=== PATIENT | male | born 1960 | race Hispanic/Latino ===

== ENCOUNTER 2018-05-10 06:26 | Day surgery (SDC) | payer OTHER ==
[2018-05-09 16:53] LABS: Absolute Monocytes 0.5 K/uL (0.1-1.3); Absolute Neutrophil 2.7 K/uL (1.8-8.0); Basophils % 0.6 % (0-1.3); Hematocrit 40.2 % (39.6-49.0); Lymphocytes % 23.3 % (15.3-44.8); MCH 31.3 pg (27.0-35.0); MCV 93.5 fL (80-100); MPV 8.3 fL (7.6-11.3); Monocytes % 10.3 % (3.3-12.3)
[2018-05-09 17:10] LABS: Potassium 4.3 mmol/L (3.5-5.1)
--- OUTSIDE RECORDS SUMMARY | 2018-05-10 06:30 | XMS REPORT ---
:1960 [facility] [address] [place] [address] [place] [address] Care Team Providers Name Role Phone CHRISTEN ALONZO Unavailable Unavailable Problems This patient has no known problems. Allergies, Adverse Reactions, Alerts This patient has no known allergies or adverse reactions. Medications This patient has no known medications. Results Test Description Test Time Test Comments Text Results Atomic Results Result Comments BLOOD CULTURE 2017-09-02 00:00:00 Test Item Value Reference Range Comments CULTURE (ProHatch) (test iesm=3758) No growth in 5 days CARDIOLIPIN ANTIBODIES, IGG AND [id number] 16:01:00 Test Item Value Reference Range Comments ANTICARDIOLIPIN IGG ANTIBODY (ProHatch) (test < GPL wbpp=990) ANTICARDIOLIPIN IGM ANTIBODY (ProHatch) (test 0.6 MPL zirc=840) Anticardiolipin IgG Result Interpretation:NEG: <20 GPL; U/mlPOS: >/=20 GPL; U/mlAnticardiolipin IgM Result Interpretation:NEG: <20 MPL; U/mlPOS: >/=20 MPL; U/mlPROTHROMBIN GENE [id number] 16:58:00 Test Item Value Reference Range Comments PROTHROMBIN/FACTOR II Negative for the [id number] (ProHatch) (test zrty=7776) (Prothrombin/Factor II) mutation. [id number](TOM Mortensen M.D. ([facility] ) (test vopp=5521) signature) This test is a genotyping assay which evaluates the DNA sequence at position 83875 of the prothrombin (Factor II) gene. A region of the prothrombin (Factor II) gene is amplified by polymerase chain reaction followed by fluorescent monitoring of a specific pair of hybridized probes. Since genetic variation and other factors can affect the accuracy of direct mutation testing, these results should be interpreted in light of clinical and familial data.This test was developed and its performance characteristics determined by the [facility] Pathology Department, Section of Molecular Pathology. It has not been cleared or approved by the U.S. Food and Drug Administration (FDA), since FDA approval is not required for clinical use of the test. Validation was done as required by the Clinical Laboratory Improvement Amendments of 1988.FACTOR 5 LEIDEN PCR (THROMBOTIC RISK)2017-08-31 16:54:00 Test Item Value Reference Range Comments FACTOR V LEIDEN (ProHatch) Negative for the R506Q (Factor (test lyrk=716) V Leiden) mutation [id number] ([facility]) Palmer Mortensen M.D. ([facility] (test dogf=6590) signature) This test is a genotyping assay which evaluates the DNA sequence corresponding to Codon 506 of the Factor V Gene. A region of the Factor V Gene is amplified by polymerase chain reaction followed by fluorescent monitoring of a specific pair of hybridized probes. Since genetic variation and other factors can affect the accuracy of direct mutation testing, these results should be interpreted in light ofclinical and familial data.This test was developed and its performance characteristics determined bythe [facility], Section of Molecular Pathology. It has not been cleared or approved by the U.S. Food and Drug Administration (FDA), since FDA approval is not required for clinical use of the test. Validation was done as required by the Clinical Laboratory Improvement Amendments of 1988.ANTITHROMBIN [id number] 11 :09:00 Test Item Value Reference Range Comments ANTITHROMBIN III ACTIVITY (ProHatch) (test lpjn=766) 76.0 % 80.0-120.0 PROTEIN C [id number] 11:09:00 Test Item Value Reference Range Comments PROTEIN C ACTIVITY (ProHatch) (test ojfe=890) 106.0 % 70.0-130.0 MR, MRA CHEST, [id number] 13:27:00FINAL REPORT MRA /MRV of the chest and great veins, 30 August 2017 INDICATION: This is a 57 years old male, with a diagnosis of left internal jugular DVT presents for assessment. This study is performed in attempt to avoid invasive procedure. TECHNIQUE: Due to patient's body habitus, three Maria Fernanda scanner has to be used. Richard INGENIA 3 Maria Fernanda MRI scanner. Gradient echo images were performed for planning purposes. A non-ECG gated, gadolinium enhanced 3-D MRA/MRV was performed in the coronal orientation. Multiplanar reformation was performed using an independent workstation interactively by the dictating physician. The aim of this study is for the assessment of the venous structures. The amount of contrast used and method of administration can be found in the scanned EPIC document. FINDINGS: This study is not optimised in the assessment of extravascular structures. In theright thyroid lobe, a small high signal intensity is identified, however, it is at most 1 cm in size, i.e. less than 1.5 cm, and therefore not clinically significant. The chest wall and mediastinum appears unremarkable. The central pulmonary artery is normal in caliber. Limited imaging of the lungs reveals no gross abnormality though MR is not optimised in the assessment of pulmonary parenchymal lungdisease. Note, small left pleural effusion is identified. The thoracic aorta is normal in course andcalibre. No ectasia or aneurysmal dilation or acute aortic pathology is identified. Arch vessel branching pattern is normal and the visualised arch vessels are widely patent proximally. The left commoncarotid artery arises from the innominate artery, a common variant. The proximal abdominal aorta is normal in course and calibre. At least single left and right renal arteries are seen that are widely patent. At least single left and right renal veins are seen draining normally into the IVC. The origin of the celiac axis and SMA are widely patent proximally. The visualized mesenteric veins also patent. Pulmonary vein morphology is normal with pairs of pulmonary veins identified. Regarding the great veins, the SVC is patent with no venous thrombosis identified. The right subclavian vein, the visualized distal right internal jugular vein, for length of 8 cm, is seen to be patent with no venous thrombosis identified. The right brachiocephalic vein is unremarkable and the right-sided SVC is also unremarkable. The IVC is identified with no interruption identified and no venous thrombus is seen. However, there is essentially near occlusive/occlusive thrombus identified in the visualized 8 cm of the distal left internal jugular vein. Similar finding is also identified in the left brachiocephalic vein, with near occlusive to occlusive thrombus present. Majority of the left subclavian vein is unremarkable though there could be small amount of thrombus seen at the juncture of the left subclavian vein/left brachiocephalic vein. CONCLUSIONS: 1. In this dedicated venous study , the distal 8 cm of the left internal jugular vein and the entire left brachiocephalic vein has near occlusive to occlusive thrombus identified. There is also likely small amount of non-occlusive thrombus identified in the verydistal left subclavian vein. Remainder of the left subclavian vein is widely patent with no venous thrombosis identified. The visualised right IJ, and the right subclavian vein, and the right brachiocephalic vein and the entire SVC is patent with no venous thrombosis identified. The visualised IVC is also unremarkable with no interruption identified. 2. Unremarkable thoracic aorta. No ectasia or aneurysmal dilation is seen. 3. Other findings as described above. This study is not optimised in the assessment of extravascular structures. 4. The preliminary findings were discussed with Dr. Ray, after this study has been completed. Signed: Babak Pedersen MDRort Verified Date/Time: 08/30/2017 13:27:08 Reading Location: [place] [id number] Cardiology MRI Electronically signed by: BABAK PEDERSEN M.D. on 2016 01:27 [id number] 07:31:00 Test Item Value Reference Range Comments PARTIAL THROMBOPLASTIN TIME (BEAKER) (test 60.9 seconds 22.5-36.0 oaxy=476) LIPID [id number] 07:17:00 Test Item Value Reference Range Comments TRIGLYCERIDES (BEAKER) (test mhqf=379) 124 mg/dL CHOLESTEROL (BEAKER) (test ovyp=233) 152 mg/dL HDL CHOLESTEROL (BEAKER) (test mjwx=423) 34 mg/dL LDL CHOLESTEROL CALCULATED (BEAKER) (test 93 mg/dL xjhe=049) Triglyceride Reference Range: Low Risk <150 Borderline 150- 199 High Risk 200-499 Very High Risk >=500Cholesterol Reference Range: Low Risk <200 Borderline 200-239 High Risk > 240HDL Cholesterol Reference Range: Low Risk >=60 High Risk <40LDL Cholesterol Reference Range: Optimal <100 Near Optimal 100-129 Borderline 130-159 High 160-189 Very High >=190BASIC METABOLIC [id number] 07:17:00 Test Item Value Reference Range Comments SODIUM (BEAKER) (test 138 meq/L 136-145 ynpp=455) POTASSIUM (BEAKER) (test 4.1 meq/L 3.5-5.1 ttrj=027) CHLORIDE (BEAKER) (test 104 meq/L 98-107 tbwh=248) CO2 (BEAKER) (test 24 meq/L 22-29 kqkk=206) BLOOD UREA NITROGEN 11 mg/dL 7-21 (BEAKER) (test cyzj=986) CREATININE (BEAKER) (test 0.85 mg/dL 0.57-1.25 oair=448) GLUCOSE RANDOM (BEAKER) 99 mg/dL 70-105 (test dkwo=558) CALCIUM (BEAKER) (test 9.7 mg/dL 8.4-10.2 hrki=007) EGFR (BEAKER) (test mL/min/1.73 sq m INSUFFICIENT CLINICAL DATA chok=6698) TO CALCULATE ESTIMATED GFR. PROTHROMBIN [id number] 06:53:00 Test Item Value Reference Range Comments PROTIME (BEAKER) (test fnlc=704) 15.5 seconds 11.7-14.7 INR (BEAKER) (test nirh=774) 1.2 <=5.9 RECOMMENDED COUMADIN/WARFARIN INR THERAPY RANGESSTANDARD DOSE: 2.0 - 3.0 Includes: PROPHYLAXIS forvenous thrombosis, systemic embolization; TREATMENT for venous thrombosis and/or pulmonary embolus.HIGH RISK: Target INR is 2.5-3.5 for patients with mechanical heart valves.INFLUENZA A H1N1 [id number] 21:35: 00 Test Item Value Reference Range Comments INFLUENZA A RNA (BEAKER) (test Not Detected Not Detected, Inconclusive ztbu=9563) NOVEL H1N1 RNA (BEAKER) (test Not Detected Not Detected, Inconclusive spyc=7573) These assays were performed by real-time RT-PCR (infertility nurse-PCR) utilizing fluorogenic hydrolysis probe technology for the detection of human Influenza A viruses and the differential detection of novel H1N1 Influenza virus in respiratory specimens. The test is composed of (1) an RNA extraction from patient specimen, and (2) infertility nurse-PCR amplification and detection with human Influenza A and novel F9B9-djvaeplx primers and probes. A well-conserved region of the Influenza A matrix gene is targeted in one set of reactions to identify both seasonal Influenza A and novel H1N1 Influenza virus in the specimen. In addition, a specific region of the hemagglutinin gene is targeted to differentiate the novel H1N1 virusfrom the seasonal human influenza. An internal control is used to confirm PCR amplification. Genetic variation and other factors can affect the accuracy of nucleic acid testing; therefore, the resultsshould be interpreted in light of clinical data. This test was developed and its performance characteristics determined by the [facility] Pathology Department, Section of Molecular Pathology. It has not been cleared or approved by the U.S. Food and Drug Administration (FDA). SinceFDA approval is not required for clinical use of the test, validation was done as required by The Clinical Laboratory Amendments of 1988.MR, MRA, BRAIN, [id number] 20: 40:00Please perform MRV of headFINAL REPORT CLINICAL HISTORY: Evaluate for thrombus in subclavian vein TECHNIQUE: 2-D and 3-D time- of-flight and postcontrast MR angiogram of the arch, great vessels, and neck was provided with maximal intensity projection 3-D reconstructions of the arterial vasculature. MR venogram imaging of the head and neck was also performed. COMPARISON: None FINDINGS: There is no evidence for a [place] proximal branch vessel occlusion. There is no evidence for aneurysm. There are bilateral posterior communicating arteries. There is no evidence for hemodynamically significant stenosis in the bilateral internal carotid arteries by NASCET criteria. There is antegrade flow in the vertebral arteries in the neck. The major intradural venous sinuses are patent. The bilateral internal jugular veins are not visualized on either side. There appear to be prominent venous collaterals along the posterior cervical regions. IMPRESSION: The major intradural venous sinuses are patent. However, the bilateral internal jugular veins appear occluded with venous collaterals. Clinical correlation is requested with conventional catheter angiographic confirmation if clinically warranted. Please see the separately reported chest examination for evaluation of the subclavian veins. MRA imaging is unremarkable. Signed: Kandice Daniels MDReport Verified Date/Time: 08/29/2017 20:40:50 Reading Location: [facility] Radiology Reading Room MR, MRA, NECK, [id number] 20:40:00Please perform MRV of neck and upper chest to include subclavian veinFINAL REPORT CLINICAL HISTORY: Evaluate for thrombus in subclavian vein TECHNIQUE: 2-D and 3-D lwgn-rl-hjwnnp and postcontrast MR angiogram of the arch, great vessels, and neck was provided with maximal intensity projection 3-D reconstructions of the arterial vasculature. MR venogram imaging of the head and neck was also performed. COMPARISON: None FINDINGS: There is no evidence for a [place] proximal branch vessel occlusion. There is no evidence for aneurysm. There are bilateral posterior communicating arteries. There is no evidence for hemodynamically significant stenosis in the bilateral internal carotid arteries by NASCET criteria. There is antegrade flow in the vertebral arteries in the neck. The major intradural venous sinuses are patent. The bilateral internal jugular veins are not visualized on either side. There appear to be prominent venous collaterals along the posterior cervical regions. IMPRESSION: The major intradural venous sinuses are patent. However, the bilateral internal jugular veins appear occluded with venous collaterals. Clinical correlation is requested with conventional catheter angiographic confirmation if clinically warranted. Please see the separately reported chest examination for evaluation of the subclavian veins. MRA imaging is unremarkable. Signed: Kandice Daniels MDReport Verified Date/Time: 08/29/2017 20: 40:50 Reading Location: [facility] Radiology Reading Room [facility] METABOLIC [id number] 04:27:00 Test Item Value Reference Range Comments SODIUM (BEAKER) (test 141 meq/L 136-145 pjqb=214) POTASSIUM (BEAKER) (test 4.0 meq/L 3.5-5.1 tmqm=337) CHLORIDE (BEAKER) (test 107 meq/L 98-107 fdlf=177) CO2 (BEAKER) (test 27 meq/L 22-29 oect=092) BLOOD UREA NITROGEN 11 mg/dL 7-21 (BEAKER) (test arhf=918) CREATININE (BEAKER) (test 0.79 mg/dL 0.57-1.25 nldw=842) GLUCOSE RANDOM (BEAKER) 129 mg/dL 70-105 (test arya=252) CALCIUM (BEAKER) (test 9.2 mg/dL 8.4-10.2 ibqa=203) EGFR (BEAKER) (test mL/min/1.73 sq m INSUFFICIENT CLINICAL DATA oepj=6780) TO CALCULATE ESTIMATED GFR. [id number] 04:21:00 Test Item Value Reference Range Comments PARTIAL THROMBOPLASTIN TIME (BEAKER) (test 78.0 seconds 22.5-36.0 lyrp=055) LIPID [id number] 04:19:00 Test Item Value Reference Range Comments TRIGLYCERIDES (BEAKER) (test vbkq=321) 125 mg/dL CHOLESTEROL (BEAKER) (test kyfe=999) 138 mg/dL HDL CHOLESTEROL (BEAKER) (test yqqm=540) 31 mg/dL LDL CHOLESTEROL CALCULATED (BEAKER) (test 82 mg/dL wbot=013) Triglyceride Reference Range: Low Risk <150 Borderline 150- 199 High Risk 200-499 Very High Risk >=500Cholesterol Reference Range: Low Risk <200 Borderline 200-239 High Risk > 240HDL Cholesterol Reference Range: Low Risk >=60 High Risk <40LDL Cholesterol Reference Range: Optimal <100 Near Optimal 100-129 Borderline 130-159 High 160-189 Very High >=190PROTHROMBIN [id number] 04:15:00 Test Item Value Reference Range Comments PROTIME (BEAKER) (test iqju=451) 15.0 seconds 11.7-14.7 INR (BEAKER) (test qlnm=984) 1.2 <=5.9 RECOMMENDED COUMADIN/WARFARIN INR THERAPY RANGESSTANDARD DOSE: 2.0 - 3.0 Includes: PROPHYLAXIS forvenous thrombosis, systemic embolization; TREATMENT for venous thrombosis and/or pulmonary embolus.HIGH RISK: Target INR is 2.5-3.5 for patients with mechanical heart valves.RAD, CHEST, 2 [id number] 00:54: 00Reason for exam:->fever, coughFINAL REPORT EXAMINATION: 2 VIEW CHEST INDICATION: FEVER, COUGH IMPRESSION: No comparison studies are available. There is subtle blunting of the costophrenic sulci suggesting small pleural effusions and/or pleural thickening. Thin curvilinear opacities are again noted in both lungs, most conspicuous at the lung bases. Morphology and distribution favor atelectasis. However, an underlying pneumonia cannot be excluded. The heart size is normal. Mediastinal contours are sharp. Patient is status post placement of a left subclavian Port-A-Cath with the tip projecting over the mediastinum near the midline at the level of the aortic arch. Chest CT could be performed for further characterization. Signed: Fabio Pendleton MDReport Verified Date/Time: 08/29/2017 00:54:23 Reading Location: [address] Reading Room [id number] 21:10:00 Test Item Value Reference Range Comments PARTIAL THROMBOPLASTIN TIME (BEAKER) (test 79.6 seconds 22.5-36.0 moek=813) RAPID INFLUENZA A&B [id number] 13:38:00 Test Item Value Reference Range Comments RAPID INFLUENZA A AG (BEAKER) (test Negative Negative, Inconclusive pmex=5785) RAPID INFLUENZA B AG (BEAKER) (test Negative Negative, Inconclusive type=4368) [id number] 13:14:00 Test Item Value Reference Range Comments PARTIAL THROMBOPLASTIN TIME (BEAKER) (test 47.5 seconds 22.5-36.0 ofet=162) MR, BRAIN, WITHOUT [id number] 08:06:00FINAL REPORT MRI brain Comparison: No priors Reason for exam: Dural venous sinus thrombosis suspected Discussion: Sagittal and coronal T1, axial FLAIR, T2, gradient echo T2 star, diffusion sequences and ADC map images of the brain are provided. There are no intracranial hematomas, mass effect, hydrocephalus, shift , or extra-axial collections. There are no areas of abnormaldiffusion restriction. Minimal white matter T2 and FLAIR hyperintensity likely reflects chronic microvascular ischemic change. Flow-voids are seen in the basilar and internal carotid arteries as well as in the large posterior dural sinuses. There is apparent loss of flow void in the partially imaged left IJ, in this patient with history of IJ thrombosis. The pineal, sella, and craniocervical junctionregions are within normal limits. The visualized orbital contents, skullbase and surrounding soft tissues are unremarkable. The visualized paranasal sinuses and mastoid air cells are unremarkable. Impressions:No acute intracranial process. Known left IJ thrombosis. If there is persistent clinical concern for venous thrombosis, consider further evaluation with MRV. Signed: Eduardo Rivera VerifiedDate/Time: 08/28/2017 08:06:08 Reading Location: [facility] C013V Neuro Reading Room Electronically signed by: EDUARDO RIVERA M.D. on 08:06 AMCALCIUM, [id number] 06:58:00 Test Item Value Reference Range Comments CALCIUM IONIZED (BEAKER) (test fupz=259) 1.16 mmol/L 1.12-1.27 PH, BLOOD (BEAKER) (test wjuo=7721) 7.35 [id number] 06:26:00 Test Item Value Reference Range Comments MAGNESIUM (BEAKER) (test pjuv=777) 2.2 mg/dL 1.6-2.6 LIPID [id number] 06:26:00 Test Item Value Reference Range Comments TRIGLYCERIDES (BEAKER) (test mkac=115) 128 mg/dL CHOLESTEROL (BEAKER) (test hddx=649) 141 mg/dL HDL CHOLESTEROL (BEAKER) (test kwsd=761) 32 mg/dL LDL CHOLESTEROL CALCULATED (BEAKER) (test 83 mg/dL vqvr=093) Triglyceride Reference Range: Low Risk <150 Borderline 150- 199 High Risk 200-499 Very High Risk >=500Cholesterol Reference Range: Low Risk <200 Borderline 200-239 High Risk > 240HDL Cholesterol Reference Range: Low Risk >=60 High Risk <40LDL Cholesterol Reference Range: Optimal <100 Near Optimal 100-129 Borderline 130-159 High 160-189 Very High >=190HEPATIC FUNCTION [id number] 06:26:00 Test Item Value Reference Range Comments TOTAL PROTEIN (BEAKER) (test ulvp=433) 7.1 gm/dL 6.0-8.3 ALBUMIN (BEAKER) (test etya=6370) 3.6 g/dL 3.5-5.0 BILIRUBIN TOTAL (BEAKER) (test vnar=863) 0.6 mg/dL 0.2-1.2 BILIRUBIN DIRECT (BEAKER) (test tmwh=522) 0.3 mg/dL 0.1-0.5 ALKALINE PHOSPHATASE (BEAKER) (test zoiw=156) 94 U/L 40-150 AST (SGOT) (BEAKER) (test bkgi=084) 21 U/L 5-34 ALT (SGPT) (BEAKER) (test dhho=820) 32 U/L 6-55 BASIC METABOLIC [id number] 06:26:00 Test Item Value Reference Range Comments SODIUM (BEAKER) (test 140 meq/L 136-145 lmox=090) POTASSIUM (BEAKER) (test 4.0 meq/L 3.5-5.1 gklm=459) CHLORIDE (BEAKER) (test 106 meq/L 98-107 zndk=753) CO2 (BEAKER) (test 24 meq/L 22-29 aubo=000) BLOOD UREA NITROGEN 14 mg/dL 7-21 (BEAKER) (test ovit=012) CREATININE (BEAKER) (test 0.84 mg/dL 0.57-1.25 uibw=872) GLUCOSE RANDOM (BEAKER) 112 mg/dL 70-105 (test mtxc=789) CALCIUM (BEAKER) (test 9.2 mg/dL 8.4-10.2 glbe=737) EGFR (BEAKER) (test mL/min/1.73 sq m INSUFFICIENT CLINICAL DATA ttwn=3625) TO CALCULATE ESTIMATED GFR. [id number] 06:11:00 Test Item Value Reference Range Comments PARTIAL THROMBOPLASTIN TIME (BEAKER) (test 45.8 seconds 22.5-36.0 ugxi=754) PROTHROMBIN [id number] 06:01:00 Test Item Value Reference Range Comments PROTIME (BEAKER) (test wwkm=458) 13.3 seconds 11.7-14.7 INR (BEAKER) (test wlas=463) 1.0 <=5.9 RECOMMENDED COUMADIN/WARFARIN INR THERAPY RANGESSTANDARD DOSE: 2.0 - 3.0 Includes: PROPHYLAXIS forvenous thrombosis, systemic embolization; TREATMENT for venous thrombosis and/or pulmonary embolus.HIGH RISK: Target INR is 2.5-3.5 for patients with mechanical heart valves.CBC W/PLT COUNT & AUTO [id number] 05:48:00 Test Item Value Reference Range Comments WHITE BLOOD CELL COUNT (BEAKER) (test orwc=195) 5.3 K/ L 3.5-10.5 RED BLOOD CELL COUNT (BEAKER) (test fwzv=589) 4.03 M/ L 4.63-6.08 HEMOGLOBIN (BEAKER) (test ledm=328) 12.5 GM/DL 13.7-17.5 HEMATOCRIT (BEAKER) (test hdle=387) 38.4 % 40.1-51.0 MEAN CORPUSCULAR VOLUME (BEAKER) (test qlxv=954) 95.3 fL 79.0-92.2 MEAN CORPUSCULAR HEMOGLOBIN (BEAKER) (test 31.0 pg 25.7-32.2 ruvu=556) MEAN CORPUSCULAR HEMOGLOBIN CONC (BEAKER) (test 32.6 GM/DL 32.3-36.5 jlqw=922) RED CELL DISTRIBUTION WIDTH (BEAKER) (test 15.5 % 11.6-14.4 bain=438) PLATELET COUNT (BEAKER) (test bzqn=681) 261 K/CU MM 150-450 MEAN PLATELET VOLUME (BEAKER) (test qunn=217) 9.5 fL 9.4-12.4 NUCLEATED RED BLOOD CELLS (BEAKER) (test 0 /100 WBC 0-0 wsat=676) NEUTROPHILS RELATIVE PERCENT (BEAKER) (test 74 % hslc=307) LYMPHOCYTES RELATIVE PERCENT (BEAKER) (test 10 % qufe=284) MONOCYTES RELATIVE PERCENT (BEAKER) (test 13 % tqbs=384) EOSINOPHILS RELATIVE PERCENT (BEAKER) (test 2 % fkkd=491) BASOPHILS RELATIVE PERCENT (BEAKER) (test 0 % eaqp=949) NEUTROPHILS ABSOLUTE COUNT (BEAKER) (test 3.93 K/ L 1.78-5.38 ugdd=666) LYMPHOCYTES ABSOLUTE COUNT (BEAKER) (test 0.52 K/ L 1.32-3.57 jiiq=634) MONOCYTES ABSOLUTE COUNT (BEAKER) (test 0.67 K/ L 0.30-0.82 erlj=694) EOSINOPHILS ABSOLUTE COUNT (BEAKER) (test 0.12 K/ L 0.04-0.54 kzgg=012) BASOPHILS ABSOLUTE COUNT (BEAKER) (test 0.02 K/ L 0.01-0.08 ysiv=837) IMMATURE GRANULOCYTES-RELATIVE PERCENT (BEAKER) 0 % 0-1 (test rqju=6210) [id number] 20:58:00 Test Item Value Reference Range Comments PARTIAL THROMBOPLASTIN TIME (BEAKER) (test 36.8 seconds 22.5-36.0 fxlk=807) Prior to initiating heparinCBC (HEMOGRAM ONLY)2017-08-27 20:37:00 Test Item Value Reference Range Comments WHITE BLOOD CELL COUNT (BEAKER) (test grzt=332) 6.0 K/ L 3.5-10.5 RED BLOOD CELL COUNT (BEAKER) (test gwig=407) 4.29 M/ L 4.63-6.08 HEMOGLOBIN (BEAKER) (test itgu=550) 13.4 GM/DL 13.7-17.5 HEMATOCRIT (BEAKER) (test vmid=630) 40.7 % 40.1-51.0 MEAN CORPUSCULAR VOLUME (BEAKER) (test clvu=723) 94.9 fL 79.0-92.2 MEAN CORPUSCULAR HEMOGLOBIN (BEAKER) (test 31.2 pg 25.7-32.2 izah=142) MEAN CORPUSCULAR HEMOGLOBIN CONC (BEAKER) (test 32.9 GM/DL 32.3-36.5 uzmv=220) RED CELL DISTRIBUTION WIDTH (BEAKER) (test 15.5 % 11.6-14.4 ewmm=341) PLATELET COUNT (BEAKER) (test adww=984) 255 K/CU MM 150-450 MEAN PLATELET VOLUME (BEAKER) (test zend=382) 9.6 fL 9.4-12.4 NUCLEATED RED BLOOD CELLS (BEAKER) (test 0 /100 WBC 0-0 jrph=922)
--- OUTSIDE RECORDS SUMMARY | 2018-05-10 06:30 | XMS REPORT | Clinical Summary ---
:1960 Author Organization [facility] Address [address] [place] [address] Phone Care Team Providers Name Role Phone Unavailable Primary Care Provider Unavailable Allergies No Known Allergies Current Medications Prescription Sig. Disp. Refills Start Date End Date Status enoxaparin Inject 0.8 mLs (120 60 Syringe 2 08/30/2017 Active (LOVENOX) 120 mg total) mg/0.8 mL Syrg subcutaneously every 12 (twelve) hours. lisinopril Take 1 tablet (20 mg 30 tablet 0 08/31/2017 08/31/2018 Active (PRINIVIL,ZESTRIL) total) by mouth 20 MG tablet daily. Active Problems Problem Noted Date Headache 08/28/2017 DVT (deep vein thrombosis) in ([facility]) 08/27/2017 DVT (deep venous thrombosis) ([facility]) 08/27/2017 Encounters Date Type Specialty Care Team Description 08/27/2017 - [facility], Acute deep vein 08/30/2017 Encounter MD Pao thrombosis (DVT) of Enoc Fraser non-extremity Stephanie Mercedes MD vein;Essential Jeanette Ray hypertension;Vincent Ngyuen MD 3 obesity with serious comorbidity and body mass index (BMI) of 45.0 to 49.9 in adult, unspecified obesity type (HCC);Malignant neoplasm of colon, unspecified part of colon (HCC) 08/27/2017 Telephone Critical Care Corey Xiong Mxyv-ry-Nwbi Call Medicine MD Isauro after 05/09/2017 Family History Medical History Relation Name Comments Alcohol abuse Father Diabetes Mother Relation Name Status Comments Father Mother Social History Tobacco Use Types Packs/Day Years Used Date Former Smoker Quit: 08/28/2007 Smokeless Tobacco: Never Used Tobacco Cessation: Counseling Given: Yes Alcohol Use Drinks/Week oz/Week Comments No Sex Assigned at Date Recorded Not on file Last Filed Vital Signs Vital Sign Reading Time Taken Blood Pressure 136/70 08/30/2017 3:55 PM CDT Pulse 68 08/30/2017 3:55 PM CDT Temperature 37.2 C (98.9 F) 08/30/2017 3:55 PM CDT Respiratory Rate 18 08/30/2017 3:55 PM CDT Oxygen Saturation 98% 08/30/2017 3:55 PM CDT Inhaled Oxygen Concentration - - Weight 113.1 kg (249 lb 6.4 oz) 08/30/2017 8:05 AM CDT Height - - Body Mass Index - - Plan of Treatment Not on file Results RHYTHM STRIP - SCAN (08/31/2017 11:50 AM)Prothrombin Gene Mutation (08/30/2017 3:34 PM) Component Value Ref Range Prothrombin/Factor II Negative for the [id number] (Prothrombin/Factor II) mutation. Pathologist: Palmer Mortensen M.D. (electonic signature) Specimen Performing Laboratory Blood [facility] [address] This test is a genotyping assay which evaluates the DNA sequence at position [address]0340 of the prothrombin (Factor II) gene. A region of the prothrombin (Factor II) gene is amplified by polymerase chain reaction followed by fluorescent monitoring of a specific pair of hybridized probes. Since genetic variation and other factors can affect the accuracy of direct mutation testing, these results should be interpreted in light of clinical and familial data. This test was developed and its performance characteristics determined by the [facility] Pathology Department, Section of Molecular Pathology. It has not been cleared or approved by the U.S. Food and Drug Administration (FDA), since FDA approval is not required for clinical use of the test. Validation was done as required by the Clinical Laboratory Improvement Amendments of 1988. Beta-2 glycoprotein antibodies (08/30/2017 3:34 PM) Component Value Ref Range B2 Glcoprotein Ab Profile Refer to individual B2-Glycoprotein IgG, IgM and IgA results. Specimen Performing Laboratory Blood [facility] [address] [address] Protein S activity (08/30/2017 3:34 PM) Component Value Ref Range Protein S Functional 105 70 - 150 % normal Comment: Decreased levels of Protein S activity may be found in patients with hereditary deficiency, warfarin therapy, vitamin k deficiency, liver disease , DIC, or recent thrombosis as well as after surgery. In addition, it may be physiologic in . An elevated Protein S activity is not clinically significant. Only deficiencies are associated with an increased thrombotic risk. Specimen Performing Laboratory Blood [facility] [address] [place] [address] Narrative Performing Lab [facility] [address] [place] [address] Mia Meza MD Protein C activity (08/30/2017 3:34 PM) Component Value Ref Range Protein C Activity 106.0 70.0 - 130.0 % Specimen [place] [address] Cardiolipin Antibodies, IgG and IgM (08/30/2017 3:34 PM) Component Value Ref Range Anticardiolipin IgG <1.6 GPL Anticardiolipin IgM 0.6 MPL Specimen Performing Laboratory Blood [address] [address] Narrative Anticardiolipin IgG Result Interpretation: NEG:<20 GPL;U/ml POS:>/=20 GPL;U/ml Anticardiolipin IgM Result Interpretation: NEG:<20 MPL;U/ml POS:>/=20 MPL;U/ml Factor 5 Leiden PCR (thrombotic risk) (08/30/2017 3:34 PM) Component Value Ref Range Factor V Leiden Negative for the R506Q (Factor V Leiden) mutation Pathologist: Palmer Mortensen M.D. (electonic signature) Specimen Performing Laboratory [address] [address] Narrative This test is a genotyping assay which [...] interpreted in light of clinical and familial data. This test was developed and its performance characteristics determined by the [facility] Pathology Department, Section of Molecular Pathology. It has not been cleared or approved by the U.S. Food and Drug Administration (FDA) , since FDA approval is not required for clinical use of the test. Validation was done as required by the Clinical Laboratory Improvement Amendments of 1988. Antithrombin III (08/30/2017 3:34 PM) Component Value Ref Range Antithrombin III 76.0 (L) 80.0 - 120.0 % Specimen Performing Laboratory Blood [facility] [address] [address] MRA chest without & with IV contrast (08/30/2017 9:11 AM) Specimen Performing Laboratory [facility] Narrative FINAL REPORT MRA/MRV of the chest and great veins, 30 [...] in the assessment of extravascular structures. In the right thyroid lobe, a small high signal intensity is identified, however, it is at most 1 cm in size, i.e. less than 1.5 cm, and therefore not clinically significant. The chest wall and mediastinum appears unremarkable. The central pulmonary artery is normal in caliber. Limited imaging of the lungs reveals no gross abnormality though MR is not optimised in the assessment of pulmonary parenchymal lung disease. Note, small left pleural effusion is identified. The thoracic aorta is normal in course and calibre. No ectasia or aneurysmal dilation or acute aortic pathology is identified. Arch vessel branching pattern is normal and the visualised arch vessels are widely patent proximally. The left common carotid artery arises from the innominate artery, a [...] the left subclavian vein/left brachiocephalic vein. CONCLUSIONS: 1.In this dedicated venous study, the distal 8 cm of the left internal jugular vein and the entire left brachiocephalic vein has near occlusive to occlusive thrombus identified. There is also likely small amount of non-occlusive thrombus identified in the very distal left subclavian vein. Remainder of the left subclavian vein is widely patent with no venous thrombosis identified. The visualised right IJ, and the right subclavian vein, and the right brachiocephalic vein and the entire SVC is patent with no venous thrombosis identified. The visualised IVC is also unremarkable with no interruption identified. 2.Unremarkable thoracic aorta. No ectasia or aneurysmal dilation is seen. 3.Other findings as described above. This study is not optimised in the assessment of extravascular structures. 4.The preliminary findings were discussed with Dr. Ray, after this study has been completed. Signed: Babak Crowell MD Report Verified Date/Time:08/30/2017 13:27:08 Reading Location: [place] [address] Cardiology MRI Procedure Note Interface, External Ris In - 08/30/2017 1:29 PM CDT FINAL REPORT MRA/MRV of the chest and great veins, 31st July 2017 INDICATION: This is a 57 years old male, with a diagnosis of left internal jugular DVT presents for assessment. This study is performed in attempt to avoid invasive procedure. TECHNIQUE: Due to patient's body habitus, three Maria Fernanda scanner has to be used. Richard TraffioIA 3 Maria Fernanda MRI scanner. Gradient echo [...] in the assessment of extravascular structures. In the right thyroid lobe, a small high signal intensity is identified, however, it is at most 1 cm in size, i.e. less than 1.5 cm, and therefore not clinically significant. The chest wall and mediastinum appears unremarkable. The central pulmonary artery is normal in caliber. Limited imaging of the lungs reveals no gross abnormality though MR is not optimised in the assessment of pulmonary parenchymal lung disease. Note, small left pleural effusion is identified. The thoracic aorta is normal in course and calibre. No ectasia or aneurysmal dilation or acute aortic pathology is identified. Arch vessel branching pattern is normal and the visualised arch vessels are widely patent proximally. The left common carotid artery arises from the innominate artery, a [...] vein. CONCLUSIONS: 1. In this dedicated venous study, the distal 8 cm of the left internal jugular vein and the entire left brachiocephalic vein has near occlusive to occlusive thrombus identified. There is also likely small amount of non-occlusive thrombus identified in the very distal left subclavian vein. Remainder of the left [...] this study has been completed. Signed: Babak Crowell MD Report Verified Date/Time: 08/30/2017 13:27:08 Reading Location: [place] [address] Cardiology MRI aPTT (08/30/2017 6:22 AM)Only the most recent of6 resultswithin the time period is included. Component Value Ref Range PTT 60.9 (H) 22.5 - 36.0 seconds Specimen Performing Laboratory Blood [address] [address] Prothrombin time/INR (08/30/2017 6:22 AM)Only the most recent of3 resultswithin the time period is included. Component Value Ref Range Protime 15.5 (H) 11.7 - 14.7 seconds INR 1.2 <=5.9 Specimen Performing Laboratory Blood [address] [address] Narrative RECOMMENDED COUMADIN/WARFARIN INR THERAPY RANGES STANDARD DOSE: 2.0 - 3.0 Includes: PROPHYLAXIS for venous thrombosis, systemic embolization; TREATMENT for venous thrombosis and/or pulmonary embolus. HIGH RISK: Target INR is 2.5-3.5 for patients with mechanical heart valves. Lipid panel (08/30/2017 6:22 AM)Only the most recent of3 resultswithin the time period is included. Component Value Ref Range Triglycerides 124 mg/dL Cholesterol 152 mg/dL HDL 34 mg/dL LDL Calculated 93 mg/dL Specimen Performing Laboratory Blood [address] [address] Narrative Triglyceride Reference Range: Low Risk <150 [id number] High Risk 200-499 Very High Risk>=500 Cholesterol Reference Range: Low Risk <200 [id number] High Risk>240 HDL Cholesterol Reference Range: Low Risk >=60 High Risk <40 LDL Cholesterol Reference Range: Optimal<100 Near Jlobqeh955-190 Hrqeoemvkj209-570 Wmqk294-576 Very High >=190 Basic metabolic panel (08/30/2017 6:22 AM)Only the most recent of3 resultswithin the time period is included. Component Value Ref Range Sodium 138 136 - 145 meq/L Potassium 4.1 3.5 - 5.1 meq/L Chloride 104 98 - 107 meq/L CO2 24 22 - 29 meq/L BUN 11 7 - 21 mg/dL Creatinine 0.85 0.57 - 1.25 mg/dL Glucose 99 70 - 105 mg/dL Calcium 9.7 8.4 - 10.2 mg/dL EGFR Comment: INSUFFICIENT CLINICAL DATA TO CALCULATE mL/min/1.73 sq m ESTIMATED GFR. Specimen Performing Laboratory Blood [address] [address] MRA neck without & with IV contrast (08/29/2017 7:03 PM) Specimen Performing Laboratory [facility] Narrative FINAL REPORT CLINICAL HISTORY: Evaluate for thrombus in subclavian vein TECHNIQUE:2-D and 3-D [id number] and postcontrast MR angiogram of the arch, great vessels, and neck was provided with maximal intensity projection 3-D reconstructions of the arterial vasculature. MR venogram imaging of the head and neck was also performed. COMPARISON: None FINDINGS: There is no evidence for a [place] proximal branch vessel occlusion. There [...] veins. MRA imaging is unremarkable. Signed: Kandice Jacobo MD Report Verified Date/Time:08/29/2017 20:40:50 Reading Location: [facility] Reading Room Procedure Note Interface, External Ris In - 08/29/2017 8:43 PM CDT FINAL REPORT CLINICAL HISTORY: Evaluate for thrombus in subclavian vein TECHNIQUE: 2-D and 3-D [id number] and postcontrast MR angiogram of the arch, great vessels, and neck was provided with maximal intensity projection 3-D reconstructions of the arterial vasculature. MR venogram imaging of the head and neck was also performed. COMPARISON: None FINDINGS: There is no evidence for a [place] proximal branch vessel occlusion. There [...] veins. MRA imaging is unremarkable. Signed: Kandice Jacobo MD Report Verified Date/Time: 08/29/2017 20:40:50 Reading Location: [facility] Radiology Reading Room head with and without contrast (08/29/2017 7:03 PM) Specimen Performing Laboratory [facility] Narrative FINAL REPORT CLINICAL HISTORY: Evaluate for thrombus in subclavian vein TECHNIQUE:2-D and 3-D [id number] and postcontrast MR angiogram of the arch, great vessels, and neck was provided with maximal intensity projection 3-D reconstructions of the arterial vasculature. MR venogram imaging of the head and neck was also performed. COMPARISON: None FINDINGS: There is no evidence for a [place] proximal branch vessel occlusion. There [...] veins. MRA imaging is unremarkable. Signed: Kandice Jacobo MD Report Verified Date/Time:08/29/2017 20:40:50 Reading Location: [facility] Radiology Reading Room Procedure Note Interface, External Ris In - 08/29/2017 8:43 PM CDT FINAL REPORT CLINICAL HISTORY: Evaluate for thrombus in subclavian vein TECHNIQUE: 2-D and 3-D [id number] and postcontrast MR angiogram of the arch, great vessels, and neck was provided with maximal intensity projection 3-D reconstructions of the arterial vasculature. MR venogram imaging of the head and neck was also performed. COMPARISON: None FINDINGS: There is no evidence for a [place] proximal branch vessel occlusion. There [...] veins. MRA imaging is unremarkable. Signed: Kandice Jacobo MD Report Verified Date/Time: 08/29/2017 20:40:50 Reading Location: [facility] Radiology Reading Room CARDIOGRAM REPORT - SCAN (08/29/2017 1:21 PM)2D Echo W/Doppler(CW/PW/Color ) (08/29/2017 10:08 AM) Component Value Ref Range Ejection Fraction Specimen Performing Laboratory [facility] ECHO HEARTLAB MKCKESSON CPACS Narrative Transthoracic Echocardiography Report (TTE) Demographics Patient NamePRIYANKA HENDERSON Date of Study08/29/2017 ANTONI Gender Male Visit [id number] Race Unknown Number [id number] Number Date of 1960 Referring Physician Age 57 year(s) SonographerBrian Macrina [facility] Spinal Surgeon Jazlyn ContrerasInterpreting Augie Perdomo, Physician Procedure Type of Study TTE procedure:2DECHO W/CONTRAST & DOPPLER (Routine) Indications:Evaluation of suspected pulmonary hypertension. Clinical History Cancer Hypertension HGB 12.5 HCT 38.4 % Contrast Medium: Definity. Amount - 2 ml Height: 68 inches Weight: 117.48 kg (259 lbs) BSA: 2.28 m^2 BMI: 39.38 kg/m^2 HR: 70 bpm BP: 150/81 mmHg Summary LV endocardium is well visualized with IV contrast. The left ventricle is chamber size (by vol index) is normal (male - LVED vol - 34-74ml/m2). Mild concentric LV hypertrophy. All of the LV segments are normal. Estimated LVEF by qualitative assessment is normal (55-60%) . Grade 1 diastolic dysfunction (impaired relaxation and low-normal LA pressure). The right ventricular chamber size and systolic function are within normal limits. Unable to estimate peak systolic PA pressure; inadequate TR velocity signal. No significant pericardial effusion is visualized. Previous Study No prior studies available for comparison. Signature Findings Rhythm/BPSinus tachycardia during the exam. Left Ventricle LV endocardium is well visualized with IV contrast. The left ventricle is chamber size (by vol index) is normal (male - LVED vol - 34-74ml/m2). Mild concentric LV hypertrophy. All of the LV segments are normal. Estimated LVEF by qualitative assessment is normal (55-60%) . Grade 1 diastolic dysfunction (impaired relaxation and low-normal LA pressure). Left AtriumLA size is normal (16-34 ml/m2) . Right VentricleThe right ventricular chamber size and systolic function are within normal limits. Right Atrium RA size is normal. Atrial SeptumThe interatrial septum is not well visualized. Aortic Valve Normal AoV structure and function. Mitral Valve Mild MV leaflet thickening. Tricuspid ValveTV structure is normal. A trace of tricuspid regurgitation. Unable to estimate peak systolic PA pressure; inadequate TR velocity signal. Pulmonic Valve Normal PV structure and function. AortaAortic root size (SInus of Valsalva diameter) is normal . PericardiumNo significant pericardial effusion is visualized. IVC/SVC/PA/PV/PleuralThe estimated RA pressure by IVC dynamics 5-10mmHg . Chambers/Structures Left Atrium LA Dimension: 3.97 cmLA Area: 26.18 cm^2 LA Volume: 71.9 ml LA Vol. Index: 32 ml/m^2 Left Ventricle LVIDd: 4.17 cm LV Septum Diastolic: 1.29 cm LV PW Diastolic: 1.28 cm LVEDV BP Hendrickson's:74.8 ml LVESV BP Hendrickson's:31.06 ml LVEF BP Hendrickson's: 58 % LVOT Diameter: 2.21 cm Right Atrium RA Vol. (Sngl Plane): 29.83 ml Aorta Ao Annulus: 2.2 cmAscending Aorta : 3 cm Ao Root S of Nori.: 3.3 cm Shunts QS:88.42 ml Doppler/Quantitative Measurements Mitral Valve MV Peak E-Wave: 0.74 m/sMV Peak A-Wave: 0.73 m/s E/ A Ratio: 1.02 Peak Gradient: 2.21 mmHg Deceleration Time: 243.8 msec Tissue Doppler E' Lateral Velocity: 0.09 m/s E/E': 8.2 LVOT Peak Velocity: 1.29 m/s Peak Gradient: 6.65 mmHg Mean Velocity: 0.79 m/s Mean Gradient: 3 mmHg LVOT Diameter: 2.21 cmLVOT VTI: 23.05 cm LVOT Area: 3.84 cm^2LVOT SV:88.37 ml LVOT CO: 6.19 l/min LVOT CI: 2.71 l/min/m^2 Procedure Note Interface, External Ris In - 08/29/2017 12:57 PM CDT Transthoracic Echocardiography Report (TTE) Demographics Patient Name PRIYANKA HENDERSON Date of Study 08/29/2017 ANTOIN Gender Male Visit Number [id number] Race Unknown Room Number [id number] Number Date of 1960 Referring Physician Age 57 year(s) Environmental Quality Analyst Akilah cShrader RDCS Spinal Surgeon Jazlyn Johnson Interpreting Augie Perdomo Physician Procedure Type of Study TTE procedure:2DECHO W/CONTRAST & DOPPLER (Routine) Indications:Evaluation of suspected pulmonary hypertension. Clinical History Cancer Hypertension HGB 12.5 HCT 38.4 % Contrast Medium: Definity. Amount - 2 ml Height: 68 inches Weight: 117.48 kg (259 lbs) BSA: 2.28 m^2 BMI: 39.38 kg/m^2 HR: 70 bpm BP: 150/81 mmHg Summary LV endocardium is well visualized with IV contrast. The left ventricle is chamber size (by vol index) is normal (male - LVED vol - 34-74ml/m2). Mild concentric LV hypertrophy. All of the LV segments are normal. Estimated LVEF by qualitative assessment is normal (55-60%) . Grade 1 diastolic dysfunction (impaired relaxation and low-normal LA pressure). The right ventricular chamber size and systolic function are within normal limits. Unable to estimate peak systolic PA pressure; inadequate TR velocity signal. No significant pericardial effusion is visualized. Previous Study No prior studies available for comparison. Signature Findings Rhythm/BP Sinus tachycardia during the exam. Left Ventricle LV endocardium is well visualized with IV contrast. The left ventricle is chamber size (by vol index) is normal (male - LVED vol - 34-74ml/m2). Mild concentric LV hypertrophy. All of the LV segments are normal. Estimated LVEF by qualitative assessment is normal (55-60%) . Grade 1 diastolic dysfunction (impaired relaxation and low-normal LA pressure). Left Atrium LA size is normal (16-34 ml/m2) . Right Ventricle The right ventricular chamber size and systolic function are within normal limits. Right Atrium RA size is normal. Atrial Septum The interatrial septum is not well visualized. Aortic Valve Normal AoV structure and function. Mitral Valve Mild MV leaflet thickening. Tricuspid Valve TV structure is normal. A trace of tricuspid regurgitation. Unable to estimate peak systolic PA pressure; inadequate TR velocity signal. Pulmonic Valve Normal PV structure and function. Aorta Aortic root size (SInus of Valsalva diameter) is normal . Pericardium No significant pericardial effusion is visualized. IVC/SVC/PA/PV/Pleural The estimated RA pressure by IVC dynamics 5-10mmHg . Chambers/Structures Left Atrium LA Dimension: 3.97 cm LA Area: 26.18 cm^2 LA Volume: 71.9 ml LA Vol. Index: 32 ml/m^2 Left Ventricle LVIDd: 4.17 cm LV Septum Diastolic: 1.29 cm LV PW Diastolic: 1.28 cm LVEDV BP Hendrickson's:74.8 ml LVESV BP Hendrickson's:31.06 ml LVEF BP Hendrickosn's: 58 % LVOT Diameter: 2.21 cm Right Atrium RA Vol. (Sngl Plane): 29.83 ml Aorta Ao Annulus: 2.2 cm Ascending Aorta: 3 cm Ao Root S of Nori.: 3.3 cm Shunts QS:88.42 ml Doppler/Quantitative Measurements Mitral Valve MV Peak E-Wave: 0.74 m/s MV Peak A-Wave: 0.73 m/s E/A Ratio: 1.02 Peak Gradient: 2.21 mmHg Deceleration Time: 243.8 msec Tissue Doppler E' Lateral Velocity: 0.09 m/s E/E': 8.2 LVOT Peak Velocity: 1.29 m/s Peak Gradient: 6.65 mmHg Mean Velocity: 0.79 m/s Mean Gradient: 3 mmHg LVOT Diameter: 2.21 cm LVOT VTI: 23.05 cm LVOT Area: 3.84 cm^2 LVOT SV:88.37 ml LVOT CO: 6.19 l/min LVOT CI: 2.71 l/min/m^2 XR chest 2 views (08/28/2017 8:57 PM) Specimen Performing Laboratory [facility] Narrative FINAL REPORT EXAMINATION: 2 VIEW CHEST INDICATION: FEVER, [...] could be performed for further characterization. Signed: Akilah Pendleton MD Report Verified Date/Time:08/29/2017 00:54:23 Reading Location: [address] Reading Room Procedure Note Interface, External Ris In - 08/29/2017 12:56 AM CDT FINAL REPORT EXAMINATION: 2 VIEW CHEST INDICATION: FEVER, [...] could be performed for further characterization. Signed: Akilah Pendleton MD Report Verified Date/Time: 08/29/2017 00:54:23 Reading Location: [address] Reading Room Influenza A H1N1 PCR (08/28/2017 12:05 PM) Component Value Ref Range Influenza A RNA Not Detected Not Detected, Inconclusive Novel H1N1 RNA Not Detected Not Detected, Inconclusive Specimen Performing Laboratory Nasal - Nasopharyngeal Swab [address] These assays were performed by real-time RT-PCR (orthopedic radiologic technologist-PCR) utilizing fluorogenic hydrolysis probe technology for the detection of human Influenza A viruses and the differential detection of novel H1N1 Influenza virus in respiratory specimens. The test is composed of (1) an RNA extraction from patient specimen, and (2) orthopedic radiologic technologist- PCR amplification and detection with human Influenza A and novel [id number] primers and probes. A well-conserved region of the Influenza A matrix gene is targeted in one set of reactions to identify both seasonal Influenza A and novel H1N1 Influenza virus in the specimen.In addition, a specific region of the hemagglutinin gene is targeted to differentiate the novel H1N1 virus from the seasonal human influenza. An internal control is used to confirm PCR amplification.Genetic variation and other factors can affect the accuracy of nucleic acid testing; therefore, the results should be interpreted in light of clinical data. This test was developed and its performance characteristics determined by the [facility] Pathology Department, Section of Molecular Pathology.It has not been cleared or approved by the U.S. Food and Drug Administration (FDA).Since FDA approval is not required for clinical use of the test, validation was done as required by The Clinical Laboratory Amendments of 1988. Rapid Influenza A&B Screen (08/28/2017 12:05 PM) Component Value Ref Range Rapid Influenza A Antigen Negative Negative, Inconclusive Rapid influenza B Antigen Negative Negative, Inconclusive Specimen Performing Laboratory Nasal - Nasopharyngeal Swab [address] [address] Calcium, Ionized (08/28/2017 5:20 AM) Component Value Ref Range Calcium, Ion 1.16 1.12 - 1.27 mmol/L pH, Blood 7.35 Specimen Performing Laboratory Blood - Arm, [address] [address] CBC with platelet count + automated diff (08/28/2017 5:20 AM) Component Value Ref Range WBC 5.3 3.5 - 10.5 K/L RBC 4.03 (L) 4.63 - 6.08 M/L Hemoglobin 12.5 (L) 13.7 - 17.5 GM/DL Hematocrit 38.4 (L) 40.1 - 51.0 % MCV 95.3 (H) 79.0 - 92.2 fL MCH 31.0 25.7 - 32.2 pg MCHC 32.6 32.3 - 36.5 GM/DL RDW 15.5 (H) 11.6 - 14.4 % Platelets 261 150 - 450 K/CU MM MPV 9.5 9.4 - 12.4 fL nRBC 0 0 - 0 /100 WBC % Neutros 74 % % Lymphs 10 % % Monos 13 % % Eos 2 % % Baso 0 % # Neutros 3.93 1.78 - 5.38 K/L # Lymphs 0.52 (L) 1.32 - 3.57 K/L # Monos 0.67 0.30 - 0.82 K/L # Eos 0.12 0.04 - 0.54 K/L # Baso 0.02 0.01 - 0.08 K/L Immature Granulocytes-Relative 0 0 - 1 % Specimen Performing Laboratory Blood - Arm, [address] [address] CBC with platelet count + automated diff (08/28/2017 5:20 AM) Specimen Performing Laboratory Blood Narrative The following orders were created for panel order CBC with platelet count + automated diff. Procedure Abnormality Status --------- ------ CBC with platelet count ...[[id number]]AbnormalFinal result Please view results for these tests on the individual orders. Magnesium (08/28/2017 5:20 AM) Component Value Ref Range Magnesium 2.2 1.6 - 2.6 mg/dL Specimen Performing Laboratory Blood - Arm, [address] [address] Hepatic function panel (08/28/2017 5:20 AM) Component Value Ref Range Protein, Total 7.1 6.0 - 8.3 gm/dL Albumin 3.6 3.5 - 5.0 g/dL Total Bilirubin 0.6 0.2 - 1.2 mg/dL Bilirubin, Direct 0.3 0.1 - 0.5 mg/dL Alkaline Phosphatase 94 40 - 150 U/L AST 21 5 - 34 U/L ALT 32 6 - 55 U/L Specimen Performing Laboratory Blood - Arm, [address] [address] MR brain without IV contrast (08/27/2017 10:37 PM) Specimen Performing Laboratory GE RIS Narrative FINAL REPORT MRI brain Comparison:No priors Reason for exam: Dural venous sinus thrombosis suspected Discussion: Sagittal and coronal T1, axial FLAIR, T2, gradient echo T2 star, diffusion sequences and ADC map images of the brain are provided. There are no intracranial hematomas, mass effect, hydrocephalus, shift, or extra-axial collections. There are no areas of abnormal diffusion restriction. Minimal white matter T2 and FLAIR hyperintensity likely reflects chronic microvascular ischemic change. Flow-voids are seen in the basilar and internal carotid arteries as well as in the large posterior dural sinuses. There is apparent loss of flow void in the partially imaged left IJ, in this patient with history of IJ thrombosis. The pineal, sella, and craniocervical junction regions are within normal limits. The visualized orbital contents,skullbase and surrounding soft tissues are unremarkable. The visualized paranasal sinuses and mastoid air cells are unremarkable. Impressions: No acute intracranial process. Known left IJ thrombosis. If there is persistent clinical concern for venous thrombosis, consider further evaluation with MRV. Signed: Eduardo Rivera MD Report Verified Date/Time:08/28/2017 08:06:08 Reading Location: [address] Neuro Reading Room Procedure Note Interface, External Ris In - 08/28/2017 8:08 AM CDT FINAL REPORT MRI brain Comparison: No priors Reason for exam: Dural venous sinus thrombosis suspected Discussion: Sagittal and coronal T1, axial FLAIR, T2, gradient echo T2 star, diffusion sequences and ADC map images of the brain are provided. There are no intracranial hematomas, mass effect, hydrocephalus, shift, or extra-axial collections. There are no areas of abnormal diffusion restriction. Minimal white matter T2 and FLAIR hyperintensity likely reflects chronic microvascular ischemic change. Flow-voids are seen in the basilar and internal carotid arteries as well as in the large posterior dural sinuses. There is apparent loss of flow void in the partially imaged left IJ, in this patient with history of IJ thrombosis. The pineal, sella, and craniocervical junction regions are within normal limits. The visualized orbital contents, skullbase and surrounding soft tissues are unremarkable. The visualized paranasal sinuses and mastoid air cells are unremarkable. Impressions: No acute intracranial process. Known left IJ thrombosis. If there is persistent clinical concern for venous thrombosis, consider further evaluation with MRV. Signed: Eduardo Rivera MD Report Verified Date/Time: 08/28/2017 08:06:08 Reading Location: [address] Neuro Reading Room Blood culture (08/27/2017 8:17 PM) Component Value Ref Range Result No growth in 5 days Specimen Performing Laboratory Blood - Arm, [address] [address] CBC (Hemogram only) (08/27/2017 8:17 PM) Component Value Ref Range WBC 6.0 3.5 - 10.5 K/L RBC 4.29 (L) 4.63 - 6.08 M/L Hemoglobin 13.4 (L) 13.7 - 17.5 GM/DL Hematocrit 40.7 40.1 - 51.0 % MCV 94.9 (H) 79.0 - 92.2 fL MCH 31.2 25.7 - 32.2 pg MCHC 32.9 32.3 - 36.5 GM/DL RDW 15.5 (H) 11.6 - 14.4 % Platelets 255 150 - 450 K/CU MM MPV 9.6 9.4 - 12.4 fL nRBC 0 0 - 0 /100 WBC Specimen Performing Laboratory Blood [facility] [address] [address] after 05/09/2017
[2018-05-10] MEDS ORDERED: Ringers Lactate 1,000 ML IV ONE (06:36)
[2018-05-10] MEDS ORDERED: CEFAZOLIN/SWI 1gm 1 GM/10 ML SYR ONE (06:37)
[2018-05-10] MEDS ORDERED: BUPIVACAINE 0.5% PF 10 ML VIAL ONE (07:21)
[2018-05-10] MEDS ORDERED: LIDOCAINE 1% MPF 5 ML VIAL ONE ×2 (07:30→07:43)
[2018-05-10] MEDS ORDERED: PROPOFOL 200 MG/20 ML VIAL IV ONE (07:30)
[2018-05-10] MEDS ORDERED: FENTANYL CITR 100 MCG/2 ML ONE (07:30)
[2018-05-10] MEDS ORDERED: MIDAZOLAM HCL 2 MG/2 ML INJ ONE (07:30)
--- NOTE | 2018-05-10 08:17 | P.BOP ---
Preoperative diagnosis: colon cancer Postoperative diagnosis: same Primary procedure: Removal of portacath Estimated blood loss: <5cc Specimen: intact portacath Findings: as above Anesthesia: General Complications: None Transferred to: Recovery Room Condition: Good
[2018-05-10] MEDS ORDERED: MORPHINE 4 MG/ML SYR ONE (08:40)
--- NOTE | 2018-05-10 19:45 | OP ---
Date of Procedure: 05/10/2018 Surgeon: Presley Baeza MD Preoperative Diagnosis: Colon cancer. Postoperative Diagnosis: Colon cancer. Procedure: Removal of Port-A-Cath. Specimen: Intact Port-A-Cath. Anesthesia: General plus local. Indications: This is a case of a 57-year-old patient with history of colon cancer, status post chemo therapy for removal of Port-A-Cath. Benefits, alternatives, and risks fully explained, which include , but are not limited to infection, bleeding, damage to adjacent structures, anesthesia complication, pulmonary emboli, ID, or even . He also understands this may not relieve his symptoms. He ruben ht need more than one surgical intervention. He understood. Signed a consent. Description Of Procedure: The patient was brought to the operating room, placed in supine position. Anesthesia was done without complication. A time-out was called. Right chest was prepped and drape d in sterile fashion. An incision was made on the right upper chest after injecting with local anest hetic. Incision was carried down to Port-A-Cath area. Capsule was opened. Port-A-Cath was removed. Pressure was applied at the insertion site for 15 minutes. The area was irrigated and then closed with 3-0 chromic in a subcuticular fashion with Steri-Strips on top. Sponge count and instrument cou nts were correct. The patient tolerated the procedure well. The patient was sent to recovery in sta ble condition. Diagnosis: Colon cancer. Procedure: Removal of Port-A-Cath. Disposition: Home. Activity: As tolerated. No heavy lifting. Follow Up: In my office in 1 week. Call for appointment [phone]. Keep area dry for 48 hours, then may shower. Keep Steri-Strips intact. Medications: See orders. HM/MODL Voice ID: [id number] Report ID: [id number]
== END 2018-05-10 09:30 | disposition home or self-care (01) ==
LOC: OR 06:26
PROVIDERS: ATTEND Surgery
PROC: 02PYX3Z Removal of Infusion Device from Great Vessel, External Approach (ICD-10-PCS; 2018-05-10)
PROC: 0JPT0XZ Removal of Tunneled Vascular Access Device from Trunk Subcutaneous Tissue and Fascia, Open Approach (ICD-10-PCS; principal; 2018-05-10 08:15)
DX: Z45.2 Encounter for adjustment and management of vascular access device (principal); C18.9 Malignant neoplasm of colon, unspecified
CPT/HCPCS: 36415; 80048; 85025; 88300; J0690; J2250; J3010

== ENCOUNTER 2022-07-07 07:49 | Day surgery (SDC) | payer OTHER ==
[2022-07-07 08:31] LABS: Protime INR 1.11
[2022-07-07 08:33] VITALS: TEMP 97.6; BMI 44.3
[2022-07-07] MEDS ORDERED: NA CHLORIDE 0.9% 500 ML ONE (09:14)
[2022-07-07] MEDS ORDERED: MIDAZOLAM HCL 2 MG/2 ML INJ ONE (09:37)
[2022-07-07] MEDS ORDERED: FENTANYL CITR 100 MCG/2 ML ONE (09:37)
[2022-07-07] MEDS ORDERED: NALOXONE 0.4 MG/ML VIAL ONE (09:38)
[2022-07-07] MEDS ORDERED: FLUMAZENIL 0.1 MG/ML (5 mL VIAL) IV ONE (09:38)
[2022-07-07 12:19] VITALS: BP 121/61; O2SAT 98
--- NOTE | 2022-07-08 08:47 | RAD REPORT ---
EXAM DESCRIPTION: CT - Muscle/Soft Bx - 07/07/2022 10:24 am CLINICAL HISTORY: pelvic mass biopsy COMPARISON: No comparisons FINDINGS: Preoperative diagnosis: Perirectal mass Post operative diagnosis: Same Conscious Sedation: 2 mg Versed, 50 mcg Fentanyl. Patient was continuously monitored by nursing staff. Contrast used: NONE Estimated blood loss: less than 5 mL Specimens: 6 x 18 gauge 2 cm cores specimens Postprocedure imaging demonstrated no complications. Samples were given to pathology for analysis. Th e patient tolerated the procedure without immediate complication and transferred to the recovery room in stable condition. All CT scans are performed using dose optimization technique as appropriate and may include automated exposure control or mA/KV adjustment according to patient size. IMPRESSION: Technically successful CT-guided biopsy of a perirectal (deep pelvis) mass. Conscious se dation was utilized.
== END 2022-07-07 11:30 | disposition home or self-care (01) ==
LOC: DS 07:49
PROVIDERS: ATTEND Internal Medicine Hematology & Oncology
PROC: 0JBC0ZX Excision of Pelvic Region Subcutaneous Tissue and Fascia, Open Approach, Diagnostic (ICD-10-PCS; principal; 2022-07-07)
DX: C79.89 Secondary malignant neoplasm of other specified sites (principal); C20 Malignant neoplasm of rectum; I10 Essential (primary) hypertension
CPT/HCPCS: 36415; 85049; 85610; 88305; 85730; 27041; 20206; J2250; J3010; J7040; J2310

== ENCOUNTER 2022-07-26 18:45 | Emergency (ER) | payer OTHER ==
--- OUTSIDE RECORDS SUMMARY | 2022-07-26 19:28 | XMS REPORT | Continuity of Care Document ---
:1960 Author Organization [facility] t Address [address] [place] [address] Care Team Providers Name Role Phone Sharpless Primary Care Physician Dhiraj GALLEGOS, Thomas Guevara Attending Clinician Nabeel Gonsalez DO Attending Clinician Winter Quezada Attending Clinician Reji GALLEGOS, Henrik Conroy Attending Clinician Clari VERDUZCO, Altagracia Golden Attending Clinician + [phone] Cristina GALLEGOS, Joseph Giraldo Attending Clinician Chu GALLEGOS, Nisha Reddy Attending Clinician SHAUN MOREIRA Attending Clinician Unavailable Js GALLEGOS, Eliceo Severino Attending Clinician [phone] Alfie Fernandez NP, Eduarda Beckham Attending Clinician MD HENRIK MENDOZA Attending Clinician Unavailable Audie Damian MD Attending Clinician [phone] Ayan Reynaga WAX CUTTER, Maritza Attending Clinician Henrik Mendoza Attending Clinician Unavailable UNKNOWN Attending Clinician Unavailable ROXI TRAN Attending Clinician Unavailable CHRISTEN ALONZO Attending Clinician Unavailable THOMAS BUENO Admitting Clinician Unavailable MD GIN MERCHANT Admitting Clinician Unavailable HENRIK MENDOZA Admitting Clinician Unavailable MD HENRIK MENDOZA Admitting Clinician Unavailable CHRISTEN ALONZO Admitting Clinician Unavailable Payers Payer Name Policy Type Policy Number Effective Date Expiration Date S ource Problems Condition Condition Condition Status Onset Resolution Last Treating Co mments Source Name Details Category Date Date Treatment Clinician Date Rectal Rectal Disease Active 2017-10 [facility]osp[facility] 00 l Malignant Malignant Disease Active 2017-10 [facility] neoplasm neoplasm 1 st of rectum of rectum 00:00: Hosp khang 00 l Headache Headache Disease [facility] DVT (deep DVT (deep Disease Active 2016-[address] [facility] thrombosis thrombosis 00:00: Me dical ) in ) in 00 Center DVT (deep DVT (deep Disease Active 2016-[address] venous venous [facility] thrombosis thrombosis 00:[facility]: Me dical ) ) 00 Center Allergies, Adverse Reactions, Alerts Allergy Allergy Status Severity Reaction(s) Onset Inactive Treating Comm ents Source Name Type Date Date Clinician No Known DA Active U 2020-0 [facility] [place] [facility] 00[facility] 00 are [facility] No Known DA Active U 2020-0 [facility] Allergie 5[facility] [place] [facility] 00:[facility]: Health 00 are [facility] Family History Family Member Diagnosis Comments Start Date Stop Date Source Natural mother Diabetes [facility] Natural mother Diabetes [facility] Natural mother Hypertension [facility] Natural mother Stroke [facility] father [facility] Social History Social Habit Start Date Stop Date Quantity Comments Source History SDOH [facility] Alcohol Frequency Hospita l History SDOK [facility] Alcohol Std Drinks Hospit al History SDOK [facility] Alcohol Binge Hospital Alcohol intake 2022-05-10 2022-05-10 Ex-drinker [facility] 00:00:00 00:00:00 (finding) Hospital Cigarettes smoked 2022-05-04 2022-05-[address] current (pack per 00:00:00 00:00:00 Hospita l day) - Reported Cigarette 2022-05-04 2022-05-04 [facility] pack-years 00:00:00 00:00:00 Hospital Tobacco Comment 2018-10-18 2018-10-18 social / 1 [facility] 00:00:00 00:00:00 pack/week Hospital Alcohol Comment 2018-10-04 2018-10-04 quit in [address] 00:00:00 00:00:00 Hospital Tobacco use and 2017-08-28 2017-08-[address] [facility] [address] [facility] kes exposure 00:00:00 00:[facility]:00 [facility] Center History of tobacco 2008-10-31 Current smoker Me thodist use 00:00:00 Hospital Sex Assigned At [birth year] [facility] 00:00:00 00:00:00 Hospital Smoking Status Start Date Stop Date Source Ex-smoker 2022-05-04 00:00:00 2022-05-04 00:00:00 [facility] Medications Ordered Filled Start Stop Current Ordering Indication Dosage Frequency Signature Comments Components Source Medication Medication Date Date Medication? Clinician (SIG) Name Name losartan Yes 100mg QD Take 100 Meth liliana (COZAAR) 7-[address] 100 MG 14:56: mouth Hospita tablet 13 every l morning. acetaminoph Yes 500mg Q6H Take 500 M ethodi en 7-[address] (TYLENOL) 14:56: mouth Hospita 500 MG 13 every 6 l tablet (six) hours as needed for mild pain. ciprofloxac No 500mg Q.5D Take 1 Me thodi in (CIPRO) 05-[address] 500 MG 00:00: 04:59 (500 mg Hospita tablet 00 :00 total) by l mouth 2 (two) times a day for 5 days. ferrous 2021- No Take by Method i sulfate 05-04-[address] (IRON ORAL) 08:47: 00:00 Hospi ta 58 :00 l traMADoL 2021-2021- [place] [id number] 50mg Q6H Take 50 mg M ethodi (ULTRAM) 50 05-04 07-[address] mg tablet 08:47: 00:00 every 6 Hosp khang 51 :00 (six) l hours as needed for moderate pain .acute pain. cefdinir 2021- No 300mg Q.5D Take 1 Metho di (OMNICEF) 2 02-[address] 300 MG 00:00: 05:59 (300 mg Hospita capsule 00 :00 total) by l mouth 2 (two) times a day for 7 days. losartan Yes 100mg QD Take 100 Meth liliana (COZAAR) 3-[address] 100 MG 18:31: mouth Hospita tablet 46 every l morning. ferrous Yes Take by Methodi sulfate 3-[address] (IRON ORAL) 18:31: Hospit a 46 l traMADoL Yes [id number] 50mg Q6H Take 50 mg Me thodi (ULTRAM) 50 3-[address] mg tablet 18:31: every 6 Hospi ta 46 (six) l hours as needed for moderate pain .acute pain. acetaminoph Yes 500mg Q6H Take 500 M ethodi en 3-[address] (TYLENOL) 18:31: mouth Hospita 500 MG 46 every 6 l tablet (six) hours as needed for mild pain. traMADoL 2020- No [id number] 50mg Q6H Take 1 Metho di (ULTRAM) 50 3-05 03-13 tablet (50 s t mg tablet 00:00: 05:59 mg total) Ho spita 00 :00 by mouth l every 6 (six) hours as needed for severe pain for up to 7 days .acute pain. cholecalcif 2020- No QD Take by Me thodi mona, 12-22- mouth st vitamin D3, 10:23: 00:00 daily. Hos thomas (VITAMIN D3 01 :00 l ORAL) enoxaparin 2016-10 Yes 120mg Inject 0.[address] (LOVENOX) 0-31 mLs (120 [facility] 120 mg/0.8 00:00: mg total) Me dical mL Syrg 00 subcutaneo Center usly every 12 (twelve) hours. enoxaparin 2016-10 Yes 120mg Inject 0.[address] (LOVENOX) 0-31 mLs (120 [facility] 120 mg/0.8 00:00: mg total) Me dical mL Syrg 00 subcutaneo Center usly every 12 (twelve) hours. Immunizations Ordered Immunization Filled Immunization Date Status Commen ts Source Name Name LOVE COVID-19 2021-02-06 Completed Method[facility] t AD26 VACCINATION 00:00:00 Hospital FLUCELVAX QUAD PF 2018-10-[address] 00:00:00 [facility] FLUCELVAX QUAD PF 2018-10-[address] 00:00:00 Hospital Vital Signs Vital Name Observation Time Observation Value Comments Source Systolic blood 2022-05-06 19:00:00 139 mm[Hg] [facility] pressure Diastolic blood 2022-05-06 19:00:00 85 mm[Hg] [facility] pressure Respiratory rate 2022-05-06 19:00:00 18 /min [facility] Oxygen saturation in 2022-05-06 19:00:00 98 /min [facility] Arterial blood by Pulse oximetry Heart rate 2022-05-06 18:45:00 63 /min [facility] Body temperature 2022-05-06 18:45:00 36.78 Evangelina [facility] Body height 2022-05-06 14:21:00 175.3 cm [facility] Body weight 2022-05-06 14:21:00 135.762 kg [facility] BMI 2022-05-06 14:21:00 44.20 kg/m2 [facility] Systolic blood 2021-01-15 22:22:00 144 mm[Hg] [facility] Hospital pressure Diastolic blood 2021-01-15 22:22:00 70 mm[Hg] [facility] pressure Heart rate 2021-01-15 22:22:00 70 /min [facility] Body temperature 2021-01-15 22:22:00 36.17 Evangelina [facility] Respiratory rate 2021-01-15 22:22:00 18 /min [facility] Oxygen saturation in 2021-01-15 22:22:00 99 /min [facility] Arterial blood by Pulse oximetry Body height 2021-01-15 16:06:26 175.3 cm [facility] Body weight 2021-01-15 16:06:26 122.471 kg [facility] BMI 2021-01-15 16:06:26 39.87 kg/m2 [facility] Procedures Procedure Date / Time Performing Clinician Source Performed SURGICAL PATHOLOGY 2022-05-06 19:47:00 [facility] REQUEST UT AN ELECTIVE 2022-05-06 17:10:00 Winter Quezada spital ENDOTRACHEAL AIRWAY Claudia CYSTOSCOPY, WITH TURBT 2022-05-06 17:04:00 [facility] URINE CULTURE 2022-05-04 15:17:00 [facility] URINALYSIS SCREEN AND 2022-05-04 14:24:00 [facility] MICROSCOPY, WITH REFLEX TO CULTURE PROTHROMBIN TIME WITH INR 2022-05-04 14:18:00 [facility] HEPATIC FUNCTION PANEL 2022-05-04 14:18:00 [facility] FREE PSA 2022-05-04 14:18:00 [facility] HEMOGLOBIN A1C 2022-05-04 14:18:00 [facility] Bernabe ESTIMATED GFR 2022-05-04 14:18:00 [facility] BASIC METABOLIC PANEL 2022-05-04 14:18:00 [facility] CBC HEMOGRAM 2022-05-04 14:18:00 [facility] HIV 1/2 ANTIGEN/ANTIBODY, 2022-05-04 14:18:00 [facility] FOURTH GENERATION, WITH REFLEXES PARTIAL THROMBOPLASTIN 2022-05-04 14:18:00 Dhiraj [facility] TIME (PTT) COVID-19 QUALITATIVE 2022-05-04 14:12:00 Dhiraj [facility] RT-PCR ECG PRE/POST OP 2022-05-04 14:01:22 Dhiraj [facility] MRI PELVIS W WO CONTRAST 2022-04-06 00:38:00 [facility] ABDOMEN W WO CONTRAST 2022-04-06 00:10:[address] [facility] [address] ABD/PELVIC EXTERNAL 2022-02-23 13:42:00 Joseph Evans [facility] STUDY Enzo CT CHEST WO CONTRAST 2021-12-02 02:22:26 Tu, [facility] ABDOMEN WO CONTRAST PELVIS WO CONTRAST URINE CULTURE 2021-12-02 01:57:00 Tu, [facility] URINALYSIS SCREEN AND 2021-12-02 01:32:00 Tu, [facility] MICROSCOPY, WITH REFLEX TO CULTURE HC COMPLETE BLD COUNT 2021-12-02 00:45:00 Tu, [facility] W/AUTO DIFF COMPREHENSIVE METABOLIC 2021-12-02 00:45:00 Tu, [facility] PANEL LIPASE LEVEL 2021-12-02 00:45:00 Tu, [facility] LACTIC ACID LEVEL, SEPSIS 2021-12-02 00:45:00 Tu, [facility] - NOW AND REPEAT 2X EVERY 3 HOURS ESTIMATED GFR 2021-12-02 00:45:00 Tu, [facility] PHOSPHORUS LEVEL 2021-12-02 00:45:00 Tu, [facility] MAGNESIUM LEVEL 2021-12-02 00:45:00 Tu, [facility] B NATRIURETIC PEPTIDE 2021-12-02 00:45:00 Tu, [facility] PROTHROMBIN TIME WITH INR 2021-12-02 00:45:00 Tu, [facility] PARTIAL THROMBOPLASTIN 2021-12-02 00:45:00 Tu, [facility] TIME (PTT) ECG 12-LEAD 2021-12-02 00:44:24 Tu, [facility] ECG ED PRELIMINARY 2021-12-02 00:41:04 Tu, [facility] INTERPRETATION ANESTHESIA INTUBATION 2021-01-15 20:12:00 Lukasz Sal [facility] EXCISION, TUMOR, RECTUM, 2021-01-15 20:01:00 [facility] COVID-19 QUALITATIVE 2021-01-13 21:56:00 [facility] RT-PCR BASIC METABOLIC PANEL 2021-01-13 21:56:00 [facility] Bhavani HC COMPLETE BLD COUNT 2021-01-13 21:56:00 [facility] W/AUTO DIFF Bhavani ESTIMATED GFR 2021-01-13 21:56:00 [facility] ospital Bhavani POC GLUCOSE 2021-01-01 22:19:[facility] 2021-01-01 18:07:[facility] 2021-01-01 14:10:00 [facility] COMPLETE BLD COUNT 2021-01-01 10:25:00 [facility] W[facility]AUTO DIFF POC GLUCOSE 2021-01-01 10:22:00 [facility]SE 2021-01-01 05:57:00 [facility]SE 2021-01-01 01:47:00 [facility]SE 2020-12-31 23:17:00 [facility] COMPLETE BLD COUNT 2020-12-31 20:30:00 Edbrian [facility] W/AUTO DIFF BASIC METABOLIC PANEL 2020-12-31 20:30:00 [facility] MAGNESIUM LEVEL 2020-12-31 20:30:00 Ascencion Ritchie spital PHOSPHORUS LEVEL 2020-12-31 20:30:00 Ascencion Ritchie ospital ESTIMATED GFR 2020-12-31 20:30:00 Ascencion Ritchie spital POC GLUCOSE 2020-12-31 18:08:00 Mendoza, [facility] XR ABDOMEN 1 VW PORTABLE 2020-12-31 16:55:30 [facility] 2020-12-31 13:46:00 Mendoza, [facility] POC GLUCOSE 2020-12-31 10:46:00 Mendoza, [facility] POC GLUCOSE 2020-12-31 05:29:00 Mendoza, [facility] POC GLUCOSE 2020-12-31 01:29:00 Mendoza, [facility] POC GLUCOSE 2020-12-30 22:09:00 Mendoza, [facility] POC GLUCOSE 2020-12-30 18:43:00 Mendoza, [facility] POC GLUCOSE 2020-12-30 14:07:00 Mendoza, [facility] POC GLUCOSE 2020-12-30 10:49:00 Mendoza, [facility] POC GLUCOSE 2020-12-30 04:53:00 Mendoza, [facility] XR ABDOMEN 1 VW PORTABLE 2020-12-30 04:20:00 Mendoza, [facility] POC GLUCOSE 2020-12-29 22:43:00 Mendoza, [facility] POC GLUCOSE 2020-12-29 17:39:00 Mendoza, [facility] POC GLUCOSE 2020-12-29 13:57:00 Mendoza, [facility] BASIC METABOLIC PANEL 2020-12-29 10:00:00 Mp Goyal [facility] Jetsen Casimiro ESTIMATED GFR 2020-12-29 10:00:00 Jasvir Santos ospital Jetsen Casimiro HC COMPLETE BLD COUNT 2020-12-29 09:20:00 [facility] Jetsen Casimiro POC GLUCOSE 2020-12-29 03:04:00 Henrik Mendoza [facility] POC GLUCOSE 2020-12-28 21:45:00 [facility] 2020-12-28 [facility]:07[facility] 2020-12-28 13:59:[facility] COMPLETE BLD COUNT 2020-12-28 10:00:00 [facility] Jetsen Casimiro BASIC METABOLIC PANEL 2020-12-28 10:00:00 [facility] Jetsen Casim[facility] ESTIMATED GFR 2020-12-28 10:00:00 Jasvir Santos ospital Jetsen Casimiro POC GLUCOSE 2020-12-28 02:47:00 Reji [facility] POC GLUCOSE 2020-12-27 22:04:00 Reji [facility] POC GLUCOSE 2020-12-27 18:04:00 Reji [facility] POC GLUCOSE 2020-12-27 13:51:00 Mendoza, [facility] HC COMPLETE BLD COUNT 2020-12-27 10:30:00 Mp Goyal [facility] W/AUTO DIFF Jetsen Casimiro BASIC METABOLIC PANEL 2020-12-27 10:30:00 Mp Goyal [facility] Jetsen Casimiro MAGNESIUM LEVEL 2020-12-27 10:30:00 [facility] Jetsen Casimiro PHOSPHORUS LEVEL 2020-12-27 10:30:00 Mp Goyal [facility] Jetsen Casimiro ESTIMATED GFR 2020-12-27 10:30:00 [facility] Jetsen Casimiro POC GLUCOSE 2020-12-27 01:58:00 [facility] CON[facility] TO OSTOMY CARE 2020-12-26 19:46:09 Mp Goyal [facility] NURSE Jetsen Casimiro ANAEROBIC CULTURE 2020-12-26 16:06:00 Henrik Mendoza [facility] AEROBIC CULTURE 2020-12-26 16:06:00 Reji [facility] GRAM STAIN 2020-12-26 16:06:00 Henrik Mendoza [facility] AFB STAIN 2020-12-26 16:06:00 MendozaHenrik sánchez [facility] SURGICAL PATHOLOGY 2020-12-26 16:04:00 Henrik Mendoza [facility] REQUEST AFB CULTURE 2020-12-26 15:06:00 Hernik Mendoza [facility] UT AN ELECTIVE 2020-12-26 14:38:46 Rosa M Strauss Ho spital ENDOTRACHEAL AIRWAY Rico ARTERIAL LINE 2020-12-26 14:16:28 Cresencio Washington [facility] RESECTION, COLON, 2020-12-26 13:28:00 MendozaHenrik sánchez [facility] LAPAROSCOPIC, ROBOT-ASSISTED CONSULT TO OSTOMY CARE 2020-12-26 12:29:48 [facility]ma Kirkpatrick HC COMPLETE BLD COUNT 2020-12-26 12:10:00 Maritza Lopez [facility] W/AUTO DIFF ECG PRE/POST OP 2020-12-22 16:59:12 Maritza Lopez [facility] COVID-19 QUALITATIVE 2020-12-22 16:49:00 Henrik Mendoza [facility] RT-PCR HC COMPLETE BLD COUNT 2020-12-22 16:41:00 Henrik Mendoza [facility] W/AUTO DIFF COMPREHENSIVE METABOLIC 2020-12-22 16:41:00 Henrik Mendoza [facility] PANEL PARTIAL THROMBOPLASTIN 2020-12-22 16:41:00 Henrik Mendoza [facility] TIME (PTT) PROTHROMBIN TIME WITH INR 2020-12-22 16:41:00 [facility] AND SCREEN 2020-12-22 16:41:00 Maritza Lopez [facility] HEMOGLOBIN A1C 2020-12-22 16:41:00 Maritza Lopez [facility] ESTIMATED GFR 2020-12-22 16:41:00 Henrik Mendoza [facility] [id number] 2020-03-19 00:00:00 HAAER [facility] [id number] 2020-03-18 00:00:00 HAAER [facility] Plan of Care Planned Activity Planned Date Details Comments Source Future Scheduled 2022-07-16 HEPATITIS B VACCINES Met [facility] Test 09:38:05 (1 of 3 - 3-dose series) [code = HEPATITIS B VACCINES (1 of 3 - 3-dose series)] Future Scheduled 2022-07-16 Hepatitis C screening [facility] Test 09:38:05 (procedure) [code = 772741154] Future Scheduled 2022-07-16 COLONOSCOPY SCREENING [facility] Test 09:38:05 [code = COLONOSCOPY SCREENING] Future Scheduled 2022-07-16 SHINGLES VACCINES ([address] [facility] Test 09:38:05 of 2) [code = SHINGLES VACCINES (1 of 2)] Future Scheduled 2022-07-16 COVID-19 VACCINE (2 - Me [facility] Test 09:38:05 Booster for Love series) [code = COVID-19 VACCINE (2 - Booster for Olve series)] Future Scheduled 2022-07-16 INFLUENZA VACCINE [facility] Test 09:38:05 [code = INFLUENZA VACCINE] Future Scheduled 2021-12-01 COVID-19 VACCINE (1) Met [facility] Test 17:13:27 [code = COVID-19 VACCINE (1)] Future Scheduled 2021-12-01 Hepatitis C screening [facility] Test 17:13:27 (procedure) [code = 642780567] Future Scheduled 2021-12-01 COLONOSCOPY SCREENING [facility] Test 17:13:27 [code = COLONOSCOPY SCREENING] Future Scheduled 2021-12-01 SHINGLES VACCINES [facility] Test 17:13:27 (#1) [code = SHINGLES VACCINES (#1)] Future Scheduled 2021-12-01 INFLUENZA VACCINE [facility] Test 17:13:27 [code = INFLUENZA VACCINE] Encounters Start End Encounter Admission Attending Care Care Encounter Source Date/Time Date/Time Type Type Clinicians Facility Department ID 2022-05-04 2022-05-09 Pre-Admiss Thomas Bueno 1.2.840.1 [id number] Methodi 08:30:00 00:05:48 ion Paola 55484.1.1 861 s t Testing 3.430.2.7 Hospit a .3.497788 l .8 2022-05-06 2022-05-06 Hospital Thomas Bueno 1.2.840.1 [id number] Methodi 09:09:00 14:56:00 Encounter Paola 29764.1.[address] 3.430.2.7 Hospit a .3.082482 l .8 2022-05-06 2022-05-06 Surgery Thomas Bueno 1.2.840.1 [id number] Methodi 12:00:00 13:15:00 BrittnyAbida 49615.1.1 763 s t 3.430.2.7 Hospit a .3.503883 l .8 2022-05-06 2022-05-06 Anesthesia Nabeel Gonsalez 1.2.840.1 [id number] Methodi 12:04:00 12:44:00 Event Winter Quezada 07713.1.[address] 3.430.2.7 Hospit a .3.676111 l .8 2022-05-06 2022-05-06 Outpatient THOMAS BUENO [facility] [id number] [place] 00:00:00 00:00:[address] 2022-05-04 2022-05-04 Outpatient THOMAS BUENO [facility] [id number] [place] 00:00:00 00:00:[address] 2022-05-04 2022-05-04 Travel 1.2.840.1 1.2.347.518 [id number] Methodi 00:00:00 00:00:[address] 3.430.2.7 0.2.7.3.698 akhil .3.418821 084.8 l .8 2022-04-16 2022-04-16 Lab Henrik Mendoza 1.2.840.1 [id number] Methodi 06:15:00 06:20:[address] 3.430.2.7 Hospit a .3.110952 l .8 2022-04-162022-04-16 Outpatient MENDOZAHENRIK SÁNCHEZ [facility] [id number] [place] 00:00:00 00:00:[address] 2022-04-05 2022-04-05 [facility] DhirajThomas 1.2.840.1 [id number] Methodi 17:35:02 23:59:00 Encounter Brittny-Delacruz 40799.1.[address] 3.430.2.7 Hospit a .3.944402 l .8 2022-04-05 2022-04-05 [facility] DhirajThomas 1.2.840.1 [id number] Methodi 17:32:39 17:34:00 Encounter Brittny-Delacruz 31110.1.[address] 3.430.2.7 Hospit a .3.191870 l .8 2022-04-05 2022-04-05 Outpatient THOMAS BUENO [facility] [id number] [place] 00:00:00 00:00:[address] 2022-04-05 2022-04-05 Outpatient THOMAS BUENO [facility] [id number] [place] 00:00:00 00:00:[address] 2022-04-05 2022-04-05 Travel 1.2.840.1 1.2.555.037 [id number] Methodi 00:00:00 00:00:[address] 3.430.2.7 0.2.7.3.698 [facility] .3.434691 084.8 l .8 2022-03-30 2022-03-30 Orders Alagugurusa 1.2.840.1 [id number] Methodi 00:00:00 00:00:00 Only my, 03517.1.[address] Altagracia 3.430.2.7 Hospi Golden .3.063188 l .8 2022-03-26 2022-03-26 [facility] Thomas Bueno 1.2.840.1 [id number] Methodi 00:00:00 00:00:00 Orders Brittny-Delacruz 00744.1.1 481 s t 3.430.2.7 Hospit a .3.221755 l .8 2022-02-26 2022-02-26 [facility] Evans, 1.2.840.1 [id number] Methodi 11:08:47 23:59:00 Encounter Joseph 18338.1.[address] [place] 3.430.2.7 Hospit a .3.557315 l .8 2022-02-26 2022-02-26 Outpatient [facility] [id number] [place] 00:00:00 00:00:00 JOSEPH [address] 2021-12-01 2021-12-01 [facility] 1.2.840.1 [id number] Methodi 18:19:00 22:32:[address] 3.430.2.7 Hospit a .3.086326 l .8 2021-12-01 2021-12-01 [id number] [place] 00:00:00 00:00:[address] 2021-12-01 2021-12-01 Travel 1.2.840.1 1.2.740.673 [id number] Methodi 00:00:00 00:00:[address] 3.430.2.7 0.2.7.3.698 spita .3.077794 084.8 l .8 2021-04-09 2021-04-09 Outpatient MADELINE MOREIRA MED 750 0 MADELINE 07:41:00 23:59:00 [facility] 2021-01-15 2021-01-15 [facility] Henrik Mendoza 1.2.840.1 [id number] Methodi 09:58:00 18:31:00 Encounter Rafiq 51827.1.1 122 s t 3.430.2.7 Hospit a .3.907842 l .8 2021-01-15 2021-01-15 Anesthesia other, Eliceo Severino 1.2.8 40.1 [id number] Methodi 15:01:00 16:03:00 Event Eduarda Hess 84987.1.[address] 3.430.2.7 Hospit a .3.164345 l .8 2021-01-15 2021-01-15 Surgery Henrik Mendoza 1.2.840.1 [id number] Methodi 12:00:00 13:40:[address] 3.430.2.7 Hospit a .3.852797 l .8 2021-01-13 2021-01-13 Pre-Admiss Henrik Mendoza 1.2.840.1 [id number] Methodi 16:38:17 17:38:17 ion Rafiq 67254.1.[address] Testing 3.430.2.7 Hospit a .3.307813 l .8 2021-01-13 2021-01-13 Travel 1.2.840.1 1.2.808.402 [id number] Methodi 00:00:00 00:00:[address] 3.430.2.7 0.2.7.3.698 Ho spita .3.271075 084.8 l .8 2021-01-07 2021-01-07 [facility] 1.2.840.1 [id number] Methodi 00:00:00 00:00:00 ion rikki 26197.1.[address] Altagracia 3.430.2.7 Hospi Golden .3.139284 l .8 2020-12-26 2021-01-02 [facility] Henrik Mendoza 1.2.840.1 [id number] Methodi 05:12:00 15:20:00 Encounter Rafiq 57909.1.1 273 s t 3.430.2.7 Hospit a .3.870498 l .8 2020-12-26 2020-12-26 Anesthesia Audie Damian 1.2.840 .1 [id number] Methodi 07:29:00 13:59:00 Event Maritza Lopez [address]2665.1.[address] 3.430.2.7 Hospit a .3.566550 l .8 2020-12-26 2020-12-26 Surgery Henrik Mendoza 1.2.840.1 [id number] [id number] Methodi 07:30:00 12:40:[address] 3.430.2.7 Hospit a .3.977971 l .8 2020-12-25 2020-12-25 Travel 1.2.840.1 1.2.243.274 [id number] Methodi 00:00:00 00:00:[address] 3.430.2.7 0.2.7.3.698 Ho spita .3.537676 084.8 l .8 2020-12-22 2020-12-22 Pre-Admiss Henrik Mendoza 1.2.840.1 [id number] Methodi 07:56:19 08:56:19 ion Rafiq [address]72.1.[address] Testing 3.430.2.7 Hospit a .3.558166 l .8 2020-12-22 2020-12-22 Travel 1.2.840.1 1.2.370.123 [id number] Methodi 00:00:00 00:00:[address] 3.430.2.7 0.2.7.3.698 Ho spita .3.722837 084.8 l .8 2020-12-08 2020-12-08 Travel 1.2.840.1 1.2.620.816 [id number] Methodi 00:00:00 00:00:[address] 3.430.2.7 0.2.7.3.698 Ho spita .3.620164 084.8 l .8 2020-08-25 2020-08-25 Outpatient HENRIK MENDOZA [facility] [id number] [place] 00:00:00 00:00:[address] 2020-03-18 2020-03-25 Inpatient Mendoza, Henrik [facility] DAYS [id number] [facility] 13:15:00 23:34:17 37 [facility] 2020-03-18 2020-03-18 Outpatient Mendoza, Henrik [facility]AN[facility] REF [id number] [facility] 19:10:00 19:10:00 66 [facility] 2020-03-14 2020-03-14 Outpatient UNKNOWN [facility] OUTD [id number] [facility] 13:56:00 13:56:00 01 Psychiatric 2020-02-01 2020-02-01 Outpatient CHELSEA, [facility] [id number] [place] 00:00:00 00:00:00 ROXI Caryl Method i st Results Test Description Test Time Test Comments Results Result Comments Source Surgical pathology request 2022-05-07 21:59:48 Test Item Value Reference Range Interpretation Comme nts Case number (test code = [id number]) [id number] Surgical pathology report (test code = See link below for PDF Lab R eport 9099) Result status (test code = 3970374) This is Final Report for [id number] 3179-2 [facility] [id number] 18:57:00 Test Item Value Reference Range Interpretation Comments Urine culture Mixed pricila Specimen isolate (test <=10-3 col/cc InformationSp ecimen code = 55736-8) Source: Urin [facility]Spec[facility] [id number] 16:34:09 Test Item Value Reference Range Interpretation Comments Ventricular rate (test code = 253) Atrial rate (test code = 255) UT interval (test code = 266) QRSD interval (test code = 260) QT interval (test code = 264) QTC interval (test code = 265) P axis 1 (test code = 267) QRS axis 1 (test code = 268) T wave axis (test code = 270) EKG impression (test Normal sinus code = 273) rhythm-Normal ECG-In automated comparison with ECG of 01-DEC-2021 18:44,-No significant change was found- [facility] SdfopbjlPYJC-JnP-8 (COVID-19) RNA [Presence] in Respiratory specimen by ADAL with probe [id number] 12:52:09 Test Item Value Reference Range Interpretation Comments SARS-CoV-2 (COVID-19) RNA Not detected [Presence] in Respiratory specimen by ADAL with probe detection (test code = 25884-2) Whether patient is employed in a Unknown healthcare setting (test code = 22899-6) Whether the patient has symptoms Unknown related to condition of interest (test code = 04459-6) Whether the patient was Unknown hospitalized for condition of interest (test code = 99356-8) Whether the patient was admitted Unknown to intensive care unit (ICU) for condition of interest (test code = 88378-4) Whether patient resides in a Unknown congregate care setting (test code = 63333-9) status (test code = Unknown 81422-0) Date and time of symptom onset Unknown (test code = 08134-1) ECG 12 [id number] 03:34:45 Test Item Value Reference Range Interpretation Comments Ventricular rate (test code = 253) Atrial rate (test code = 255) UT interval (test code = 266) QRSD interval (test code = 260) QT interval (test code = 264) QTC interval (test code = 265) P axis 1 (test code = 267) QRS axis 1 (test code = 268) T wave axis (test code = 270) EKG impression (test Normal sinus code = 273) rhythm-Normal ECG-In automated comparison with ECG of 22-DEC-2020 10:59,-No significant change was found- [facility] [id number] 17:13:13 Test Item Value Reference Range Interpretation Comments AFB culture No growth Specimen isolate (test after 6 weeks [facility] ecimen code = 543-9) of Source: Absces sSpecimen incubation. Site: Abdomen: pelvic abscess Jasvir RiveraARS-CoV-2 (COVID-19) RNA [Presence] in Respiratory specimen by ADAL with probe [id number] 22:33:30 Test Item Value Reference Range Interpretation Comments SARS-CoV-2 (COVID-19) RNA Not detected Not-Detected [Presence] in Respiratory specimen by ADAL with probe detection (test code = 60279-1) Surgical pathology [id number] 22:44:57 Test Item Value Reference Range Interpretation Comments Case number (test code = [id number]) Surgical pathology See link below for report (test code = PDF Lab Report 225) Result status (test code This is Final Report = [id number]) for [id number] [facility] [id number] 12:59:53 Test Item Value Reference Range Interpretation Comments Anaerobic No anaerobic Specimen culture isolate organisms InformationS pecimen (test code = isolated. Source: Abscess Specimen 552) Site: Abdomen: pelvic abscess [facility] [id number] 20:19:40 Test Item Value Reference Range Interpretation Comments AFB stain No acid fast Specimen (test code = bacilli (AFB) InformationSpe [facility]76-7) seen. Source: Abscess Specimen Site: Abdomen: pelvic abscess [facility] [id number] 20:19:40 Test Item Value Reference Range Interpretation Comments Aerobic culture No growth Specimen isolate (test after 2 days. InformationSp ecimen code = 498) Source: Abscess Specimen Site: Abdomen: pelvic abscess [facility] [id number] 20:19:40Gram stain isolateOccasional WBC'sNo organisms seen Comment: Specimen InformationSpecimen Source: Abs cessSpecimen Site: Abdomen: pelvic abscess [facility] Pre[facility]Post [id number] 13:30:38 Test Item Value Reference Range Interpretation Comments Ventricular rate (test code = 253) Atrial rate (test code = 255) UT interval (test code = 266) QRSD interval (test code = 260) QT interval (test code = 264) QTC interval (test code = 265) P axis 1 (test code = 267) QRS axis 1 (test code = 268) T wave axis (test code = 270) EKG impression (test Normal sinus code = 273) rhythm-Normal ECG-In automated comparison with ECG of 01-FEB-2020 09:53,-No significant change was found- [facility]-CoV-2 (COVID-19) RNA [Presence] in Respiratory specimen by ADAL with probe [id number] 15:56:28 Test Item Value Reference Range Interpretation Comments SARS-CoV-2 (COVID-19) RNA Not detected Not-Detected [Presence] in Respiratory specimen by ADAL with probe detection (test code = 29394-2) SARS-CoV-2 (COVID-19) RNA [Presence] in Respiratory specimen by ADAL with probe [id number] 20:11:47 Test Item Value Reference Range Interpretation Comments SARS-CoV-2 (COVID-19) RNA [Presence] Detected Not-Detected in Respiratory specimen by ADAL with probe detection (test code = 33828-7) CBC W/AUTO [id number] 09:43:00 Test Item Value Reference Range Interpretation Comments WHITE BLOOD CELL (test code = 6.2 x10 3/uL 4.8-10.8 N WBC) RED BLOOD CELL (test code = 3.43 x10 6/uL 4.70-6.10 L RBC) HEMOGLOBIN (test code = HGB) 10.2 g/dL 14.5-20 L HEMATOCRIT (test code = HCT) 31.8 % 42.0-52.0 L MEAN CELL VOLUME (test code = 92.7 fL 80.0-94.0 N MCV) MEAN CELL HGB (test code = MCH) 29.7 pg 27-31 N MEAN CELL HGB CONCENTRATION 32.1 G/DL 33-36.5 L (test code = MCHC) RED CELL DISTRIBUTION WIDTH 14.6 % 12.9-16.9 N (test code = RDW) PLATELET COUNT (test code = 217 150-440 N PLT) MEAN PLATELET VOLUME (test code 9.5 fL 8.9-12.4 N = MPV) NEUTROPHIL % (test code = NT%) 74.8 % 42.2-75.2 N LYMPHOCYTE % (test code = LY%) 11.1 % 20.5-51.1 L MONOCYTE % (test code = MO%) 7.9 % 1.7-9.3 N EOSINOPHIL % (test code = EO%) 5.3 % 0.0-7.0 N BASOPHIL % (test code = BA%) 0.3 % 0-2.5 N NEUTROPHIL # (test code = NT#) 4.66 x10 3/uL 1.80-7.70 N LYMPHOCYTE # (test code = LY#) 0.69 x10 3/uL 1.00-4.80 L MONOCYTE # (test code = MO#) 0.49 x10 3/uL 0.00-0.80 N EOSINOPHIL # (test code = EO#) 0.33 x10 3/uL 0.00-0.45 N BASOPHIL # (test code = BA#) 0.02 x10 3/uL 0.0-0.20 N BASIC METABOLIC [id number] 06:34:00 Test Item Value Reference Range Interpretation Comments SODIUM (test code 139 MMOL/L 136-143 N = NA) POTASSIUM (test 4.1 MMOL/L 3.5-5.1 N code = K) CHLORIDE (test 103 MMOL/L 98-107 N code = CL) CARBON DIOXIDE 24 mmol/L 24-31 N (test code = CO2) GLUCOSE (test code 98 mg/dL 70-104 N = GLU) BLOOD UREA 9.4 MG/DL 7.0-21.0 N NITROGEN (test code = BUN) GLOMERULAR >=60 max >60 The estimated FILTRATION RATE estimate glomerular (test code = GFR) filtration rate is computed usingpatient ra ce, age (>18), sex, and serum creatinin e. If anyof the neede d data elements a re missing the Laboratory zulma ot compute an estimation of t he glomerular filtration rate . CREATININE (test 0.6 mg/dL 0.8-1.5 L code = CREAT) CALCIUM (test code 7.7 mg/dL 8.8-10.2 L = CA) [id number] 06:34:00 Test Item Value Reference Range Interpretation Comments MAGNESIUM (test code = MAG) 2.1 mg/dL 1.4-2.6 N CBC W/AUTO [id number] 06:21:00 Test Item Value Reference Range Interpretation Comments WHITE BLOOD CELL (test code = 5.4 x10 3/uL 4.8-10.8 N WBC) RED BLOOD CELL (test code = 2.97 x10 6/uL 4.70-6.10 L RBC) HEMOGLOBIN (test code = HGB) 9.1 g/dL 14.5-20 L HEMATOCRIT (test code = HCT) 28.0 % 42.0-52.0 L MEAN CELL VOLUME (test code = 94.3 fL 80.0-94.0 H MCV) MEAN CELL HGB (test code = MCH) 30.6 pg 27-31 N MEAN CELL HGB CONCENTRATION 32.5 G/DL 33-36.5 L (test code = MCHC) RED CELL DISTRIBUTION WIDTH 14.6 % 12.9-16.9 N (test code = RDW) PLATELET COUNT (test code = 203 150-440 N PLT) MEAN PLATELET VOLUME (test code 9.8 fL 8.9-12.4 N = MPV) NEUTROPHIL % (test code = NT%) 72.6 % 42.2-75.2 N LYMPHOCYTE % (test code = LY%) 13.2 % 20.5-51.1 L MONOCYTE % (test code = MO%) 10.1 % 1.7-9.3 H EOSINOPHIL % (test code = EO%) 3.3 % 0.0-7.0 N BASOPHIL % (test code = BA%) 0.2 % 0-2.5 N NEUTROPHIL # (test code = NT#) 3.95 x10 3/uL 1.80-7.70 N LYMPHOCYTE # (test code = LY#) 0.72 x10 3/uL 1.00-4.80 L MONOCYTE # (test code = MO#) 0.55 x10 3/uL 0.00-0.80 N EOSINOPHIL # (test code = EO#) 0.18 x10 3/uL 0.00-0.45 N BASOPHIL # (test code = BA#) 0.01 x10 3/uL 0.0-0.20 N B-TYPE NATRIURETIC [id number] 12:23:00 Test Item Value Reference Range Interpretation Comments B-TYPE NATRIURETIC PEPTIDE (test 504 PG/ML 0-100 H code = BNP) - XR CHEST 1 [id number] 07:34:00Patient Name: PRIYANKA HENDERSON Unit No: [id number] EXAMS: CPT CODE: [id number] XR CHEST 1 [id number] CLINICAL HISTORY: chf. LOCATION: A1 FINDINGS: Comparison is made with a previous study dated March 20, 2020. A portable AP view of the chest is dated 03/22/2020 at 0406 hours. There is stable mild cardiomegaly. Right central line has been removed. There is central vascular congestion and diffuse interstitial prominence with stable mild atelectasis/infiltrate at the right lower lung. Mild subsegmental atelectasis at the left lower lung is improved. No pleural effusions. No acute skeletal or soft tissue abnormalities. IMPRESSION: 1. Status post right central line removal. 2. Improved subsegmentalatelectasis at the left lower lung. Stable central vascular congestion, diffuse interstitial prominence, and mild atelectasis/infiltrate at the right lower lung. at 0734 Reported and signed by: AMBROCIO RODAS M.D. CC: Henrik Mendoza MD;Mack Inman MD Technologist: Latia Hager Time: DAP (Gy m2): Air Kerma (mGy): TrscrDt/Tm: 03/22/2020 (0734) by:[email or web address] Printed Date/Time: 03/22/2020 (0737) Name[facility] Phys: Mack Arriaga [address] : 1960 Age:59 Sex: [place] [address] [id number] Loc: P.[id number] 1 Exam Date: 03/22/2020 Status: ADM INPH: FAX: PAGE 1 Signed Report COMPREHENSIVE METABOLIC [id number] 06:56:00 Test Item Value Reference Range Interpretation Comments SODIUM (test code = 137 MMOL/L 136-143 N NA) POTASSIUM (test 3.8 MMOL/L 3.5-5.1 N code = K) CHLORIDE (test code 104 MMOL/L 98-107 N = CL) CARBON DIOXIDE 24 mmol/L 24-31 N (test code = CO2) GLUCOSE (test code 93 mg/dL 70-104 N = GLU) BLOOD UREA NITROGEN 10.2 MG/DL 7.0-21.0 N (test code = BUN) GLOMERULAR >=60 max >60 The estimated FILTRATION RATE estimate glomerular (test code = GFR) filtration rate is computed usingpatient ra ce, age (>18), sex, and serum creatinin e. If anyof the ne eded data elements a re missing the Laboratory zulma ot compute an estimation of t he glomerular filtration rate . CREATININE (test 0.6 mg/dL 0.8-1.5 L code = CREAT) TOTAL PROTEIN (test 5.9 g/dL 6.3-8.3 L code = PROT) ALBUMIN (test code 3.2 G/DL 3.5-5.0 L = ALB) CALCIUM (test code 8.4 mg/dL 8.8-10.2 L = CA) BILIRUBIN TOTAL 1.1 mg/dL 0.2-1.0 H (test code = BILT) SGOT/AST (test code 20 IU/L 10-34 N = AST) SGPT/ALT (test code 17 U/L 10-44 N = ALT) ALKALINE 76 U/L 45-120 N PHOSPHATASE (test code = ALKP) [id number] 06:56:00 Test Item Value Reference Range Interpretation Comments MAGNESIUM (test code = MAG) 2.1 mg/dL 1.4-2.6 N CBC W/AUTO [id number] 06:44:00 Test Item Value Reference Range Interpretation Comments WHITE BLOOD CELL (test code = 6.0 x10 3/uL 4.8-10.8 N WBC) RED BLOOD CELL (test code = 2.76 x10 6/uL 4.70-6.10 L RBC) HEMOGLOBIN (test code = HGB) 8.4 g/dL 14.5-20 L HEMATOCRIT (test code = HCT) 26.0 % 42.0-52.0 L MEAN CELL VOLUME (test code = 94.2 fL 80.0-94.0 H MCV) MEAN CELL HGB (test code = MCH) 30.4 pg 27-31 N MEAN CELL HGB CONCENTRATION 32.3 G/DL 33-36.5 L (test code = MCHC) RED CELL DISTRIBUTION WIDTH 14.6 % 12.9-16.9 N (test code = RDW) PLATELET COUNT (test code = 167 150-440 N PLT) MEAN PLATELET VOLUME (test code 10.3 fL 8.9-12.4 N = MPV) NEUTROPHIL % (test code = NT%) 75.4 % 42.2-75.2 H LYMPHOCYTE % (test code = LY%) 14.2 % 20.5-51.1 L MONOCYTE % (test code = MO%) 7.7 % 1.7-9.3 N EOSINOPHIL % (test code = EO%) 2.2 % 0.0-7.0 N BASOPHIL % (test code = BA%) 0.2 % 0-2.5 N NEUTROPHIL # (test code = NT#) 4.51 x10 3/uL 1.80-7.70 N LYMPHOCYTE # (test code = LY#) 0.85 x10 3/uL 1.00-4.80 L MONOCYTE # (test code = MO#) 0.46 x10 3/uL 0.00-0.80 N EOSINOPHIL # (test code = EO#) 0.13 x10 3/uL 0.00-0.45 N BASOPHIL # (test code = BA#) 0.01 x10 3/uL 0.0-0.20 N [id number] 17:46:00 Test Item Value Reference Range Interpretation Comments POTASSIUM (test code = K) 3.9 MMOL/L 3.5-5.1 N [id number] 17:46:00 Test Item Value Reference Range Interpretation Comments MAGNESIUM (test code = MAG) 2.0 mg/dL 1.4-2.6 N [id number] 17:19:00 Test Item Value Reference Range Interpretation Comments HEMOGLOBIN (test code = HGB) 8.2 g/dL 14.5-20 L [id number] 14:05:00 Test Item Value Reference Range Interpretation Comments HEMOGLOBIN (test code = HGB) 8.2 g/dL 14.5-20 L [id number] 10:56:00 Test Item Value Reference Range Interpretation Comments GLUBED (test code = GLUBED) 100 MG/DL 70-105 N SURGICAL [id number] 09:58:00 RUN DATE: 03/21/20 [facility] - LAB PAGE 1 RUN TIME: 958 Specimen Inquiry RUN USER: INTERFACE ------ ------PATIENT: PRIYANKA HENDERSON [facility] [id number] AGE/SX: 59/M ROOM: [facility] RE03/18/20REG DR: Henrik Mendoza MD : 59 BED: 1 DIS: STATUS: ADM IN TLOC: SPEC #: [id number] RECD:03/19/205 STATUS: MAIRA VARNER #: [id number] NADIR: 03/18/[address] [facility] [address]: Henrik Mendoza MD ENTERED: 03/19/20-1015 SP TYPE: SURG OTHR DR: ORDERED: PATHGM3, PATH SPEC, H E STAIN HISTOLOGY: TISSUE ID BLK PCSCAS LEV / PROCEDURE DISPOSITION ____ ___ ___ ___ ___ ILEOSTOMY A 3 1 TISSUES: A. ILEOSTOMY - Ileostomy CLINICAL HISTORY Rectal Cancer, Parastomal Hernia COMMENT Sections of the specimen demonstrate a small segment of small intestine. In one area thereis an opening with associated mucosal ulceration, granulation tissue, acute and chronic inflammationand reactive changes. The findings are those of an ileostomy site. Also within the specimen container is a separate piece of benign skin. Clinical correlation is recommended. FINAL DIAGNOSIS A-ILEOSTOMY, EXCISION: - Ileostomy. GROSS DESCRIPTION A-ILEOSTOMY: A small segment of intestine which measures 4 x 1.5 x 1.5 cm. There is attached adipose tissue. Near the midportion there is a transmural defect with a granular/friable surface which measures 1.5 x 1 cm. Grossly, this appears to represent a stomasite. The intestinal mucosa is otherwise unremarkable. Also received in the specimen container are separate pieces of partially disrupted intestinal tissue (5 x 2 x 1 cm and 1.5 x 0.5 x 0.5 cm) and a separate piece of skin (1.7 x 1.5 x 1 cm). Genetics Physician sections are submitted as described below inthe section code. SECTION CODE: A1: Presumed stoma site A2-A3: Additional fundraising sale representative sections /th CONTINUED ON NEXT PAGE RUN DATE: 03/21/20 [facility] - LAB PAGE 2 RUN TIME: 958 Specimen Inquiry RUN USER: INTERFACE SPEC #: [id number] PATIENT: PRIYANKA HENDERSON #[id number] (Continued)--- --------- MICROSCOPIC DESCRIPTION Microscopic performed. Signed SIGNATURE ON FILE KhadraMargret MD 03/21/20 0958 END OF REPORT BASIC METABOLIC [id number] 07:03:00 Test Item Value Reference Range Interpretation Comments SODIUM (test code 139 MMOL/L 136-143 N = NA) POTASSIUM (test 3.8 MMOL/L 3.5-5.1 N code = K) CHLORIDE (test 108 MMOL/L 98-107 H code = CL) CARBON DIOXIDE 24 mmol/L 24-31 N (test code = CO2) GLUCOSE (test code 108 mg/dL 70-104 H = GLU) BLOOD UREA 9.2 MG/DL 7.0-21.0 N NITROGEN (test code = BUN) GLOMERULAR >=60 max >60 The estimated FILTRATION RATE estimate glomerular (test code = GFR) filtration rate is computed usingpatient ra ce, age (>18), sex, and serum creatinin e. If anyof the neede d data elements a re missing the Laboratory zulma ot compute an estimation of t he glomerular filtration rate . CREATININE (test 0.8 mg/dL 0.8-1.5 N code = CREAT) CALCIUM (test code 8.0 mg/dL 8.8-10.2 L = CA) [id number] 07:03:00 Test Item Value Reference Range Interpretation Comments MAGNESIUM (test code = MAG) 1.8 mg/dL 1.4-2.6 N CBC W/AUTO [id number] 06:37:00 Test Item Value Reference Range Interpretation Comments WHITE BLOOD CELL (test code = 6.6 x10 3/uL 4.8-10.8 N WBC) RED BLOOD CELL (test code = 2.62 x10 6/uL 4.70-6.10 L RBC) HEMOGLOBIN (test code = HGB) 8.0 g/dL 14.5-20 L HEMATOCRIT (test code = HCT) 24.7 % 42.0-52.0 L MEAN CELL VOLUME (test code = 94.3 fL 80.0-94.0 H MCV) MEAN CELL HGB (test code = MCH) 30.5 pg 27-31 N MEAN CELL HGB CONCENTRATION 32.4 G/DL 33-36.5 L (test code = MCHC) RED CELL DISTRIBUTION WIDTH 15.0 % 12.9-16.9 N (test code = RDW) PLATELET COUNT (test code = 140 150-440 L PLT) MEAN PLATELET VOLUME (test code 10.2 fL 8.9-12.4 N = MPV) NEUTROPHIL % (test code = NT%) 75.8 % 42.2-75.2 H LYMPHOCYTE % (test code = LY%) 13.0 % 20.5-51.1 L MONOCYTE % (test code = MO%) 9.9 % 1.7-9.3 H EOSINOPHIL % (test code = EO%) 0.8 % 0.0-7.0 N BASOPHIL % (test code = BA%) 0.2 % 0-2.5 N NEUTROPHIL # (test code = NT#) 4.98 x10 3/uL 1.80-7.70 N LYMPHOCYTE # (test code = LY#) 0.85 x10 3/uL 1.00-4.80 L MONOCYTE # (test code = MO#) 0.65 x10 3/uL 0.00-0.80 N EOSINOPHIL # (test code = EO#) 0.05 x10 3/uL 0.00-0.45 N BASOPHIL # (test code = BA#) 0.01 x10 3/uL 0.0-0.20 N [id number] 02:00:00 Test Item Value Reference Range Interpretation Comments HEMOGLOBIN (test code = HGB) 7.9 g/dL 14.5-20 L LACTIC [id number] 18:53:00 Test Item Value Reference Range Interpretation Comments LACTIC ACID (test code = LACT) 10.2 mg/dL 4.5-18.0 N BASIC METABOLIC [id number] 18:53:00 Test Item Value Reference Range Interpretation Comments SODIUM (test code 137 MMOL/L 136-143 N = NA) POTASSIUM (test 3.8 MMOL/L 3.5-5.1 N code = K) CHLORIDE (test 107 MMOL/L 98-107 N code = CL) CARBON DIOXIDE 22 mmol/L 24-31 L (test code = CO2) GLUCOSE (test code 124 mg/dL 70-104 H = GLU) BLOOD UREA 11.9 MG/DL 7.0-21.0 N NITROGEN (test code = BUN) GLOMERULAR >=60 max >60 The estimated FILTRATION RATE estimate glomerular (test code = GFR) filtration rate is computed usingpatient ra ce, age (>18), sex, and serum creatinin e. If anyof the neede d data elements a re missing the Laboratory zulma ot compute an estimation of t he glomerular filtration rate . CREATININE (test 0.9 mg/dL 0.8-1.5 N code = CREAT) CALCIUM (test code 7.1 mg/dL 8.8-10.2 L = CA) HGB [id number] 18:28:00 Test Item Value Reference Range Interpretation Comments HEMOGLOBIN (test code = HGB) 8.1 g/dL 14.5-20 L HEMATOCRIT (test code = HCT) 25.1 % 42.0-52.0 L [id number] 13:30:00 Test Item Value Reference Range Interpretation Comments HEMOGLOBIN (test code = HGB) 8.4 g/dL 14.5-20 L BASIC METABOLIC [id number] 06:40:00 Test Item Value Reference Range Interpretation Comments SODIUM (test code = 138 MMOL/L 136-143 N NA) POTASSIUM (test code 4.2 MMOL/L 3.5-5.1 N = K) CHLORIDE (test code = 107 MMOL/L 98-107 N CL) CARBON DIOXIDE (test 21 mmol/L 24-31 L code = CO2) GLUCOSE (test code = 125 mg/dL 70-104 H GLU) BLOOD UREA NITROGEN 21.7 MG/DL 7.0-21.0 H (test code = BUN) GLOMERULAR FILTRATION 51 >60 L The es timated RATE (test code = glomerular filtration GFR) rate is compute d usingpatient ra ce, age (>18), sex, and serum creatinine. If anyof the needed data elements are mi ssing the Laboratory cannot compute an david mation of the glomerul ar filtration rate . CREATININE (test code 1.5 mg/dL 0.8-1.5 N = CREAT) CALCIUM (test code = 7.1 mg/dL 8.8-10.2 L CA) [id number] 06:40:00 Test Item Value Reference Range Interpretation Comments MAGNESIUM (test code = MAG) 1.6 mg/dL 1.4-2.6 N LACTIC [id number] 06:40:00 Test Item Value Reference Range Interpretation Comments LACTIC ACID (test code = LACT) 12.1 mg/dL 4.5-18.0 N CBC W/AUTO [id number] 06:32:00 Test Item Value Reference Range Interpretation Comments WHITE BLOOD CELL (test code = 9.8 x10 3/uL 4.8-10.8 N WBC) RED BLOOD CELL (test code = 2.96 x10 6/uL 4.70-6.10 L RBC) HEMOGLOBIN (test code = HGB) 9.0 g/dL 14.5-20 L HEMATOCRIT (test code = HCT) 27.7 % 42.0-52.0 L MEAN CELL VOLUME (test code = 93.6 fL 80.0-94.0 N MCV) MEAN CELL HGB (test code = MCH) 30.4 pg 27-31 N MEAN CELL HGB CONCENTRATION 32.5 G/DL 33-36.5 L (test code = MCHC) RED CELL DISTRIBUTION WIDTH 14.9 % 12.9-16.9 N (test code = RDW) PLATELET COUNT (test code = 145 150-440 L PLT) MEAN PLATELET VOLUME (test code 9.8 fL 8.9-12.4 N = MPV) NEUTROPHIL % (test code = NT%) 83.7 % 42.2-75.2 H LYMPHOCYTE % (test code = LY%) 8.0 % 20.5-51.1 L MONOCYTE % (test code = MO%) 7.8 % 1.7-9.3 N EOSINOPHIL % (test code = EO%) 0.0 % 0.0-7.0 N BASOPHIL % (test code = BA%) 0.1 % 0-2.5 N NEUTROPHIL # (test code = NT#) 8.17 x10 3/uL 1.80-7.70 H LYMPHOCYTE # (test code = LY#) 0.78 x10 3/uL 1.00-4.80 L MONOCYTE # (test code = MO#) 0.76 x10 3/uL 0.00-0.80 N EOSINOPHIL # (test code = EO#) 0.00 x10 3/uL 0.00-0.45 N BASOPHIL # (test code = BA#) 0.01 x10 3/uL 0.0-0.20 N COMPREHENSIVE METABOLIC [id number] 01:24:00 Test Item Value Reference Range Interpretation Comments SODIUM (test code = 138 MMOL/L 136-143 N NA) POTASSIUM (test code 4.3 MMOL/L 3.5-5.1 N = K) CHLORIDE (test code = 108 MMOL/L 98-107 H CL) CARBON DIOXIDE (test 17 mmol/L 24-31 L code = CO2) GLUCOSE (test code = 132 mg/dL 70-104 H GLU) BLOOD UREA NITROGEN 22.0 MG/DL 7.0-21.0 H (test code = BUN) GLOMERULAR FILTRATION 41 >60 L The es timated RATE (test code = glomerular filtration GFR) rate is compute d usingpatient ra ce, age (>18), sex, and serum creatinine. If anyof the needed data elements are mi ssing the Laboratory cannot compute an david mation of the glomerul ar filtration rate . CREATININE (test code 1.8 mg/dL 0.8-1.5 H = CREAT) TOTAL PROTEIN (test 4.8 g/dL 6.3-8.3 L code = PROT) ALBUMIN (test code = 2.7 G/DL 3.5-5.0 L ALB) CALCIUM (test code = 6.3 mg/dL 8.8-10.2 L CA) BILIRUBIN TOTAL (test 1.2 mg/dL 0.2-1.0 H code = BILT) SGOT/AST (test code = 17 IU/L 10-34 N AST) SGPT/ALT (test code = 19 U/L 10-44 N ALT) ALKALINE PHOSPHATASE 40 U/L 45-120 L (test code = ALKP) LACTIC [id number] 01:13:00 Test Item Value Reference Range Interpretation Comments LACTIC ACID (test 30.6 mg/dL 4.5-18.0 HH Critical V alue reported code = LACT) toFirst Name:MIKI HAYES Last Name:SHAMAR RESULTS READ BACK AND VERIFIEDby PLAURA MORALES, on 03/20/20, @ 011 3. PROTHROMBIN [id number] 01:11:00 Test Item Value Reference Range Interpretation Comments PROTHROMBIN TIME 13.0 SECONDS 10.3-12.9 H PATIENT (test code = PTP) INTERNATIONAL 1.15 INR UNIT 0.9-1.11 H The INR is us eful only NORMAL RATIO (test for monit oring code = INR) anticoagulant therapy.It may be unreliable in t he initial phase o f antigoagulation and in unstable patien ts. Indication for Anticoagulation Recommended INR 1. Prevention of v enous thomboembolism 2.0-3.0in high- risk patients; treat ment of venousthrombosi s and pulmonary embol ism aftera course o f heparin; preven tion of systemicembolis m in a variety of cond itions, including atria l fibrillation an d prothetic tissu e heart valves, 2. Pros thetic mechanical hear t valves; 2.5-3.5recurren t systemic emboli sm. THROMBOPLASTIN TIME [id number] 01:11:00 Test Item Value Reference Range Interpretation Comments THROMBOPLASTIN TIME 21.1 SECONDS 26.0-35.9 L INTERPRE TATIVE PARTIAL (test code = DATA: erapeutic PTT) range: Unfractionated heparin:47 - 71 seconds Argatroban:1.5 to 3 times the basel ine PTT [id number] 01:11:00 Test Item Value Reference Range Interpretation Comments FIBRINOGEN (test code = FIB) 298 mg/dL 200-400 N [id number] 01:11:00 Test Item Value Reference Range Interpretation Comments D-DIMER (test 2251 ng/mL 0-500 HH Critical Value reported code = DDIMER) toFirst Name: PREM Last Name:SHAMAR RESULTS READ BACK AND ISAIAHI Corin PLYNNE, on 0 03/20/20, @ 0111.THE DDIMER METHOD IS USED IN THE EXC LUSION OF DEEP VEINTHROMBOSIS AND/OR PULMONARY EMBOL ISM AND THE CLINICAL CUT-OF F VALUE FOR EXCLUSION (500 NG/ML FEU) OF THESE CONDITION SIS VALIDATED BY THE MANUFACT URER OF THE METHOD. A NEGAT LOCO DDIMER RESULT WHEN COM BINED WITH A CLINICALASSESSM ENT OF LOW PRETEST PROBABI LITY HAS BEEN SHOWN TO HAVEA HIGH NEGATIVE PREDICTIVE VALU E OF DVT OR PE. D-DIMER ANA UES >500 ng/mL ARE NOT DIAGNOS TIC FOR DVT,PEOR DIC WI THOUT OTHER CONFIRMATORY TE STS AND APPROPRIATECLIN ICAL EVALUATIONS. CBC W/AUTO [id number] 01:00:00 Test Item Value Reference Range Interpretation Comments WHITE BLOOD CELL (test code = 9.1 x10 3/uL 4.8-10.8 N WBC) RED BLOOD CELL (test code = 2.65 x10 6/uL 4.70-6.10 L RBC) HEMOGLOBIN (test code = HGB) 8.3 g/dL 14.5-20 L HEMATOCRIT (test code = HCT) 25.4 % 42.0-52.0 L MEAN CELL VOLUME (test code = 95.8 fL 80.0-94.0 H MCV) MEAN CELL HGB (test code = MCH) 31.3 pg 27-31 H MEAN CELL HGB CONCENTRATION 32.7 G/DL 33-36.5 L (test code = MCHC) RED CELL DISTRIBUTION WIDTH 14.2 % 12.9-16.9 N (test code = RDW) PLATELET COUNT (test code = 143 150-440 L PLT) MEAN PLATELET VOLUME (test code 10.1 fL 8.9-12.4 N = MPV) NEUTROPHIL % (test code = NT%) 84.8 % 42.2-75.2 H LYMPHOCYTE % (test code = LY%) 8.0 % 20.5-51.1 L MONOCYTE % (test code = MO%) 7.0 % 1.7-9.3 N EOSINOPHIL % (test code = EO%) 0.0 % 0.0-7.0 N BASOPHIL % (test code = BA%) 0.0 % 0-2.5 N NEUTROPHIL # (test code = NT#) 7.69 x10 3/uL 1.80-7.70 N LYMPHOCYTE # (test code = LY#) 0.73 x10 3/uL 1.00-4.80 L MONOCYTE # (test code = MO#) 0.64 x10 3/uL 0.00-0.80 N EOSINOPHIL # (test code = EO#) 0.00 x10 3/uL 0.00-0.45 N BASOPHIL # (test code = BA#) 0.00 x10 3/uL 0.0-0.20 N - XR CHEST 1 [id number] 00:24:00Patient Name: PRIYANKA HENDERSON Unit No: [id number] EXAMS: CPT CODE: [id number] XR CHEST 1 V [id number] EXAMINATION: - XR CHEST 1 V LOCATION: H61 INDICATION/CLINICAL HISTORY: s/p exp lap COMPARISON: C hest x-ray 03/19/2020 TECHNIQUE: Frontal view of the chest. FINDINGS: Lines/device:Interval placementof right IJ central venous catheter with tip located at the cavoatrial junction. Cardiomediastinal silhouette: Normal. Pulmonary vasculature: Not congested. Lungs/pleura: Low lung volumes. Perihilar and left basilar streaky opacities are most likely atelectasis. No consolidation. No appreciable pneumothorax or pleural effusion. Upper abdomen: No subdiaphragmatic free air. Regional osseous structures: Intact. IMPRESSION: 1. Well-positioned right IJ central venous catheter. 2. Low lung volume with pe rihilar and left basilar atelectasis. at 0024 Reported and signed by: Ruiz Pinto M.D. CC: Henrik Mendoza MD; Alley Person NP Technologist: Ileana Hager Time: DAP (Gy m2): Air Kerma (mGy): Trscr Dt/Tm: 03/20/2020 (0024) by:[email or web address] Date/Time: 03/20/2020 (0027) Name: [facility] Phys: Alley Huynh NP [address] : 1960 Age: 59 Sex: [place] [address] Loc: P.0206 1 Exam Date: 03/19/2020 Status: ADM IN PH: FAX: PAGE 1 Signed ReportHGB [id number] 18:48:00 Test Item Value Reference Range Interpretation Comments HEMOGLOBIN (test code = HGB) 8.3 g/dL 14.5-20 L HEMATOCRIT (test code = HCT) 26.2 % 42.0-52.0 L LACTIC [id number] 17:54:00 Test Item Value Reference Range Interpretation Comments LACTIC ACID (test 42.2 mg/dL 4.5-18.0 HH Critical V alue reported code = LACT) toFirst Name:DI AASHISH Last Name:BANDAR BANGURA READ BACK AND VERIFIEDby PLAURA TapiaRS, on 03/19/20, @ 175 2. [id number] 16:26:00 Test Item Value Reference Range Interpretation Comments TROPONIN-I (test < 0.30 ng/mL 0.00-0.30 N INTERPRETAT LOCO code = TROPI) DATA:Negative or inconclusive re uslts do not exclude myocardialinfar ction. Serial tests at appropriate int ervals may benecessary. LACTIC [id number] 16:04:00 Test Item Value Reference Range Interpretation Comments LACTIC ACID (test 35.9 mg/dL 4.5-18.0 HH Critical V alue reported code = LACT) toFirst Name: L ast Name:DR LOVE RESULTS READ BACK AND V ERIFIEDby PRABIARS, on , @ 1604. - XR CHEST 1 [id number] 14:51:00Patient Name: PRIYANKA HENDERSON Unit No: [id number] EXAMS: CPT CODE: [id number] XR CHEST 1 V [id number] CLINICAL HISTORY: Shock. LOCATION: A1 FINDINGS: No comparison studies. A portable AP view of the chest is dated 03/19/2020 at 1411 hours. Evaluation is limited by patient rotation to the right. There appears to be mild cardiomegaly. There is mild atelectasis/infiltrate at the left lower lung. No pleural effusions. There are mild degenerative changes at the acromioclavicular joints. IMPRESSION: 1. There is mild atelectasis/infiltrate at the left lower lung. 2. There is mild cardiomegaly. at 1451 Reported and signed by: AMBROCIO RODAS M.D. CC: Ezio Aragon MD; Henrik Mendoza MD Technologist: Henrique Hager Time: DAP (Gy m2): Air Kerma (mGy): Trscr Dt/Tm: 03/19/2020 (1451) by:[email or web address] Printed Date/Time: 03/19/2020 (0035) [facility] - Ezio Aragon MD [address] DOB: 1960 Age: 59 Sex: M [place] [address] Loc: P.0206 1 Exam Date: 03/19/2020 Status: ADM IN PH: FAX: PAGE 1 Signed Report- XR ABDOMEN [id number] 14:49:00 Patient Name: PRIYANKA HENDERSON Unit No: [id number] EXAMS: CPT CODE: [id number] XR ABDOMEN 1V 69231 Exam:Abdomen KUB radiograph one view Location: W1 Clinical Indication:67-year-old with shock Comparison:None Findings:AP views of the abdomen and pelvis were obtained. There is mild gaseous distention of both small and large bowel. There is stool within the ascending colon. No obvious free air.No acute osseous abnormality. Impression: Nonobstructed bowel gas pattern. at 1449 Reported and signed by: William Eli MD CC: Ezio Aragon MD; Henrik Mendoza MD Technologist: Henrique Hager Time: DAP (Gy m2): Air Kerma (mGy): Trscr Dt /Tm: 03/19/2020 (1449) by:[email or web address] Printed Date/Time: 03/19/2020 (4695) Name: [facility] Phys: ROEL. - Ezio Aragon MD [address] DOB: 1960 Age: 59 Sex: M [place] [address] Loc: P.0206 1 Exam Date: 03/19/2020 Status: ADM IN PH: FAX: PAGE 1 Signed ReportBASIC METABOLIC [id number] 14:25:00 Test Item Value Reference Range Interpretation Comments SODIUM (test code 139 MMOL/L 136-143 N = NA) POTASSIUM (test 3.7 MMOL/L 3.5-5.1 N code = K) CHLORIDE (test 100 MMOL/L 98-107 N code = CL) CARBON DIOXIDE 29 mmol/L 24-31 N (test code = CO2) GLUCOSE (test code 106 mg/dL 70-104 H = GLU) BLOOD UREA 9.2 MG/DL 7.0-21.0 N NITROGEN (test code = BUN) GLOMERULAR >=60 max >60 The estimated FILTRATION RATE estimate glomerular (test code = GFR) filtration rate is computed usingpatient ra ce, age (>18), sex, and serum creatinin e. If anyof the neede d data elements a re missing the Laboratory zulma ot compute an estimation of t he glomerular filtration rate . CREATININE (test 0.8 mg/dL 0.8-1.5 N code = CREAT) CALCIUM (test code 9.6 mg/dL 8.8-10.2 N = CA) [id number] 14:25:00 Test Item Value Reference Range Interpretation Comments PHOSPHOROUS (test code = PHOS) 3.2 mg/dL 2.7-4.5 N [id number] 14:25:00 Test Item Value Reference Range Interpretation Comments MAGNESIUM (test code = MAG) 1.8 mg/dL 1.4-2.6 N LACTIC [id number] 12:59:00 Test Item Value Reference Range Interpretation Comments LACTIC ACID (test 34.6 mg/dL 4.5-18.0 HH Critical V alue reported code = LACT) toFirst Name:JOSE A ROBERSON Last Name:ALONDRA CHRISTOMony READ BACK AND VERIFIEDby STACEY RAYA, on 03/19/20, @ 125 9. PROTHROMBIN [id number] 12:13:00 Test Item Value Reference Range Interpretation Comments PROTHROMBIN TIME 13.2 SECONDS 10.3-12.9 H PATIENT (test code = PTP) INTERNATIONAL 1.16 INR UNIT 0.9-1.11 H The INR is us eful only NORMAL RATIO (test for monit oring code = INR) anticoagulant therapy.It may be unreliable in t he initial phase o f antigoagulation and in unstable patien ts. Indication for Anticoagulation Recommended INR 1. Prevention of v enous thomboembolism 2.0-3.0in high- risk patients; treat ment of venousthrombosi s and pulmonary embol ism aftera course o f heparin; preven tion of systemicembolis m in a variety of cond itions, including atria l fibrillation an d prothetic tissu e heart valves, 2. Pros thetic mechanical hear t valves; 2.5-3.5recurren t systemic emboli sm. THROMBOPLASTIN TIME [id number] 12:13:00 Test Item Value Reference Range Interpretation Comments THROMBOPLASTIN TIME 27.7 SECONDS 26.0-35.9 N INTERPRE TATIVE PARTIAL (test code = DATA: erapeutic PTT) range: Unfractionated heparin:47 - 71 seconds Argatroban:1.5 to 3 times the basel ine PTT CBC W/AUTO [id number] 12:06:00 Test Item Value Reference Range Interpretation Comments WHITE BLOOD CELL (test code = 14.1 x10 3/uL 4.8-10.8 H WBC) RED BLOOD CELL (test code = 3.66 x10 6/uL 4.70-6.10 L RBC) HEMOGLOBIN (test code = HGB) 11.2 g/dL 14.5-20 L HEMATOCRIT (test code = HCT) 35.6 % 42.0-52.0 L MEAN CELL VOLUME (test code = 97.3 fL 80.0-94.0 H MCV) MEAN CELL HGB (test code = 30.6 pg 27-31 N MCH) MEAN CELL HGB CONCENTRATION 31.5 G/DL 33-36.5 L (test code = MCHC) RED CELL DISTRIBUTION WIDTH 13.9 % 12.9-16.9 N (test code = RDW) PLATELET COUNT (test code = 353 150-440 N PLT) MEAN PLATELET VOLUME (test 10.0 fL 8.9-12.4 N code = MPV) NEUTROPHIL % (test code = NT%) 85.3 % 42.2-75.2 H LYMPHOCYTE % (test code = LY%) 7.4 % 20.5-51.1 L MONOCYTE % (test code = MO%) 6.8 % 1.7-9.3 N EOSINOPHIL % (test code = EO%) 0.0 % 0.0-7.0 N BASOPHIL % (test code = BA%) 0.1 % 0-2.5 N NEUTROPHIL # (test code = NT#) 12.04 x10 3/uL 1.80-7.70 H LYMPHOCYTE # (test code = LY#) 1.04 x10 3/uL 1.00-4.80 N MONOCYTE # (test code = MO#) 0.96 x10 3/uL 0.00-0.80 H EOSINOPHIL # (test code = EO#) 0.00 x10 3/uL 0.00-0.45 N BASOPHIL # (test code = BA#) 0.01 x10 3/uL 0.0-0.20 N ARTERIAL BLOOD [id number] 11:43:00 Test Item Value Reference Range Interpretation Comments ARTERIAL BLOOD GAS PH (test 7.34 7.35-7.45 L code = PHA) ARTERIAL BLOOD GAS PCO2 (test 35.0 mmHg 35.0-45.0 N code = PCO2A) ARTERIAL BLOOD GAS PO2 (test 151.0 mmHg 80.0-95.0 H code = PO2A) BICARBONATE TOTAL HCO3 (test 19.1 mmol/L 22.0-24.0 L code = HCO3) BASE EXCESS (test code = DEEJAY) -5.8 mmol/L (+/-)2.0 L ABG O2 SATURATION (test code = 97.3 % 95.0-100.0 N SATA) ABG TYPE (test code = TYPEA) O2 ADJ ARTERIAL FIO2 (test code = 40 % FIO2A) ABG L/M (test code = L/M) 5 L/MIN ABG DELIVERY (test code = PARAG) NASAL CANNULA ABG VENT MODE (test code = NC MODEA) ABG PATIENT RESP RATE (test 16 /MIN 12-20 N code = RRPATA) ABG SITE (test code = SITEA) RBA ALLENS TEST (test code = N/A ALLENS) TOTAL HGB (test code = THB) 11.8 g/dL 13.0-17.0 L METHEMOGLOBIN (test code = <0.8 % 0-1.5 N METHGB) BASIC METABOLIC [id number] 07:02:00 Test Item Value Reference Range Interpretation Comments SODIUM (test code 141 MMOL/L 136-143 N = NA) POTASSIUM (test 4.5 MMOL/L 3.5-5.1 N code = K) CHLORIDE (test 104 MMOL/L 98-107 N code = CL) CARBON DIOXIDE 25 mmol/L 24-31 N (test code = CO2) GLUCOSE (test code 143 mg/dL 70-104 H = GLU) BLOOD UREA 14.4 MG/DL 7.0-21.0 N NITROGEN (test code = BUN) GLOMERULAR >=60 max >60 The estimated FILTRATION RATE estimate glomerular (test code = GFR) filtration rate is computed usingpatient ra ce, age (>18), sex, and serum creatinin e. If anyof the neede d data elements a re missing the Laboratory zulma ot compute an estimation of t he glomerular filtration rate . CREATININE (test 1.0 mg/dL 0.8-1.5 N code = CREAT) CALCIUM (test code 8.9 mg/dL 8.8-10.2 N = CA) [id number] 07:02:00 Test Item Value Reference Range Interpretation Comments MAGNESIUM (test code = MAG) 2.1 mg/dL 1.4-2.6 N CBC W/AUTO [id number] 06:45:00 Test Item Value Reference Range Interpretation Comments WHITE BLOOD CELL (test code = 9.6 x10 3/uL 4.8-10.8 N WBC) RED BLOOD CELL (test code = 4.30 x10 6/uL 4.70-6.10 L RBC) HEMOGLOBIN (test code = HGB) 13.1 g/dL 14.5-20 L HEMATOCRIT (test code = HCT) 40.4 % 42.0-52.0 L MEAN CELL VOLUME (test code = 94.0 fL 80.0-94.0 N MCV) MEAN CELL HGB (test code = MCH) 30.5 pg 27-31 N MEAN CELL HGB CONCENTRATION 32.4 G/DL 33-36.5 L (test code = MCHC) RED CELL DISTRIBUTION WIDTH 13.6 % 12.9-16.9 N (test code = RDW) PLATELET COUNT (test code = 250 150-440 N PLT) MEAN PLATELET VOLUME (test code 9.8 fL 8.9-12.4 N = MPV) NEUTROPHIL % (test code = NT%) 80.3 % 42.2-75.2 H LYMPHOCYTE % (test code = LY%) 11.2 % 20.5-51.1 L MONOCYTE % (test code = MO%) 8.3 % 1.7-9.3 N EOSINOPHIL % (test code = EO%) 0.0 % 0.0-7.0 N BASOPHIL % (test code = BA%) 0.1 % 0-2.5 N NEUTROPHIL # (test code = NT#) 7.73 x10 3/uL 1.80-7.70 H LYMPHOCYTE # (test code = LY#) 1.08 x10 3/uL 1.00-4.80 N MONOCYTE # (test code = MO#) 0.80 x10 3/uL 0.00-0.80 N EOSINOPHIL # (test code = EO#) 0.00 x10 3/uL 0.00-0.45 N BASOPHIL # (test code = BA#) 0.01 x10 3/uL 0.0-0.20 N Novel Coronavirus 2019 [id number] 07:29:00 Test Item Value Reference Range Interpretation Comments Novel Coronavirus 2019 Inhouse (test Negative Negative code = COVNONPUI) Testing Criteria: Preprocedure ScreeningNovel Coronavirus 2019 [facility] 2020-03-17 07:29:00 Test Item Value Reference Range Interpretation Comments Novel Coronavirus 2019 Inhouse (test Negative Negative code = COVNONPUI) Testing Criteria: Preprocedure ScreeningBASIC METABOLIC [id number] 14:31:00 Test Item Value Reference Range Interpretation Comments SODIUM (test code 142 MMOL/L 136-143 N = NA) POTASSIUM (test 4.5 MMOL/L 3.5-5.1 N code = K) CHLORIDE (test 105 MMOL/L 98-107 N code = CL) CARBON DIOXIDE 24 mmol/L 24-31 N (test code = CO2) GLUCOSE (test code 93 mg/dL 70-104 N = GLU) BLOOD UREA 19.0 MG/DL 7.0-21.0 N NITROGEN (test code = BUN) GLOMERULAR >=60 max >60 The estimated FILTRATION RATE estimate glomerular (test code = GFR) filtration rate is computed usingpatient ra ce, age (>18), sex, and serum creatinin e. If anyof the neede d data elements a re missing the Laboratory zulma ot compute an estimation of t he glomerular filtration rate . CREATININE (test 0.8 mg/dL 0.8-1.5 N code = CREAT) CALCIUM (test code 9.4 mg/dL 8.8-10.2 N = CA) CBC W/AUTO [id number] 14:05:00 Test Item Value Reference Range Interpretation Comments WHITE BLOOD CELL (test code = 7.0 x10 3/uL 4.8-10.8 N WBC) RED BLOOD CELL (test code = 4.85 x10 6/uL 4.70-6.10 N RBC) HEMOGLOBIN (test code = HGB) 14.8 g/dL 14.5-20 N HEMATOCRIT (test code = HCT) 45.5 % 42.0-52.0 N MEAN CELL VOLUME (test code = 93.8 fL 80.0-94.0 N MCV) MEAN CELL HGB (test code = MCH) 30.5 pg 27-31 N MEAN CELL HGB CONCENTRATION 32.5 G/DL 33-36.5 L (test code = MCHC) RED CELL DISTRIBUTION WIDTH 13.5 % 12.9-16.9 N (test code = RDW) PLATELET COUNT (test code = 260 150-440 N PLT) MEAN PLATELET VOLUME (test code 9.9 fL 8.9-12.4 N = MPV) NEUTROPHIL % (test code = NT%) 66.6 % 42.2-75.2 N LYMPHOCYTE % (test code = LY%) 22.0 % 20.5-51.1 N MONOCYTE % (test code = MO%) 9.4 % 1.7-9.3 H EOSINOPHIL % (test code = EO%) 1.3 % 0.0-7.0 N BASOPHIL % (test code = BA%) 0.4 % 0-2.5 N NEUTROPHIL # (test code = NT#) 4.67 x10 3/uL 1.80-7.70 N LYMPHOCYTE # (test code = LY#) 1.54 x10 3/uL 1.00-4.80 N MONOCYTE # (test code = MO#) 0.66 x10 3/uL 0.00-0.80 N EOSINOPHIL # (test code = EO#) 0.09 x10 3/uL 0.00-0.45 N BASOPHIL # (test code = BA#) 0.03 x10 3/uL 0.0-0.20 N BLOOD [id number] 00:00:00 Test Item Value Reference Range Interpretation Comments CULTURE (depict) (test No growth in 5 days code = 1095) CARDIOLIPIN ANTIBODIES, IGG AND [id number] 16:01:00 Test Item Value Reference Range Interpretation Comments ANTICARDIOLIPIN IGG ANTIBODY (EntrustetAKER) < GPL (test code = 712) ANTICARDIOLIPIN IGM ANTIBODY (EntrustetAKER) 0.6 MPL (test code = 713) Anticardiolipin IgG Result Interpretation:NEG: <20 GPL; U/mlPOS: >/=20 GPL; U/mlAnticardiolipin IgM Result Interpretation:NEG: <20 MPL; U/mlPOS: >/=20 MPL; U/mlPROTHROMBIN GENE [id number] 16:58:00 Test Item Value Reference Range Interpretation Comments PROTHROMBIN/FACTOR II Negative for the L44194W (EntrustetAKER) (test code = (Prothrombin/Factor II) 2163) mutation. [id number] Palmer Mortensen M.D. (depict) (test code = (electonic signature) 2603) This test is a genotyping assay which evaluates the DNA sequence at position 10915 of the prothrombin (Factor II) gene. A [...] its performance characteristics determined by the [facility] Pathology Department, Section of Molecular Pathology. It has not been cleared or approved by the U.S. Food and Drug Administration (FDA), since FDA approval is not required for clinical use of the test. Validation was done as required by the Clinical Laboratory Improvement Amendments of 1988.FACTOR 5 LEIDEN PCR (THROMBOTIC RISK)2017-08-31 16:54:00 Test Item Value Reference Range Interpretation Comments FACTOR V LEIDEN Negative for the R506Q (depict) (test code = (Factor V Leiden) 718) mutation [id number] Palmer Mortensen M.D. (TOM) (test code = (electonic signature) 9253) This test is a genotyping assay which [...] was developed and [facility]. It has not been cleared or approved by the U.S. Food and Drug Administration (FDA), since FDA approval is not requ ired for clinical use of the test. Validation was done as required by the Clinical Laboratory Improvement Amendments of 1988.ANTITHROMBIN [id number] 11:09:00 Test Item Value Reference Range Interpretation Comments ANTITHROMBIN III ACTIVITY (TOM) 76.0 % 80.0-120.0 L (test code = 711) PROTEIN C [id number] 11:09:00 Test Item Value Reference Range Interpretation Comments PROTEIN C ACTIVITY (TOM) (test 106.0 % 70.0-130.0 code = 582) MR, MRA CHEST, [id number] 13:27:00FINAL REPORT MRA/MRV of the chest and great veins, 30 August 2017 INDICATION: This is a 57 years old male, with a diagnosis of left internal jugular DVT presents for assessment.This study is performed in attempt to avoid [...] administration can be found in the scanned [facility] docu ment. FINDINGS: This study is not optimised in [...] thrombosis identified. The right subclavian vein, the visualizeddistal right internal jugular vein, for length of 8 cm, is seen to be patent with no venous thrombosis identified. The right brachiocephalic vein is unremarkable and the right-sided SVC is also unremark able. The IVC is identified with no interruption identified and no venous thrombus is seen. However,there is essentially near occlusive/occlusive thrombus identified in [...] study has been completed. Signed: Babak Crowell MDReport Verified Date/Time: 08/30/2017 13:27:08Reading Location: [place] [address] Cardiology MRI Electronically signed by: BABAK CROWELL M.D. on 01:27 [id number] 07:31:00 Test Item Value Reference Range Interpretation Comments PARTIAL THROMBOPLASTIN TIME 60.9 seconds 22.5-36.0 H (BEAKER) (test code = 760) LIPID [id number] 07:17:00 Test Item Value Reference Range Interpretation Comments TRIGLYCERIDES (BEAKER) (test code = 124 mg/dL 540) CHOLESTEROL (BEAKER) (test code = 152 mg/dL 631) HDL CHOLESTEROL (BEAKER) (test code 34 mg/dL = 976) LDL CHOLESTEROL CALCULATED (BEAKER) 93 mg/dL (test code = 633) Triglyceride Reference Range: Low Risk <150 Borderline 150-199 High Risk 200- 499 Very High Risk >=500Cholesterol Reference Range: Low Risk <200 Borderline 200-239 High Risk >240HDL Cholesterol Reference Range: Low Risk >=60 High Risk <40LDL Cholesterol Reference Range: Optimal <100 Near Optimal 100-129 Borderline 130-159 High 160-189 Very High >=190BASIC METABOLIC [id number] 07:17:00 Test Item Value Reference Range Interpretation Comments SODIUM (BEAKER) 138 meq/L 136-145 (test code = 381) POTASSIUM (BEAKER) 4.1 meq/L 3.5-5.1 (test code = 379) CHLORIDE (BEAKER) 104 meq/L 98-107 (test code = 382) CO2 (BEAKER) (test 24 meq/L 22-29 code = 355) BLOOD UREA NITROGEN 11 mg/dL 7-21 (BEAKER) (test code = 354) CREATININE (BEAKER) 0.85 mg/dL 0.57-1.25 (test code = 358) GLUCOSE RANDOM 99 mg/dL 70-105 (BEAKER) (test code = 652) CALCIUM (BEAKER) 9.7 mg/dL 8.4-10.2 (test code = 697) EGFR (BEAKER) (test mL/min/1.73 INSUFFIC IENT CLINICAL code = 1092) sq m DATA TO CALCULA TE ESTIMATED GFR. PROTHROMBIN [id number] 06:53:00 Test Item Value Reference Range Interpretation Comments PROTIME (BEAKER) (test code = 15.5 seconds 11.7-14.7 H 759) INR (BEAKER) (test code = 370) 1.2 <=5.9 RECOMMENDED COUMADIN/WARFARIN INR THERAPY RANGESSTANDARD DOSE: 2.0 - 3.0 Includes: PROPHYLAXIS for venous thrombosis, systemic embolization; TREATMENT for venous thrombosis and/or pulmonary embolus.HIGH RISK: Target INR is 2.5-3.5 for patients with mechanical heart valves.INFLUENZA A H1N1 [id number] 21:35:00 Test Item Value Reference Range Interpretation Comments INFLUENZA A RNA Not Detected Not Detected, (BEAKER) (test code = Inconclusive 1545) NOVEL H1N1 RNA (BEAKER) Not Detected Not Detected, (test code = 1546) Inconclusive These assays were performed by real-time RT-PCR (mine wirer-PCR) utilizing fluorogenic hydrolysis probe technology for the detection of human Influenza A viruses and the differential detection of novel H1N1 Influenza virus in respiratory specimens. The test is composed of (1) an RNA extraction from patient specimen, and (2) mine wirer-PCR amplification and detection with human Influenza A and novel R6I1-aoprnlna primers and probes. A well-conserved region of [...] and its performance characteristics determined by the [facility] Pathology Department, Section of Molecular Pathology. It has not been cleared or approved by the U.[place]. Food and Drug Administration (FDA). Since FDAapproval is not required for clinical use of the test, validation was done as required by The Clinical Laboratory Amendments of 1988.MR, MRA, BRAIN, [id number] 20:40:00 Please perform MRV of headFINAL REPORT CLINICAL HISTORY: Evaluate for thrombus in subclavian vein TECHNIQUE: 2-D and 3-D ashc-ad-swkety and postcontrast MR angiogram of the arch, great vessels, and neck wasprovided with maximal intensity projection 3-D reconstructions of the arterial vasculature. MR venogram imaging of the head and neck was also performed. COMPARISON: None FINDINGS: There is no evidence for a [place] proximal branch vessel occlusion. There is no evidence for aneurysm. There arebilateral posterior communicating arteries. There is no evidence for hemodynamically significant stenosis in the bilateral internal carotid arteries by NASCET criteria. There is antegrade flow in the vertebral arteries in the neck. The major intradural venous sinuses are patent. The bilateral internaljugular veins are not visualized on either side. There appear to be prominent venous collaterals along the posterior cervical regions. IMPRESSION: The major intradural venous sinuses are patent. However, the bilateral internal jugular veins appear occluded with venous collaterals. Clinical correlationis requested with conventional catheter angiographic confirmation if clinically warranted. Please see the separately reported chest examination for evaluation of the subclavian veins. MRA imaging is unremarkable. Signed: Kandice Daniels MDReport Verified Date/Time: 08/29/2017 20:40:50 Reading Location: [facility] Radiology Reading Room MR, MRA, NECK, [id number] 20:40:00Please perform MRV of neck and upper chest to include subclavian veinFINAL REPORT CLINICAL HISTORY: Evaluate for thrombus in subclavian vein TECHNIQUE: 2-D and 3-D [id number] and postcontrast MR angiogram of the arch, great vessels, and neck wasprovided with maximal intensity projection 3-D reconstructions of the arterial vasculature. MR venogram imaging of the head and neck was also performed. COMPARISON: None FINDINGS: There is no evidence for a [place] proximal branch vessel occlusion. There is no evidence for aneurysm. There arebilateral posterior communicating arteries. There is no evidence [...] veins appear occluded with venous collaterals. Clinical correlationis requested with conventional catheter angiographic confirmation if clinically warranted. Please see the separately reported chest examination for evaluation of the subclavian veins. MRA imaging is unremarkable. Signed: Kandice Daniels MDReport Verified Date/Time: 08/29/2017 20:40:50 Reading Location: [facility] Radiology Reading Room BASIC METABOLIC [id number] 04:27:00 Test Item Value Reference Range Interpretation Comments SODIUM (BEAKER) 141 meq/L 136-145 (test code = 381) POTASSIUM (BEAKER) 4.0 meq/L 3.5-5.1 (test code = 379) CHLORIDE (BEAKER) 107 meq/L 98-107 (test code = 382) CO2 (BEAKER) (test 27 meq/L 22-29 code = 355) BLOOD UREA NITROGEN 11 mg/dL 7-21 (BEAKER) (test code = 354) CREATININE (BEAKER) 0.79 mg/dL 0.57-1.25 (test code = 358) GLUCOSE RANDOM 129 mg/dL 70-105 H (BEAKER) (test code = 652) CALCIUM (BEAKER) 9.2 mg/dL 8.4-10.2 (test code = 697) EGFR (BEAKER) (test mL/min/1.73 INSUFFIC IENT CLINICAL code = 1092) sq m DATA TO CALCULA TE ESTIMATED GFR. [id number] 04:21:00 Test Item Value Reference Range Interpretation Comments PARTIAL THROMBOPLASTIN TIME 78.0 seconds 22.5-36.0 H (BEAKER) (test code = 760) LIPID [id number] 04:19:00 Test Item Value Reference Range Interpretation Comments TRIGLYCERIDES (BEAKER) (test code = 125 mg/dL 540) CHOLESTEROL (BEAKER) (test code = 138 mg/dL 631) HDL CHOLESTEROL (BEAKER) (test code 31 mg/dL = 976) LDL CHOLESTEROL CALCULATED (BEAKER) 82 mg/dL (test code = 633) Triglyceride Reference Range: Low Risk <150 Borderline 150-199 High Risk 200- 499 Very High Risk >=500Cholesterol Reference Range: Low Risk <200 Borderline 200-239 High Risk >240HDL Cholesterol Reference Range: Low Risk >=60 High Risk <40LDL Cholesterol Reference Range: Optimal <100 Near Optimal 100-129 Borderline 130-159 High 160-189 Very High >=190PROTHROMBIN [id number] 04:15:00 Test Item Value Reference Range Interpretation Comments PROTIME (BEAKER) (test code = 15.0 seconds 11.7-14.7 H 759) INR (BEAKER) (test code = 370) 1.2 <=5.9 RECOMMENDED COUMADIN/WARFARIN INR THERAPY RANGESSTANDARD DOSE: 2.0 - 3.0 Includes: PROPHYLAXIS for venous thrombosis, systemic embolization; TREATMENT for venous thrombosis and/or pulmonary embolus.HIGH RISK: Target INR is 2.5-3.5 for patients with mechanical heart valves.RAD, CHEST, 2 [id number] 00:54:00 Reason for exam:->fever, coughFINAL REPORT EXAMINATION: 2 VIEW [...] be performed for further characterization. Signed: Fabio Aceport Verified Date/Time: 08/29/2017 00:54:23 Reading Location: [address] Reading Room [id number] 21:10:00 Test Item Value Reference Range Interpretation Comments PARTIAL THROMBOPLASTIN TIME 79.6 seconds 22.5-36.0 H (BEAKER) (test code = 760) RAPID INFLUENZA A&B [id number] 13:38:00 Test Item Value Reference Range Interpretation Comments RAPID INFLUENZA A AG (BEAKER) Negative Negative, Inconclusive (test code = 1622) RAPID INFLUENZA B AG (BEAKER) Negative Negative, Inconclusive (test code = 1623) [id number] 13:14:00 Test Item Value Reference Range Interpretation Comments PARTIAL THROMBOPLASTIN TIME 47.5 seconds 22.5-36.0 H (BEAKER) (test code = 760) MR, BRAIN, WITHOUT [id number] 08:06:00FINAL REPORT MRI brain Comparison: No priors Reason for exam: Dural venous sinus thrombosis suspected Discussion: Sagittal and coronal T1, axial FLAIR, T2, gradient echo T2 star, diffusion sequences and ADC map images of the brain are provided. There are no intracranial hematomas,mass effect, hydrocephalus, shift, or extra-axial collections. There are no areas of abnormal diffusion restriction. Minimal white matter T2 and FLAIR hyperintensity likely reflects chronic microvascular ischemic change. Flow-voids are seen in the basilar and internal carotid arteries as well as in the large posterior dural sinuses. There is apparent loss of flow void in the partially imaged left IJ,in this patient with history of IJ thrombosis. The pineal, sella, and craniocervical junction regions are within normal limits. The visualized orbital contents, skullbase and surrounding soft tissues are unremarkable. The visualized paranasal sinuses and mastoid air cells are unremarkable. Impressions:No acute intracranial process. Known left IJ thrombosis. If there is persistent clinical concern forvenous thrombosis, consider further evaluation with MRV. Signed: Eduardo West MDReport Verified Date/Time: 08/28/2017 08:06:08 Reading Location: [facility] B1 C013V Neuro Reading Room CALCIUM, [id number] 06:58:00 Test Item Value Reference Range Interpretation Comments CALCIUM IONIZED (BEAKER) (test 1.16 mmol/L 1.12-1.27 code = 698) PH, BLOOD (BEAKER) (test code = 7.35 1810) [id number] 06:26:00 Test Item Value Reference Range Interpretation Comments MAGNESIUM (BEAKER) (test code = 2.2 mg/dL 1.6-2.6 627) LIPID [id number] 06:26:00 Test Item Value Reference Range Interpretation Comments TRIGLYCERIDES (BEAKER) (test code = 128 mg/dL 540) CHOLESTEROL (BEAKER) (test code = 141 mg/dL 631) HDL CHOLESTEROL (BEAKER) (test code 32 mg/dL = 976) LDL CHOLESTEROL CALCULATED (BEAKER) 83 mg/dL (test code = 633) Triglyceride Reference Range: Low Risk <150 Borderline 150-199 High Risk 200- 499 Very High Risk >=500Cholesterol Reference Range: Low Risk <200 Borderline 200-239 High Risk >240HDL Cholesterol Reference Range: Low Risk >=60 High Risk <40LDL Cholesterol Reference Range: Optimal <100 Near Optimal 100-129 Borderline 130-159 High 160-189 Very High >=190HEPATIC FUNCTION [id number] 06:26:00 Test Item Value Reference Range Interpretation Comments TOTAL PROTEIN (BEAKER) (test code = 7.1 gm/dL 6.0-8.3 770) ALBUMIN (BEAKER) (test code = 1145) 3.6 g/dL 3.5-5.0 BILIRUBIN TOTAL (BEAKER) (test code 0.6 mg/dL 0.2-1.2 = 377) BILIRUBIN DIRECT (BEAKER) (test 0.3 mg/dL 0.1-0.5 code = 706) ALKALINE PHOSPHATASE (BEAKER) (test 94 U/L 40-150 code = 346) AST (SGOT) (BEAKER) (test code = 21 U/L 5-34 353) ALT (SGPT) (BEAKER) (test code = 32 U/L 6-55 347) BASIC METABOLIC [id number] 06:26:00 Test Item Value Reference Range Interpretation Comments SODIUM (BEAKER) 140 meq/L 136-145 (test code = 381) POTASSIUM (BEAKER) 4.0 meq/L 3.5-5.1 (test code = 379) CHLORIDE (BEAKER) 106 meq/L 98-107 (test code = 382) CO2 (BEAKER) (test 24 meq/L 22-29 code = 355) BLOOD UREA NITROGEN 14 mg/dL 7-21 (BEAKER) (test code = 354) CREATININE (BEAKER) 0.84 mg/dL 0.57-1.25 (test code = 358) GLUCOSE RANDOM 112 mg/dL 70-105 H (BEAKER) (test code = 652) CALCIUM (BEAKER) 9.2 mg/dL 8.4-10.2 (test code = 697) EGFR (BEAKER) (test mL/min/1.73 INSUFFIC IENT CLINICAL code = 1092) sq m DATA TO CALCULA TE ESTIMATED GFR. [id number] 06:11:00 Test Item Value Reference Range Interpretation Comments PARTIAL THROMBOPLASTIN TIME 45.8 seconds 22.5-36.0 H (BEAKER) (test code = 760) PROTHROMBIN [id number] 06:01:00 Test Item Value Reference Range Interpretation Comments PROTIME (BEAKER) (test code = 13.3 seconds 11.7-14.7 759) INR (BEAKER) (test code = 370) 1.0 <=5.9 RECOMMENDED COUMADIN/WARFARIN INR THERAPY RANGESSTANDARD DOSE: 2.0 - 3.0 Includes: PROPHYLAXIS for venous thrombosis, systemic embolization; TREATMENT for venous thrombosis and/or pulmonary embolus.HIGH RISK: Target INR is 2.5-3.5 for patients with mechanical heart valves.CBC W/PLT COUNT & AUTO [id number] 05:48:00 Test Item Value Reference Range Interpretation Comments WHITE BLOOD CELL COUNT (BEAKER) 5.3 K/ L 3.5-10.5 (test code = 775) RED BLOOD CELL COUNT (BEAKER) 4.03 M/ L 4.63-6.08 L (test code = 761) HEMOGLOBIN (BEAKER) (test code = 12.5 GM/DL 13.7-17.5 L 410) HEMATOCRIT (BEAKER) (test code = 38.4 % 40.1-51.0 L 411) MEAN CORPUSCULAR VOLUME (BEAKER) 95.3 fL 79.0-92.2 H (test code = 753) MEAN CORPUSCULAR HEMOGLOBIN 31.0 pg 25.7-32.2 (BEAKER) (test code = 751) MEAN CORPUSCULAR HEMOGLOBIN CONC 32.6 GM/DL 32.3-36.5 (BEAKER) (test code = 752) RED CELL DISTRIBUTION WIDTH 15.5 % 11.6-14.4 H (BEAKER) (test code = 412) PLATELET COUNT (BEAKER) (test 261 K/CU MM 150-450 code = 756) MEAN PLATELET VOLUME (BEAKER) 9.5 fL 9.4-12.4 (test code = 754) NUCLEATED RED BLOOD CELLS 0 /100 WBC 0-0 (BEAKER) (test code = 413) NEUTROPHILS RELATIVE PERCENT 74 % (BEAKER) (test code = 429) LYMPHOCYTES RELATIVE PERCENT 10 % (BEAKER) (test code = 430) MONOCYTES RELATIVE PERCENT 13 % (BEAKER) (test code = 431) EOSINOPHILS RELATIVE PERCENT 2 % (BEAKER) (test code = 432) BASOPHILS RELATIVE PERCENT 0 % (BEAKER) (test code = 437) NEUTROPHILS ABSOLUTE COUNT 3.93 K/ L 1.78-5.38 (BEAKER) (test code = 670) LYMPHOCYTES ABSOLUTE COUNT 0.52 K/ L 1.32-3.57 L (BEAKER) (test code = 414) MONOCYTES ABSOLUTE COUNT (BEAKER) 0.67 K/ L 0.30-0.82 (test code = 415) EOSINOPHILS ABSOLUTE COUNT 0.12 K/ L 0.04-0.54 (BEAKER) (test code = 416) BASOPHILS ABSOLUTE COUNT (BEAKER) 0.02 K/ L 0.01-0.08 (test code = 417) IMMATURE GRANULOCYTES-RELATIVE 0 % 0-1 PERCENT (BEAKER) (test code = 2801) [id number] 20:58:00 Test Item Value Reference Range Interpretation Comments PARTIAL THROMBOPLASTIN TIME 36.8 seconds 22.5-36.0 H (BEAKER) (test code = 760) Prior to initiating heparinCBC (HEMOGRAM ONLY)2017-08-27 20:37:00 Test Item Value Reference Range Interpretation Comments WHITE BLOOD CELL COUNT (BEAKER) 6.0 K/ L 3.5-10.5 (test code = 775) RED BLOOD CELL COUNT (BEAKER) 4.29 M/ L 4.63-6.08 L (test code = 761) HEMOGLOBIN (BEAKER) (test code = 13.4 GM/DL 13.7-17.5 L 410) HEMATOCRIT (BEAKER) (test code = 40.7 % 40.1-51.0 411) MEAN CORPUSCULAR VOLUME (BEAKER) 94.9 fL 79.0-92.2 H (test code = 753) MEAN CORPUSCULAR HEMOGLOBIN 31.2 pg 25.7-32.2 (BEAKER) (test code = 751) MEAN CORPUSCULAR HEMOGLOBIN CONC 32.9 GM/DL 32.3-36.5 (BEAKER) (test code = 752) RED CELL DISTRIBUTION WIDTH 15.5 % 11.6-14.4 H (BEAKER) (test code = 412) PLATELET COUNT (BEAKER) (test 255 K/CU MM 150-450 code = 756) MEAN PLATELET VOLUME (BEAKER) 9.6 fL 9.4-12.4 (test code = 754) NUCLEATED RED BLOOD CELLS 0 /100 WBC 0-0 (BEAKER) (test code = 413)
[2022-07-26 20:32] LABS: Absolute Lymphocytes (CBC) 1.2 K/uL (0.7-4.9); Hematocrit 36.4 % (39.6-49.0); Lymphocytes % 10.3 % (15.3-44.8); MCV 87.7 fL (80-100); MPV 6.9 fL (7.6-11.3); RBC Red Blood Cell Count 4.15 M/uL (4.33-5.43)
[2022-07-26 21:03] LABS: Albumin 2.7 g/dL (3.4-5.0); Bilirubin Total 0.6 mg/dL (0.2-1.0); Potassium 4.2 mmol/L (3.5-5.1); Protein, Total 8.2 g/dL (6.4-8.2)
[2022-07-26 21:32] LABS: Urine Blood Trace-intact (Negative); Urine Glucose Negative (Negative); Urine Protein 1+ (Negative); Urine Specific Gravity 1.025 (1.005-1.030); Urine pH 5.5 (5.0-7.0)
[2022-07-26] MEDS ORDERED: NA CHLORIDE 0.9% 1,000 ML ONE (21:36)
[2022-07-26] MEDS ORDERED: MORPHINE 4 MG/ML SYR ONE (21:36)
[2022-07-26] MEDS ORDERED: ONDANSETRON 4 MG/2 ML VIAL ONE (21:36)
[2022-07-26 21:52] LABS: Urine Mucus Slight /HPF (None Seen); Urine RBC <5 /HPF (None Seen)
--- NOTE | 2022-07-26 22:06 | RAD REPORT ---
EXAM DESCRIPTION: CT - Abdomen Pelvis W Contrast - 07/26/2022 9:30 pm CLINICAL HISTORY: worsening rectal pain, hx of rectal cancer COMPARISON: CT abdomen and pelvis 02/23/2022 TECHNIQUE: Biphasic, helical CT imaging of the abdomen and pelvis was performed following 100 ml non -ionic IV contrast. No oral contrast administered. All CT scans are performed using dose optimization technique as appropriate and may include automated exposure control or mA/KV adjustment according to patient size. FINDINGS: No suspicious findings in the lung bases. The liver, spleen, and pancreas show no suspicious findings. Gallbladder and biliary tree are also wi thout suspicious finding. Symmetric renal function is seen with no hydronephrosis or suspicious renal mass. No pyelonephritis o r acute parenchymal process. Urinary bladder is tightly contracted. Wall thickness is present but the bladder cannot be accurately assessed in the contracted state. No bladder calculi. No adrenal abnorm alities. No stomach or small bowel abnormality. No appendicitis. A left mid abdomen large hernia is present wi th a 4 centimeter neck. Diameter is 10 cm. This contains loops of small bowel. This is similar to com parison. No congested or edematous fat. Patient has left mid abdomen colostomy contains a very large peristomal hernia 16 cm in diameter. Neck of the hernia is 7 cm. No congestion or edema of the multip le herniated small bowel loops. The colon colostomy segment shows no acute findings. No free air or pneumatosis. No bulky lymphadenopathy. The soft tissues anterior to the coccyx and lower sacral segments the complex mixed solid and cystic remnant rectal mass has enlarged since January. This now measures 7 x 6 cm compared to 5 x 4 cm. This a buts the posterior margin of the collapsed urinary bladder. A 4 centimeter low-density collection is present along the posterior left margin of the prostate gland. This extends into the perianal tissues where there is an additional 7 x 5 centimeter cystic complex. There is stranding along the margins. This has an appearance typical for perianal/perirectal abscess. Prostate origin infectious mass is a possibility of the prostate may be secondarily involved. No suspicious bony findings. IMPRESSION: A 4 centimeter low-density or fluid collection is present between the rectal/presacral k nown malignant mass and the prostate gland. This continues posteriorly and inferiorly to the perirect al/perianal soft tissues. Appearance is typical for abscess. The rectal/ presacral mass detailed on the January examination has enlarged. The mass is 7 x 6 cm on e current examination compared to 5 by 4 cm previously. Additional findings detailed in the body of the report are stable from January.
[2022-07-27] MEDS ORDERED: CLINDAMYCIN 600MG/D5W 600 MG/50 ML BAG IV ONE (00:54)
--- NOTE | 2022-07-27 01:08 | ER ---
Nurse's Notes [facility] Name: Patrice Baeza Age: 62 yrs Sex: Male : 1960 Arrival Date: 07/26/2022 Time: 18:48 Bed 13 Private MD: Diagnosis: Perirectal abscess;Rectal mass Presentation: 07/26 19:32 Chief complaint: Patient states: Rectal pain due to cancer. Pt in severe rectal pain - ld1 notified Dr. Gonzalez. Dr. Gonzalez stated that his tumor is growing and creating pressure which is causing the pain. Coronavirus screen: At this time, the client does not indicate any symptoms associated with coronavirus-19. Ebola Screen: No symptoms or risks identified at this time. Initial Sepsis Screen: Does the patient meet any 2 criteria? No. Patient's initial sepsis screen is negative. Does the patient have a suspected source of infection? No. Patient's initial sepsis screen is negative. Risk Assessment: Do you want to hurt yourself or someone else? Patient reports no desire to harm self or others. Onset of symptoms was July 26, 2022. 19:32 Method Of Arrival: Ambulatory ld1 19:32 Acuity: MERY 3 ld1 Triage Assessment: 19:32 General: Appears in no apparent distress. uncomfortable, Behavior is calm, cooperative, ld1 appropriate for age. Pain: Complains of pain in gluteal cleft Pain does not radiate. Pain currently is 6 out of 10 on a pain scale. at worst was 9 out of 10 on a pain scale. Quality of pain is described as throbbing, Pain began suddenly. EENT: No signs and/or symptoms were reported regarding the EENT system. Neuro: Level of Consciousness is awake, alert, obeys commands, Oriented to person, place, time, situation. Cardiovascular: Capillary refill < 3 seconds Patient's skin is warm and dry. Respiratory: Airway is patent Respiratory effort is even, unlabored. GI: Abdomen is round non-distended, Colostomy site is clean and dry. Ostomy appliance is intact. : No signs and/or symptoms were reported regarding the genitourinary system. Derm: No signs and/or symptoms reported regarding the dermatologic system. Musculoskeletal: No signs and/or symptoms reported regarding the musculoskeletal system. Historical: - Allergies: 19:32 NKA; ld1 - Home Meds: 19:32 diclofenac sodium 25 mg oral TbEC 1 tab 3 times per day [Active]; ld1 - PMHx: 19:32 colorectal cancer; ld1 - PSHx: 19:32 4 rectal surgeries; Colostomy; ld1 - Immunization history:: Adult Immunizations up to date, Client reports receiving the 2nd dose of the Covid vaccine. - Social history:: Smoking status: Patient denies any tobacco usage or history of. Patient/guardian denies using alcohol. Screenin:28 Abuse screen: Denies threats or abuse. Nutritional screening: No deficits noted. vc1 Tuberculosis screening: No symptoms or risk factors identified. Fall Risk None identified. Assessment: 20:00 Reassessment: See triage assessment. vc1 21:00 Reassessment: No changes from previously documented assessment. Patient and/or family vc1 updated on plan of care and expected duration. Pain level reassessed. Patient is alert, oriented x 3, equal unlabored respirations, skin warm/dry/pink. 22:00 Reassessment: No changes from previously documented assessment. Patient and/or family vc1 updated on plan of care and expected duration. Pain level reassessed. Patient is alert, oriented x 3, equal unlabored respirations, skin warm/dry/pink. 23:00 Reassessment: No changes from previously documented assessment. Patient and/or family vc1 updated on plan of care and expected duration. Pain level reassessed. Patient is alert, oriented x 3, equal unlabored respirations, skin warm/dry/pink. 07/27 00:00 Reassessment: Patient and/or family updated on plan of care and expected duration. Pain vc1 level reassessed. Patient is alert, oriented x 3, equal unlabored respirations, skin warm/dry/pink. 01:00 Reassessment: No changes from previously documented assessment. Patient and/or family vc1 updated on plan of care and expected duration. Pain level reassessed. Patient is alert, oriented x 3, equal unlabored respirations, skin warm/dry/pink. 02:00 Reassessment: Patient and/or family updated on plan of care and expected duration. Pain vc1 level reassessed. Patient is alert, oriented x 3, equal unlabored respirations, skin warm/dry/pink. Pt ambulated to the bathroom. 03:00 Reassessment: No changes from previously documented assessment. Patient and/or family vc1 updated on plan of care and expected duration. Pain level reassessed. Patient is alert, oriented x 3, equal unlabored respirations, skin warm/dry/pink. 04:00 Reassessment: No changes from previously documented assessment. Patient and/or family vc1 updated on plan of care and expected duration. Pain level reassessed. Pt ambulated to the bathroom. 05:00 Reassessment: Patient and/or family updated on plan of care and expected duration. Pain vc1 level reassessed. Pt sleeping. 06:00 Reassessment: Patient and/or family updated on plan of care and expected duration. Pain vc1 level reassessed. Pt ambulated to bathroom. Vital Signs: 07/26 19:32 BP 142 / 70; Pulse 85; Resp 18; Temp 97.9(TE); Pulse Ox 98% on R/A; Weight 140.61 kg; ld1 Height 5 ft. 9 in. (175.26 cm); Pain 6/10; 22:00 BP 132 / 57; Pulse 71; Resp 18; Pulse Ox 98% ; vc1 23:46 BP 134 / 71; Pulse 76; Resp 17; Pulse Ox 97% on R/A; vc1 07/27 00:06 BP 128 / 60; Pulse 72; Resp 17; Pulse Ox 98% ; vc1 01:16 BP 122 / 58; Pulse 78; Resp 17; Pulse Ox 98% on R/A; vc1 02:00 BP 131 / 60; Pulse 81; Resp 16; Pulse Ox 98% on R/A; vc1 03:00 BP 123 / 63; Pulse 82; Pulse Ox 95% on R/A; vc1 04:00 BP 121 / 55; Pulse 80; Resp 18; Pulse Ox 96% on R/A; vc1 05:00 BP 127 / 58; Pulse 76; Pulse Ox 97% on R/A; vc1 06:29 BP 129 / 63; Pulse 78; Resp 17; Pulse Ox 98% on R/A; vc1 07/26 19:32 Body Mass Index 45.78 (140.61 kg, 175.26 cm) ld1 ED Course: 07/26 18:48 Patient arrived in ED. rg4 19:32 Arm band placed on right wrist. ld1 19:34 Carmen Whitley MD is Attending Physician. sd2 19:34 Triage completed. ld1 20:22 Inserted saline lock: 22 gauge in right forearm, using aseptic technique. Blood ds4 collected. 21:32 CT Abd/Pelvis - IV Contrast Only In Process Unspecified. 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 vc1 23:26 Chelsea Willis, RN is Primary Nurse. vc1 23:28 Patient has correct armband on for positive identification. Call light in reach. Side vc1 rails up X2. Client placed on continuous cardiac and pulse oximetry monitoring. NIBP monitoring applied. 07/27 00:12 Initiated transfer to [facility] per Pt request, spoke with Malaika. 01:06 Pt accepted for transfer by Dr. Corey Coe per Malaika Saab. wm 06:28 Patient transferred, IV remains in place. vc1 Administered Medications: 07/26 21:46 Drug: NS 0.9% 1000 ml Route: IV; Rate: 1 bolus; Site: right antecubital; vc1 22:46 Follow up: IV Status: Completed infusion; IV Intake: 1000ml vc1 21:48 Drug: morphine 4 mg Route: IVP; Infused Over: 4 mins; Site: right antecubital; vc1 23:48 Follow up: Response: No adverse reaction; Marked relief of symptoms vc1 21:48 Drug: Zofran (Ondansetron) 4 mg Route: IVP; Site: right antecubital; vc1 23:48 Follow up: Response: No adverse reaction; Marked relief of symptoms vc1 07/27 01:00 Drug: Clindamycin 600 mg Route: IVPB; Infused Over: 30 mins; Site: right antecubital; vc1 01:30 Follow up: IV Status: Completed infusion; IV Intake: 50ml vc1 Medication: 07/26 23:29 VIS not applicable for this client. vc1 Intake: 22:46 IV: 1000ml; Total: 1000ml. vc1 07/27 01:30 IV: 50ml; Total: 1050ml. vc1 Outcome: 01:07 ER care complete, transfer ordered by . sd2 06:28 Condition: good vc1 06:28 Instructed on the need for transfer. 06:56 Transferred by ground [facility] to [facility], Transfer form completed. X-rays vc1 sent w/ patient. 06:59 Patient left the ED. vc1 Signatures: Dispatcher [employer] EDMS Constantino Sullivan ds4 Yael Reynaga4 Winter Weaver RN RN ld1 Babita Hamlin Vanessa, RN RN vc1 Carmen Whitley MD MD sd2
--- NOTE | 2022-07-27 01:08 | EDPHYS ---
Physician Documentation [facility] Name: Patrice Baeza Age: 62 yrs Sex: Male : 1960 Arrival Date: 07/26/2022 Time: 18:48 Bed 13 Private MD: ED Physician Carmen Whitley HPI: 07/26 20:05 This 62 yrs old Male presents to ER via Ambulatory with complaints of Rectal sd2 Pain. 20:05 62-year-old male with a history of colorectal cancer and bladder cancer presents with sd2 chief complaint of rectal pain. He reports he has had progressively worsening rectal pain and pressure for the past 2 weeks. He is scheduled to start chemotherapy this upcoming Tuesday. He has been on Tylenol 3 and tramadol without significant relief via his oncologist, Dr. Gonzalez. They state his last scan was performed in April with a PET scan. He denies any fevers, nausea or vomiting. He does endorse tenesmus and states he feels like he needs to have a bowel movement but has a colostomy in place. The colostomy has had good output without any issues. He has not had any significant abdominal pain.. Historical: - Allergies: 19:32 NKA; ld1 - Home Meds: 19:32 diclofenac sodium 25 mg oral TbEC 1 tab 3 times per day [Active]; ld1 - PMHx: 19:32 colorectal cancer; ld1 - PSHx: 19:32 4 rectal surgeries; Colostomy; ld1 - Immunization history:: Adult Immunizations up to date, Client reports receiving the 2nd dose of the Covid vaccine. - Social history:: Smoking status: Patient denies any tobacco usage or history of. Patient/guardian denies using alcohol. ROS: 20:05 Constitutional: Negative for fever, chills, and weight loss, Eyes: Negative for injury, sd2 pain, redness, and discharge, ENT: Negative for injury, pain, and discharge, Cardiovascular: Negative for chest pain, palpitations, and edema, Respiratory: Negative for shortness of breath, cough, wheezing. Abdomen/GI: Negative for abdominal pain, nausea, vomiting, diarrhea. Positive for rectal pain : Negative for dysuria, frequency or hematuria. MS/Extremity: Negative for injury and deformity, Skin: Negative for injury, rash, and discoloration, Neuro: Negative for headache, numbness and tingling. Exam: 20:05 Constitutional: This is a well developed, well nourished patient who is awake, alert, sd2 and in no acute distress. Head/Face: Normocephalic, atraumatic. Eyes: EOMI, normal conjunctiva bilaterally Chest/axilla: Normal chest wall appearance and motion. Nontender with no deformity. Cardiovascular: Regular rate and rhythm with a normal S1 and S2. No gallops, murmurs, or rubs. 2+ distal pulses. Respiratory: Lungs have equal breath sounds bilaterally, clear to auscultation and percussion. No rales, rhonchi or wheezes noted. No increased work of breathing, no retractions or nasal flaring. Abdomen/GI: Soft, non-tender, with normal bowel sounds. No guarding or rebound. No evidence of tenderness throughout. Colostomy in place. Skin: Warm, dry with normal turgor. Normal color with no rashes, no lesions, and no evidence of cellulitis. MS/ Extremity: Pulses equal, no cyanosis. Neurovascular intact. Full, normal range of motion. Ambulatory without difficulty. Psych: Awake, alert, with orientation to person, place and time. Behavior, mood, and affect are within normal limits. 23:03 Abdomen/GI: Rectal exam performed with RN house servant at bedside: no visible abscess, sd2 erythema, induration or fluctuance. Rectal area has sealed shut. There is a small abraded area that patient's at bedside showed to me and states she has been treating with a steroid cream from [facility].. Vital Signs: 19:32 BP 142 / 70; Pulse 85; Resp 18; Temp 97.9(TE); Pulse Ox 98% on R/A; Weight 140.61 kg; ld1 Height 5 ft. 9 in. (175.26 cm); Pain 6/10; 22:00 BP 132 / 57; Pulse 71; Resp 18; Pulse Ox 98% ; vc1 23:46 BP 134 / 71; Pulse 76; Resp 17; Pulse Ox 97% on R/A; vc1 07/27 00:06 BP 128 / 60; Pulse 72; Resp 17; Pulse Ox 98% ; vc1 01:16 BP 122 / 58; Pulse 78; Resp 17; Pulse Ox 98% on R/A; vc1 02:00 BP 131 / 60; Pulse 81; Resp 16; Pulse Ox 98% on R/A; vc1 03:00 BP 123 / 63; Pulse 82; Pulse Ox 95% on R/A; vc1 04:00 BP 121 / 55; Pulse 80; Resp 18; Pulse Ox 96% on R/A; vc1 05:00 BP 127 / 58; Pulse 76; Pulse Ox 97% on R/A; vc1 06:29 BP 129 / 63; Pulse 78; Resp 17; Pulse Ox 98% on R/A; vc1 07/26 19:32 Body Mass Index 45.78 (140.61 kg, 175.26 cm) ld1 MDM: 07/26 19:56 Patient medically screened. sd2 20:05 Differential diagnosis: hemorrhoids, fissure, abscess, pilonidal cyst, condyloma, mass sd2 among others. Data reviewed: vital signs, nurses notes. 23:04 Data reviewed: lab test result(s), radiologic studies. Counseling: I had a detailed sd2 discussion with the patient and/or guardian regarding: the historical points, exam findings, and any diagnostic results supporting the discharge/admit diagnosis, lab results, radiology results, the need to transfer to another facility, [facility] does not immediately have the required specialist, patient's colorectal surgeon, Dr. Mendoza, is at [facility] in the [facility]. 07/27 00:58 ED course: Discussed case with Dr. Mendoza at [facility] who accepts the patient as a sd2 consult. Pending callback from the hospitalist. . 01:05 ED course: Discussed case with Dr. Oakes, hospitalist, at [facility] who accepts the sd2 patient for transfer at this time. Pt is currently stable for transfer. Pending bed placement. . 07/26 19:56 Order name: CBC with Diff; Complete Time: 21:11 sd2 07/26 19:56 Order name: CMP; Complete Time: 21:11 sd2 07/26 19:56 Order name: Urine Microscopic Only; Complete Time: 22:08 sd2 07/26 21:32 Order name: Urine Dipstick-Ancillary; Complete Time: 21:50 EDMA 07/26 21:59 Order name: Urine Culture EDMA 07/27 00:10 Order name: SARS-COV-2 Antigen Rapid 07/26 19:56 Order name: Urine Dipstick-Ancillary (obtain specimen); Complete Time: 21:48 2 07/26 19:56 Order name: CT Abd/Pelvis - IV Contrast Only; Complete Time: 22:08 2 07/27 00:32 Order name: SARS RAPID vc1 07/27 00:54 Order name: SARS-COV-2 Antigen Rapid EDMS Administered Medications: 07/26 21:46 Drug: NS 0.9% 1000 ml Route: IV; Rate: 1 bolus; Site: right antecubital; vc1 22:46 Follow up: IV Status: Completed infusion; IV Intake: 1000ml vc1 21:48 Drug: morphine 4 mg Route: IVP; Infused Over: 4 mins; Site: right antecubital; vc1 23:48 Follow up: Response: No adverse reaction; Marked relief of symptoms vc1 21:48 Drug: Zofran (Ondansetron) 4 mg Route: IVP; Site: right antecubital; vc1 23:48 Follow up: Response: No adverse reaction; Marked relief of symptoms 1 07/27 01:00 Drug: Clindamycin 600 mg Route: IVPB; Infused Over: 30 mins; Site: right antecubital; vc1 01:30 Follow up: IV Status: Completed infusion; IV Intake: 50ml vc1 Disposition Summary: 07/27/22 01:07 Transfer Ordered Transfer Location: [facility] sd2 Reason: Higher level of care sd2 Condition: Stable sd2 Problem: new sd2 Symptoms: are unchanged sd2 Accepting Physician: Dr. Oakes(07/27/22 06:59) vc1 Diagnosis - Perirectal abscess sd2 - Rectal mass sd2 Forms: - Medication Reconciliation Form sd2 - SBAR form sd2 Signatures: Dispatcher [employer] EDMS Winter Weaver RN RN ld1 Chelsea Willis RN RN vc1 Carmen Whitley MD MD sd2 Corrections: (The following items were deleted from the chart) 06:59 01:07 Dr. Oakes sd2 vc1
[2022-07-27 01:56] LABS: SARS-CoV-2 Antigen Rapid Res Negative (Negative)
== END 2022-07-27 06:59 | disposition short-term general hospital (02) ==
LOC: ER 18:45
DX: K61.1 Rectal abscess (principal); C18.8 Malignant neoplasm of overlapping sites of colon; Z20.822 Contact with and (suspected) exposure to COVID-19
CPT/HCPCS: 87088; 85025; 87086; 36415 ×2; 80053; 74177; 87811; Q9967; J7030; J2405; 81003; 81015

== ENCOUNTER 2023-05-09 18:10 | Inpatient (IN) | payer OTHER ==
--- OUTSIDE RECORDS SUMMARY | 2023-05-09 18:16 | XMS REPORT | Continuity of Care Document ---
:1960 Author Organization [facility] t Address [address] [facility] [address] [place] [address] Care Team Providers Name Role Phone Sharpless Primary Care Physician Dhiraj GALLEGOS, Thomas Guevara Attending Clinician TAIM TALLEY Attending Clinician Unavailable Chelsea GALLEGOS, Khurram Ghosh Attending Clinician [phone] Tc GALLEGOS, Ezequiel Duenas Attending Clinician Julia Alba MD Attending Clinician Matt Keating MD Attending Clinician Julio C GALLEGOS, Jody Attending Clinician Ruth Murillo DO Attending Clinician Carolin GALLEGOS, Corey Walton Attending Clinician [phone] Lilliana Kimball MD Attending Clinician Nabeel Gonsalez DO Attending Clinician Winter Quezada Attending Clinician Henrik Mendoza MD Attending Clinician Clari CENTER DIRECTOR LEAD TEACHER-C, Altagracia Golden Attending Clinician [phone] Cristina GALLEGOS, Valentin Giraldo Attending Clinician Nisha Sage MD Attending Clinician SHAUN MOREIRA Attending Clinician Unavailable Js GALLEGOS, Eliceo Severino Attending Clinician [phone] Alfie Fernandez NP, Eduarda Beckham Attending Clinician MD HENRIK MENDOZA Attending Clinician Unavailable Audie Damian MD Attending Clinician [phone] Ayan Reynaga CENTER DIRECTOR LEAD TEACHER, Maritza Attending Clinician Henrik Mendoza Attending Clinician Unavailable UNKNOWN Attending Clinician Unavailable CHRISTEN ALONZO Attending Clinician Unavailable MATT KEATING Admitting Clinician Unavailable RUTH MURILLO Admitting Clinician Unavailable LILLIANA KIMBALL Admitting Clinician Unavailable THOMAS HEARN Admitting Clinician Unavailable MD GIN MERCHANT Admitting Clinician Unavailable HENRIK MENDOZA Admitting Clinician Unavailable MD HENRIK MENDOZA Admitting Clinician Unavailable CHRISTEN ALONZO Admitting Clinician Unavailable Payers Payer Name Policy Type Policy Number Effective Date Expiration Date S ource Problems Condition Condition Condition Status Onset Resolution Last Treating Co mments Source Name Details Category Date Date Treatment Clinician Date Personal Personal Disease Active Metho di history of history of 6-08 st urinary urinary 00:00: Hospita (tract) (tract) 00 l infection infection 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 5-11 st of lateral of lateral 00:00: Ho spita wall of wall of 00 l urinary urinary bladder bladder Urinary Urinary Disease Active [facility] tract tract 5 infection infection 00:00: Hosp khang without without 00 l hematuria hematuria Oth Oth Disease Active [facility] bacterial bacterial 03-10 st agents as agents as 00:00: Hosp khang the cause the cause 00 l of of diseases diseases classd classd elswhr elswhr 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 03-10 prostate prostate 00:00: Hospit a with lower with lower 00 l urinary urinary tract tract symptoms symptoms (LUTS) (LUTS) Enteritis Enteritis Disease Active Met [facility] 4- st 00:00: Hospita 00 l Acute Acute Disease Active [facility] cystitis cystitis 02-23 st without without 00:00: Hospita hematuria hematuria 00 l Hematuria Hematuria Disease Active 2021-10 [facility] 2-24 st 00:00: Hospita 00 l Rectal Rectal Disease Active [facility] abscess abscess 07-27 st 00:00: Hospita 00 l Rectal Rectal Disease Active 2017-10 [facility] cancer cancer 2-19 st 00:00: Hospita 00 l Malignant Malignant Disease Active 2017-10 [facility] neoplasm neoplasm 1-02 st of rectum of rectum 00:00: Hosp khang 00 l Headache Headache Disease [facility] DVT (deep DVT (deep Disease Recurre 2016-[address] [facility]ce [facility] thrombosis thrombosis 00:00: Me dical ) in ) in 00 Center DVT (deep DVT (deep Disease Recurre 2016-[address] venous venous nce 0[facility] thrombosis thrombosis 00:[facility]: Me dical ) ) 00 Center Allergies, Adverse Reactions, Alerts Allergy Allergy Status Severity Reaction(s) Onset Inactive Treating Comm ents Source Name Type Date Date Clinician No Known DA Active [facility] 5[facility]15 [place] [facility] 00:[facility]: [facility] 00 are [facility] No Known DA Active U [facility] Allergie [address] [place] [facility] 00:00: [facility] 00 are [facility] Family History Family Member Diagnosis Comments Start Date Stop Date Source Natural father Alcohol abuse [facility] Natural mother Diabetes [facility] Natural mother [facility] Hy[facility] Natural mother Stroke [facility] Social History Social Habit Start Date Stop Date Quantity Comments Source Gender identity [facility] Sexual orientation [facility] History SDOH [facility] Alcohol Frequency Hospita l History SDOH [facility] Alcohol Std Drinks Hospit al History SDOH [facility] Alcohol Binge Hospital History of Social 2023-04-07 2023-04-[address] function 00:00:00 00:00:00 Hospital Cigarettes smoked 2023-03-30 2023-03-[address] current (pack per 00:00:00 00:00:00 Hospita l day) - Reported Cigarette 2023-03-30 2023-03-30 [facility] pack-years 00:00:00 00:00:00 Hospital Tobacco use and 2023-03-30 2023-03-30 Smokeless [facility] exposure 00:00:00 00:00:00 tobacco non-user Hospital Tobacco Comment 2023-03-30 2023-03-30 social / 1 [facility] 00:00:00 00:00:00 pack/week Hospital Alcohol Comment 2018-10-04 2018-10-04 quit in [address] 00:00:00 00:00:00 Hospital Alcohol intake 2017-08-28 2017-08-[address] [facility] 00:[facility]:00 00:00:00 non-drinker of Medical Ce nter alcohol (finding) History of tobacco 2008-10-31 Current smoker Me thodist use 00:00:00 Hospital Sex Ass[birth year] At [birth year] LISY Walsh kes 00:00:00 00:00:00 [facility] Center Smoking Status Start Date Stop Date Source Ex-smoker 2023-03-30 00:00:00 2023-03-30 00:00:00 Method t [facility] Medications Ordered Filled Start Stop Current Ordering Indication Dosage Frequency Signature Comments Components Source Medication Medication Date Date Medication? Clinician (SIG) Name Name ciprofloxac 2022- No [id number] 500mg QD Take 1 Methodi in (Cipro) 04-[address] 500 MG 00:00: 04:59 (500 mg Hospita tablet 00 :00 total) by l mouth daily for 6 days. traMADoL [place] [id number] 50mg Q6H Take 1 Method i (ULTRAM) 50 5-31 tablet (50 st mg tablet 10:31: mg total) Hos thomas 24 by mouth l every 6 (six) hours as needed for moderate pain .acute pain. losartan Yes 50mg QD Take 1 Methodi (COZAAR) 50 5-31 tablet (50 st MG tablet 10:31: mg total) Hos thomas 24 by mouth l daily. levoFLOXaci 2022- No [id number] 500mg QD Take 1 Methodi n 5-11 05-[address] (Levaquin) 00:00: 04:59 (500 mg Hos thomas 500 MG 00 :00 total) by l tablet mouth daily for 6 days. losartan 2022- No 25mg QD Take 1 Method i (COZAAR) 25 02-24-27 tablet (25 s t MG tablet 09:06: 00:00 mg total) Ho spita 06 :00 by mouth l daily. cefpodoxime 2021-10 No 200mg Q.5D Take 1 Me thodi (VANTIN) 12-27-[address] 200 MG 00:00: 05:59 (200 mg Hospita tablet 00 :00 total) by l mouth 2 (two) times a day for 7 days. acetaminoph 2021-10 No 500mg Q6H Take 500 Methodi en 2-24 12-[address] (TYLENOL) 15:32: 00:00 mouth Hospit a 500 MG 06 :00 every 6 l tablet (six) hours as needed for mild pain. losartan 2021- No 100mg QD Take 100 Met hodi (COZAAR) 07-30 09-[address] 100 MG 19:08: 00:00 mouth Hospita tablet 45 :00 every l morning. cefdinir 2021- No 300mg Q.5D Take 1 Metho di (OMNICEF) 07-30- capsule st 300 MG 00:00: 04:59 (300 mg Hospita capsule 00 :00 total) by l mouth 2 (two) times a day for 10 days. metroNIDAZO 2021- No 500mg Q.[id number] Take 1 Methodi LE (FlagyL) 07-30 10- [id number] tablet st 500 MG 00:00: 04:59 3D (500 mg Hospita tablet 00 :00 total) by l mouth 3 (three) times a day for 10 days. losartan Yes 100mg QD Take 100 Meth liliana (COZAAR) 7-[address] 100 MG 14:56: mouth Hospita tablet 13 every l morning. acetaminoph Yes 500mg Q6H Take 500 M ethodi en 7-[address] (TYLENOL) 14:56: mouth Hospita 500 MG 13 every 6 l tablet (six) hours as needed for mild pain. ciprofloxac 2021- No 500mg Q.5D Take 1 Me thodi in (CIPRO) 05-[address] 500 MG 00:00: 04:59 (500 mg Hospita tablet 00 :00 total) by l mouth 2 (two) times a day for 5 days. ciprofloxac 2021- No 500mg Q.5D Take 1 Me thodi in (CIPRO) 05-[address] 500 MG 00:00: 04:59 (500 mg Hospita tablet 00 :00 total) by l mouth 2 (two) times a day for 5 days. ferrous 2021- No Take by Method i sulfate 05-[address] (IRON ORAL) 08:47: 00:00 Hospi ta 58 :00 l traMADoL 2021- [place] [id number] 50mg Q6H Take 50 mg M ethodi (ULTRAM) 50 05-[address] mg tablet 08:47: 00:00 [...] 18:31: Hospit a 46 l traMAD[place] [id number] 50mg Q6H Take 50 mg Me thodi [...] needed for mild pain. traMADoL 2020- No [id number] 50mg Q6H Take 1 Metho di (ULTRAM) 50 3-05 03-13 tablet (50 s t mg tablet 00:00: 05:59 mg total) Ho spita 00 :00 by mouth l every 6 (six) hours as needed for severe pain for up to 7 days .acute pain. cholecalcif 2020- QD Take by [facility], 12-[address] vitamin D3, 10:23: 00:00 daily. [...] Date Status Commen ts Source Name Name TaplisterID-19 2021-02-06 Completed [facility] AD[facility] Completed [facility] t AD26 VACCINATION 00:00:00 Hospital FLUCELVAX QUAD PF 2018-10-[address] 00:00:00 Hospital FLUCELVAX QUAD PF 2018-10-[address] 00:00:00 Hospital FLUCELVAX QUAD PF 2018-10-[address] 00:00:00 Hospital Vital Signs Vital Name Observation Time Observation Value Comments Source Systolic blood 2023-04-07 13:11:00 148 mm[Hg] [facility] pressure Diastolic blood 2023-04-07 13:11:00 86 mm[Hg[facility] pressure Heart rate 2023-04-07 13:11:00 76 /min [facility] Body height 2023-04-07 13:11:00 175.3 cm [facility] Body weight 2023-04-07 13:11:00 127.007 kg [facility] BMI 2023-04-07 13:11:00 41.35 kg/m2 [facility] Body temperature 2023-02-26 13:15:49 36.44 [facility] Oxygen saturation in 2023-02-26 13:15:49 98 /min [facility] Arterial blood by Pulse oximetry Respiratory rate 2023-02-26 09:36:52 18 /[facility] Systolic blood 2022-05-06 19:00:00 139 mm[Hg] Method is Hospital pressure Diastolic blood 2022-05-06 19:00:00 85 mm[Hg] [facility] Hospital pressure Respiratory rate 2022-05-06 19:00:00 18 /min [facility] Oxygen saturation in 2022-05-06 19:00:00 98 /min [facility] Arterial blood by Pulse oximetry Heart rate 2022-05-06 18:45:00 63 /min [facility] Body temperature 2022-05-06 18:45:00 36.78 [facility] Body height 2022-05-06 14:21:00 175.3 cm [facility] Body weight 2022-05-06 14:21:00 135.762 kg [facility] BMI 2022-05-06 14:21:00 44.20 kg/m2 [facility] Systolic blood 2021-01-15 22:22:00 144 mm[Hg] Method [facility] Hospital pressure Diastolic blood 2021-01-15 22:22:00 70 mm[Hg] [facility] pressure Heart rate 2021-01-15 22:22:00 70 /min [facility] Body temperature 2021-01-15 22:22:00 36.17 [facility] Respiratory rate 2021-01-15 22:22:00 18 /min [facility] Oxygen saturation in 2021-01-15 22:22:00 99 /min [facility] Arterial blood by Pulse oximetry Body height 2021-01-15 16:06:26 175.3 cm [facility] Body weight 2021-01-15 16:06:26 122.471 kg [facility] BMI 2021-01-15 16:06:26 39.87 kg/m2 [facility] Procedures Procedure Date / Time Performing Clinician Source Performed CYSTOSCOPY 2023-04-07 14:39:58 [facility] US PELVIC NON OB LIMITED 2023-04-07 13:39:59 [facility] POC SPECIFIC GRAVITY, 2023-04-07 13:11:49 [facility] URINE, QUALITATIVE, DIPSTICK PET CT WHOLE BODY 2023-03-25 13:07:00 Khurram Elliott [facility] EXTERNAL STUDY Augie URINE CULTURE 2023-03-11 01:46:00 [facility] URINALYSIS SCREEN AND 2023-03-11 00:57:00 [facility] MICROSCOPY, WITH REFLEX TO CULTURE US RETROPERITONEAL 2023-03-10 20:02:38 [facility] POC SPECIFIC GRAVITY, 2023-03-10 19:18:14 [facility] URINE, QUALITATIVE, DIPSTICK CBC HEMOGRAM 2023-02-26 10:38:00 Jody Bunch spital COMPREHENSIVE METABOLIC 2023-02-26 10:38:00 Jody [facility] PANEL ESTIMATED GFR 2023-02-26 10:38:[address] ABDOMEN PELVIS W 2023-02-25 20:53:01 Estakhri, Pejmon [facility] CONTRAST Srinivasan LACTIC ACID LEVEL 2023-02-25 10:56:00 Julio C [facility] C-REACTIVE PROTEIN 2023-02-25 10:56:00 [facility] SED[facility]ENT[facility] R[facility] 2023-02-25 10:56:00 [facility] PROCALCITONIN 2023-02-25 10:56:00 Julio C [facility] spital CBC HEMOGRAM 2023-02-25 10:56:00 [facility]OLIC 2023-02-25 10:56[facility] PANEL ESTIMATED GFR 2023-02-25 10:56:00 Julio C [facility] spital US GALLBLADDER 2023-02-24 14:24:37 Julio C [facility] ENTERIC VIRAL PANEL 2023-02-24 09:34:[address] [facility] L[facility] LEV[facility], SEPSIS 2023-02-24 09:27:00 [facility] - NOW AND REPEAT 2X EVERY Imarendene [address] ABDOMEN PELVIS W 2023-02-24 02:21:39 [facility] CONTRAST LACTIC ACID LEVEL, SEPSIS 2023-02-24 01:37:00 [facility] - NOW AND REPEAT 2X EVERY Imarendenewe 3 HOURS PROTHROMBIN TIME WITH INR 2023-02-24 01:37:00 [facility] PARTIAL THROMBOPLASTIN 2023-02-24 01:37:00 [facility] TIME (PTT) MAGNESIUM LEVEL 2023-02-24 01:37:00 [facility] PHOSPHORUS LEVEL 2023-02-24 01:37:00 [facility] URINE CULTURE 2023-02-24 01:26:00 RehreZac newh Artur [facility] URINALYSIS SCREEN AND 2023-02-24 01:05:00 Rehrer, [facility] MICROSCOPY, WITH REFLEX TO CULTURE CBC WITH PLATELET AND 2023-02-23 23:05:00 Rehrer, [facility] DIFFERENTIAL COMPREHENSIVE METABOLIC 2023-02-23 23:05:00 Rehrer, [facility] PANEL LIPASE LEVEL 2023-02-23 23:05:00 Rehrer, [facility] LACTIC ACID LEVEL, SEPSIS 2023-02-23 23:05:00 Breezy Miller [facility] - NOW AND REPEAT 2X EVERY Imarendenewe 3 HOURS ESTIMATED GFR 2023-02-23 23:05:00 Rehrer, [facility] POC GLUCOSE 2022-10-26 18:13:00 Ruth Murillo spital POC GLUCOSE 2022-10-26 13:57:00 Ruth Murillo spital PHOSPHORUS LEVEL 2022-10-26 11:29:00 Maxine Feldman ospital MAGNESIUM LEVEL 2022-10-26 11:29:00 Francia [facility] Iris Hearn spital CBC WITH PLATELET AND 2022-10-26 11:29:00 Francia, [facility] DIFFERENTIAL BASIC METABOLIC PANEL 2022-10-26 11:29:00 Francia [facility] LACTIC ACID LEVEL 2022-10-26 11:29:00 Francia, [facility] ESTIMATED GFR 2022-10-26 11:29:00 Ruth Murillo spital MANUAL DIFFERENTIAL 2022-10-26 11:29:00 Ruth Murillo [facility] PROCALCITONIN 2022-10-26 11:29:00 Ruth Murillo spital VANCOMYCIN LEVEL, TROUGH 2022-10-26 04:02:00 Servando Wick [facility] POC GLUCOSE 2022-10-26 03:26:00 Ruth Murillo spital POC GLUCOSE 2022-10-25 23:06:00 Ruth Murillo spital POC GLUCOSE 2022-10-25 18:09:00 Ruth Murillo spital POC GLUCOSE 2022-10-25 16:40:00 Ruth Murillo Ho spital PHOSPHORUS LEVEL 2022-10-25 10:28:00 Maxine Feldman H ospital MAGNESIUM LEVEL 2022-10-25 10:28:00 Maxine Feldman Ho spital CBC WITH PLATELET AND 2022-10-25 10:28:00 [facility] DIFFERENTIAL BASIC METABOLIC PANEL 2022-10-25 10:28:00 Francia [facility] LACTIC ACID LEVEL 2022-10-25 10:28:00 [facility] HEMOGLOBIN A1C 2022-10-25 10:28:00 Maxine Feldman spital PROCALCITONIN 2022-10-25 10:28:00 [facility] ESTIMATED GFR 2022-10-25 10:28:00 Ruth Murillo Ho spital POC GLUCOSE 2022-10-25 02:56:00 Ruth Murillo Ho spital POC GLUCOSE 2022-10-24 23:47:[address] CHEST WO CONTRAST 2022-10-24 23:34:20 [facility] VANCOMYCIN LEVEL, RANDOM 2022-10-24 18:08:00 Kimmy Matias [facility] POC GLUCOSE 2022-10-24 17:52:00 Ruth Murillo spital MRI PELVIS W WO CONTRAST 2022-10-24 17:23:00 [facility] POC GLUCOSE 2022-10-24 14:26:00 Ruth Murillo spital AFB CULTURE 2022-10-24 11:53:00 Kimmy Matias spital AFB STAIN 2022-10-24 11:53:00 Ruth Murillo spital PHOSPHORUS LEVEL 2022-10-24 11:51:00 Maxine Feldman H ospital MAGNESIUM LEVEL 2022-10-24 11:51:00 [facility] CBC WITH PLATELET AND 2022-10-24 11:51:00 Francia [facility] DIFFERENTIAL BASIC METABOLIC PANEL 2022-10-24 11:51:00 Francia [facility] LACTIC ACID LEVEL 2022-10-24 11:51:00 Francia, [facility] ESTIMATED GFR 2022-10-24 11:51:00 Ruth Murillo spital MANUAL DIFFERENTIAL 2022-10-24 11:51:00 [facility] 2022-10-24 05:21:00 [facility] 2022-10-24 03:42:00 [facility] CBC WITH PLATELET AND 2022-10-24 03:35:00 Florencio [facility] DIFFERENTIAL PROTHROMBIN TIME WITH INR 2022-10-24 03:35:00 [facility] PARTIAL THROMBOPLASTIN 2022-10-24 03:35:00 [facility]orencio [facility] TIME (PTT) FIBRINOGEN 2022-10-24 03:35:00 Florencio [facility] spital D-DIMER 2022-10-24 03:35:00 Florencio [facility] spital PROCALCITONIN 2022-10-24 03:35:00 [facility] 2022-10-24 03:35:00 Florencio [facility] POC GLUCOSE 2022-10-24 03:03:00 [facility] URINALYSIS SCREEN AND 2022-10-24 01:38:00 Francia, [facility] MICROSCOPY, WITH REFLEX TO CULTURE XR CHEST 1 VW PORTABLE 2022-10-24 01:37:11 [facility] CONSULT TO OSTOMY CARE 2022-10-24 01:07:38 [facility] NURSE BLOOD CULTURE, AEROBIC & 2022-10-24 00:32:00 Francia [facility] ANAEROBIC CBC WITH PLATELET AND 2022-10-24 00:32:00 Francia [facility] DIFFERENTIAL COMPREHENSIVE METABOLIC 2022-10-24 00:32:00 Francia [facility] PANEL MAGNESIUM LEVEL 2022-10-24 00:32:00 Francia [facility] Ho spital PHOSPHORUS LEVEL 2022-10-24 00:32:00 Francia [facility] ospital CREATINE KINASE, TOTAL 2022-10-24 00:32:00 Francia [facility] LACTIC ACID LEVEL 2022-10-24 00:32:00 [facility] ESTIMATED GFR 2022-10-24 00:32:[address] [facility] spital CT ABD/PELVIC EXTERNAL 2022-10-23 17:42:32 Lidia [facility] STUDY CBC WITH PLATELET AND 2022-07-30 09:24:00 Rik [facility] DIFFERENTIAL MAGNESIUM LEVEL 2022-07-30 09:24:00 Rik [facility] spital PHOSPHORUS LEVEL 2022-07-30 09:24:00 Rik [facility] ospital PROTHROMBIN TIME WITH INR 2022-07-30 09:24:00 Deborah Jolly [facility] PARTIAL THROMBOPLASTIN 2022-07-30 09:24:00 Rik [facility] TIME (PTT) COMPREHENSIVE METABOLIC 2022-07-30 09:24:00 Rik [facility] PANEL ESTIMATED GFR 2022-07-30 09:24:00 Lilliana Kimball spiarthur US NEEDLE ASPIRATION 2022-07-29 15:15:43 Deborah Jolly [facility] AEROBIC CULTURE 2022-07-29 15:00:00 [facility] ANAEROBIC CULTURE 2022-07-29 15:00[facility]00 [facility] 2022-07-29 15:00:00 [facility] GRAM STAIN 2022-07-29 15:00:00 [facility] ZZCOVID-19 ANTI-SPIKE IGG 2022-07-29 09:48:00 Thomas Rubi [facility] ANTIBODY TITER CBC WITH PLATELET AND 2022-07-29 09:48:00 Rik [facility] DIFFERENTIAL MAGNESIUM LEVEL 2022-07-29 09:48:00 Rik [facility] spital PHOSPHORUS LEVEL 2022-07-29 09:48:00 Rik [facility] ospital PARTIAL THROMBOPLASTIN 2022-07-29 09:48:00 Rik [facility] TIME (PTT) COMPREHENSIVE METABOLIC 2022-07-29 09:48:00 Rik [facility] PANEL ZZCOVID-19 SEROLOGY 2022-07-29 09:48:00 Thomas Rubi [facility] PATIENT SURVEILLANCE ESTIMATED GFR 2022-07-29 09:48:00 [facility] WITH [facility]ATELET AND 2022-07-28 10:26:00 Rik [facility] DIFFERENTIAL MAGNESIUM LEVEL 2022-07-28 10:26:00 [facility] 2022-07-28 10:26:00 Rik [facility] ospital PROTHROMBIN TIME WITH INR 2022-07-28 10:26:00 Rik [facility] PARTIAL THROMBOPLASTIN 2022-07-28 10:26:00 Rik [facility] TIME (PTT) COMPREHENSIVE METABOLIC 2022-07-28 10:26:00 Rik [facility] PANEL ESTIMATED GFR 2022-07-28 10:26:00 [facility] 12-LEAD 2022-07-27 16:08:21 [facility] 2022-07-27 15:39:00 [facility]AL[facility]ATIVE 2022-07-27 15:29:00 Rik [facility] RT-PCR METHICILLIN-RESISTANT 2022-07-27 15:26:00 Rik [facility] STAPHYLOCOCCUS AUREUS (MRSA), ADAL BLOOD CULTURE, AEROBIC & 2022-07-27 15:08:00 Rik [facility] ANAEROBIC CBC WITH PLATELET AND 2022-07-27 15:07:00 Rik [facility] DIFFERENTIAL PROTHROMBIN TIME WITH INR 2022-07-27 15:07:00 Rik [facility] PARTIAL THROMBOPLASTIN 2022-07-27 15:07[facility] COMPREHENSIVE METABOLIC 2022-07-27 15:07:00 [facility] LACTIC ACID LEVEL 2022-07-27 15:07:00 [facility] PROCALCITONIN 2022-07-27 15:07:00 Rik [facility] spital ESTIMATED GFR 2022-07-27 15:07:00 Rehana [facility] spital C-REACTIVE PROTEIN 2022-07-27 15:07:00 [facility] PANEL 2022-07-27 15:07:[address] [facility] MAGNESIUM LEVEL 2022-07-27 15:07:00 Rehana [facility] spital PHOSPHORUS LEVEL 2022-07-27 15:07:00 Rehana [facility] ospital URIC ACID LEVEL 2022-07-27 15:07:00 Rehana [facility] spital URINALYSIS SCREEN AND 2022-07-27 15:01:00 [facility], WITH REFLEX TO CULTURE CT ABD/PELVIC EXTERNAL 2022-07-27 02:35:00 Corey Coe [facility] STUDY Anton SURGICAL PATHOLOGY 2022-05-06 19:47:00 Dhiraj [facility] REQUEST MN AN ELECTIVE 2022-05-06 17:10:00 Winter Quezada [facility] spital ENDOTRACHEAL AIRWAY Claudia CYSTOSCOPY, WITH TURBT 2022-05-06 17:04:00 [facility] URINE CULTURE 2022-05-04 15:17:00 [facility] URINALYSIS SCREEN AND 2022-05-04 14:24:00 [facility] MICROSCOPY, WITH REFLEX TO CULTURE BASIC METABOLIC PANEL 2022-05-04 14:18:00 [facility] CBC HEMOGRAM 2022-05-04 14:18:00 [facility] HIV 1/2 ANTIGEN/ANTIBODY, 2022-05-04 14:18:00 [facility] FOURTH GENERATION, WITH REFLEXES PARTIAL THROMBOPLASTIN 2022-05-04 14:18:00 Ho, [facility] TIME (PTT) PROTHROMBIN TIME WITH INR 2022-05-04 14:18:00 Ho, [facility] HEPATIC FUNCTION PANEL 2022-05-04 14:18:00 Ho, [facility] FREE PSA 2022-05-04 14:18:00 Ho, [facility] HEMOGLOBIN A1C 2022-05-04 14:18:00 Gin Merchant Bernabe [facility] ESTIMATED GFR 2022-05-04 14:18:00 Ho, [facility] COVID-19 QUALITATIVE 2022-05-04 14:12:00 , [facility] RT-PCR ECG PRE/POST OP 2022-05-04 14:01:22 Dhiraj, [facility] MRI PELVIS W WO CONTRAST 2022-04-06 00:38:00 Ho, [facility] MRI ABDOMEN W WO CONTRAST 2022-04-06 00:10:00 , [facility] CT ABD/PELVIC EXTERNAL 2022-02-23 13:42:00 Valentin Evans [facility] STUDY CT CHEST WO CONTRAST 2021-12-02 02:22:26 Tu, [facility] ABDOMEN WO CONTRAST PELVIS WO CONTRAST URINE CULTURE 2021-12-02 01:57:00 Tu, [facility] URINALYSIS SCREEN AND 2021-12-02 01:32:00 Tu, [facility] MICROSCOPY, WITH REFLEX TO CULTURE HC COMPLETE BLD COUNT 2021-12-02 00:45:00 Tu, [facility] W/AUTO DIFF COMPREHENSIVE METABOLIC 2021-12-02 00:45:00 Tu, [facility] PANEL LIPASE LEVEL 2021-12-02 00:45:00 Tu, [facility] LACTIC ACID LEVEL, SEPSIS 2021-12-02 00:45:00 Tu, [facility] - NOW AND REPEAT 2X EVERY 3 HOURS ESTIMATED GFR 2021-12-02 00:45:00 Tu, [facility] PHOSPHORUS LEVEL 2021-12-02 00:45:00 Tu, [facility] MAGNESIUM LEVEL 2021-12-02 00:45:00 Tu, [facility] B NATRIURETIC PEPTIDE 2021-12-02 00:45:00 Tu, [facility] PROTHROMBIN TIME WITH INR 2021-12-02 00:45:00 Tu, [facility] PARTIAL THROMBOPLASTIN 2021-12-02 00:45:00 Tu, [facility] TIME (PTT) ECG 12-LEAD 2021-12-02 00:44:24 Tu, [facility] ECG ED PRELIMINARY 2021-12-02 00:41:04 Tu, [facility] INTERPRETATION ANESTHESIA INTUBATION 2021-01-15 20:12:00 Lukasz Sal [facility] EXCISION, TUMOR, RECTUM, 2021-01-15 20:01:00 [facility] TRANSANAL APPROACH COVID-19 QUALITATIVE 2021-01-13 21:56:00 [facility] RT-PCR BASIC METABOLIC PANEL 2021-01-13 21:56:00 [facility] HC COMPLETE BLD COUNT 2021-01-13 21:56:00 [facility] W/AUTO DIFF ESTIMATED GFR 2021-01-13 21:56:00 [facility] POC GLUCOSE 2021-01-01 22:19:00 MendozaHenrik [facility] POC GLUCOSE 2021-01-01 18:07:00 [facility] POC GLUCOSE 2021-01-01 14:10:00 [facility] HC COMPLETE BLD COUNT 2021-01-01 10:25:00 Ascencion Ritchie [facility] W/AUTO DIFF POC GLUCOSE 2021-01-01 10:22:00 MendozaHenrik [facility] POC GLUCOSE 2021-01-01 05:57:00 MendozaHenrik [facility] POC GLUCOSE 2021-01-01 01:47:00 MendozaHenrik [facility] POC GLUCOSE 2020-12-31 23:17:00 Mendoza [facility] HC COMPLETE BLD COUNT 2020-12-31 20:30:00 Edgcomb, [facility] W/AUTO DIFF BASIC METABOLIC PANEL 2020-12-31 20:30:00 Edgcomb, [facility] MAGNESIUM LEVEL 2020-12-31 20:30:00 Edgcomb, [facility] spital PHOSPHORUS LEVEL 2020-12-31 20:30:00 Edgcomb, Melvin Islam H ospital ESTIMATED GFR 2020-12-31 20:30:00 Edgcomb, [facility] spital POC GLUCOSE 2020-12-31 18:08:00 Mendoza, Henrik [facility] XR ABDOMEN 1 VW PORTABLE 2020-12-31 16:55:30 Edgcomb, [facility] POC GLUCOSE 2020-12-31 13:46:00 Mendoza Henrik Conroy [facility] POC GLUCOSE 2020-12-31 10:46:00 Mendoza, [facility] POC GLUCOSE 2020-12-31 05:29:00 Mendoza, [facility] POC GLUCOSE 2020-12-31 01:29:00 Mendoza Henrik Rafiq [facility] POC GLUCOSE 2020-12-30 22:09:00 Mendoza, [facility] POC GLUCOSE 2020-12-30 18:43:00 Mendoza, [facility] POC GLUCOSE 2020-12-30 14:07:00 Mendoza, Henrik Rafiq [facility] POC GLUCOSE 2020-12-30 10:49:00 Mendoza, [facility] POC GLUCOSE 2020-12-30 04:53:00 Mendoza, [facility] XR ABDOMEN 1 VW PORTABLE 2020-12-30 04:20:00 Mendoza Henrik Rafiq [facility] POC GLUCOSE 2020-12-29 22:43:00 MendozaHenrik encarnacion [facility] POC GLUCOSE 2020-12-29 17:39:00 MendozaHenrik encarnacion [facility] POC GLUCOSE 2020-12-29 13:57:00 MendozaHenrik encarnacion [facility] BASIC METABOLIC PANEL 2020-12-29 10:00:00 [facility] Jetsen Casimiro ESTIMATED GFR 2020-12-29 10:00:00 Iris [facility] Jetsen Casimiro HC COMPLETE BLD COUNT 2020-12-29 09:20:00 Mp Goyal [facility] W/AUTO DIFF Jetsen Casimiro POC GLUCOSE 2020-12-29 03:04:00 Pankaj Mendozaic Rafiq [facility] POC GLUCOSE 2020-12-28 21:45:00 Reji [facility] POC GLUCOSE 2020-12-28 18:07:00 Mendoza, [facility] POC GLUCOSE 2020-12-28 13:59:00 Henrik Mendoza [facility] HC COMPLETE BLD COUNT 2020-12-28 10:00:00 Mp Goyal [facility] W/AUTO DIFF Jetsen Casimiro BASIC METABOLIC PANEL 2020-12-28 10:00:00 [facility] Jetsen Casimiro ESTIMATED GFR 2020-12-28 10:00:00 Iris Santos ospital Jetsen Casimiro POC GLUCOSE 2020-12-28 02:47:00 MendozaHenrik encarnacion [facility] POC GLUCOSE 2020-12-27 22:04:00 [facility] 2020-12-27 18:04:00 Mendoza, [facility] POC GLUCOSE 2020-12-27 13:51:00 Mendoza, [facility] HC COMPLETE BLD COUNT 2020-12-27 10:30:00 Mp Goyal [facility] W/AUTO DIFF Jetsen Casimiro BASIC METABOLIC PANEL 2020-12-27 10:30:00 [facility] Jetsen Casimiro MAGNESIUM LEVEL 2020-12-27 10:30:00 I[facility] Jetsen Casimiro PHOSPHORUS LEVEL 2020-12-27 10:30:00 [facility] ESTIMATED GFR 2020-12-27 10:30:00 [facility] Jetsen Casimiro POC GLUCOSE 2020-12-27 01:58:00 [facility] CARE 2020-12-26 19:46:09 [facility] Xandersen Casimiro ANAEROBIC CULTURE 2020-12-26 16:06:00 [facility] AEROBIC CULTURE 2020-12-26 16:06:00 [facility] GRAM STAIN 2020-12-26 16:06:00 [facility] AFB STAIN 2020-12-26 16:06:00 [facility] SURGICAL PATHOLOGY 2020-12-26 16:04:00 Reji [facility] REQUEST AFB CULTURE 2020-12-26 15:06:00 [facility] MN AN ELECTIVE 2020-12-26 14:38:46 Rosa M Strauss [facility] ENDOTRACHEAL AIRWAY ARTERIAL LINE 2020-12-26 14:16:28 Cresencio Washington [facility] RESECTION, COLON, 2020-12-26 13:28:00 [facility] LAPAROSCOPIC, ROBOT-ASSISTED CONSULT TO OSTOMY CARE 2020-12-26 12:29:48 [facility] Jetsen Casimiro HC COMPLETE BLD COUNT 2020-12-26 12:10:00 Maritza Lopez [facility] W/AUTO DIFF ECG PRE/POST OP 2020-12-22 16:59:12 Maritza Lopez [facility] COVID-19 QUALITATIVE 2020-12-22 16:49:00 Henrik Mendoza [facility] RT-PCR HC COMPLETE BLD COUNT 2020-12-22 16:41:00 Henrik Mendoza [facility] W/AUTO DIFF COMPREHENSIVE METABOLIC 2020-12-22 16:41:00 Reji [facility] PANEL PARTIAL THROMBOPLASTIN 2020-12-22 16:41:00 Henrik Mendoza [facility] TIME (PTT) PROTHROMBIN TIME WITH INR 2020-12-22 16:41:00 Henrik Mendoza [facility] TYPE AND SCREEN 2020-12-22 16:41:[facility] 2020-12-22 16:41:00 [facility] EST[facility]FR 2020-12-22 16:41:00 Henrik Mendoza [facility] [id number] 2020-03-19 00:00:00 [facility] [id number] 2020-03-18 00:00:00 HAAER [facility] Plan of Care Planned Activity Planned Date Details Comments Source Future Scheduled 2023-05-02 Hepatitis C screening [facility] Test 07:55:25 (procedure) [code = 985808301] Future Scheduled 2023-05-02 SHINGLES VACCINES (1 [facility] Test 07:55:25 of 2) [code = SHINGLES VACCINES (1 of 2)] Future Scheduled 2023-05-02 COVID-19 VACCINE (2 - Me [facility] Test 07:55:25 Booster for Ale series) [code = COVID-19 VACCINE (2 - Booster for Ale series)] Future Scheduled 2023-05-02 INFLUENZA VACCINE Method [facility] Test 07:55:25 [code = INFLUENZA VACCINE] Future Scheduled 2022-07-16 HEPATITIS B VACCINES [facility] Test 09:38:05 (1 of 3 - 3-dose series) [code = HEPATITIS B VACCINES (1 of 3 - 3-dose series)] Future Scheduled 2022-07-16 Hepatitis C screening [facility] Test 09:38:05 (procedure) [code = 801241954] Future Scheduled 2022-07-16 COLONOSCOPY SCREENING [facility] Test 09:38:05 [code = COLONOSCOPY SCREENING] Future Scheduled 2022-07-16 SHINGLES VACCINES (1 [facility] Test 09:38:05 of 2) [code = SHINGLES VACCINES (1 of 2)] Future Scheduled 2022-07-16 COVID-19 VACCINE (2 - Me [facility] Test 09:38:05 Booster for Ale series) [code = COVID-19 VACCINE (2 - Booster for Ale series)] Future Scheduled 2022-07-16 INFLUENZA VACCINE Method [facility] Test 09:38:05 [code = INFLUENZA VACCINE] Future Scheduled 2021-12-01 COVID-19 VACCINE (1) Met [facility] Test 17:13:27 [code = COVID-19 VACCINE (1)] Future Scheduled 2021-12-01 Hepatitis C screening [facility] Test 17:13:27 (procedure) [code = 119019052] Future Scheduled 2021-12-01 COLONOSCOPY SCREENING [facility] Test 17:13:27 [code = COLONOSCOPY SCREENING] Future Scheduled 2021-12-01 SHINGLES VACCINES Method [facility] Test 17:13:27 (#1) [code = SHINGLES VACCINES (#1)] Future Scheduled 2021-12-01 INFLUENZA VACCINE Method [facility] Test 17:13:27 [code = INFLUENZA VACCINE] Encounters Start End Encounter Admission Attending Care Care Encounter Source Date/Time Date/Time Type Type Clinicians Facility Department ID 2023-04-07 2023-04-07 Procedure Thomas Hearn 1.2.840.1 [id number] Methodi 08:30:00 09:14:19 visit Paola 85027.1.1 046 samy morton 3.430.2.7 Hospit a .3.195719 l .8 2023-04-07 2023-04-07 Outpatient THOMAS HEARN [facility] [id number] [place] 00:00:00 00:00:[address] 2023-03-30 2023-03-30 Outpatient TAMI TALLEY [facility] [id number] [place] 00:00:00 00:00:[address] 2023-03-25 2023-03-25 [facility] [place] 1.2.840.1 [id number] Methodi 15:34:01 23:59:00 Encounter Khurram Hsieh 53897.1.[address] Ghosh 3.430.2.7 Hospit a .3.467674 l .8 2023-03-25 2023-03-25 Outpatient CHELSEA [facility] [id number] 722 [place] 00:00:00 00:00:[address] Caz[address] [facility] 2023-03-17 2023-03-17 Travel 1.2.840.1 1.2.815.430 4421 [id number] Methodi 00:00:00 00:00:[address] 3.430.2.7 0.2.7.3.698 Ho spita .3.963721 084.8 l .8 2023-03-10 2023-03-10 Lab Dhiraj Thomas 1.2.840.1 [id number] [id number] Methodi 18:45:00 18:50:00 BrittnyAbida 52052.1.1 135 s t 3.430.2.7 Hospit a .3.878025 l .8 2023-03-10 2023-03-10 Procedure Dhiraj Thomas 1.2.840.1 [id number] Methodi 14:15:00 15:24:37 visit BrittnyAbida 11996.1.1 633 s t 3.430.2.7 Hospit a .3.583009 l .8 2023-03-10 2023-03-10 Outpatient THOMAS HEARN [facility] [id number] [place] 00:00:00 00:00:00 633 Method i 2023-03-10 2023-03-10 Outpatient THOMAS HEARN [facility] [id number] [place] 00:00:00 00:00:[address] 2023-03-10 2023-03-10 Travel 1.2.840.1 1.2.741.639 6823 [id number] Methodi 00:00:00 00:00:[address] 3.430.2.7 0.2.7.3.698 Ho spita .3.276521 084.8 l .8 2023-02-23 2023-02-26 Emergency Ezequiel Montez 1.2.840.1 1 [id number] Methodi 17:59:00 13:46:00 Julia Alba 69065.1.[address] Rishabh, Matt 3.430.2.7 Hospita Saghir, Jody .3.496869 l .8 2023-02-23 2023-02-26 Outpatient JULIO C, [facility] [id number] 291 [place] 00:00:00 00:00:[address] JODY [address] 2023-02-23 2023-02-23 Travel 1.2.840.1 1.2.619.477 6899 [id number] Methodi 00:00:00 00:00:[address] 3.430.2.7 0.2.7.3.698 Ho spita .3.243529 084.8 l .8 2022-10-23 2022-10-26 [facility], 1.2.840.1 [id number] [id number] Methodi 15:24:00 15:24:00 Encounter Ruth 85289.1.[address] 3.430.2.7 Hospit a .3.655715 l .8 2022-10-26 2022-10-26 Travel 1.2.840.1 1.2.857.697 6306 [id number] Methodi 00:00:00 00:00:[address] 3.430.2.7 0.2.7.3.698 Ho spita .3.541985 084.8 l .8 2022-10-23 2022-10-26 Inpatient [facility] [id number] 00 [place] 00:00:00 00:00:00 RUTH [address] 2022-10-24 2022-10-24 [facility], 1.2.840.1 [id number] Methodi 00:00:00 00:00:00 Only Ruth 08114.1.[address] 3.430.2.7 Hospit a .3.751522 l .8 2022-10-23 2022-10-23 [facility], 1.2.840.1 [id number] [id number] Methodi 21:46:41 23:59:00 Encounter Ruth 75111.1.[address] 3.430.2.7 Hospit a .3.935312 l .8 2022-10-23 2022-10-23 Inpatient LIDIA [facility] [id number] [place] 00:00:00 00:00:00 RUTH [address] 2022-07-27 2022-07-30 [facility] Carolin Corey Anton 1.2.840.1 [id number] Methodi 08:34:00 19:08:00 Encounter Lilliana Kimball 98657.1.[address] 3.430.2.7 Hospit a .3.729427 l .8 2022-07-27 2022-07-30 Inpatient REHANA [facility] [id number] 41 [place] 00:00:00 00:00:00 LILL[address]NA [address] 2022-05-04 2022-05-09 Pre-Admiss [facility] 1.2.840.1 [id number] 2 [id number] Methodi 08:30:00 00:05:48 ion Paola 09593.1.1 861 s t Testing 3.430.2.7 Hospit a .3.587435 l .8 2022-05-06 2022-05-06 Hospital [facility] 1.2.840.1 [id number] [id number] Methodi 09:09:00 14:56:00 Encounter Paola 63471.1.[address] 3.430.2.7 Hospit a .3.416490 l .8 2022-05-06 2022-05-06 Surgery [facility] 1.2.840.1 [id number] 2100 [id number] Methodi 12:00:00 13:15:00 Brittny-Delacruz 19022.1.1 763 s t 3.430.2.7 Hospit a .3.345678 l .8 2022-05-06 2022-05-06 Anesthesia Nabeel Gonsalez 1.2.840.1 [id number] Methodi 12:04:00 12:44:00 Event Winter Quezada 32001.1.[address] 3.430.2.7 Hospit a .3.588634 l .8 2022-05-04 2022-05-04 Travel 1.2.840.1 1.2.897.770 9279 [id number] Methodi 00:00:00 00:00:[address] 3.430.2.7 0.2.7.3.698 Ho spita .3.021439 084.8 l .8 2022-04-16 2022-04-16 Lab Henrik Mendoza 1.2.840.1 [id number] 102 [id number] Methodi 06:15:00 06:20:[address] 3.430.2.7 Hospit a .3.102680 l .8 2022-04-05 2022-04-05 [facility] THOMAS HEARN 1.2.840.1 [id number] [place] 00:00:00 00:00:00 Encounter 23828.1.1 [address] .3.660000 .8 2022-04-05 2022-04-05 [facility] THOMAS HEARN 1.2.840.1 [id number] [place] 00:00:00 00:00:00 Encounter 26839.1.[address] .3.996826 .8 2022-04-05 2022-04-05 Travel 1.2.840.1 1.2.493.134 1632 [id number] Methodi 00:00:00 00:00:[address] 3.430.2.7 0.2.7.3.698 spita .3.921858 084.8 l .8 2022-03-30 2022-03-30 Orders Alagugurusa 1.2.840.1 [id number] Methodi 00:00:00 00:00:00 Only my, 04305.1.[address] Altagracia 3.430.2.7 Hospi ta Golden .3.204614 l .8 2022-03-26 2022-03-26 [facility]n 1.2.840.1 [id number] 21 [id number] Methodi 00:00:00 00:00:00 Orders Paola 02401.1.1 481 s t 3.430.2.7 Hospit a .3.539953 l .8 2022-02-26 2022-02-26 [facility] Evans, 1.2.840.1 [id number] Methodi 11:08:47 23:59:00 Encounter Valentin 86810.1.[address] Enzo 3.430.2.7 Hospit a .3.626628 l .8 2021-12-01 2021-12-01 Emergency , Deedee-Jaspreet 1.2.840.1 [id number] 2 [id number] Methodi 18:19:00 22:32:[address] 3.430.2.7 Hospit a .3.979834 l .8 2021-12-01 2021-12-01 [facility] 1.2.840.1 1.2.481.835 3610 [id number] Methodi 00:00:00 00:00:[address] 3.430.2.7 0.2.7.3.698 Ho spita .3.016449 084.8 l .8 2021-04-09 2021-04-09 Outpatient MADELINE MOREIRA MED 750 0 MHMIKI 07:41:00 23:59:00 [facility] 2021-01-15 2021-01-15 [facility] 1.2.840.1 [id number] Methodi 09:58:00 18:31:00 Encounter Rafiq 83970.1.1 122 s t 3.430.2.7 Hospit a .3.699801 l .8 2021-01-15 2021-01-15 Anesthesia [facility] Severino 1.2.8 40.1 [id number] Methodi 15:01:00 16:03:00 Event Eduarda Hess 76553.1.[address] 3.430.2.7 Hospit a .3.660223 l .8 2021-01-15 2021-01-15 Surgery MendozaHenrik 1.2.840.1 [id number] 789 [id number] Methodi 12:00:00 13:40:[address] 3.430.2.7 Hospit a .3.566184 l .8 2021-01-13 2021-01-13 Pre-Admiss MendozaPankaj encarnacionic 1.2.840.1 [id number] Methodi 16:38:17 17:38:17 ion Rafiq 21413.1.[address] Testing 3.430.2.7 Hospit a .3.733119 l .8 2021-01-13 2021-01-13 Travel 1.2.840.1 1.2.355.062 6311 [id number] Methodi 00:00:00 00:00:[address] 3.430.2.7 0.2.7.3.698 Ho spita .3.088093 084.8 l .8 2021-01-07 2021-01-07 Documentat [facility] 1.2.840.1 [id number] Methodi 00:00:00 00:00:00 ion rikki 51002.1.[address] Altagracia 3.430.2.7 Hospi ta Golden .3.923727 l .8 2020-12-26 2021-01-02 [facility] 1.2.840.1 [id number] 21 [id number] Methodi 05:12:00 15:20:00 Encounter Rafiq 98454.1.1 273 s t 3.430.2.7 Hospit a .3.551098 l .8 2020-12-26 2020-12-26 Anesthesia Audie Damian 1.2.840 .1 [id number] Methodi 07:29:00 13:59:00 Event Maritza Lopez 83723.1.[address] 3.430.2.7 Hospit a .3.702822 l .8 2020-12-26 2020-12-26 Surgery Pankaj Mendozaic 1.2.840.1 [id number] 802 [id number] Methodi 07:30:00 12:40:[address] 3.430.2.7 Hospit a .3.108247 l .8 2020-12-25 2020-12-25 Travel 1.2.840.1 1.2.023.191 5813 [id number] Methodi 00:00:00 00:00:[address] 3.430.2.7 0.2.7.3.698 Ho spita .3.029895 084.8 l .8 2020-12-22 2020-12-22 Pre-Admiss Henrik Mendoza 1.2.840.1 [id number] Methodi 07:56:19 08:56:19 ion Rafiq 74081.1.[address] Testing 3.430.2.7 Hospit a .3.993363 l .8 2020-12-22 2020-12-22 Travel 1.2.840.1 1.2.804.144 2746 [id number] Methodi 00:00:00 00:00:[address] 3.430.2.7 0.2.7.3.698 Ho spita .3.704437 084.8 l .8 2020-12-08 2020-12-08 Travel 1.2.840.1 1.2.866.243 0625 078116 Methodi 00:00:00 00:00:[address] 3.430.2.7 0.2.7.3.698 Ho spita .3.957244 084.8 l .8 2020-08-25 2020-08-25 Outpatient HENRIK MENDOZA [facility] [id number] [place] 00:00:00 00:00:[address] 2020-03-18 2020-03-25 Inpatient Henrik Mendoza [facility] DAYS [id number] [facility] 13:15:00 23:34:17 37 [facility] 2020-03-18 2020-03-18 Outpatient Henrik Mendoza HCANW REF [id number] [facility] 19:10:00 19:10:00 66 [facility] 2020-03-14 2020-03-14 Outpatient UNKNOWN HCACL OUTD [id number] [facility] 13:56:00 13:56:00 01 [facility] 2020-02-01 2020-02-01 Outpatient CHELSEA, [facility] [id number] 342 [place] 00:00:00 00:00:00 KHURRAM Caryl [facility] i [facility] Results Test Description Test Time Test Comments Results Result Comments Source POC specific gravity, urine, qualitative, dipstick 8 13:11:49 Test Item Value Reference Range Interpretation Comme nts Specific gravity urine, POC (test 1.020 1.005-1.030 code = 0469087) Glucose urine, POC (test code = Trace Negative A 5931524) Bilirubin urine, POC (test code = Negative Negative 4698807) Ketones urine, POC (test code = Negative Negative 0967479) Blood urine, POC (test code = Negative Negative 3096562) pH urine, POC (test code = 6.0 See_Comment [Automated message] The 7413357) system which ge nerated this result transmit boo reference range: 5.0, 5.5 , 6.0, 6.5, 7.0, 7.5, 8.0, 8.5. The reference range was not used to interpret th is result as normal/abnormal . Protein urine, POC (test code = Trace Negative A 9890106) Urobilinogen urine, POC (test <2.0 <=2.0 code = 9734938) Nitrite urine, POC (test code = Negative Negative 1158310) Leukocyte esterase urine, POC Negative Negative (test code = 8997973) Lab Interpretation (test code = Abnormal 53036-0) [id number] 10:42:00 Test Item Value Reference Range Interpretation Comments Urine culture Mixed pricila Specimen isolate (test <=10-3 col/cc InformationSp ecimen code = 64968-9) Source: Urin eSpecimen [facility], with reflex to culture 2023-03-11 03:02:00 Test Item Value Reference Range Interpretation Comments Specimen site (test Clean catch code = 8467274) Color, UA (test code = Ava 5778-6) Appearance, UA (test Clear code = 5767-9) Specific gravity, UA 1.025 1.001-1.035 (test code = 5811-5) pH, UA (test code = 5.0 5.0-8.5 5803-2) Protein, UA (test code 2+ Negative A = 62669-9) Glucose, UA (test code 1+ Negative A = 87221-6) Ketones, UA (test code Negative Negative = 2514-8) Bilirubin, UA (test Negative Negative code = 5770-3) Blood, UA (test code = Negative Negative 5794-3) Nitrite, UA (test code Negative Negative = 5802-4) Urobilinogen, UA (test 4.0 <=2.0 A code = 26263-2) Leukocyte esterase, UA Negative Negative (test code = 5799-2) Epithelial cells, UA <1 See_Comment [Autom ated (test code = 5787-7) message ] The system which generated this result transmitted reference range : /HPF. The refer ence range was not u sed to interpret th is result as normal/abnormal . WBC, UA (test code = 10 See_Comment H [Autom ated 5821-4) message] The sy stem which generated this result transmitted reference range : 0 - 1 /HPF. The reference range was not used to interpret this result as normal/abnormal . RBC, UA (test code = 1 See_Comment [Autom ated 42148-0) message] The sy stem which generated this result transmitted reference range : 0 - 5 /HPF. The reference range was not used to interpret this result as normal/abnormal . Bacteria, UA (test code Few None seen = 49706-6) Yeast, UA (test code = None seen 98920-8) Yeast with None seen pseudohyphae, UA (test code = 88201-9) Hyaline casts, UA (test 17 See_Comment [Au tomated code = 5796-8) message] The system which generated this result transmitted reference range : /LPF. The refer ence range was not u sed to interpret th is result as normal/abnormal . Lab Interpretation Abnormal (test code = 82825-9) [facility] [id number] 18:14:00 Test Item Value Reference Range Interpretation Comments POC glucose (test code = 157 mg/dL 65-99 H Ope rator Name: 24046-4) Chidi Vidal vice ID: [id number] able: [facility] Notified header dock Interpretation (test Abnormal code = 24553-4) [facility] [id number] 00:15:00 Test Item Value Reference Range Interpretation Comments Fungus culture No growth Specimen isolate (test after 4 weeks InformationSp ecimen code = 580-1) of Source: Absces sSpecimen incubation. Site: MIKE-RECT AL [facility] [id number] 11:44:00 Test Item Value Reference Range Interpretation Comments Anaerobic No anaerobic Specimen culture isolate organisms InformationS pecimen (test code = isolated. Source: Abscess Specimen 21484-6) Site: MIKE-RECT AL [facility] [id number] 18:03:00 Test Item Value Reference Range Interpretation Comments Fungus smear No fungi Specimen (test code = observed. InformationSpec imen Source: 1443) AbscessSpecimen Site[facility]KE[facility]AL [facility] [id number] 20:15:00 Test Item Value Reference Range Interpretation Comments Gram stain Few Gram Specimen isolate (test positive cocci InformationS pecimen code = 1469) in pairs Source: Abscess Specimen [facility]: [facility]RECT [facility] [id number] 21:03:34 Test Item Value Reference Range Interpretation Comments Ventricular rate 69 (test code = 253) Atrial rate (test 69 code = 255) MN interval (test 194 code = 266) QRSD interval (test 74 code = 260) QT interval (test 358 code = 264) QTC interval (test 383 code = 265) P axis 1 (test code = 48 267) QRS axis 1 (test code 51 = 268) T wave axis (test 38 code = 270) EKG impression (test ^^^ Poor data quality, code = 273) interpretation may be adversely affected-Normal sinus rhythm-Normal ECG-In automated comparison with ECG of 04-MAY-2022 09:01,-No significant change was found- [facility] RNA [Presence] in Respiratory specimen by ADAL with probe [id number] 15:32:14 Test Item Value Reference Range Interpretation Comments SARS-CoV-2 (COVID-19) RNA Not detected [Presence] in Respiratory specimen by ADAL with probe detection (test code = 48203-0) Whether patient is employed in a Unknown healthcare setting (test code = 51901-6) Whether the patient has symptoms Unknown related to condition of interest (test code = 31288-3) Whether the patient was Unknown hospitalized for condition of interest (test code = 96627-3) Whether the patient was admitted Unknown to intensive care unit (ICU) for condition of interest (test code = 39227-2) Whether patient resides in a Unknown congregate care setting (test code = 78016-6) status (test code = Unknown 26139-6) Date and time of symptom onset Unknown (test code = 64353-2) [facility] [id number] 21:59:48 Test Item Value Reference Range Interpretation Comments Case number (test code = [id number]) Surgical pathology See link below for report (test code = PDF Lab Report 2255) Result status (test code This is Final Report = [id number]) for [id number] [facility] Hospital[facility] [id number] 18:57:00 Test Item Value Reference Range Interpretation Comments Urine culture Mixed pricila Specimen isolate (test <=10-3 col/cc InformationSp ecimen code = 59774-2) Source: Urin eSpecimen Site[facility] [id number] 16:34:09 Test Item Value Reference Range Interpretation Comments Ventricular rate (test code = 253) Atrial rate (test code = 255) MN interval (test code = 266) QRSD interval [...] of 01-DEC-2021 18:44,-No significant change was found- Iris Abdullahi-CoV-2 (COVID-19) RNA [Presence] in Respiratory specimen by ADAL with probe [id number] 12:52:09 Test Item Value Reference Range Interpretation Comments SARS-CoV-2 (COVID-19) RNA Not detected [Presence] in Respiratory specimen by ADAL with probe detection (test code = 47275-4) Whether patient is employed in a Unknown healthcare setting (test code = 22234-8) Whether the patient has symptoms Unknown related to condition of interest (test code = 50120-2) Whether the patient was Unknown hospitalized for condition of interest (test code = 97818-6) Whether the patient was admitted Unknown to intensive care unit (ICU) for condition of interest (test code = 51326-3) Whether patient resides in a Unknown congregate care setting (test code = 65042-4) status (test code = Unknown 05114-6) Date and time of symptom onset Unknown (test code = 65877-6) [facility] 12 [id number] 03:34:45 Test Item Value Reference Range Interpretation Comments Ventricular rate (test code = 253) Atrial rate (test code = 255) MN interval (test code = 266) QRSD interval [...] of 22-DEC-2020 10:59,-No significant change was found- [facility] [id number] 17:13:13 Test Item Value Reference Range Interpretation Comments AFB culture No growth Specimen isolate (test after 6 weeks InformationSp ecimen code = 543-9) of Source: Absces sSpecimen incubation. Site: Abdomen: pelvic abscess Iris Abdullahi-CoV-2 (COVID-19) RNA [Presence] in Respiratory specimen by ADAL with probe [id number] 22:33:30 Test Item Value Reference Range Interpretation Comments SARS-CoV-2 (COVID-19) RNA Not detected Not-Detected [Presence] in Respiratory specimen by ADAL with probe detection (test code = 82374-0) [facility] [id number] 22:44:57 Test Item Value Reference Range Interpretation Comments Case number (test code = [id number]) Surgical pathology See link below for report (test code = PDF Lab Report 2259) Result status (test code This is Final Report = [id number]) for [id number] [facility] HospitalAna[facility] [id number] 12:59:53 Test Item Value Reference Range Interpretation Comments Anaerobic No anaerobic Specimen culture isolate organisms InformationS pecimen (test code = isolated. Source: Abscess Specimen 552) Site: Abdomen: pelvic abscess [facility] [id number] 20:19:40 Test Item Value Reference Range Interpretation Comments AFB stain No acid fast Specimen (test code = bacilli (AFB) InformationSpe [facility] 676-7) seen. Source: Abscess Specimen Site: Abdomen: pelvic abscess [facility] [id number] 20:19:40 Test Item Value Reference Range Interpretation Comments Aerobic culture No growth Specimen isolate (test after 2 days. InformationSp ecimen code = 498) Source: Abscess Specimen Site: Abdomen: pelvic abscess [facility] [id number] 20:19:40Gram stain isolateOccasional WBC'sNo organisms seen Comment: Specimen InformationSpecimen Source: Abs cessSpecimen Site: Abdomen: [facility] Pre/Post [id number] 13:30:38 Test Item Value Reference Range Interpretation Comments Ventricular rate (test code = 253) Atrial rate (test code = 255) MN interval (test code = 266) QRSD interval [...] of 01-FEB-2020 09:53,-No significant change was found- Iris Abdullahi-CoV-2 (COVID-19) RNA [Presence] in Respiratory specimen by ADAL with probe [id number] 15:56:28 Test Item Value Reference Range Interpretation Comments SARS-CoV-2 (COVID-19) RNA Not detected Not-Detected [Presence] in Respiratory specimen by ADAL with probe detection (test code = 78322-6) LEEANNE TANNER-CoV-2 (COVID-19) RNA [Presence] in Respiratory specimen by ADAL with probe [id number] 20:11:47 Test Item Value Reference Range Interpretation Comments SARS-CoV-2 (COVID-19) RNA [Presence] Detected Not-Detected in Respiratory specimen by ADAL with probe detection (test code = 13910-5) [facility] W/AUTO [id number] 09:43:00 Test Item Value Reference Range Interpretation [...] 0.02 x10 3/uL 0.0-0.20 N BASIC METABOLIC [id number] 06:34:00 Test Item Value Reference Range Interpretation [...] code 7.7 mg/dL 8.8-10.2 L = CA) [id number] 06:34:00 Test Item Value Reference Range Interpretation Comments MAGNESIUM (test code = MAG) 2.1 mg/dL 1.4-2.6 N CBC W/AUTO [id number] 06:21:00 Test Item Value Reference Range Interpretation [...] 0.01 x10 3/uL 0.0-0.20 N B-TYPE NATRIURETIC [id number] 12:23:00 Test Item Value Reference Range Interpretation Comments B-TYPE NATRIURETIC PEPTIDE (test 504 PG/ML 0-100 H code = BNP) - XR CHEST 1 [id number] 07:34:00Patient Name: PRIYANKA HENDERSON Unit No: [id number] EXAMS: CPT CODE: [id number] XR CHEST 1 V 21390 CLINICAL HISTORY: chf. LOCATION: A1 FINDINGS: Comparison [...] (Gy m2): Air Kerma (mGy): Trscr Dt/Tm: 03/22/2020 (0734) by:[email or web address] Printed Date/Time: 03/22/2020 (0737) Name: PRIYANKA HENDERSON ANTONI [facility] Phys: Mack Arriaga [address] : 1960 Age:59 Sex: [place] [address] Loc: P.[phone] 1 Exam Date: 03/22/2020 Status: ADM INPH: FAX: PAGE 1 Signed Report COMPREHENSIVE METABOLIC [id number] 06:56:00 Test Item Value Reference Range Interpretation [...] 45-120 N PHOSPHATASE (test code = ALKP) [id number] 06:56:00 Test Item Value Reference Range Interpretation Comments MAGNESIUM (test code = MAG) 2.1 mg/dL 1.4-2.6 N CBC W/AUTO [id number] 06:44:00 Test Item Value Reference Range Interpretation [...] = BA#) 0.01 x10 3/uL 0.0-0.20 N [id number] 17:46:00 Test Item Value Reference Range Interpretation Comments POTASSIUM (test code = K) 3.9 MMOL/L 3.5-5.1 N [id number] 17:46:00 Test Item Value Reference Range Interpretation Comments MAGNESIUM (test code = MAG) 2.0 mg/dL 1.4-2.6 N [id number] 17:19:00 Test Item Value Reference Range Interpretation Comments HEMOGLOBIN (test code = HGB) 8.2 g/dL 14.5-20 L [id number] 14:05:00 Test Item Value Reference Range Interpretation Comments HEMOGLOBIN (test code = HGB) 8.2 g/dL 14.5-20 L [id number] 10:56:00 Test Item Value Reference Range Interpretation Comments GLUBED (test code = GLUBED) 100 MG/DL 70-105 N SURGICAL [id number] 09:58:00 RUN DATE: 03/21/20 [facility] - LAB PAGE 1 RUN TIME: 958 Specimen Inquiry RUN USER: INTERFACE ------- -----PATIENT: PRIYANKA HENDERSON LOC: Dorys TABARES U #: [id number] AGE/SX: 59/M ROOM: [facility] RE03/18/20[facility] DR: Henrik Mendoza MD : 58 BED: 1 DIS: STATUS: ADM IN TLOC: SPEC #: [id number] RECD: 03/19/205 STATUS: MAIRA REQ #: [id number] NADIR: 03/18/20 [address] [facility] [address]: Henrik Mendoza MD ENTERED: 03/19/20-1015 SP TYPE: SURG OTHR DR: ORDERED: PATHGM3, PATH SPEC, H E STAIN HISTOLOGY: TISSUE ID BLK PCS DORETHA LEV / PROCEDURE DISPOSITION ____ ___ ___ ___ ___ ILEOSTOMY A 3 1 TISSUES: A. ILEOSTOMY - Ileostomy CLINICAL HISTORY Rectal Cancer, Parastomal HerniaCOMMENT Sections of the specimen demonstrate a small segment of small intestine. In one area there is an opening with associated mucosal ulceration, granulation tissue, acute and chronic inflammation and reactive changes. The findings are those of an ileostomy site. Also within the specimen container is a separate piece of benign skin. Clinical correlation is recommended. FINAL DIAGNOSIS A-ILEOSTOMY, EXCISION: - Ileostomy. GROSS DESCRIPTION A-ILEOSTOMY: A small segment of intestine which measures 4x 1.5 x 1.5 cm. There is attached adipose tissue. Near the midportion there is a transmural defect with a granular/friable surface which measures 1.5 x 1 cm. Grossly, this appears to represent a stoma site. The intestinal mucosa is otherwise unremarkable. Also received in the specimen container are separate pieces of partially disrupted intestinal tissue (5 x 2 x 1 cm and 1.5 x 0.5 x 0.5 cm) and a separate piece of skin (1.7 x 1.5 x 1 cm). Manager Work sections are submitted as described below in the section code. SECTION CODE: A1: Presumed stoma site A2-A3: Additional community relations representative sections RAB/th CONTINUED ON NEXT PAGE RUN DATE: 03/21/20 [facility] - LAB PAGE 2 RUN TIME: 958 Specimen Inquiry RUN USER: INTERFACE SPEC #: [id number] PATIENT: PRIYANKA HENDERSON #[id number] (Continued)--- --------- MICROSCOPIC DESCRIPTION Microscopic performed. Signed SIGNATURE ON FILE Margret Gaviria MD 03/21/20 0958 END OF REPORT BASIC METABOLIC [id number] 07:03:00 Test Item Value Reference Range Interpretation [...] code 8.0 mg/dL 8.8-10.2 L = CA) [id number] 07:03:00 Test Item Value Reference Range Interpretation Comments MAGNESIUM (test code = MAG) 1.8 mg/dL 1.4-2.6 N CBC W/AUTO [id number] 06:37:00 Test Item Value Reference Range Interpretation [...] = BA#) 0.01 x10 3/uL 0.0-0.20 N [id number] 02:00:00 Test Item Value Reference Range Interpretation Comments HEMOGLOBIN (test code = HGB) 7.9 g/dL 14.5-20 L LACTIC [id number] 18:53:00 Test Item Value Reference Range Interpretation Comments LACTIC ACID (test code = LACT) 10.2 mg/dL 4.5-18.0 N BASIC METABOLIC [id number] 18:53:00 Test Item Value Reference Range Interpretation [...] 7.1 mg/dL 8.8-10.2 L = CA) HGB [id number] 18:28:00 Test Item Value Reference Range Interpretation Comments HEMOGLOBIN (test code = HGB) 8.1 g/dL 14.5-20 L HEMATOCRIT (test code = HCT) 25.1 % 42.0-52.0 L [id number] 13:30:00 Test Item Value Reference Range Interpretation Comments HEMOGLOBIN (test code = HGB) 8.4 g/dL 14.5-20 L BASIC METABOLIC [id number] 06:40:00 Test Item Value Reference Range Interpretation [...] code = 7.1 mg/dL 8.8-10.2 L CA) [id number] 06:40:00 Test Item Value Reference Range Interpretation Comments MAGNESIUM (test code = MAG) 1.6 mg/dL 1.4-2.6 N LACTIC [id number] 06:40:00 Test Item Value Reference Range Interpretation Comments LACTIC ACID (test code = LACT) 12.1 mg/dL 4.5-18.0 N CBC W/AUTO [id number] 06:32:00 Test Item Value Reference Range Interpretation [...] 0.01 x10 3/uL 0.0-0.20 N COMPREHENSIVE METABOLIC [id number] 01:24:00 Test Item Value Reference Range Interpretation [...] 45-120 L (test code = ALKP) LACTIC [id number] 01:13:00 Test Item Value Reference Range Interpretation Comments LACTIC ACID (test 30.6 mg/dL 4.5-18.0 HH Critical V alue reported code = LACT) toFirst Name:MIKI HAYES Last Name:SHAMAR RESULTS READ BACK AND VERIFIEDby STACEY MORALES, on 03/20/20, @ 011 3. PROTHROMBIN [id number] 01:11:00 Test Item Value Reference Range Interpretation [...] 2.5-3.5recurren t systemic emboli sm. THROMBOPLASTIN TIME [id number] 01:11:00 Test Item Value Reference Range Interpretation Comments THROMBOPLASTIN TIME 21.1 SECONDS 26.0-35.9 L INTERPRE TATIVE PARTIAL (test code = DATA: erapeutic PTT) range: Unfractionated heparin:47 - 71 seconds Argatroban:1.5 to 3 times the basel ine PTT [id number] 01:11:00 Test Item Value Reference Range Interpretation Comments FIBRINOGEN (test code = FIB) 298 mg/dL 200-400 N [id number] 01:11:00 Test Item Value Reference Range Interpretation Comments D-DIMER (test 2251 ng/mL 0-500 HH Critical Value reported code = DDIMER) toFirst Name: PREM Last Name:SHAMAR RESULTS READ BACK AND CB ENGL[place], on 0 03/20/20, @ 0111.THE DDIMER METHOD [...] STS AND APPROPRIATECLIN ICAL EVALUATIONS. CBC W/AUTO [id number] 01:00:00 Test Item Value Reference Range Interpretation [...] 3/uL 0.0-0.20 N - XR CHEST 1 [id number] 00:24:00Patient Name: PRIYANKA HENDERSON Unit No: [id number] EXAMS: CPT CODE: [id number] XR CHEST 1 V 17107 EXAMINATION: - XR CHEST 1 V LOCATION: [...] abdomen: No subdiaphragmatic free air. Regional osseous structures:Intact. IMPRESSION: 1. Well-positioned right IJ central venous catheter. 2. Low lung volume with per ihilar and left basilar atelectasis. at 0024 Reported and signed by: Ruiz Pinto M.D. CC: Henrik Mendoza MD; Alley Person NP Technologist: Ileana Hager Time: DAP (Gy m2): Air Kerma (mGy): Trscr Dt/Tm: 03/20/2020 (0024) by:[email or web address] Printed Date/Time: 03/20/2020 (0027) Name: PRIYANKA HENDERSON [facility] Phys: Alley Mackenzie CENTER DIRECTOR LEAD TEACHER [address] : 1960 Age: 59 Sex: [place] [address] Loc: P.0206 1 Exam Date: 03/19/2020 Status: ADM IN PH: FAX: PAGE 1 Signed ReportHGB [id number] 18:48:00 Test Item Value Reference Range Interpretation Comments HEMOGLOBIN (test code = HGB) 8.3 g/dL 14.5-20 L HEMATOCRIT (test code = HCT) 26.2 % 42.0-52.0 L LACTIC [id number] 17:54:00 Test Item Value Reference Range Interpretation Comments LACTIC ACID (test 42.2 mg/dL 4.5-18.0 HH Critical V alue reported code = LACT) toFirst Name:JACOB Richter Name:BANDAR BANGURA READ BACK AND VERIFIEDby P.LA B.RS, on 03/19/20, @ 175 2. [id number] 16:26:00 Test Item Value Reference Range Interpretation Comments TROPONIN-I (test < 0.30 ng/mL 0.00-0.30 N INTERPRETAT LOCO code = TROPI) DATA:Negative or inconclusive re uslts do not exclude myocardialinfar ction. Serial tests at appropriate int ervals may benecessary. LACTIC [id number] 16:04:00 Test Item Value Reference Range Interpretation Comments LACTIC ACID (test 35.9 mg/dL 4.5-18.0 HH Critical V alue reported code = LACT) toFirst Name: Dg ast Name:DR LOVE RESULTS READ BACK AND V ERIFIEDby P.LAB.RS, on , @ 1604. - XR CHEST 1 [id number] 14:51:00Patient Name: PRIYANKA HENDERSON Unit No: [id number] EXAMS: CPT CODE: [id number] XR CHEST 1 V 15709 CLINICAL HISTORY: Shock. LOCATION: A1 FINDINGS: No comparison studies. A portable AP view of the chest is dated 03/19/2020 at 1411 hours. Evaluation is limited by patient rotation to the right. There appears to be mild cardiomegaly. There is mild atelectasis/infiltrate at the left lower lung. No pleural effusions. There are mild degenerative changes at the acromioclavicular joints. IMPRESSION: 1.There is mild atelectasis/infiltrate at the left lower lung. 2. There is mild cardiomegaly. at 1451 Reported and signed by: ESTELA Mendiola CC: Ezio Aragon MD; Henrik Mendoza MD Technologist: Henrique Hager Time: DAP (Gy m2):Air Kerma (mGy): Trscr Dt/Tm: 03/19/2020 (7292) by:[email or web address] Printed Date/Time: 03/19/2020 (9310) Name: PRIYANKA HENDERSON [facility] Phys: ROEL. Ezio Aragon MD [address] : 1960 Age: 59 Sex: [place] [address] Loc: P.0206 1 Exam Date: 03/19/2020 Status: ADM IN PH: FAX: PAGE 1 Signed Report- XR ABDOMEN [id number] 14:49:00 Patient Name: PRIYANKA HENDERSON Unit No: [id number] EXAMS: CPT CODE: [id number] XR ABDOMEN [id number] Exam:Abdomen KUB radiograph one view Location: W1 [...] Aragon MD; Henrik Mendoza MD Technologist: Henrique Montanez Fluoro Time: DAP (Gy m2): Air Kerma (mGy): Trscr Dt/ Tm: 03/19/2020 (0038) by:[email or web address] Printed Date/Time: 03/19/2020 (1200) Name: PRIYANKA HENDERSON [facility] Phys: ROEL.Cherelle Ezio Aragon MD [address] : 1960 Age: 59 Sex:[place] [address] Loc: P.0206 1 Exam Date: 03/19/2020 Status: ADM IN PH: FAX: PAGE 1 Signed ReportBASIC METABOLIC [id number] 14:25:00 Test Item Value Reference Range Interpretation [...] code 9.6 mg/dL 8.8-10.2 N = CA) [id number] 14:25:00 Test Item Value Reference Range Interpretation Comments PHOSPHOROUS (test code = PHOS) 3.2 mg/dL 2.7-4.5 N [id number] 14:25:00 Test Item Value Reference Range Interpretation Comments MAGNESIUM (test code = MAG) 1.8 mg/dL 1.4-2.6 N LACTIC [id number] 12:59:00 Test Item Value Reference Range Interpretation Comments LACTIC ACID (test 34.6 mg/dL 4.5-18.0 HH Critical V alue reported code = LACT) toFirst Name:JOSE A ROBERSON Last Name:ALONDRA REYES READ BACK AND VERIFIEDby STACEY RAYA, on 03/19/20, @ 125 9. PROTHROMBIN [id number] 12:13:00 Test Item Value Reference Range Interpretation [...] 2.5-3.5recurren t systemic emboli sm. THROMBOPLASTIN TIME [id number] 12:13:00 Test Item Value Reference Range Interpretation Comments THROMBOPLASTIN TIME 27.7 SECONDS 26.0-35.9 N INTERPRE TATIVE PARTIAL (test code = DATA: erapeutic PTT) range: Unfractionated heparin:47 - 71 seconds Argatroban:1.5 to 3 times the basel ine PTT CBC W/AUTO [id number] 12:06:00 Test Item Value Reference Range Interpretation [...] 0.01 x10 3/uL 0.0-0.20 N ARTERIAL BLOOD [id number] 11:43:00 Test Item Value Reference Range Interpretation [...] <0.8 % 0-1.5 N METHGB) BASIC METABOLIC [id number] 07:02:00 Test Item Value Reference Range Interpretation [...] code 8.9 mg/dL 8.8-10.2 N = CA) [id number] 07:02:00 Test Item Value Reference Range Interpretation Comments MAGNESIUM (test code = MAG) 2.1 mg/dL 1.4-2.6 N CBC W/AUTO [id number] 06:45:00 Test Item Value Reference Range Interpretation [...] x10 3/uL 0.0-0.20 N Novel Coronavirus 2019 [id number] 07:29:00 Test Item Value Reference Range Interpretation Comments Novel Coronavirus 2019 Inhouse (test Negative Negative code = COVNONPUI) Testing Criteria: Preprocedure ScreeningNovel Coronavirus 2019 [id number] 07:29:00 Test Item Value Reference Range Interpretation Comments Novel Coronavirus 2019 Inhouse (test Negative Negative code = COVNONPUI) Testing Criteria: Preprocedure ScreeningBASIC METABOLIC [id number] 14:31:00 Test Item Value Reference Range Interpretation [...] mg/dL 8.8-10.2 N = CA) CBC W/AUTO [id number] 14:05:00 Test Item Value Reference Range Interpretation [...] BA#) 0.03 x10 3/uL 0.0-0.20 N BLOOD [id number] 00:00:00 Test Item Value Reference Range Interpretation Comments CULTURE (Balanced) (test No growth in 5 days code = 1095) CARDIOLIPIN ANTIBODIES, IGG AND [id number] 16:01:00 Test Item Value Reference Range Interpretation Comments ANTICARDIOLIPIN IGG ANTIBODY (CloudcamAKER) < GPL (test code = 712) ANTICARDIOLIPIN IGM ANTIBODY (CloudcamAKER) 0.6 MPL (test code = 713) Anticardiolipin IgG Result Interpretation:NEG: <20 GPL; U/mlPOS: >/=20 GPL; U/mlAnticardiolipin IgM Result Interpretation:NEG: <20 MPL; U/mlPOS: >/=20 MPL; U/mlPROTHROMBIN GENE [id number] 16:58:00 Test Item Value Reference Range Interpretation Comments PROTHROMBIN/FACTOR II Negative for the K69629L (CloudcamAKER) (test code = (Prothrombin/Factor II) 2163) mutation. [id number] Palmer Mortensen M.D. (Balanced) (test code = (electonic signature) 2608) This test is a genotyping assay which evaluates the DNA sequence at position 00565 of the prothrombin (Factor II) gene. A [...] and its performance characteristics determined by the [facility] Pathology Department, Section of Molecular Pathology. It [...] FACTOR V LEIDEN Negative for the R506Q (TOM) (test code = (Factor V Leiden) 718) mutation [id number] Palmer Mortensen M.D. (BEAKER) (test code = (electonic signature) 3140) This test is a genotyping assay which [...] was developed and its performance characteristics [facility], Section of Molecular Pathology. It has not been cleared or approved by the U.S. Food and Drug Administration (FDA), since FDA approval is not requ ired for clinical use of the test. Validation was done as required by the Clinical Laboratory Improvement Amendments of 1988.ANTITHROMBIN [id number] 11:09:00 Test Item Value Reference Range Interpretation Comments ANTITHROMBIN III ACTIVITY (TOM) 76.0 % 80.0-120.0 L (test code = 711) PROTEIN C [id number] 11:09:00 Test Item Value Reference Range Interpretation Comments PROTEIN C ACTIVITY (TOM) (test 106.0 % 70.0-130.0 code = 582) MR, MRA CHEST, [id number] 13:27:00FINAL REPORT MRA/MRV of the chest and great veins, 30 August 2017 INDICATION: This is a 57 years old male, with a diagnosis of left internal jugular DVT presents for assessment.This study is performed in attempt to avoid invasive procedure. TECHNIQUE: Due to patient's body habitus, three Maria Fernanda scanner has to be used. Richard [employer] 3 Maria Fernanda MRI scanner. Gradient echo [...] can be found in the scanned EPIC docu ment. FINDINGS: This study is not [...] Crowell MDReport Verified Date/Time: 08/30/2017 13:27:08Reading Location: [place] [address] Cardiology MRI Electronically signed by: BABAK CROWELL M.D. on 01:27 [id number] 07:31:00 Test Item Value Reference Range Interpretation Comments PARTIAL THROMBOPLASTIN TIME 60.9 seconds 22.5-36.0 H (BEAKER) (test code = 760) LIPID [id number] 07:17:00 Test Item Value Reference Range Interpretation [...] 130-159 High 160-189 Very High >=190BASIC METABOLIC [id number] 07:17:00 Test Item Value Reference Range Interpretation [...] DATA TO CALCULA TE ESTIMATED GFR. PROTHROMBIN [id number] 06:53:00 Test Item Value Reference Range Interpretation Comments PROTIME (BEAKER) (test code = 15.5 seconds 11.7-14.7 H 759) INR (BEAKER) (test code = 370) 1.2 <=5.9 RECOMMENDED COUMADIN/WARFARIN INR THERAPY RANGESSTANDARD DOSE: 2.0 - 3.0 Includes: PROPHYLAXIS for venous thrombosis, systemic embolization; TREATMENT for venous thrombosis and/or pulmonary embolus.HIGH RISK: Target INR is 2.5-3.5 for patients with mechanical heart valves.INFLUENZA A H1N1 [id number] 21:35:00 Test Item Value Reference Range Interpretation Comments INFLUENZA A RNA Not Detected Not Detected, (BEAKER) (test code = Inconclusive 1545) NOVEL H1N1 RNA (BEAKER) Not Detected Not Detected, (test code = 1546) Inconclusive These assays were performed by real-time RT-PCR (c d stripper-PCR) utilizing fluorogenic hydrolysis probe technology for the detection of human Influenza A viruses and the differential detection of novel H1N1 Influenza virus in respiratory specimens. The test is composed of (1) an RNA extraction from patient specimen, and (2) c d stripper-PCR amplification and detection with human Influenza A and novel C4R0-unneeejy primers and probes. A well-conserved region of [...] and its performance characteristics determined by the [facility] Pathology Department, Section of Molecular Pathology. It has not been cleared or approved by the U.S. Food and Drug Administration (FDA). Since FDAapproval is not required for clinical use of the test, validation was done as required by The Clinical Laboratory Amendments of 1988.MR, MRA, BRAIN, [id number] 20:40:00 Please perform MRV of headFINAL REPORT CLINICAL HISTORY: Evaluate for thrombus in subclavian vein TECHNIQUE: 2-D and 3-D [id number] and postcontrast MR angiogram of the arch, great vessels, and neck wasprovided with maximal intensity projection 3-D reconstructions of the arterial vasculature. MR venogram imaging of the head and neck was also performed. COMPARISON: None FINDINGS: There is no evidence for a habematolel of [place] proximal branch vessel occlusion. There [...] MDReport Verified Date/Time: 08/29/2017 20:40:50 Reading Location: [facility] Radiology Reading Room MR, MRA, NECK, [id number] 20:40:00Please perform MRV of neck and upper chest to include subclavian veinFINAL REPORT CLINICAL HISTORY: Evaluate for thrombus in subclavian vein TECHNIQUE: 2-D and 3-D [id number] and postcontrast MR angiogram of the arch, great vessels, and neck wasprovided with maximal intensity projection 3-D reconstructions of the arterial vasculature. MR venogram imaging of the head and neck was also performed. COMPARISON: None FINDINGS: There is no evidence for a habematolel of [place] proximal branch vessel occlusion. There [...] MDReport Verified Date/Time: 08/29/2017 20:40:50 Reading Location: [facility] Radiology Reading Room [facility] METABOLIC [id number] 04:27:00 Test Item Value Reference Range Interpretation [...] m DATA TO CALCULA TE ESTIMATED GFR. [id number] 04:21:00 Test Item Value Reference Range Interpretation Comments PARTIAL THROMBOPLASTIN TIME 78.0 seconds 22.5-36.0 H (BEAKER) (test code = 760) LIPID [id number] 04:19:00 Test Item Value Reference Range Interpretation [...] Borderline 130-159 High 160-189 Very High >=190PROTHROMBIN TIME/[id number] 04:15:00 Test Item Value Reference Range Interpretation Comments PROTIME (BEAKER) (test code = 15.0 seconds 11.7-14.7 H 759) INR (BEAKER) (test code = 370) 1.2 <=5.9 RECOMMENDED COUMADIN/WARFARIN INR THERAPY RANGESSTANDARD DOSE: 2.0 - 3.0 Includes: PROPHYLAXIS for venous thrombosis, systemic embolization; TREATMENT for venous thrombosis and/or pulmonary embolus.HIGH RISK: Target INR is 2.5-3.5 for patients with mechanical heart valves.RAD, CHEST, 2 [id number] 00:54:00 Reason for exam:->fever, coughFINAL REPORT EXAMINATION: [...] be performed for further characterization. Signed: Fabio Ac Verified Date/Time: 08/29/2017 00:54:23 Reading Location: [address] Reading Room [id number] 21:10:00 Test Item Value Reference Range Interpretation Comments PARTIAL THROMBOPLASTIN TIME 79.6 seconds 22.5-36.0 H (BEAKER) (test code = 760) RAPID INFLUENZA A&B [id number] 13:38:00 Test Item Value Reference Range Interpretation Comments RAPID INFLUENZA A AG (BEAKER) Negative Negative, Inconclusive (test code = 1622) RAPID INFLUENZA B AG (BEAKER) Negative Negative, Inconclusive (test code = 1623) [id number] 13:14:00 Test Item Value Reference Range Interpretation Comments PARTIAL THROMBOPLASTIN TIME 47.5 seconds 22.5-36.0 H (BEAKER) (test code = 760) MR, BRAIN, WITHOUT [id number] 08:06:00FINAL REPORT MRI brain Comparison: No priors [...] consider further evaluation with MRV. Signed: Eduardo Riveraeport Verified Date/Time: 08/28/2017 08:06:08 Reading Location: [facility] C013V Neuro Reading Room CALCIUM, [id number] 06:58:00 Test Item Value Reference Range Interpretation Comments CALCIUM IONIZED (BEAKER) (test 1.16 mmol/L 1.12-1.27 code = 698) PH, BLOOD (BEAKER) (test code = 7.35 1810) [id number] 06:26:00 Test Item Value Reference Range Interpretation Comments MAGNESIUM (BEAKER) (test code = 2.2 mg/dL 1.6-2.6 627) LIPID [id number] 06:26:00 Test Item Value Reference Range Interpretation [...] 130-159 High 160-189 Very High >=190HEPATIC FUNCTION [id number] 06:26:00 Test Item Value Reference Range Interpretation [...] = 32 U/L 6-55 347) BASIC METABOLIC [id number] 06:26:00 Test Item Value Reference Range Interpretation [...] m DATA TO CALCULA TE ESTIMATED GFR. [id number] 06:11:00 Test Item Value Reference Range Interpretation Comments PARTIAL THROMBOPLASTIN TIME 45.8 seconds 22.5-36.0 H (BEAKER) (test code = 760) PROTHROMBIN TIME/[id number] 06:01:00 Test Item Value Reference Range Interpretation Comments PROTIME (BEAKER) (test code = 13.3 seconds 11.7-14.7 759) INR (BEAKER) (test code = 370) 1.0 <=5.9 RECOMMENDED COUMADIN/WARFARIN INR THERAPY RANGESSTANDARD DOSE: 2.0 - 3.0 Includes: PROPHYLAXIS for venous thrombosis, systemic embolization; TREATMENT for venous thrombosis and/or pulmonary embolus.HIGH RISK: Target INR is 2.5-3.5 for patients with mechanical heart valves.CBC W/PLT COUNT & AUTO [id number] 05:48:00 Test Item Value Reference Range Interpretation [...] 0-1 PERCENT (BEAKER) (test code = 2801) [id number] 20:58:00 Test Item Value Reference Range Interpretation [...] WBC 0-0 (BEAKER) (test code = 413) Notes Date/Time Note Provider Source 2020-03-22 10:39:00-00:00 [facility] ([facility]) Critical Care Progress Note REPORT#:[id number] REPORT STATUS: Signed DATE:03/22/20 TIME: 1039 PATIENT: PRIYANKA HENDERSON UNIT #: [id number] ROOM: [facility] BED: 1 : 59 AGE: 59 SEX: M ATTEND: Henrik Mendoza MD ADM AUTHOR: Mack Inman MD * ALL edits or amendments must be made on the el [employer]/computer document * Subjective Chief complaint: COUGH HAS RESOLVED doing better on nebs Review of Systems Constitutional: Reports: fatigue. Skin: Denies: abrasion, bruising, contusion, diaphores is, ecchymosis, itching, laceration, rash, swelling, other. Allergy/Immun: Denies: allergic reaction, anaphylaxis, hives, i tching, rhinorrhea, sneezing, other. Eyes: Denies: redness, discharge, visual loss/blurred, itching, diplopia, eye pain, photophobia, swelling, other. ENT: Denies: ear drainage, ear ringing, earache, hear ing loss, mouth pain, nasal congestion, nose bleeding, sinus problem, sore t hroat, throat pain, throat swelling, tongue pain, tongue swelling, toothach e, voice change, other. Respiratory: Denies: CH (dyspnea on exertion), hemoptysis, n on productive cough, parox nocturnal dyspnea, pleurisy, pleuritic pain, pneumonia, productive cough (sputum ), SOB, wheezing, other. Cardiovascular: Denies: chest pain, CH (dyspnea on exer tion), edema, orthopnea, palpitations, parox nocturnal dyspnea, other. Objective General VS/I O Last Documented: Result Date Time Pulse Ox 96 03/22 930 B/P 132/60 03/22 930 B/P Mean 86 03/22 09 Pulse 79 03/22 0930 Resp 16 03/22 09 Temp 36.9 03/22 0838 FiO2 21 03/21 1723 O2 Delivery Room air 03/21 1723 O2 Flow Rate 2.756809 03/21 1322 24 hour I O ending at 0700: 03/21 1900 03/22 0700 Intake Total 2640.00 1175.00 Output Total 985 490 Balance 1655.00 685.00 Intake, IV 1500.00 875.00 Intake, Oral 1140 300 Output, 10 Drainage Output, Urine 985 480 Patient 133.356 kg Weight Weight Bed scale Measurement Method Patient Weight Weight (lb): 294 Weight (oz): 8.6 Weight (kg): 133.356 Medications: Active Meds + DC'd Last 24 Hrs Famotidine 20 MG Q12HR PO Cefepime HCl 1 GM Q8H IV (CKD) Sodium Chloride 50 ML Magnesium Sulfate 50 ML ONCE ONE IV (DC) Potassium Chloride 100 ML ONCE ONE IV (DC) Metronidazole/Sodium Chloride 100 ML Q8HR IV Albuterol Sulfate 2.5 MG RTQID NEB Budesonide 0.5 MG RTBID NEB Acetaminophen 1,000 MG Q6H PO (CKD) Cefepime HCl 1 GM Q6HR IV (DC) Sodium Chloride 50 ML Celecoxib 200 MG Q12HR PO (DA) Acetaminophen 650 MG Q6H PRN PRN PO Famotidine 20 MG Q12HR IV (DC) Sodium Chloride 10 ML Norepinephrine Bitartrate 250 ML ASDIR IV Piperacillin Sod/Tazobactam Sod 3.375 GM Q8H IV (DC) Sodium Chloride 100 ML Diphenhydramine HCl 12.5 MG PACU ONCE PRN PRN IV Sodium Chloride 1,000 ML .[id number] IV Losartan Potassium 50 MG DAILY PO Hydromorphone HCl 0.25 MG Q3H PRN PRN IV Enoxaparin Sodium 40 MG DAILY SUBQ (DA) Gabapentin 300 MG TID PO (CKD) Ondansetron Base 4 MG Q6H PRN PO Tramadol HCl 50 MG Q4H PRN PRN PO Physical Exam General appearance: alert, awake Head/eyes: atraumatic, clear cornea ENT: moist mucosal membranes, normal dentition Neck: full range of motion, non-tender Cardiovascular: normal capillary refill, normal heart sounds Respiratory: aerating well, clear to auscultatio n Abdomen: soft, non-tender Extremities: moves all Musculoskeletal normal inspection, painless rang e of motion Skin: dry, intact Lymphatics: axilla normal, inguinal normal Results Findings/data: Laboratory Tests 03/21 03/21 03/22 1054 1651 0458 Chemistry Sodium (136 - 143 MMOL/L) 137 Potassium (3.5 - 5.1 MMOL/L) 3.9 3.8 Chloride (98 - 107 MMOL/L) 104 Carbon Dioxide (24 - 31 mmol/L) 24 BUN (7.0 - 21.0 MG/DL) 10.2 Creatinine (0.8 - 1.5 mg/dL) 0.6 L Glomerular Filtr Rate (>60) >=60 max estimate Glucose (70 - 104 mg/dL) 93 POC Glucose (70 - 105 MG/DL) 100 Calcium (8.8 - 10.2 mg/dL) 8.4 L Magnesium (1.4 - 2.6 mg/dL) 2.0 2.1 Total Bilirubin (0.2 - 1.0 mg/dL) 1.1 H AST (10 - 34 IU/L) 20 ALT (10 - 44 U/L) 17 Total Alk Phosphatase (45 - 120 U/L) 76 Total Protein (6.3 - 8.3 g/dL) 5.9 L Albumin (3.5 - 5.0 G/DL) 3.2 L Laboratory Tests 03/21 03/21 03/22 1344 1650 0458 Hematology WBC (4.8 - 10.8 x10 3/uL) 6.0 RBC (4.70 - 6.10 x10 6/uL) 2.76 L Hgb (14.5 - 20 g/dL) 8.2 L 8.2 L 8.4 L Hct (42.0 - 52.0 %) 26.0 L MCV (80.0 - 94.0 fL) 94.2 H MCH (27 - 31 pg) 30.4 MCHC (33 - 36.5 G/DL) 32.3 L RDW (12.9 - 16.9 %) 14.6 Plt Count (150 - 440) 167 MPV (8.9 - 12.4 fL) 10.3 Neut % (Auto) (42.2 - 75.2 %) 75.4 H Lymph % (Auto) (20.5 - 51.1 %) 14.2 L [place] % (Auto) (1.7 - 9.3 %) 7.7 Eos % (Auto) (0.0 - 7.0 %) 2.2 Baso % (Auto) (0 - 2.5 %) 0.2 Neut # (Auto) (1.80 - 7.70 x10 3/uL) 4.51 Lymph # (Auto) (1.00 - 4.80 x10 3/uL) 0.85 L [place] # (Auto) (0.00 - 0.80 x10 3/uL) 0.46 Eos # (Auto) (0.00 - 0.45 x10 3/uL) 0.13 Baso # (Auto) (0.0 - 0.20 x10 3/uL) 0.01 Laboratory Tests 03/21/20 1344: [Embedded Image Not Available] 03/21/20 1650: [Embedded Image Not Available] 03/21/20 1651: [Embedded Image Not Available] 03/22/20 0458: [Embedded Image Not Available] Microbiology: 03/21 1538 SPUTUM: Sputum Culture - RES 03/21 1538 SPUTUM: Gram Stain - RES 03/19 1525 BLOOD: Blood Culture - RES 03/19 1505 BLOOD: Blood Culture - RES 03/19 1259 NASAL: MRSA Surveillance Culture - CO MP Radiology data Recent Impressions: RADIOLOGY - XR CHEST 1 V 03/22 0345 Report Impression - Status: SIGNED Entered: 03/22/2020 0737 IMPRESSION: 1. Status post right central line removal. 2. Improved subsegmental atelectasis at the left lower lung. Stable central vascular congestion, diffuse interstitia l prominence, and mild atelectasis/infiltrate at the right lower lung. Impression By: Fito RODAS M.D. Diagnosis, Assessment Plan Free text A P: 1. POD#2 s/p RAL ileostomy closure, end colostom y stable functioning colostomy 2. POD #1 Exploratory laparotomy with evacuation of hemoperitoneum tolerating clear liquid monitor hb continue abx 3. Productive cough ?pneumonia improved likley underlying copd related reactive airway nebs to continue 4. Morbid Obesity 5. Acute Kidney Injury improved monitor 7. Anemia from acute blood loss stable will moniotor 8. Thrombocytopenia improving 9. Hypocalcemia better dvt prophylaxis downgrade to surg/tele PLAN: monitor hb get mid line d/c central line at 1042 RPT #:[id number] END OF REPORT 2020-03-21 15:40:00-00:00 [id number] [place] [address] PATIENT NAME: PRIYANKA HENDERSON ADMIT DA TE: 03/18/20 ACCOUNT NO: [id number] ROOM NO: [id number] AGE: 59 REPORT TYPE: eELECTROCARDIOGRAM SEX: M ADMITTING PHYSICIAN: Henrik Mendoza MD ATTENDING PHYSICIAN: Henrik Mendoza MD Order: [id number] Test Reason : POSSIBLE NEW AFIB RHYTHM Test Date/Time Stamp: TueMar 21 2020 15:40:22 Blood Pressure : / mmHG Vent. Rate : 082 BPM Atrial Rate : 312 BPM P-R Int : 000 ms QRS Dur : 074 ms QT Int : 344 ms P-R-T Axes : -79 045 012 degree s QTc Int : 401 ms Atrial flutter with variable AV block Nonspecific T wave abnormality Abnormal ECG When compared with ECG of 14-MAR-2020 13:23, Atrial flutter has replaced Sinus rhythm Nonspecific T wave abnormality now evident in [place] t[place] leads Confirmed by JANE WAGONER MD ([id number]) on 03/25 3:15:43 PM Referred By: Henrik Mendoza Confirmed by:JANE ZIEGLER MD at 1515 PATIENT NAME: PRIYANKA HENDERSON 2020-03-21 12:51:00-00:00 [facility] ([facility]) Critical Care Progress Note REPORT#:[id number] REPORT STATUS: Signed DATE:03/21/20 TIME: 1251 PATIENT: PRIYANKA HENDERSON UNIT #: [id number] ROOM: [facility] BED: 1 : 59 AGE: 59 SEX: M ATTEND: Henrik Mendoza MD ADM AUTHOR: Mack Inman MD * ALL edits or amendments must be made on the [employer]/computer document * Subjective Chief complaint: having a productive cough doing well otherwise Review of Systems Constitutional: Reports: fatigue. Skin: Denies: abrasion, bruising, contusion, diaphores is, ecchymosis, itching, laceration, rash, swelling, other. Allergy/Immun: Denies: allergic reaction, anaphylaxis, hives, i tching, rhinorrhea, sneezing, other. Eyes: Denies: redness, discharge, visual loss/blurred, itching, diplopia, eye pain, photophobia, swelling, other. ENT: Denies: ear drainage, ear ringing, earache, hear ing loss, mouth pain, nasal congestion, nose bleeding, sinus problem, sore t hroat, throat pain, throat swelling, tongue pain, tongue swelling, toothach e, voice change, other. Respiratory: Reports: productive cough (sputum). Cardiovascular: Denies: chest pain, CH (dyspnea on exer tion), edema, orthopnea, palpitations, parox nocturnal dyspnea, other. GI: Denies: abdominal pain, anorexia, constipation, diarrhea, dysphagia, GERD, hematemesis, hematochezia, h iatal hernia, melena, nausea, rectal pain, vomiting, other. Objective General VS/I O Last Documented: Result Date Time Pulse Ox 100 03/21 1100 B/P 131/61 03/21 1100 B/P Mean 88 03/21 1100 Pulse 79 03/21 1100 Resp 16 03/21 1100 O2 Delivery Nasal cannula 03/21 0747 O2 Flow Rate 2.807254 03/21 0747 Temp 36.3 03/21 0741 FiO2 28 03/19 1758 24 hour I O ending at 0700: 03/20 1900 03/21 0700 Intake Total 2022.60 1825.00 Output Total 1875 1475 Balance 147.60 350.00 Intake, IV 2022.60 1750.00 Intake, Oral 75 Output, Urine 1875 1475 Patient 134.9 kg Weight Weight Bed scale Measurement Method Patient Weight Weight (lb): 294 Weight (oz): 8.6 Weight (kg): 133.600 Medications: Active Meds + DC'd Last 24 Hrs Famotidine 20 MG Q12HR PO Acetaminophen 1,000 MG Q6H PO (CKD) Cefepime HCl 1 GM Q6HR IV (CKD) Sodium Chloride 50 ML Celecoxib 200 MG Q12HR PO (DA) Acetaminophen 650 MG Q6H PRN PRN PO Famotidine 20 MG Q12HR IV (DC) Sodium Chloride 10 ML Norepinephrine Bitartrate 250 ML ASDIR IV Piperacillin Sod/Tazobactam Sod 3.375 GM Q8H IV (DC) Sodium Chloride 100 ML Diphenhydramine HCl 12.5 MG PACU ONCE PRN PRN I V Promethazine HCl 6.25 MG PACU ASDIR PRN PRN IV ( DC) Sodium Chloride 50 ML Sodium Chloride 1,000 ML .[id number] IV Losartan Potassium 50 MG DAILY PO Hydromorphone HCl 0.25 MG Q3H PRN PRN IV Enoxaparin Sodium 40 MG DAILY SUBQ (DA) Gabapentin 300 MG TID PO (CKD) Ondansetron Base 4 MG Q6H PRN PO Tramadol HCl 50 MG Q4H PRN PRN PO Nutrition assessment: The data set between the solid lines has been im ported from the dietitian's assessment. Any exceptions have been noted under Provider comments. BMI Calculated: 43.5 Nutrition related diagnosis: Nutrition diagnosis details: Nutrition problem: Nutrition etiology: Nutrition signs and symptoms: Nutrition prescription: Dietitian name: Assessment completed: Provider comments on imported dietitian assessme nt: Physical Exam General appearance: alert, awake Head/eyes: atraumatic, clear cornea ENT: moist mucosal membranes, normal dentition Neck: full range of motion, non-tender Cardiovascular: normal capillary refill, normal heart sounds Respiratory: aerating well, clear to auscultatio n Abdomen: soft, non-tender Extremities: moves all Musculoskeletal normal inspection, painless rang e of motion Skin: dry, intact Lymphatics: axilla normal, inguinal normal Results Findings/data: Laboratory Tests 03/20 03/20 03/21 1824 1824 0535 Chemistry Sodium (136 - 143 MMOL/L) 137 139 Potassium (3.5 - 5.1 MMOL/L) 3.8 3.8 Chloride (98 - 107 MMOL/L) 107 108 H Carbon Dioxide (24 - 31 mmol/L) 22 L 24 BUN (7.0 - 21.0 MG/DL) 11.9 9.2 Creatinine (0.8 - 1.5 mg/dL) 0.9 0.8 Glomerular Filtr Rate (>60) >=60 max estimate > =60 max estimate Glucose (70 - 104 mg/dL) 124 H 108 H Lactic Acid (4.5 - 18.0 mg/dL) 10.2 Calcium (8.8 - 10.2 mg/dL) 7.1 L 8.0 L Magnesium (1.4 - 2.6 mg/dL) 1.8 03/21 1054 Chemistry POC Glucose (70 - 105 MG/DL) 100 Laboratory Tests 03/20 03/20 03/21 03/21 1302 1824 0140 0535 Hematology WBC (4.8 - 10.8 x10 3/uL) 6.6 RBC (4.70 - 6.10 x10 6/uL) 2.62 L Hgb (14.5 - 20 g/dL) 8.4 L 8.1 L 7.9 L 8.0 L Hct (42.0 - 52.0 %) 25.1 L 24.7 L MCV (80.0 - 94.0 fL) 94.3 H MCH (27 - 31 pg) 30.5 MCHC (33 - 36.5 G/DL) 32.4 L RDW (12.9 - 16.9 %) 15.0 Plt Count (150 - 440) 140 L MPV (8.9 - 12.4 fL) 10.2 Neut % (Auto) (42.2 - 75.2 %) 75.8 H Lymph % (Auto) (20.5 - 51.1 %) 13.0 L [place] % (Auto) (1.7 - 9.3 %) 9.9 H Eos % (Auto) (0.0 - 7.0 %) 0.8 Baso % (Auto) (0 - 2.5 %) 0.2 Neut # (Auto) (1.80 - 7.70 x10 3/uL) 4.98 Lymph # (Auto) (1.00 - 4.80 x10 3/uL) 0.85 L [place] # (Auto) (0.00 - 0.80 x10 3/uL) 0.65 Eos # (Auto) (0.00 - 0.45 x10 3/uL) 0.05 Baso # (Auto) (0.0 - 0.20 x10 3/uL) 0.01 Laboratory Tests 03/20/20 1302: [Embedded Image Not Available] 03/20/20 1824: [Embedded Image Not Available] 03/21/20 0140: [Embedded Image Not Available] 03/21/20 0535: [Embedded Image Not Available] Microbiology: 03/19 1525 BLOOD: Blood Culture - RES 03/19 1505 BLOOD: Blood Culture - RES 03/19 1259 NASAL: MRSA Surveillance Culture - CO MP 03/18 1450 URINE: Urine Culture - COMP ESCHERICHIA COLI Diagnosis, Assessment Plan Free text A P: 1. POD#2 s/p RAL ileostomy closure, end colostom y stable functioning colostomy 2. POD #1 Exploratory laparotomy with evacuation of hemoperitoneum tolerating clear liquid monitor hb continue abx 3. Productive cough ?pneumonia sputum cultures is q 2 start nebs cxr 4. Morbid Obesity 5. Acute Kidney Injury improved monitor 7. Anemia from acute blood loss stable will moniotor 8. Thrombocytopenia improving 9. Hypocalcemia better dvt prophylaxis PLAN: monitor hb get mid line d/c central line Code status: full code Plan discussed with: patient Additional comments: excludes all procedure time Critical care time: Minutes: 50 at 1256 RPT #:[id number] END OF REPORT 2020-03-21 12:51:00-00:00 [facility] ([facility]) Critical Care Progress Note REPORT#:[id number] REPORT STATUS: Signed DATE:03/21/20 TIME: 1251 PATIENT: PRIYANKA HENDERSON UNIT #: [id number] ROOM: [facility] BED: 1 : 59 AGE: 59 SEX: M ATTEND: Henrik Mendoza MD ADM AUTHOR: Mack Inman MD * ALL edits or amendments must be made on the el [employer]/computer document * See Addendum Subjective Chief complaint: having a productive cough doing well otherwise Review of Systems Constitutional: Reports: fatigue. Skin: Denies: abrasion, bruising, contusion, diaphores is, ecchymosis, itching, laceration, rash, swelling, other. Allergy/Immun: Denies: allergic reaction, anaphylaxis, hives, i tching, rhinorrhea, sneezing, other. Eyes: Denies: redness, discharge, visual loss/blurred, itching, diplopia, eye pain, photophobia, swelling, other. ENT: Denies: ear drainage, ear ringing, earache, hear ing loss, mouth pain, nasal congestion, nose bleeding, sinus problem, sore t hroat, throat pain, throat swelling, tongue pain, tongue swelling, toothach e, voice change, other. Respiratory: Reports: productive cough (sputum). Cardiovascular: Denies: chest pain, CH (dyspnea on exer tion), edema, orthopnea, palpitations, parox nocturnal dyspnea, other. GI: Denies: abdominal pain, anorexia, constipation, diarrhea, dysphagia, GERD, hematemesis, hematochezia, h iatal hernia, melena, nausea, rectal pain, vomiting, other. Objective General VS/I O Last Documented: Result Date Time Pulse Ox 100 03/21 1100 B/P 131/61 03/21 1100 B/P Mean 88 03/21 1100 Pulse 79 03/21 1100 Resp 16 03/21 1100 O2 Delivery Nasal cannula 03/21 0747 O2 Flow Rate 2.764611 03/21 0747 Temp 36.3 03/21 0741 FiO2 28 03/19 1758 24 hour I O ending at 0700: 03/20 1900 03/21 0700 Intake Total 2022.60 1825.00 Output Total 1875 1475 Balance 147.60 350.00 Intake, IV 2022.60 1750.00 Intake, Oral 75 Output, Urine 1875 1475 Patient 134.9 kg Weight Weight Bed scale Measurement Method Patient Weight Weight (lb): 294 Weight (oz): 8.6 Weight (kg): 133.600 Medications: Active Meds + DC'd Last 24 Hrs Famotidine 20 MG Q12HR PO Acetaminophen 1,000 MG Q6H PO (CKD) Cefepime HCl 1 GM Q6HR IV (CKD) Sodium Chloride 50 ML Celecoxib 200 MG Q12HR PO (DA) Acetaminophen 650 MG Q6H PRN PRN PO Famotidine 20 MG Q12HR IV (DC) Sodium Chloride 10 ML Norepinephrine Bitartrate 250 ML ASDIR IV Piperacillin Sod/Tazobactam Sod 3.375 GM Q8H IV (DC) Sodium Chloride 100 ML Diphenhydramine HCl 12.5 MG PACU ONCE PRN PRN IV Promethazine HCl 6.25 MG PACU ASDIR PRN PRN IV ( DC) Sodium Chloride 50 ML Sodium Chloride 1,000 ML .[id number] IV Losartan Potassium 50 MG DAILY PO Hydromorphone HCl 0.25 MG Q3H PRN PRN IV Enoxaparin Sodium 40 MG DAILY SUBQ (DA) Gabapentin 300 MG TID PO (CKD) Ondansetron Base 4 MG Q6H PRN PO Tramadol HCl 50 MG Q4H PRN PRN PO Nutrition assessment: The data set between the solid lines has been im ported from the dietitian's assessment. Any exceptions have been noted under Provider comments. BMI Calculated: 43.5 Nutrition related diagnosis: Nutrition diagnosis details: Nutrition problem: Nutrition etiology: Nutrition signs and symptoms: Nutrition prescription: Dietitian name: Assessment completed: Provider comments on imported dietitian assessme nt: Physical Exam General appearance: alert, awake Head/eyes: atraumatic, clear cornea ENT: moist mucosal membranes, normal dentition Neck: full range of motion, non-tender Cardiovascular: normal capillary refill, normal heart sounds Respiratory: aerating well, clear to auscultatio n Abdomen: soft, non-tender Extremities: moves all Musculoskeletal normal inspection, painless rang e of motion Skin: dry, intact Lymphatics: axilla normal, inguinal normal Results Findings/data: Laboratory Tests 03/20 03/20 03/21 1824 1824 0535 Chemistry Sodium (136 - 143 MMOL/L) 137 139 Potassium (3.5 - 5.1 MMOL/L) 3.8 3.8 Chloride (98 - 107 MMOL/L) 107 108 H Carbon Dioxide (24 - 31 mmol/L) 22 L 24 BUN (7.0 - 21.0 MG/DL) 11.9 9.2 Creatinine (0.8 - 1.5 mg/dL) 0.9 0.8 Glomerular Filtr Rate (>60) >=60 max estimate > =60 max estimate Glucose (70 - 104 mg/dL) 124 H 108 H Lactic Acid (4.5 - 18.0 mg/dL) 10.2 Calcium (8.8 - 10.2 mg/dL) 7.1 L 8.0 L Magnesium (1.4 - 2.6 mg/dL) 1.8 03/21 1054 Chemistry POC Glucose (70 - 105 MG/DL) 100 Laboratory Tests 03/20 03/20 03/21 03/21 1302 1824 0140 0535 Hematology WBC (4.8 - 10.8 x10 3/uL) 6.6 RBC (4.70 - 6.10 x10 6/uL) 2.62 L Hgb (14.5 - 20 g/dL) 8.4 L 8.1 L 7.9 L 8.0 L Hct (42.0 - 52.0 %) 25.1 L 24.7 L MCV (80.0 - 94.0 fL) 94.3 H MCH (27 - 31 pg) 30.5 MCHC (33 - 36.5 G/DL) 32.4 L RDW (12.9 - 16.9 %) 15.0 Plt Count (150 - 440) 140 L MPV (8.9 - 12.4 fL) 10.2 Neut % (Auto) (42.2 - 75.2 %) 75.8 H Lymph % (Auto) (20.5 - 51.1 %) 13.0 L [place] % (Auto) (1.7 - 9.3 %) 9.9 H Eos % (Auto) (0.0 - 7.0 %) 0.8 Baso % (Auto) (0 - 2.5 %) 0.2 Neut # (Auto) (1.80 - 7.70 x10 3/uL) 4.98 Lymph # (Auto) (1.00 - 4.80 x10 3/uL) 0.85 L [place] # (Auto) (0.00 - 0.80 x10 3/uL) 0.65 Eos # (Auto) (0.00 - 0.45 x10 3/uL) 0.05 Baso # (Auto) (0.0 - 0.20 x10 3/uL) 0.01 Laboratory Tests 03/20/20 1302: [Embedded Image Not Available] 03/20/20 1824: [Embedded Image Not Available] 03/21/20 0140: [Embedded Image Not Available] 03/21/20 0535: [Embedded Image Not Available] Microbiology: 03/19 1525 BLOOD: Blood Culture - RES 03/19 1505 BLOOD: Blood Culture - RES 03/19 1259 NASAL: MRSA Surveillance Culture - CO MP 03/18 1450 URINE: Urine Culture - COMP ESCHERICHIA COLI Diagnosis, Assessment Plan Free text A P: 1. POD#2 s/p RAL ileostomy closure, end colostom y stable functioning colostomy 2. POD #1 Exploratory laparotomy with evacuation of hemoperitoneum tolerating clear liquid monitor hb continue abx 3. Productive cough ?pneumonia sputum cultures is q 2 start nebs cxr 4. Morbid Obesity 5. Acute Kidney Injury improved monitor 7. Anemia from acute blood loss stable will moniotor 8. Thrombocytopenia improving 9. Hypocalcemia better dvt prophylaxis PLAN: monitor hb get mid line d/c central line Code status: full code Plan discussed with: patient Additional comments: excludes all procedure time Critical care time: Minutes: 50 at 1256 Addendum 1: 03/21/20 1716 by Mack Inman MD Went into A.flutter reate controlled coorect electrolytes consult cardiology at 1717 RPT #:[id number] END OF REPORT 2020-03-20 14:39:00-00:00 [id number] [place] [address] PATIENT NAME: PRIYANKA HENDERSON ADMIT DA TE: 03/18/20 ACCOUNT NO: [id number] ROOM NO: .020 AGE: 59 REPORT TYPE: eECHOCARDIOGRAM REPORT SEX: M ADMITTING PHYSICIAN: Henrik Mendoza MD ATTENDING PHYSICIAN: Henrik Mendoza MD *[facility]* [address] [place] [address] Transthoracic Echocardiogram Patient: Priyanka Henderson Study Date: 03/20/2020 BP: 108 / 53 [facility] URN: [id number] : 1960 Age: 59 Height: 69 in / 175.3 cm Gender: M Weight: 27 0.4 lb / 122.9 kg BMI/BSA: 40 kg/m 2 / 2.35 m 2 *Ordering Physician: * Ezio Aragon *Interpreting Physician: * Jane Wagoner M.D. *Corporate Traffic Manager: * Chey Downing Indications: Congestive Heart Failure. Study data: Transthoracic echocardiogram. Proced ure: Transthoracic echocardiography was performed. Im ages were obtained using a [employer] Vivid E90 cardiac ultrasound machine. Image quality was poor. The study was technically limited due to b val habitus. Complete 2D, complete spectral Doppler, and colo r Doppler. Location: [facility] Patient room number: 206. Rhythm: Normal sinus rhythm. Findings Left ventricle: The cavity size is normal. Systo lic function is probably normal by visual assessment. Regional w all motion abnormalities cannot be excluded. The study is n ot technically PATIENT NAME: PRIYANKA HENDERSON sufficient to allow evaluation of LV diastolic f unction. Right ventricle: Not well visualized. Left atrium: The atrium is normal in size. Right atrium: Not well visualized. Aorta: The aorta is poorly visualized. Aortic valve: Not well visualized. There is no e vidence of stenosis. There is no significant regurgitation. Mitral valve: Not well visualized. There is no s ignificant regurgitation. Tricuspid valve: Not well visualized. Pulmonic valve: Not well visualized. Pericardium: A prominent pericardial fat pad is present. Measurements Left ventricle Value Ref Aortic valve Value Ref CHRISSY, LAX 4.7 cm 4.2 - 5.8 Peak v, S 1.44 m/sec ----- ESD, LAX 3.4 cm 2.5 - 4.0 Mean v, S 1 m/sec ----- ESD/bsa, LAX 1.5 cm/m 2 1.3 - 2.1 VTI, S 22.2 cm ----- FS, LAX 28 % 25 - 43 LVOT/AV, VTI ratio 0.97 ----- LVOT/AV, Vpeak ratio 0.84 ----- LVOT Value Ref Diam, S 2.31 cm --------- Mitral valve Value Ref Area 4.2 cm 2 --------- Peak E 0.13 m/sec ----- Peak jerri, S 1.22 m/sec --------- Peak A 1.17 m/sec ----- Mean jerri, S 0.88 m/sec --------- Mean v, D 0.73 m/sec ----- VTI, S 21.5 cm --------- Peak E/A ratio 0.93 ----- SV 90 ml --------- SV/bsa 38 ml/m 2 --------- Tricuspid valve Value Ref TR peak v 1.68 m/sec <=2.8 Ventricular septum Value Ref Peak RV-RA grad, S 11 mm Hg ----- IVS, ED 1.4 cm 0.6 - 1.0 Max TR jerri 1.68 m/sec ----- Right ventricle Value Ref Aortic root Value Ref CHRISSY, LAX 3.3 cm --------- Root diam 3.8 cm <4.4 PATIENT NAME: PRIYANKA HENDERSON RVOT Value Ref Ascending aorta Value Ref Peak v, S 1.24 m/sec --------- AAo AP diam, S 3.3 cm ----- AAo AP diam/bsa, S 1.4 cm/m 2 ----- Left atrium Value Ref AP dim ES, LAX 5.0 cm 3.0 - 4.0 LA/Ao root ratio 1.3 --------- Conclusions Summary: Left ventricle: The cavity size is norm al. Systolic function is probably normal by visual assessment . Regional wall motion abnormalities cannot be excluded. The rosemary dy is not technically sufficient to allow evaluation of LV diastolic function. Impressions: 1. Study severely limited by acoustic windows. O nly reasonably reliable values are shown. 2. Left ventricle size appears globally normal w ith normal, perhaps hyperdynamic function and at least normal strok e volume. 3. Diastolic evaluation is virtually impossible. However, mitral E variation exceeds 25% without evidence of peric ardial disease suggesting low or low-relative left sided filli ng pressures. 4. There is no overt-severe valvulopathy or mike cardial tamponade. Prepared and electronically signed by Jane Wagoner M.D. 03/20/2020 14:38 at 1439 PATIENT NAME: PRIYANKA HENDERSON 2020-03-20 08:28:00-00:00 [facility] ([facility]) Critical Care Progress Note REPORT#:[id number] REPORT STATUS: Signed DATE:03/20/20 TIME: 827 PATIENT: PRIYANKA HENDERSON UNIT #: [id number] ROOM: [facility] BED: 1 : 59 AGE: 59 SEX: M ATTEND: Henrik Mendoza MD ADM AUTHOR: Ezio Aragon MD * ALL edits or amendments must be made on the [employer]/computer document * Subjective Chief complaint: Septic Shock Comments: Awake and Alert Undeewent exploration yesterday and removed 2.5 litres blood Now doing better Objective General VS/I O Last Documented: Result Date Time Pulse Ox 99 03/20 0700 B/P 115/56 03/20 0700 B/P Mean 81 03/20 0700 Pulse 118 03/20 0700 Resp 21 03/20 0700 Temp 36.6 03/20 0400 O2 Delivery Room air 03/20 0020 O2 Flow Rate [id number] 03/19 2301 FiO2 28 03/19 1758 24 hour I O ending at 0700: 03/19 1900 03/20 0700 Intake Total 5750.00 2872.60 Output Total 630 520 Balance 5120.00 2352.60 Intake, IV 4850.00 2522.60 Intake, Oral 900 Intake, 350 Packed Cells Output, 10 5 Drainage Output, Other 30 Output, Urine 590 515 Patient 132.7 kg Weight Weight Bed scale Measurement Method Patient Weight Weight (lb): 292 Weight (oz): 8.85 Weight (kg): 132.700 Medications: Active Meds + DC'd Last 24 Hrs Celecoxib 200 MG Q12HR PO (WDA) Norepinephrine Bitartrate 250 ML ASDIR IV Albumin Human 250 ML Q1H IV (DC) Albumin Human 100 ML .STK-MED ONE IV (DC) Piperacillin Sod/Tazobactam Sod 3.375 GM Q8H IV (CKD) Sodium Chloride 100 ML Sugammadex Sodium 0 .STK-MED ONE .ROUTE (DC) Sodium Chloride 250 ML .STK-MED ONE IV (DC) Sodium Chloride 0 .STK-MED ONE IV (DC) Albumin Human 0 .STK-MED ONE IV (DC) Ertapenem 1 GM ONCE ONE IV (DC) Sodium Chloride 50 ML Ketamine HCl 0 .STK-MED ONE .ROUTE (DC) Vasopressin 0 .STK-MED ONE .ROUTE (DC) Atropine Sulfate 0.5 MG PACU Q5MIN PRN PRN IV (D C) Diphenhydramine HCl 12.5 MG PACU ONCE PRN PRN IV Epinephrine 0.5 ML PACU ASDIR PRN PRN NEB (DC) Fentanyl Citrate 25 MCG PACU Q5MIN PRN PRN IV (D C) Flumazenil 0.2 MG PACU ASDIR PRN PRN IV (DC) Hydralazine HCl 10 MG PACU Q10MIN PRN PRN IV (DC ) Labetalol HCl 10 MG PACU Q5MIN PRN PRN IV (DC) Lactated Ringer's 1,000 ML PACU IV FLUID IV (DC) Morphine Sulfate 4 MG PACU Q5MIN PRN PRN IV (DC) Naloxone HCl 0.04 MG PACU Q2MIN PRN PRN IV (DC) Oxycodone HCl 5 MG PACU Q4H PRN PRN PO (DC) Promethazine HCl 6.25 MG PACU ASDIR PRN PRN IV Sodium Chloride 50 ML Fentanyl Citrate 0 .STK-MED ONE .ROUTE (DC) Acetaminophen 100 ML .STK-MED ONE IV (DC) Glycopyrrolate 0 .STK-MED ONE .ROUTE (DC) Lidocaine HCl 0 .STK-MED ONE .ROUTE (DC) Ondansetron HCl 0 .STK-MED ONE .ROUTE (DC) Rocuronium [place] 0 .STK-MED ONE .ROUTE (DC) Sevoflurane 0 .STK-MED ONE .ROUTE (DC) Midazolam HCl 0 .STK-MED ONE .ROUTE (DC) Propofol 0 .STK-MED ONE .ROUTE (DC) Sodium Chloride 1,000 ML BOLUS ONCE ONE IV (DC) Sodium Chloride 1,000 ML .Q6H40M IV Piperacillin Sod/Tazobactam Sod 3.375 GM Q6HR IV (DC) Sodium Chloride 100 ML Acetaminophen 650 MG Q6H PO (CKD) Sodium Chloride 1,000 ML BOLUS ONCE ONE IV (DC) Lactated Ringer's 1,000 ML BOLUS ONCE ONE IV (DC ) Losartan Potassium 50 MG DAILY PO Hydromorphone HCl 0.25 MG Q3H PRN PRN IV Enoxaparin Sodium 40 MG DAILY SUBQ (DA) Gabapentin 300 MG TID PO (CKD) Potassium Chloride/Dextrose/Sod Cl 1,000 ML .Q10 H IV (DC) Acetaminophen 100 ML Q6H IV (DC) Ondansetron Base 4 MG Q6H PRN PO Tramadol HCl 50 MG Q4H PRN PRN PO Ketorolac Tromethamine 30 MG Q6H IV (CKDr) Diphenhydramine HCl 12.5 MG PACU ONCE PRN PRN IV (DC) Physical Exam General appearance: alert, awake Head/eyes: atraumatic, clear cornea ENT: moist mucosal membranes, normal dentition Neck: full range of motion, non-tender Cardiovascular: normal capillary refill, normal heart sounds Respiratory: aerating well, clear to auscultatio n Abdomen: soft, non-tender Extremities: moves all Musculoskeletal normal inspection, painless rang e of motion Skin: dry, intact Lymphatics: axilla normal, inguinal normal Results Findings/data: Laboratory Tests 03/19 1141 Blood Gas Puncture Site RBA ABG pH (7.35 - 7.45) 7.34 L ABG pCO2 (35.0 - 45.0 mmHg) 35.0 ABG pO2 (80.0 - 95.0 mmHg) 151.0 H ABG HCO3 (22.0 - 24.0 mmol/L) 19.1 L ABG O2 Saturation (95.0 - 100.0 %) 97.3 ABG Base Excess ((+/ - )2.0 mmol/L) -5.8 L Gene Test N/A Methemoglobin (0 - 1.5 %) <0.8 Total Hemoglobin (13.0 - 17.0 g/dL) 11.8 L Respiration Rate (12 - 20 /MIN) 16 Patient On Oxygen O2 ADJ O2 Delivery Device NASAL CANNULA Liter Flow (L/MIN) 5 Vent Mode NC FiO2 (%) 40 Laboratory Tests 03/19 03/19 03/19 03/19 1140 1314 1525 1525 Chemistry Sodium (136 - 143 MMOL/L) 139 Potassium (3.5 - 5.1 MMOL/L) 3.7 Chloride (98 - 107 MMOL/L) 100 Carbon Dioxide (24 - 31 mmol/L) 29 BUN (7.0 - 21.0 MG/DL) 9.2 Creatinine (0.8 - 1.5 mg/dL) 0.8 Glomerular Filtr Rate (>60) >=60 max estimate Glucose (70 - 104 mg/dL) 106 H Lactic Acid (4.5 - 18.0 mg/dL) 34.6 *H 35.9 *H Calcium (8.8 - 10.2 mg/dL) 9.6 Phosphorus (2.7 - 4.5 mg/dL) 3.2 Magnesium (1.4 - 2.6 mg/dL) 1.8 Troponin I (0.00 - 0.30 ng/mL) < 0.30 03/19 03/20 03/20 03/20 03/20 1725 0045 0045 0550 0550 Chemistry Sodium (136 - 143 MMOL/L) 138 138 Potassium (3.5 - 5.1 MMOL/L) 4.3 4.2 Chloride (98 - 107 MMOL/L) 108 H 107 Carbon Dioxide (24 - 31 mmol/L) 17 L 21 L BUN (7.0 - 21.0 MG/DL) 22.0 H 21.7 H Creatinine (0.8 - 1.5 mg/dL) 1.8 H 1.5 Glomerular Filtr Rate (>60) 41 L 51 L Glucose (70 - 104 mg/dL) 132 H 125 H Lactic Acid (4.5 - 18.0 mg/dL) 42.2 *H 30.6 *H 12.1 Calcium (8.8 - 10.2 mg/dL) 6.3 L 7.1 L Magnesium (1.4 - 2.6 mg/dL) 1.6 Total Bilirubin (0.2 - 1.0 mg/dL) 1.2 H AST (10 - 34 IU/L) 17 ALT (10 - 44 U/L) 19 Total Alk Phosphatase (45 - 120 40 L U/L) Total Protein (6.3 - 8.3 g/dL) 4.8 L Albumin (3.5 - 5.0 G/DL) 2.7 L Laboratory Tests 03/19 03/20 1140 0045 Coagulation INR (0.9 - 1.11 INR UNIT) 1.16 H 1.15 H PTT ([place]) (26.0 - 35.9 SECONDS) 27.7 21.1 L PT Patient/Control Mix (10.3 - 12.9 SECONDS) 13 .2 H 13.0 H Fibrinogen (200 - 400 mg/dL) 298 D-Dimer (0 - 500 ng/mL) 2251 *H Laboratory Tests 03/19 03/19 03/20 03/20 1140 1830 0045 0550 Hematology WBC (4.8 - 10.8 x10 3/uL) 14.1 H 9.1 9.8 RBC (4.70 - 6.10 x10 6/uL) 3.66 L 2.65 L 2.96 L Hgb (14.5 - 20 g/dL) 11.2 L 8.3 L 8.3 L 9.0 L Hct (42.0 - 52.0 %) 35.6 L 26.2 L 25.4 L 27.7 L MCV (80.0 - 94.0 fL) 97.3 H 95.8 H 93.6 MCH (27 - 31 pg) 30.6 31.3 H 30.4 MCHC (33 - 36.5 G/DL) 31.5 L 32.7 L 32.5 L RDW (12.9 - 16.9 %) 13.9 14.2 14.9 Plt Count (150 - 440) 353 143 L 145 L MPV (8.9 - 12.4 fL) 10.0 10.1 9.8 Neut % (Auto) (42.2 - 75.2 %) 85.3 H 84.8 H 83. 7 H Lymph % (Auto) (20.5 - 51.1 %) 7.4 L 8.0 L 8.0 L [place] % (Auto) (1.7 - 9.3 %) 6.8 7.0 7.8 Eos % (Auto) (0.0 - 7.0 %) 0.0 0.0 0.0 Baso % (Auto) (0 - 2.5 %) 0.1 0.0 0.1 Neut # (Auto) (1.80 - 7.70 x10 3/uL) 12.04 H 7. 69 8.17 H Lymph # (Auto) (1.00 - 4.80 x10 3/uL) 1.04 0.7 3 L 0.78 L [place] # (Auto) (0.00 - 0.80 x10 3/uL) 0.96 H 0.6 4 0.76 Eos # (Auto) (0.00 - 0.45 x10 3/uL) 0.00 0.00 0 .00 Baso # (Auto) (0.0 - 0.20 x10 3/uL) 0.01 0.00 0 .01 Laboratory Tests 03/19/20 1140: [Embedded Image Not Available] 03/19/20 1314: [Embedded Image Not Available] 03/19/20 1830: [Embedded Image Not Available] 03/20/20 0045: [Embedded Image Not Available] 03/20/20 0550: [Embedded Image Not Available] Microbiology: 03/19 1525 BLOOD: Blood Culture - RES 03/19 1505 BLOOD: Blood Culture - RES 03/19 1259 NASAL: MRSA Surveillance Culture - RE CD 03/18 1450 URINE: Urine Culture - RES GRAM NEGATIVE MAMTA Radiology data Recent Impressions: RADIOLOGY - XR ABDOMEN 1V 03/19 1415 Report Impression - Status: SIGNED Entered: 03/19/2020 1452 Impression: Nonobstructed bowel gas pattern. Impression By: [email or web address] - William Eli MD RADIOLOGY - XR CHEST 1 V 03/19 1415 Report Impression - Status: SIGNED Entered: 03/19/2020 1454 IMPRESSION: 1. There is mild atelectasis/infiltrate at the l eft lower lung. 2. There is mild cardiomegaly. Impression By: [email or web address] Ash RODAS M.D. RADIOLOGY - XR CHEST 1 V 03/19 2350 Report Impression - Status: SIGNED Entered: 03/20/2020 0027 IMPRESSION: 1. Well-positioned right IJ central venous syd ter. 2. Low lung volume with perihilar and left basil ar atelectasis. Impression By: [email or web address] - Ruiz Pinto M.D. Diagnosis, Assessment Plan Free text A P: 1. POD#2 s/p RAL ileostomy closure, end colostom y 2. POD #1 Exploratory laparotomy with evacuation of hemoperitoneum 3. Hemorrhagic 4. Sinus tachycardia 5. Morbid Obesity 6. Acute Kidney Injury 7. Anemia from acute blood loss 8. Thrombocytopenia 9. Hypocalcemia PLAN: 1. Neuro Awake and Alert 2. Pulmonary CXR clear but minimal atelectasis 3. Cardiac Sinus tachycardia from underlying sepsis and blo dd loss Check 2D echo 4. GI s/p abdominal washout yesterday Received 4 Unit PRBC last night Exploratory laparotomy with evacuation of hemope ritoneum Check H H Q6 Discussed with Surgery Start clear liquis for now Empiric Abx 5. ID Empiric Abx Blood Cultures pending 6. Renal mild increase in Serum Cr related to shock Monitor urine output 7. Access R IJ trialysis catheter PLAN: Continue to resucitate Check H H Q6 Coags normal cc time 35 mins Electronically Signed by Ezio Aragon MD on 03/20 at 1205 [facility] #:[id number] END OF REPORT 2020-03-19 22:55:00-00:00 [id number] [facility] [address] [place] [address] PATIENT NAME: PRIYANKA HENDERSON ADMIT DA TE: 03/18/20 ACCOUNT NO: [id number] ROOM NO: P.0206 AGE: 59 REPORT TYPE: OPERATIVE REPORT SEX: M ADMITTING PHYSICIAN:Henrik Mendoza MD ATTENDING PHYSICIAN:Henrik Mendoza MD OPERATION DATE: 03/18/2020 PREOPERATIVE DIAGNOSES: 1. 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 2. Morbid obesity. POSTOPERATIVE DIAGNOSES: 1. 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 2. Morbid obesity. PROCEDURES: 1. Laparoscopic creation of end colostomy. 2. Laparoscopic ileostomy takedown with resectio n and primary intracorporeal anastomosis. 3. Reduction and closure of large hernia on the right. 4. Left ureterolysis. SURGEON: Colorectal surgeon, Henrik Mendoza MD FRAMEWORK DEVELOPER: Surgical first cook, Dr. Valentin kathleen. ANESTHESIA: General endotracheal anesthesia. SPECIMEN: Ileostomy. COMPLICATIONS: None. CONDITION: Stable. INDICATIONS AND FINDINGS: The patient armstrong s a complex history. He presented with a very low rectal cancer, received neoadjuvant c hemoradiation therapy and underwent a robotic rectal resection with coloan al anastomosis. The patient completed adjuvant chemother apy, developed coloanal stenosis requiring multiple dilations. The patient ultimately was not a cand idate for reversal. It was recommended he undergo a proctectomy and permane nt end colostomy. In the interim, he had morbid obesity and the ileostomy which was there for several months, developed into a very large para stomal hernia, which started to become incarcerated causing him significant symptoms. T he patient ultimately did not want a proctectomy, however, was willing to undergo a reversal of the ileostomy with reduction and closure of the large parastomal hernia as well as formation of a new end colostomy with ultimate proctectomy if he became comfortable versus PATIENT NAME: PRIYANKA HENDERSON additional attempts of dilation to see if we can restore bowel continuity. The patient is morbidly obese. He had ad hesions making the procedure unusually difficult and tedious. There was at least an add itional hour and a half to complete this procedure, which added significant time and intensity to the procedure. Dr. Valentin Evans was surgical first cook. He was required to accomplish the procedure in a safe and minimally invasive fashion. The patient tolerated the procedure well without complications. The procedure was also unusually difficult because the re was a radiated pelvis. In addition, because it was a coloanal procedure, only the ma rginal artery was keeping the entire neorectum intact. The refore, in order to perform a colostomy, I was very careful to not avulse the ma rginal artery. It was difficult to make enough of a colostomy to reach up to the large thick abdomin al wall. The area on the left side, which required mobilization in ord er to allow a tension-free anastomosis was adhesed into the left pelvic side wall. 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 We had to identify and preserve the left ureter in this fashion. This also added time and intensity to the procedur e. He tolerated the procedure well and without complications. PROCEDURE IN DETAIL: He was taken to the operating room and after induction of anesthesia, placed in modifi ed lithotomy position. He was prepped and draped in a sterile fashion. Laparosco pic access was gained with a 5-mm Optiview entry on the left side, additional 8-mm robotic p orts were placed. First, the robot was docked and given attention to the left lower dereck drant and pelvis. First mobilization was required in order to get much t ension-free colostomy as possible in a lateral to medial fashion. The mob ilization was performed; however, it was fibrosed from the radiation and the ureter was brought immediately. This required c areful ureterolysis to identify release of the left ureter from the retroperitoneal tissue. Next, a window was made close to the mesentery to preserve the marginal artery, which was keeping the neorectum alive. Once the window was made, the bowel near the pelvic brim was stapled across. In order to allow the colostomy to be fo rmed, I had to take down some of the mesentery, again taking care to preserve the marginal artery, but also taking care not to devascularize the area chosen for the colostomy. We mobilized the area till wher e we did not feel we could mobilize anymore without compromising the vascular supplies. At this junc ture, intravascular injection of ICG was performed. Both the distal remaining neorectum and the area chosen for colostomy were viable without any concerns. Attention was now drawn to the ileostomy. Theref ore, we redocked the robot changing the direction of the dome to allow surg lilian on the right side. The efferent and afferent limbs were mobilized. A la rge incarcerated parastomal hernia was reduced. Next, we divided the ileosto my by cutting the bowel and using vessel seal device taking down the mesente ry. Next, we introduced the robotic stapler. We performed a double stapled i ntracorporeal anastomosis. Once this was achieved, the mesenteric defect was closed intracorporeally with a [id number] Vicryl suture. At this point, we turned our attention to the colostomy. We undocked the robot. We made a colostomy site on the left side where the port was and brought up, but did not mature the colostomy and left it in place with clamps. We then turned our attention to the ileostomy itself. We were able to excise the PATIENT NAME: PRIYANKA HENDERSON ileostomy and sent it for permanent section. We had to have attention to the very large hernia defect, which was deep to this area. This made the procedure also very difficult. We used several PDS figure- of-eight sutures to close the defect. There was tension, b ut we did not want to use mesh in the background of the bowel surgery. Once we closed the hernia, we irrigated the area. We put a subcutaneous drain and we also did a pursestring suture. Attention now was drawn to the colostomy was mat ured using interrupted 3-0 Vicryl sutures in a Rosanne fashion. The patient tolerated the procedure well and at this point, he was extubated and taken to recovery room in good condition. Dictated By: Henrik Mendoza MD WT: OP:P.CLAUDIA/JOVANI/DEYA Conf#: [id number]/DID#: [id number] Authenticated and Edited by Henrik Mendoza MD On 10:16:47 AM Electronically Signed by Henrik Mendoza MD on 03/01 11/19 at 1019 PATIENT NAME: PRIYANKA HENDERSON 2020-03-19 22:48:00-00:00 [id number] [facility] [address] [place] [address] PATIENT NAME: PRIYANKA HENDERSON ADMIT DA TE: 03/18/20 ACCOUNT NO: [id number] ROOM NO: [facility] AGE: 59 REPORT TYPE: OPERATIVE REPORT SEX: M ADMITTING PHYSICIAN:Henrik Mendoza MD ATTENDING PHYSICIAN:Henrik Mendoza MD OPERATION DATE: 03/19/2020 PREOPERATIVE DIAGNOSIS: Acute abdomen. POSTOPERATIVE DIAGNOSIS: Hemoperitoneum. PROCEDURE: 1. Examination under anesthesia with dilation of anorectal stenosis. 2. Flexible sigmoidoscopy. 3. Exploratory laparotomy with evacuation of pne umoperitoneum. SURGEON: Colorectal surgeon, Henrik Mendoza MD. FRAMEWORK DEVELOPER: Surgical first cook, Dr. Reggie Elliott. ANESTHESIA: General endotracheal anesthesia. COMPLICATIONS: None. CONDITION: Stable. INDICATIONS AND FINDINGS: The patient underwent colorectal surgery on 03/18/2020 which was uneventful in nature, altho ugh complex difficult. The patient did well initially overnight and on morn ing rounds. Several hours thereafter, the patient was transferred to the [facility] with tachycardia and hypertension. He was resuscitated and throughout the day, his hemoglobin steadily dropped. Upon evaluation, it was concer yolette that the patient had an acute abdomen versus acute blood loss anemia, in either regard required exploration. There was also a concern that the p atient might have an ischemic rectum due to the tedious bl ood supply of the neorectum and the fact that he has a colostomy, which may have compromised the marginal vessel feeding the distal rectum. The plan was to perform examination under anesth esia and evaluate the rectum with flexible sigmoidoscopy to make sure it was not ischemic and thereafter explored the abdomen. After induction of anesthesia, it was noted that he had a severe anorectal stenosis from long-term effect of radiation. Thi s required dilation under anesthesia. Once this was ac complished, a flexible sigmoidoscopy was performed. The rectum was viable. No evidence of ischemia. We therefore explored him. Upon exploration, it was noted that he had PATIENT NAME: PRIYANKA HENDERSON significant hemoperitoneum approximately 2 liter s of mainly clotted blood was evacuated. There were a couple of small areas of oozing, for which hemostasis was achieved. However, no obvious actively bleed ing vessel. The patient immediately responded well with normaliz ation of blood pressure and heart rate during the procedure after e vacuation of hematoma and blood transfusions. Also, he started having good urine output. Following t he surgery, he was able to be extubated and taken to the ICU. Dr. Khurram Elliott was present as a surgical first cook and required to accomplish the proc edure safely. PROCEDURE IN DETAIL: The pat ient was taken to the operating room in an emergent fashion. He was prepped and draped in a sterile fashion. Firstly, we performed dilation under anesthesia to dilate the stricture, anorectal stenosis. Then, a flexible sigmoidosco py was performed. Normal viable mucosa was seen. Next, we turned our atte ntion to the abdomen after rescrubbing down into the area sterile. Laparosc opic entry was made with the optical entry. Two additional ports were placed, one was a 5 mm and the other was a 12 mm, we noticed a large amount of pneumo peritoneum. We were able to evacuate all the clots from all the quadrants wi th careful evaluation, we did not see any major bleeding. Some small oozing no boo near the level of the colostomy, which we achieved hemostasis with a s ealing device. We again irrigated and then evaluated all quadrants. Ther e was 2 to 3 liters of hemoperitoneum evacuated. The patient responded well from a cardiopulmonary standpoint. Following this p rocedure, we removed the 12 mm port and closed that site with a transabdominal suture closure. Pneum operitoneum was released. The other ports were removed. Port sites were closed with 4-0 Monocryl and Dermabond. He tolerated the procedure well and w as extubated and taken to the ICU. Dictated By: Henrik Mendoza MD WT: OP:PDENI/JOVANI/NTS Conf#: [id number]#: [id number] Authenticated by Henrik Mendoza MD On 03/20/2020 1 0:16:02 AM Electronically Signed by Henrik Mendoza MD on 03/01 11/19 at 1016 PATIENT NAME: PRIYANKA HENDERSON 2020-03-19 22:43:00-00:00 [facility] ([facility]) Clinical Note REPORT#:[id number] REPORT STATUS: Signed DATE:03/19/20 TIME: 2242 PATIENT: PRIYANKA HENDERSON UNIT #: [id number] ROOM: [facility] BED: 1 : 59 AGE: 59 SEX: M ATTEND: Henrik Mendoza MD ADM AUTHOR: Alley Person NP * ALL edits or amendments must be made on the Kashmi/computer document * Clinical Note Note: Critical Care CENTER DIRECTOR LEAD TEACHER: Case discussed with Dr. Mendoza. Pt. currently in O R; he underwent exploratory laparatomy. Per Dr. Mendoza, pt. had hemoperitoneum without obvious source of bleeding which could be from Lovenox. Will hold Lovenox and other NSAIDs for now per Dr. Mendoza. Check post-op labs including CMP a nd q4h checks of CBC, PT/PTT, fibrinogen, and D-dimer. Pt. is extubated and armstrong s a new central line and arterial line, currently not on vasopressors. The at the waiting area . She was updated by Dr. Mendoza. I have discussed the plan of care with as well. Electronically Signed by Alley Person NP on 03/19 at 2254 RPT #:[id number] END OF REPORT 2020-03-19 22:43:00-00:00 [facility] ([facility]) Clinical Note REPORT#:[id number] REPORT STATUS: Signed DATE:03/19/20 TIME: 2243 PATIENT: PRIYANKA HENDERSON UNIT #: [id number] ROOM: [facility] BED: 1 : 59 AGE: 59 SEX: M ATTEND: Henrik Mendoza MD ADM AUTHOR: Alley Person CENTER DIRECTOR LEAD TEACHER * ALL edits or amendments must be made on the el InhibOx/computer document * See Addendum Clinical Note Note: Critical Care CENTER DIRECTOR LEAD TEACHER: Case discussed with Dr. Mendoza. Pt. currently in O R; he underwent exploratory laparatomy. Per Dr. Mendoza, pt. had hemoperitoneum without obvious source of bleeding which could be from Lovenox. Will hold Lovenox and other NSAIDs for now per Dr. Mendoza. Check post-op labs including CMP a nd q4h checks of CBC, PT/PTT, fibrinogen, and D-dimer. Pt. is extubated and armstrong s a new central line and arterial line, currently not on vasopressors. The at the waiting area . She was updated by Dr. Mendoza. I have discussed the plan of care with as well. Electronically Signed by Alley Person NP on 03/19 at 2254 Addendum 1: 03/19/20 2309 by Alley Person NP Discussed the case with Anesthesiologist. Pt. armstrong d 2 L of blood in his abdomen and received 2 PRBCs. He was on vasopressin for a short time, currently off. Will obtain post-op lacate and CXR as well. Electronically Signed by Alley Person NP on 03/19 at 2310 RPT #:[id number] END OF REPORT 2020-03-19 13:28:00-00:00 [facility] ([facility]) History Physical - Adult REPORT#:[id number] REPORT STATUS: Signed DATE:03/19/20 TIME: 1328 PATIENT: PRIYANKA HENDERSON UNIT #: [id number] ROOM: [facility] BED: 1 : 59 AGE: 59 SEX: M ATTEND: Henrik Mendoza MD ADM AUTHOR: Ezio Aragon MD * ALL edits or amendments must be made on the Kashmi/computer document * History of Present Illness HPI Chief complaint: Hypotension HPI: 59 yo male with his tory of colon cancer and underwent "colon resection " and creating of ielostomy, exact operative det ails not known. He received neoadjuvant chemo before surgery and received XR T as well. He was brought in electively by Dr. Evans for R obotic Assisted Laproscopic ileostomy closure and creation of end co lostomy yesterday but this morning, he developed hypotension and rapid response was lashonda led. He was given fluid challenge and brought to ICU, currently he is awake but feels sligghtly dizzy. He denies any history of CHF or Stroke. History Additional medical history: Colon CA Hypertension Additional surgical history: Colon Surgery Family history: Denies: Anemia, Asthma, CAD < 40 yrs old, Cancer . Alcohol use: Denies EtOH use Drug use: Denies recreational drugs Smoking status for patients 13 years old or olde r: Never Smoker Medication/Allergy-Vaccine Hx Home Medications: Cholecalciferol (Vitamin D3) (Vitamin D3) 3,000 UNITS PO DAILY Losartan (Cozaar) 50 MG PO DAILY Allergies: Coded Allergies: No Known Allergies (03/14/20) Review of Systems Constitutional: Reports: fatigue. Denies: chills. Skin: Denies: abrasion. Allergy/Immun: Denies: allergic reaction. Eyes: Denies: redness. ENT: Denies: ear drainage. Respiratory: Denies: CH (dyspnea on exertion). Cardiovascular: Denies: chest pain. GI: Denies: abdominal pain. : Denies: dysuria. Heme: Denies: bleeding. Endocrine: Denies: cold intolerance. Neuro: Denies: bladder dysfunction. Psych: Denies: agitation. Physical Exam VS/I O Vital Signs: Date Time Temp Pulse Resp B/P B/P Pulse O2 O2 F low FiO2 Mean Ox Delivery Rate 03/19 1324 94 20 91/50 65 100 03/19 1320 91 15 87/51 64 100 03/19 1310 92 15 81/52 62 100 03/19 1300 91 15 78/48 58 100 03/19 1250 92 15 78/48 58 100 05 1240 91 15 86/52 64 100 05 1230 92 16 84/51 63 100 03/19 1220 95 18 87/53 65 100 03/19 1210 92 18 86/50 62 100 05 1208 94 16 78/50 59 100 03/19 1207 36.5 107 20 90 03/19 1205 36.0 03/19 1204 Nasal 5.370661 cannula 03/19 1203 102 16 88/59 68 90 Nasal 5.851192 cannula 03/19 0716 36.3 88 18 110/73 85.0 94 Room air 03/19 0250 93 18 117/77 90.4 97 03/18 2331 95 117/77 90.4 96 03/18 2315 Nasal 2.742112 cannula 03/18 2231 94 125/80 94.8 96 03/18 2131 91 122/80 94.2 96 03/18 2031 93 131/80 97.2 97 03/18 2001 84 115/74 87.7 97 03/18 1950 89 87 03/18 1949 89 89 03/18 194 87 89 03/18 194 88 89 03/18 1943 87 89 03/18 194 87 89 03/18 1940 86 89 03/18 1939 86 89 03/189 87 89 03/18 1938 84 116/76 89.0 89 03/18 1931 36.8 81 116/76 89.0 92 03/18 1850 83 12 135/58 99 03/18 1845 84 17 135/59 98 03/18 1840 80 18 145/61 100 03/18 1835 79 19 100 03/18 1830 77 19 116/58 100 03/18 1825 75 8 145/66 100 03/18 1823 Simple 10.639903 mask 03/18 1820 79 17 132/68 100 03/18 1815 82 16 126/67 100 03/18 1810 36.4 78 21 139/77 100 Simple 10.0000 00 mask 24 hour I O ending at 0700: 03/18 1900 03/19 0700 Intake Total 100.00 1020.00 Output Total 600 Balance 100.00 420.00 Intake, IV 100.00 900.00 Intake, Oral 120 Output, 0 Drainage Output, Urine 600 Patient 123 kg Weight Weight Stated/Reported Measurement Method Patient Weight Weight (lb): 271 Weight (oz): 2.7 Weight (kg): 123.000 General appearance: alert, awake Head/Eyes: atraumatic, clear cornea ENT: moist mucosal membranes, normal dentition Neck: full range of motion, non-tender Cardiovascular: normal capillary refill, regular rate rhythm, normal heart sounds, BP/pulses equal bilat. Respiratory: clear to auscultation, no distress Extremities: moves all, no edema-all extremities Neuro/SUBMARINE OPERATOR: alert, oriented X 3 Skin: dry, intact Lymphatic: axilla normal, inguinal normal Results Findings/Data: Laboratory Tests: 03/19 03/19 0615 1140 Chemistry Sodium (136 - 143 MMOL/L) 141 Potassium (3.5 - 5.1 MMOL/L) 4.5 Chloride (98 - 107 MMOL/L) 104 Carbon Dioxide (24 - 31 mmol/L) 25 BUN (7.0 - 21.0 MG/DL) 14.4 Creatinine (0.8 - 1.5 mg/dL) 1.0 Glomerular Filtr Rate (>60) >=60 max estimate Glucose (70 - 104 mg/dL) 143 H Lactic Acid (4.5 - 18.0 mg/dL) 34.6 *H Calcium (8.8 - 10.2 mg/dL) 8.9 Magnesium (1.4 - 2.6 mg/dL) 2.1 Coagulation INR (0.9 - 1.11 INR UNIT) 1.16 H PTT (Paul) (26.0 - 35.9 SECONDS) 27.7 PT Patient/Control Mix (10.3 - 12.9 SECONDS) 13 .2 H Hematology WBC (4.8 - 10.8 x10 3/uL) 9.6 14.1 H RBC (4.70 - 6.10 x10 6/uL) 4.30 L 3.66 L Hgb (14.5 - 20 g/dL) 13.1 L 11.2 L Hct (42.0 - 52.0 %) 40.4 L 35.6 L MCV (80.0 - 94.0 fL) 94.0 97.3 H MCH (27 - 31 pg) 30.5 30.6 MCHC (33 - 36.5 G/DL) 32.4 L 31.5 L RDW (12.9 - 16.9 %) 13.6 13.9 Plt Count (150 - 440) 250 353 MPV (8.9 - 12.4 fL) 9.8 10.0 Neut % (Auto) (42.2 - 75.2 %) 80.3 H 85.3 H Lymph % (Auto) (20.5 - 51.1 %) 11.2 L 7.4 L [place] % (Auto) (1.7 - 9.3 %) 8.3 6.8 Eos % (Auto) (0.0 - 7.0 %) 0.0 0.0 Baso % (Auto) (0 - 2.5 %) 0.1 0.1 Neut # (Auto) (1.80 - 7.70 x10 3/uL) 7.73 H 12. 04 H Lymph # (Auto) (1.00 - 4.80 x10 3/uL) 1.08 1.04 [place] # (Auto) (0.00 - 0.80 x10 3/uL) 0.80 0.96 H Eos # (Auto) (0.00 - 0.45 x10 3/uL) 0.00 0.00 Baso # (Auto) (0.0 - 0.20 x10 3/uL) 0.01 0.01 / 1141 Blood Gas Puncture Site RBA ABG pH (7.35 - 7.45) 7.34 L ABG pCO2 (35.0 - 45.0 mmHg) 35.0 ABG pO2 (80.0 - 95.0 mmHg) 151.0 H ABG HCO3 (22.0 - 24.0 mmol/L) 19.1 L ABG O2 Saturation (95.0 - 100.0 %) 97.3 ABG Base Excess ((+/ - )2.0 mmol/L) -5.8 L Gene Test N/A Methemoglobin (0 - 1.5 %) <0.8 Total Hemoglobin (13.0 - 17.0 g/dL) 11.8 L Respiration Rate (12 - 20 /MIN) 16 Patient On Oxygen O2 ADJ O2 Delivery Device NASAL CANNULA Liter Flow (L/MIN) 5 Vent Mode NC FiO2 (%) 40 Diagnosis, Assessment Plan Free Text DxA P Notes Free Text DxA P Notes: 1. POD#1 s/p RAL ileostomy closure, end colostom y 2. Septic Shock vs Distributive Shock 3. Hypertension PLAN: Patient became hypotensive around 0715 AM Received IV Dialudid 0.25 mg around 0639 AM Received Gabapentin at 0800 AM Abdominal exam is benign for now IV fluid x 3-4 litres to keep MAP > 65 IV Zosyn for gram negative and anaoerboc coverag e Blood Cultures x 2 and lactic acid. Await General Surgery opinion If any abdominal complications are suspected, ca n check CT ABDOMEN/PELVIS but for now, conitnue with IV Abx and fluid resuscit ation. Electronically Signed by Ezio Aragon MD on 03/19 at 1338 RPT #:[id number] END OF REPORT 2020-03-19 13:28:00-00:00 [facility] ([facility]) History Physical - Adult REPORT#:[id number] REPORT STATUS: Signed DATE:03/19/20 TIME: 1328 PATIENT: PRIYANKA HENDERSON UNIT #: [id number] ROOM: [facility] BED: 1 : 59 AGE: 59 SEX: M ATTEND: Henrik Mendoza MD ADM AUTHOR: Ezio Aragon MD * ALL edits or amendments must be made on the Kashmi/computer document * See Addendum History of Present Illness HPI Chief complaint: Hypotension HPI: 59 yo male with his tory of colon cancer and underwent "colon resection " and creating of ielostomy, exact operative det ails not known. He received neoadjuvant chemo before surgery and received XR T as well. He was brought in electively by Dr. Evans for R obotic Assisted Laproscopic ileostomy closure and creation of end co lostomy yesterday but this morning, he developed hypotension and rapid response was lashonda led. He was given fluid challenge and brought to ICU, currently he is awake but feels sligghtly dizzy. He denies any history of CHF or Stroke. History Additional medical history: Colon CA Hypertension Additional surgical history: Colon Surgery Family history: Denies: Anemia, Asthma, CAD < 40 yrs old, Cancer . Alcohol use: Denies EtOH use Drug use: Denies recreational drugs Smoking status for patients 13 years old or olde r: Never Smoker Medication/Allergy-Vaccine Hx Home Medications: Cholecalciferol (Vitamin D3) (Vitamin D3) 3,000 UNITS PO DAILY Losartan (Cozaar) 50 MG PO DAILY Allergies: Coded Allergies: No Known Allergies (03/14/20) Review of Systems Constitutional: Reports: fatigue. Denies: chills. Skin: Denies: abrasion. Allergy/Immun: Denies: allergic reaction. Eyes: Denies: redness. ENT: Denies: ear drainage. Respiratory: Denies: CH (dyspnea on exertion). Cardiovascular: Denies: chest pain. GI: Denies: abdominal pain. : Denies: dysuria. Heme: Denies: bleeding. Endocrine: Denies: cold intolerance. Neuro: Denies: bladder dysfunction. Psych: Denies: agitation. Physical Exam VS/I O Vital Signs: Date Time Temp Pulse Resp B/P B/P Pulse O2 O2 F low FiO2 Mean Ox Delivery Rate 03/19 1324 94 20 91/50 65 100 03/19 1320 91 15 87/51 64 100 03/19 1310 92 15 81/52 62 100 03/19 1300 91 15 78/48 58 100 03/19 1250 92 15 78/48 58 100 03/19 1240 91 15 86/52 64 100 03/19 1230 92 16 84/51 63 100 03/19 1220 95 18 87/53 65 100 03/19 1210 92 18 86/50 62 100 03/19 1208 94 16 78/50 59 100 03/19 1207 36.5 107 20 90 03/19 1205 36.0 03/19 1204 Nasal 5.529473 cannula 03/19 1203 102 16 88/59 68 90 Nasal 5.160231 cannula 03/19 0716 36.3 88 18 110/73 85.0 94 Room air 03/19 0250 93 18 117/77 90.4 97 03/18 2331 95 117/77 90.4 96 03/18 2315 Nasal 2.181568 cannula 03/18 2231 94 125/80 94.8 96 03/18 2131 91 122/80 94.2 96 03/18 2031 93 131/80 97.2 97 03/18 2001 84 115/74 87.7 97 03/18 1950 89 87 03/18 1949 89 89 03/18 1945 87 89 03/18 1944 88 89 03/18 1943 87 89 03/18 1941 87 89 03/18 1940 86 89 03/18 1939 86 89 03/18 1939 87 89 03/18 1938 84 116/76 89.0 89 03/18 193 36.8 81 116/76 89.0 92 03/18 1850 83 12 135/58 99 03/18 1845 84 17 135/59 98 03/18 1840 80 18 145/61 100 03/18 1835 79 19 100 03/18 1830 77 19 116/58 100 03/18 1825 75 8 145/66 100 03/18 1823 Simple 10.458268 mask 03/18 1820 79 17 132/68 100 03/18 181 82 16 126/67 100 03/18 1810 36.4 78 21 139/77 100 Simple 10.0000 00 mask 24 hour I O ending at 0700: 03/18 1900 03/19 0700 Intake Total 100.00 1020.00 Output Total 600 Balance 100.00 420.00 Intake, IV 100.00 900.00 Intake, Oral 120 Output, 0 Drainage Output, Urine 600 Patient 123 kg Weight Weight Stated/Reported Measurement Method Patient Weight Weight (lb): 271 Weight (oz): 2.7 Weight (kg): 123.000 General appearance: alert, awake Head/Eyes: atraumatic, clear cornea ENT: moist mucosal membranes, normal dentition Neck: full range of motion, non-tender Cardiovascular: normal capillary refill, regular rate rhythm, normal heart sounds, BP/pulses equal bilat. Respiratory: clear to auscultation, no distress Extremities: moves all, no edema-all extremities Neuro/SUBMARINE OPERATOR: alert, oriented X 3 Skin: dry, intact Lymphatic: axilla normal, inguinal normal Results Findings/Data: Laboratory Tests: 03/19 03/19 0615 1140 Chemistry Sodium (136 - 143 MMOL/L) 141 Potassium (3.5 - 5.1 MMOL/L) 4.5 Chloride (98 - 107 MMOL/L) 104 Carbon Dioxide (24 - 31 mmol/L) 25 BUN (7.0 - 21.0 MG/DL) 14.4 Creatinine (0.8 - 1.5 mg/dL) 1.0 Glomerular Filtr Rate (>60) >=60 max estimate Glucose (70 - 104 mg/dL) 143 H Lactic Acid (4.5 - 18.0 mg/dL) 34.6 *H Calcium (8.8 - 10.2 mg/dL) 8.9 Magnesium (1.4 - 2.6 mg/dL) 2.1 Coagulation INR (0.9 - 1.11 INR UNIT) 1.16 H PTT ([place]) (26.0 - 35.9 SECONDS) 27.7 PT Patient/Control Mix (10.3 - 12.9 SECONDS) 13 .2 H Hematology WBC (4.8 - 10.8 x10 3/uL) 9.6 14.1 H RBC (4.70 - 6.10 x10 6/uL) 4.30 L 3.66 L Hgb (14.5 - 20 g/dL) 13.1 L 11.2 L Hct (42.0 - 52.0 %) 40.4 L 35.6 L MCV (80.0 - 94.0 fL) 94.0 97.3 H MCH (27 - 31 pg) 30.5 30.6 MCHC (33 - 36.5 G/DL) 32.4 L 31.5 L RDW (12.9 - 16.9 %) 13.6 13.9 Plt Count (150 - 440) 250 353 MPV (8.9 - 12.4 fL) 9.8 10.0 Neut % (Auto) (42.2 - 75.2 %) 80.3 H 85.3 H Lymph % (Auto) (20.5 - 51.1 %) 11.2 L 7.4 L [place] % (Auto) (1.7 - 9.3 %) 8.3 6.8 Eos % (Auto) (0.0 - 7.0 %) 0.0 0.0 Baso % (Auto) (0 - 2.5 %) 0.1 0.1 Neut # (Auto) (1.80 - 7.70 x10 3/uL) 7.73 H 12 .04 H Lymph # (Auto) (1.00 - 4.80 x10 3/uL) 1.08 1.04 [place] # (Auto) (0.00 - 0.80 x10 3/uL) 0.80 0.96 H Eos # (Auto) (0.00 - 0.45 x10 3/uL) 0.00 0.00 Baso # (Auto) (0.0 - 0.20 x10 3/uL) 0.01 0.01 03/19 1141 Blood Gas Puncture Site RBA ABG pH (7.35 - 7.45) 7.34 L ABG pCO2 (35.0 - 45.0 mmHg) 35.0 ABG pO2 (80.0 - 95.0 mmHg) 151.0 H ABG HCO3 (22.0 - 24.0 mmol/L) 19.1 L ABG O2 Saturation (95.0 - 100.0 %) 97.3 ABG Base Excess ((+/ - )2.0 mmol/L) -5.8 L Gene Test N/A Methemoglobin (0 - 1.5 %) <0.8 Total Hemoglobin (13.0 - 17.0 g/dL) 11.8 L Respiration Rate (12 - 20 /MIN) 16 Patient On Oxygen O2 ADJ O2 Delivery Device NASAL CANNULA Liter Flow (L/MIN) 5 Vent Mode NC FiO2 (%) 40 Diagnosis, Assessment Plan Free Text DxA P Notes Free Text DxA P Notes: 1. POD#1 s/p RAL ileostomy closure, end colostom y 2. Septic Shock vs Distributive Shock 3. Hypertension PLAN: Patient became hypotensive around 0715 AM Received IV Dialudid 0.25 mg around 0639 AM Received Gabapentin at 0800 AM Abdominal exam is benign for now IV fluid x 3-4 litres to keep MAP > 65 IV Zosyn for gram negative and anaoerboc coverag e Blood Cultures x 2 and lactic acid. Await General Surgery opinion If any abdominal complications are suspected, ca n check CT ABDOMEN/PELVIS but for now, conitnue with IV Abx and fluid resuscit ation. Electronically Signed by Ezio Aragon MD on 03/19 at 1338 Addendum 1: 03/19/20 1340 by Ezio Aragon MD Check Echo Check Troponin I Electronically Signed by Ezio Aragon MD on 03/19 at 1341 RPT #:[id number] END OF REPORT 2020-03-14 13:23:00-00:00 [id number] [address] PATIENT NAME: PRIYANKA HENDERSON ADMIT DA TE: ACCOUNT NO: [id number] ROOM NO: AGE: 59 REPORT TYPE: eELECTROCARDIOGRAM SEX: M ADMITTING PHYSICIAN: Henrik Mendoza MD ATTENDING PHYSICIAN: Henrik Mendoza MD Order: [id number] Test Reason : SDS Test Date/Time Stamp: TueMar 14 2020 13:23:17 Blood Pressure : / mmHG Vent. Rate : 070 BPM Atrial Rate : 070 BPM P-R Int : 182 ms QRS Dur : 076 ms QT Int : 372 ms P-R-T Axes : 060 054 044 degree s QTc Int : 401 ms Poor data quality, interpretation may be adv ersely affected Normal sinus rhythm Normal ECG No previous ECGs available Confirmed by LUIZ LARKIN MD ([id number]) on 03/17 2:54:58 PM Referred By: Henrik Mendoza Confirmed by:LUIZ JOHN MD Electronically Signed by Luiz Larkin MD o n 03/17/20 at 4869 PATIENT NAME: PRIYANKA HENEDRSON
[2023-05-09 18:58] LABS: Absolute Lymphocytes (CBC) 0.4 K/uL (0.7-4.9); Lymphocytes % 20.4 % (15.3-44.8); MCV 94.2 fL (80-100); MPV 7.5 fL (7.6-11.3); RBC Red Blood Cell Count 3.29 M/uL (4.33-5.43)
[2023-05-09 19:01] LABS: Protime INR 1.04
[2023-05-09 19:02] LABS: Bilirubin Total 1.6 mg/dL (0.2-1.0); Potassium 3.9 mEq/L (3.5-5.1); Protein, Total 7.2 g/dL (6.4-8.2)
[2023-05-09] MEDS ORDERED: NA CHLORIDE 0.9% 1,000 ML ONE (19:22)
[2023-05-09 19:23] LABS: Urine Bacteria <20 /HPF (<20); Urine Bilirubin 1+ (Negative); Urine Blood Negative (Negative); Urine Clarity Turbid (Clear); Urine Color Light-Orange (Yellow); Urine Glucose 2+ (Negative); Urine Mucus Slight /HPF (None Seen); Urine Protein 1+ (Negative); Urine RBC <5 /HPF (None Seen); Urine Urobilinogen 2+ (Normal)
--- NOTE | 2023-05-09 19:29 | RAD REPORT ---
EXAM DESCRIPTION: RAD - Chest Single View - 05/09/2023 7:20 pm CLINICAL HISTORY: abdominal pain COMPARISON: Chest Single View dated 11/28/2017; Chest Pa And Lat (2 Views) dated 08/24/2017; Chest Si ngle View dated 07/11/2017; Chest Pa And Lat (2 Views) dated 05/23/2017 FINDINGS: Lines: Right IJ approach Port-A-Cath with tip overlying the superior cavoatrial junction. Lungs: No evidence of edema or pneumonia. Pleural: No significant pleural effusions or pneumothorax. Cardiac: The heart size is within normal limits. Mediastinum: Within normal limits. Bones: No acute fractures. Other: None IMPRESSION: No acute cardiopulmonary disease.
--- NOTE | 2023-05-09 21:18 | RAD REPORT ---
EXAM DESCRIPTION: CTAbdomen Pelvis Wo Contrast - 05/09/2023 9:06 pm CLINICAL HISTORY: diarrhea;Abd pain COMPARISON: Abdomen Pelvis W Contrast dated 07/26/2022; Abdomen Pelvis W Contrast dated 02/23/2022 ; Abdomen Pelvis W Contrast dated 04/28/2021; Abdomen Pelvis W Contrast dated 10/03/2020; Ct Skull/ Thigh dated 08/05/2022 TECHNIQUE: CT of the abdomen and pelvis was performed. All CT scans are performed using dose optimization technique as appropriate and may include automated exposure control or mA/KV adjustment according to patient size. FINDINGS: Lower chest: Port-A-Cath tip in the right atrium. Liver: No acute abnormality or suspicious lesions. Biliary: No biliary ductal dilatation. Stomach: No significant focal abnormality. Duodenum: No significant focal abnormality. Pancreas: No significant abnormality. Spleen: No significant abnormality. Adrenal: No suspicious lesions. Kidney/ureter: No hydronephrosis. No renal calculi. Retroperitoneum: No retroperitoneal adenopathy. Vascular: No aneurysm. Bowel: Left-sided colostomy with parastomal hernia. Right-sided lateral ventral hernia. No bowel obst ruction identified. Contrast reaches the ostomy.. Peritoneum: Presacral mass measuring approximately 6.6 x 6.1 cm is similar in size to 07/26/2022. Bladder: Grossly unremarkable. Reproductive: No adnexal masses. Bones: No acute fracture. Other: n/a IMPRESSION: No acute intra-abdominal abnormality. Similar left abdominal wall colostomy with large p arastomal hernia and right-sided lateral ventral hernia containing bowel. No bowel obstruction identi fied. Presacral soft tissue mass is only mildly increased in size since 07/26/2022. This has been pre viously evaluated with PET/CT.
--- NOTE | 2023-05-09 21:37 | ER ---
Nurse's Notes [facility] Name: Patrice Baeza Age: 62 yrs Sex: Male : 1960 Arrival Date: 05/09/2023 Time: 18:10 Bed 5 Private MD: Diagnosis: Diarrhea, unspecified;Volume depletion, unspecified Presentation: 05/09 18:16 Coronavirus screen: Client denies travel out of the [place] in the last 14 days. Ebola ll1 Screen: Patient denies travel to an Ebola-affected area in the 21 days before illness onset. Initial Sepsis Screen: Does the patient meet any 2 criteria? No. Patient's initial sepsis screen is negative. Does the patient have a suspected source of infection? Yes: Acute abdominal pain. Risk Assessment: Do you want to hurt yourself or someone else? Patient reports no desire to harm self or others. 18:16 Method Of Arrival: Ambulatory ll1 18:16 Acuity: MERY 3 ll1 18:20 Chief complaint: Patient states: Chills, diarrhea, ABD pain since Tuesday. Onset of ld1 symptoms was May 09, 2023. Triage Assessment: 18:20 General: Appears in no apparent distress. uncomfortable, Behavior is calm, cooperative, ld1 appropriate for age. Pain: Complains of pain in abdomen Pain does not radiate. Pain currently is 6 out of 10 on a pain scale. Pain began 2-3 days ago. EENT: No signs and/or symptoms were reported regarding the EENT system. Neuro: Level of Consciousness is awake, alert, obeys commands, Oriented to person, place, time, situation, Appropriate for age. Cardiovascular: Capillary refill < 3 seconds Patient's skin is warm and dry. Respiratory: Airway is patent Respiratory effort is even, unlabored. GI: Abdomen is round non-distended, Reports lower abdominal pain, upper abdominal pain, diarrhea. : No signs and/or symptoms were reported regarding the genitourinary system. Derm: No signs and/or symptoms reported regarding the dermatologic system. Musculoskeletal: No signs and/or symptoms reported regarding the musculoskeletal system. Historical: - Allergies: 18:16 NKA; ll1 - PMHx: 18:16 colorectal cancer; ll1 - PSHx: 18:16 4 rectal surgeries; Colostomy; ll1 - Immunization history:: Adult Immunizations up to date. - Social history:: Smoking status: Patient denies any tobacco usage or history of. Screenin:21 [facility] ED Fall Risk Assessment (Adult) History of falling in the last 3 months, ld1 including since admission No falls in past 3 months (0 pts). Abuse screen: Denies threats or abuse. Denies injuries from another. Nutritional screening: No deficits noted. Tuberculosis screening: No symptoms or risk factors identified. Assessment: 18:21 Reassessment: See triage assessment. ld1 19:00 Reassessment: Pt completed CT oral contrast, CT notified. . aa5 Vital Signs: 18:20 BP 120 / 69; Pulse 105; Resp 18; Temp 98.8(O); Pulse Ox 97% on R/A; Weight 127.01 kg; ld1 Height 5 ft. 9 in. ; Pain 6/10; 18:41 BP 110 / 61; Pulse 103; Resp 20; Pulse Ox 99% on R/A; Pain 6/10; ld1 20:11 BP 119 / 62; Pulse 89; Resp 18 S; Pulse Ox 100% on R/A; as6 22:15 BP 111 / 54; Pulse 87; Resp 18 S; Pulse Ox 100% on R/A; as6 22:45 BP 110 / 48; Pulse 87; Resp 18 S; Pulse Ox 100% on R/A; as6 18:20 Body Mass Index 41.35 (127.01 kg, 175.26 cm) ld1 18:20 Pain Scale: Adult ld1 18:41 Pain Scale: Adult ld1 [place] Coma Score: 22:53 Eye Response: spontaneous(4). Motor Response: obeys commands(6). Verbal Response: rv oriented(5). Total: 15. ED Course: 18:11 Patient arrived in ED. rg4 18:16 Triage completed. ll1 18:16 Arm band placed on Patient placed in an exam room, on a stretcher. ll1 18:19 Roman Pinto PA is PHCP. cp 18:19 Roman Engle MD is Attending Physician. cp 18:21 Patient has correct armband on for positive identification. Placed in gown. Bed in low ld1 position. Call light in reach. Side rails up X2. conveyor monitor on. Pulse ox on. NIBP on. Door closed. Noise minimized. Warm blanket given. 18:21 No provider procedures requiring assistance completed. ld1 18:40 Winter Krueger, RN is Primary Nurse. ld1 18:40 Inserted saline lock: 20 gauge in right antecubital area, using aseptic technique. ld1 Blood collected. 18:41 Blood Culture Adult (2) Sent. ld1 18:41 CBC with Diff Sent. ld1 18:41 CMP Sent. ld1 18:41 Lactate w/ 2H reflex if indic. Sent. ld1 18:41 Protime (+inr) Sent. ld1 18:41 Ptt, Activated Sent. ld1 19:05 Notified Nurse Practitioner and/or Physician Copy Center Operator of a critical lab result(s), aa5 Lactate 2.3. 19:22 Chest Single View XRAY In Process Unspecified. EDMS 21:07 Abdomen In Process Unspecified. EDMS 21:36 Brenda Cotto is Hospitalizing Provider. cp 22:52 Patient admitted, IV remains in place. as6 22:53 Provided Education on: antibiotic. rv Administered Medications: 19:30 Drug: NS 0.9% IV 500 ml Route: IV; Rate: bolus; Site: right antecubital; rv 20:22 Follow up: IV Status: Completed infusion; IV Intake: 500ml rv 20:23 Drug: NS 0.9% IV 500 ml Route: IV; Rate: 125 ml/hr; Site: right antecubital; rv 22:45 Follow up: IV Status: Infusion continued upon admission rv 21:47 Drug: metroNIDAZOLE IVPB 500 mg Volume: 100 ml; Route: IVPB; Infused Over: 30 mins; rv Site: right antecubital; 22:44 Follow up: IV Status: Completed infusion; IV Intake: 100ml rv 22:45 Drug: Ciprofloxacin IVPB 400 mg Volume: 200 ml; Route: IVPB; Infused Over: 60 mins; rv Site: right antecubital; 22:45 Follow up: IV Status: Infusion continued upon admission rv Medication: 22:15 VIS not applicable for this client. as6 Intake: 20:22 IV: 500ml; Total: 500ml. rv 22:44 IV: 100ml; Total: 600ml. rv Outcome: 21:37 Decision to Hospitalize by Provider. cp 22:15 Condition: stable as6 22:15 Instructed on the need for admit. 22:53 Admitted to Med/surg accompanied by zeenat via wheelchair, room 214, with chart, Report rv called to sukhjinder ernandez 22:54 Patient left the ED. rv Signatures: Dispatcher [employer] EDSushila Alba, RN RN aa5 Roman Pinto PA PA cp Garcia, Rubi rg4 Carlos Alberto Mccollum RN RN rv Marilu Gutierrez RN RN ll1 Winter Krueger RN RN ld1 Remington Méndez RN RN as6
--- NOTE | 2023-05-09 21:37 | EDPHYS ---
Physician Documentation [facility] Name: Patrice Baeza Age: 62 yrs Sex: Male : 1960 Arrival Date: 05/09/2023 Time: 18:10 Bed 5 Private MD: Roman Chen HPI: 05/09 18:35 This 62 yrs old Male presents to ER via Ambulatory with complaints of cp Abdominal Pain, Diarrhea, Chills. 18:35 The patient presents with abdominal pain in the right upper quadrant, right lower cp quadrant. Onset: The symptoms/episode began/occurred 3 day(s) ago. Associated signs and symptoms: Pertinent positives: diarrhea, nausea, chills, Pertinent negatives: blood in stools. 18:35 The symptoms are described as sharp. cp 18:35 Modifying factors: the symptoms are aggravated by movement. cp 18:35 Patient with PMHX significant for colorectal cancer and colon resection surgery. cp Patient currently receiving chemo every 2 weeks and is scheduled for treatment Tuesday at [facility]. Historical: - Allergies: 18:16 NKA; ll1 - PMHx: 18:16 colorectal cancer; ll1 - PSHx: 18:16 4 rectal surgeries; Colostomy; ll1 - Immunization history:: Adult Immunizations up to date. - Social history:: Smoking status: Patient denies any tobacco usage or history of. ROS: 18:40 Eyes: Negative for injury, pain, redness, and discharge. cp 18:40 Constitutional: Negative for body aches, chills, fever. 18:40 ENT: Negative for drainage from ear(s), ear pain, sore throat, difficulty swallowing, difficulty handling secretions. 18:40 Cardiovascular: Negative for chest pain, palpitations. 18:40 Respiratory: Negative for cough, shortness of breath, wheezing. 18:40 Abdomen/GI: Positive for abdominal pain, nausea, diarrhea, Negative for constipation, black/tarry stool, rectal bleeding. 18:40 Back: Negative for pain at rest, pain with movement. 18:40 : Negative for urinary symptoms. 18:40 Neuro: Negative for altered mental status, numbness, syncope, weakness. 18:40 All other systems are negative. Exam: 18:45 ECG was reviewed by the Attending Physician. cp 18:47 Constitutional: The patient appears in no acute distress, alert, awake, cp non-diaphoretic, non-toxic, well developed, well nourished, obese, uncomfortable. 18:47 Head/Face: Normocephalic, atraumatic. cp 18:47 Eyes: Periorbital structures: appear normal, Conjunctiva: normal, no exudate, no injection, Sclera: no appreciated abnormality, Lids and lashes: appear normal, bilaterally. 18:47 ENT: External ear(s): are unremarkable, Nose: is normal, Mouth: Lips: moist, Oral mucosa: moist, Posterior pharynx: is normal, airway is patent, no erythema, no exudate. 18:47 Neck: ROM/movement: is normal, is supple, without pain, no range of motions limitations, no meningismus. 18:47 Chest/axilla: Inspection: normal, Palpation: is normal, no crepitus, no tenderness. 18:47 Cardiovascular: Rate: tachycardic, Rhythm: regular, Edema: is not appreciated, JVD: is not appreciated. 18:47 Respiratory: the patient does not display signs of respiratory distress, Respirations: normal, no use of accessory muscles, no retractions, labored breathing, is not present, Breath sounds: are clear throughout, no decreased breath sounds, no stridor, no wheezing. 18:47 Abdomen/GI: Inspection: distension, is not seen, obese colostomy LLQ, Bowel sounds: active, all quadrants, Palpation: soft, in all quadrants, moderate abdominal tenderness, in the right upper quadrant and right lower quadrant. 18:47 Back: CVA tenderness, is absent. 18:47 Skin: cellulitis, is not appreciated, no rash present. 18:47 Neuro: Orientation: to person, place \T\ time. Mentation: Motor: moves all fours, strength is normal, Sensation: is normal. Vital Signs: 18:20 BP 120 / 69; Pulse 105; Resp 18; Temp 98.8(O); Pulse Ox 97% on R/A; Weight 127.01 kg; ld1 Height 5 ft. 9 in. ; Pain 6/10; 18:41 BP 110 / 61; Pulse 103; Resp 20; Pulse Ox 99% on R/A; Pain 6/10; ld1 20:11 BP 119 / 62; Pulse 89; Resp 18 S; Pulse Ox 100% on R/A; as6 22:15 BP 111 / 54; Pulse 87; Resp 18 S; Pulse Ox 100% on R/A; as6 22:45 BP 110 / 48; Pulse 87; Resp 18 S; Pulse Ox 100% on R/A; as6 18:20 Body Mass Index 41.35 (127.01 kg, 175.26 cm) ld1 18:20 Pain Scale: Adult ld1 18:41 Pain Scale: Adult ld1 [place] Coma Score: 22:53 Eye Response: spontaneous(4). Motor Response: obeys commands(6). Verbal Response: rv oriented(5). Total: 15. MDM: 18:20 Patient medically screened. cp 19:00 Differential diagnosis: diverticulitis, pancreatitis, Pyelonephritis, Ureterolithiasis, cp urinary tract infection, sepsis, colitis, dehydration, electrolyte abnormality. 21:36 Data reviewed: vital signs, nurses notes, lab test result(s), EKG, radiologic studies, cp CT scan, plain films. 21:36 Consideration of Admission/Observation Patient was admitted/placed on observation. cp Management of patient was discussed with the following: Hospitalist: Brenda Cotto will admit after discussion. I considered the following discharge prescriptions or medication management in the emergency department Medications were administered in the Emergency Department. See MAR. Care significantly affected by the following chronic conditions: Obesity, Cancer. Counseling: I had a detailed discussion with the patient and/or guardian regarding: the historical points, exam findings, and any diagnostic results supporting the discharge/admit diagnosis, lab results, radiology results. Response to treatment: the patient's symptoms have mildly improved after treatment. 05/09 18:31 Order name: Blood Culture Adult (2) cp 05/09 18:31 Order name: CBC with Diff; Complete Time: 20:09 cp 05/09 20:09 Interpretation: Normal except: WBC 1.90; RBC 3.29; HGB 10.1; HCT 31.0; PLT 121; RDW cp 18.5; MPV 7.5; MN% 16.0; NEUT A 1.2; LYMA 0.4. 05/09 18:31 Order name: CMP; Complete Time: 20:09 cp 05/09 20:10 Interpretation: Normal except: NA 133; GLUC 190; BUN 21; CRE 1.52; GFR 51; AST 41; ALK cp 192; BILIT 1.6; ALB 3.0; GLOB 4.2; A/G 0.7. 05/09 18:31 Order name: Lactate w/ 2H reflex if indic.; Complete Time: 20:09 05/09 20:10 Interpretation: Abnormal: LAC 2.3. 05/09 18:31 Order name: Protime (+inr); Complete Time: 20:09 05/09 18:31 Order name: Ptt, Activated; Complete Time: 20:09 05/09 18:31 Order name: Ova And Parasites 05/09 18:31 Order name: Rotavirus Antigen 05/09 18:31 Order name: Stool Culture 05/09 18:31 Order name: CDIFF 05/09 18:43 Order name: Urinalysis W/Microscopic; Complete Time: 20:09 05/09 20:10 Interpretation: Normal except: UCLA Turbid; UGLUC 2+; UBILI 1+; UPROT 1+; UUROB 2+. 05/09 22:13 Order name: Lactate Sepsis 2 HR Follow-up; Complete Time: 22:27 EDVA 05/09 22:27 Interpretation: Reviewed. 05/09 18:31 Order name: Chest Single View XRAY; Complete Time: 20:09 05/09 20:43 Order name: Abdomen ; Complete Time: 21:22 EDMS 05/09 18:31 Order name: EKG; Complete Time: 18:32 cp 05/09 18:31 Order name: Accucheck; Complete Time: 18:41 05/09 18:31 Order name: Cardiac monitoring; Complete Time: 18:41 05/09 18:31 Order name: EKG - Nurse/Tech; Complete Time: 18:41 05/09 18:31 Order name: IV Saline Lock - Large Bore; Complete Time: 18:41 05/09 18:31 Order name: Labs collected and sent; Complete Time: 18:41 05/09 18:31 Order name: O2 Per Protocol; Complete Time: 18:41 05/09 18:31 Order name: O2 Sat Monitoring; Complete Time: 18:41 05/09 18:31 Order name: Vital Signs; Complete Time: 18:43 cp EC:45 Rate is 101 beats/min. Rhythm is regular. ND interval is normal. QRS interval is cp normal. QT interval is normal. Interpreted by me. Reviewed by me. Administered Medications: 19:30 Drug: NS 0.9% IV 500 ml Route: IV; Rate: bolus; Site: right antecubital; rv 20:22 Follow up: IV Status: Completed infusion; IV Intake: 500ml rv 20:23 Drug: NS 0.9% IV 500 ml Route: IV; Rate: 125 ml/hr; Site: right antecubital; rv 22:45 Follow up: IV Status: Infusion continued upon admission rv 21:47 Drug: metroNIDAZOLE IVPB 500 mg Volume: 100 ml; Route: IVPB; Infused Over: 30 mins; rv Site: right antecubital; 22:44 Follow up: IV Status: Completed infusion; IV Intake: 100ml rv 22:45 Drug: Ciprofloxacin IVPB 400 mg Volume: 200 ml; Route: IVPB; Infused Over: 60 mins; rv Site: right antecubital; 22:45 Follow up: IV Status: Infusion continued upon admission rv Disposition Summary: 05/09/23 21:37 Hospitalization Ordered Hospitalization Status: Inpatient Admission cp Provider: Brenda Cotto cp Location: Telemetry/MedSurg (Inpatient) cp Condition: Stable cp Problem: new cp Symptoms: have improved cp Bed/Room Type: Standard cp Room Assignment: 214(05/09/23 22:14) cg Diagnosis - Diarrhea, unspecified cp - Volume depletion, unspecified cp Forms: - Medication Reconciliation Form cp - SBAR form cp Signatures: Dispatcher [employer] EDMS Roman Pinto PA PA cp Maureen Reynaga RN RN Carlos Alberto Mccollum RN RN Marilu Gutierrez RN RN ll1 Corrections: (The following items were deleted from the chart) 20:43 18:32 Abdomen Pelvis W Con+CT.RAD.BRZ ordered. EDMS EDMS 22:14 21:37 cp cg 05/10 21:17 21:10 Constitutional: Negative for body aches, chills, fever, cp cp 21:17 21:10 Eyes: Negative for injury, pain, redness, and discharge, cp cp 21:17 21:10 Cardiovascular: Negative for chest pain, palpitations, cp cp 21:17 21:10 Respiratory: Negative for cough, shortness of breath, wheezing, cp cp 21:17 21:10 Abdomen/GI: Positive for abdominal pain, nausea, diarrhea, Negative for cp constipation, black/tarry stool, rectal bleeding, cp 21:17 21:10 Back: Negative for pain at rest, pain with movement, cp cp 21:17 21:10 ENT: Negative for drainage from ear(s), ear pain, sore throat, difficulty cp swallowing, difficulty handling secretions, cp 21:17 21:10 : Negative for urinary symptoms, cp cp 21:17 21:10 Neuro: Negative for altered mental status, numbness, syncope, weakness, cp cp 21:17 21:10 All other systems are negative, cp cp 21:26 05/09 18:35 Associated signs and symptoms: Pertinent positives: diarrhea, cp cp
[2023-05-09] MEDS ORDERED: METRONIDAZOLE 500mg IVPB 500 MG/100 ML BAG IV ONE (21:42)
[2023-05-09] MEDS ORDERED: CIPROFLOXACIN 400mg IV 400 MG/200 ML BAG IV ONE (21:42)
--- NOTE | 2023-05-09 22:01 | P.HP ---
Certification for Inpatient Patient admitted to: Inpatient With expected LOS: <2 Midnights Patient will require the following post-hospital care: None Practitioner: I am a practitioner with admitting privileges, knowledge of patient current condition, hospital course, and medical plan of care. Services: Services provided to patient in accordance with Admission requirements found in Title 42 Section 412.3 of the Code of Federal Regulations Patient History Date of Service: 05/10/23 Reason for admission: Diarrhea History of Present Illness: 62 yrs old Male with past medical history obesity, rectal cancer on chemo presents to ER with complaints of chest pain, Abdominal Pain, Diarrhea, Chills. He reports symptoms started after having a week of diarrhea, chills after travelling to [place]. He reports associated RUQ pain that is worse PO intakePatient he reports chest pain is substernal does not radiate.. He reports history of rectal carcinoma, chronic colostomy, rectal closer. He denies vomiting, no reported hematemeis, no reported dysuria, or fever. ER course Patient is admitted for Sepsis, elevated lactic, 2.3, hyponatremia Na 133, n eutropenia 1.90, Microcytic anemia 10.1, 31.0, He is being treated with IVF, IV Cipro, Flagyl, prn anti emetics, analgesics, Chest x-ray no acute pulmonary process CT of the abdomen pelvisNo acute intra-abdominal abnormality. Similar left abdominal wall colostomy with large parastomal hernia and right-sided lateral ventral hernia containing bowel. No bowel obstruction identified. Presacral soft tissue mass is only mildly increased in size since 07/26/2022. This has been previously evaluated with PET/CT Allergies No Known Allergies Allergy (Verified 05/09/18 15:04) Home Medications: NK [No Home Meds] 05/10/23 Review of Systems 10-point ROS is otherwise unremarkable Physical Examination - Physical Exam General: Alert, In no apparent distress, Oriented x3 HEENT: Atraumatic, Normocephalic, PERRLA Neck: Supple, 2+ carotid pulse no bruit, JVD not distended Respiratory: Clear to auscultation bilaterally, Normal air movement Cardiovascular: No edema, Regular rate/rhythm, Irregular heart rate/rhythm Capillary refill: <2 Seconds Gastrointestinal: Normal bowel sounds (2 abdominal hernias, colostomy), Other (abdominal hernias) Musculoskeletal: No clubbing, No swelling Neurological: Normal speech, Normal strength at 5/5 x4 extr - Studies Laboratory Data (last 24 hrs) 05/09/23 18:36: PT 11.4, INR 1.04, APTT 28.0 05/09/23 18:36: Sodium 133 L, Potassium 3.9, BUN 21 H, Creatinine 1.52 H, Glucose 190 H, Total Bilirubin 1.6 H, AST 41 H, ALT 54, Alkaline Phosphatase 192 H 05/09/23 18:36: WBC 1.90 L, Hgb 10.1 L, Hct 31.0 L, Plt Count 121 L Assessment and Plan - Plan Assessment plan Sepsis secondary to gastroenteritis Sepsis, elevated lactic, tachycardic, acute kidney injury unknown baseline likely prerenal from dehydration Neutropenia Microcytic anemia Diarrhea Chronic colostomy Obesity DVT prophylaxis Assessment plan Sepsis, IV fluids, IV Flagyl, IV Cipro, trend lactic, blood cultures, stool cultures Acute kidney injury, IV fluids, trend kidney function,nephrology consult Neutropenia trend WBCs, Microcytic anemia, trend H&H, Diarrhea, full liquid diet advance as tolerated DVT heparin Full code Diet full liquid Discharge Plan: Home Plan to discharge in: 48 Hours - Advance Directives Does patient have a Living Will: No Does patient have a Durable POA for Healthcare: No - Code Status/Comfort Care Code Status Assessed: Yes Code Status: Full Code Physician Review: Patient Assessed, Agree with Above Assessment and Plan Critical Care: No Time Spent Managing Pts Care (In Minutes): 55
[2023-05-09] MEDS ORDERED: ACETAMINOPHEN 500 MG TAB PO PRN (22:05)
[2023-05-09] MEDS ORDERED: ONDANSETRON 4 MG/2 ML VIAL IV PRN (22:05)
[2023-05-09] MEDS ORDERED: ALPRAZOLAM 0.25 MG TABLET PO PRN (22:05)
[2023-05-09] MEDS: NA CHLORIDE 0.9% 1,000 ML IV SCH (23:00)
[2023-05-09 23:03] LABS: C.diff Antigen/Toxin Ag neg : Tox neg (NEG : NEG)
[2023-05-10 03:10] VITALS: BMI 41.3
[2023-05-10 04:12] LABS: Absolute Lymphocytes (CBC) 0.6 K/uL (0.7-4.9); Hematocrit 29.1 % (39.6-49.0); Lymphocytes % 29.8 % (15.3-44.8); MCV 94.2 fL (80-100); MPV 7.8 fL (7.6-11.3); RBC Red Blood Cell Count 3.09 M/uL (4.33-5.43)
[2023-05-10 04:27] LABS: Magnesium 2.1 mg/dL (1.6-2.4); Phosphorus 2.7 mg/dL (2.5-4.9); Potassium 3.3 mEq/L (3.5-5.1)
[2023-05-10] MEDS ORDERED: POTASSIUM 25 MEQ EFFERV TAB PO ONE ×2 (05:34→08:00)
[2023-05-10 05:36] LABS: Blood Morphology Comment NOT SEEN (NOT SEEN); Platelet Estimate ADEQ
[2023-05-10] MEDS: METRONIDAZOLE 500mg IVPB 500 MG/100 ML BAG IV SCH ×3 (05:55→22:24)
[2023-05-10] MEDS ORDERED: HEPARIN 5000 UNIT/ML 1 ML VIAL SQ SCH (06:00)
[2023-05-10] MEDS: CIPROFLOXACIN 400mg IV 400 MG/200 ML BAG IV SCH ×2 (08:39→20:00)
[2023-05-10] MEDS ORDERED: DIPHENHYDRAMINE 25 MG TAB/CAP PO ONE (10:00)
[2023-05-10] MEDS: NA CHLORIDE 0.9% 1,000 ML IV SCH ×2 (12:20→22:25)
--- NOTE | 2023-05-10 20:23 | EKG ---
Test Date: 2023-05-09 Test Time: 18:39:53 Heat Treater Head: [place] MEASUREMENT RESULTS: Intervals: Rate: 101 PA: 176 QRSD: 66 QT: 334 QTc: 433 [place]: P: 58 PA: 176 QRS: 68 T: 74 INTERPRETIVE STATEMENTS: Sinus tachycardia Otherwise normal ECG Compared to ECG 11/28/2017 08:35:57 Sinus rhythm no longer present Electronically Signed On 05-10-23 20:21:45 CDT by Venu Givens
[2023-05-10 21:52] VITALS: O2SAT 98
[2023-05-11] MEDS: NA CHLORIDE 0.9% 1,000 ML IV SCH (01:40)
[2023-05-11 03:48] LABS: Absolute Lymphocytes (CBC) 0.7 K/uL (0.7-4.9); Hematocrit 30.2 % (39.6-49.0); Lymphocytes % 33.8 % (15.3-44.8); MCV 94.2 fL (80-100); MPV 8.2 fL (7.6-11.3); RBC Red Blood Cell Count 3.21 M/uL (4.33-5.43)
[2023-05-11 04:00] LABS: Magnesium 2.2 mg/dL (1.6-2.4)
[2023-05-11] MEDS: METRONIDAZOLE 500mg IVPB 500 MG/100 ML BAG IV SCH ×2 (05:28→13:31)
[2023-05-11 07:54] VITALS: TEMP 97.1
[2023-05-11] MEDS: CIPROFLOXACIN 400mg IV 400 MG/200 ML BAG IV SCH (08:19)
[2023-05-11] MEDS ORDERED: DIPHENHYDRAMINE 25 MG TAB/CAP PO PRN (09:00)
[2023-05-11 11:31] VITALS: BP 123/54
== END 2023-05-11 15:47 | disposition home or self-care (01) | DRG 872 ==
LOC: ER 18:10 → ERHOLD 22:04 → 2ND 22:16
PROVIDERS: ADMIT Hospitalist; ATTEND Hospitalist
DX: A41.9 Sepsis, unspecified organism (principal); C19 Malignant neoplasm of rectosigmoid junction; Z68.41 Body mass index [BMI] 40.0-44.9, adult; E87.1 Hypo-osmolality and hyponatremia; N17.9 Acute kidney failure, unspecified; E66.9 Obesity, unspecified; E86.9 Volume depletion, unspecified; K43.5 Parastomal hernia without obstruction or gangrene; K43.9 Ventral hernia without obstruction or gangrene; K52.9 Noninfective gastroenteritis and colitis, unspecified; E86.0 Dehydration; D70.9 Neutropenia, unspecified; D50.9 Iron deficiency anemia, unspecified; Z93.3 Colostomy status; Z90.49 Acquired absence of other specified parts of digestive tract
CPT/HCPCS: 36415; 71045; 74176; 80048; 80053; 81001; 83605; 83735; 84100; 85025; 85610; 85730; 87040; 87045; 87046; 87177; 87209; 87324; 87425; 93005; 96361; 96365; 96375; 99285; J0744; J7030

== ENCOUNTER 2023-10-01 19:13 | Emergency (ER) | payer OTHER ==
--- OUTSIDE RECORDS SUMMARY | 2023-10-01 19:20 | XMS REPORT | Continuity of Care Document ---
:1960 Author Organization [facility] t Address [address] [facility] [address] [place] [address] Care Team Providers Name Role Phone Sharpless Primary Care Physician TAMI TALLEY Attending Clinician Unavailable Jose GALLEGOS, Jun Souza Attending Clinician [phone] Chelsea GALLEGOS, Khurram Ghosh Attending Clinician [phone] Savannah Graves MD Attending Clinician Josie GALLEGOS, Maria Eugenia Attending Clinician Elvi Spann APRN Attending Clinician Dhiraj GALLEGOS, Thomas Guevara Attending Clinician Ezequiel Montez MD Attending Clinician Parth GALLEGOS, Julia Attending Clinician Matt Keating MD Attending Clinician Jody Bunch MD Attending Clinician Ruth Murillo DO Attending Clinician Corey Coe MD Attending Clinician [phone] Lilliana Kimball MD Attending Clinician Nabeel Gonsalez DO Attending Clinician Winter Quezada Attending Clinician Reji GALLEGOS, Henrik Conroy Attending Clinician Clari [employer], Altagracia Golden Attending Clinician [phone] Valentin Evans MD Attending Clinician CARISSA ROSAS Attending Clinician Unavailable SHAUN MOREIRA Attending Clinician Unavailable Eliceo Weinstein MD Attending Clinician [phone] Alfie Fernandez NP, Eduarda Beckham Attending Clinician MD HENRIK MENDOZA Attending Clinician Unavailable Audie Damian MD Attending Clinician [phone] Ayan Reynaga [employer] INTERN, Maritza Attending Clinician Henrik Mendoza Attending Clinician Unavailable UNKNOWN Attending Clinician Unavailable CHRISTEN ALONZO Attending Clinician Unavailable SAVANNAH GRAVES Admitting Clinician Unavailable MATT KEATING Admitting Clinician Unavailable [...] Details Category Date Date Treatment Clinician Date 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 00:00: Hospita 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 9-07 st of of 00:00: Hospita posterior posterior 00 l wall of wall of urinary urinary bladder bladder Personal Personal Disease Active Metho di history of history of [address] st urinary urinary 00:00: Hospita (tract) (tract) 00 l infection infection 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 5-11 st prostate prostate 00:00: Hospit a with lower with lower 00 l urinary urinary tract tract symptoms symptoms (LUTS) (LUTS) 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 5-11 st of lateral of lateral 00:00: Ho spita wall of wall of 00 l urinary urinary bladder bladder Urinary Urinary Disease Active Methodi tract tract 5-11 st infection infection 00:00: Hosp khang without without 00 l hematuria hematuria Oth Oth Disease Active Methodi bacterial bacterial [address] agents as agents as 00:00: Hosp khang the cause the cause 00 l of of diseases diseases classd classd elswhr elswhr Benign Benign Disease Active Methodi non-nodula non-nodula 5-11 st r r 00:00: Hospita prostatic prostatic 00 l hyperplasi hyperplasi a with a with lower lower urinary urinary tract tract symptoms symptoms Enteritis Enteritis Disease Active Met hodi 4-27 st 00:00: Hospita 00 l Acute Acute Disease Active Methodi cystitis cystitis 4-26 st without without 00:00: Hospita hematuria hematuria 00 l Hematuria Hematuria Disease Active 2021-10 Met hodi 2-24 st 00:00: Hospita 00 l Rectal Rectal Disease Active Methodi abscess abscess 927 st 00:00: Hospita 00 l Rectal Rectal [...] DA Active U 2020-0 [facility] [place] [facility] 00:[facility]: [facility] 00 are [facility] No Known DA Active U 2020-0 [facility]15 [facility] 00:00: [facility] Department 00 are [facility] Family History Family Member Diagnosis Comments Start Date Stop Date Source Natural mother Diabetes [facility] Natural mother Hypertension [facility] Natural mother Stroke [facility] Natural mother Diabetes [facility] Natural father Alcohol abuse [facility] Social History Social Habit Start Date Stop Date Quantity Comments Source History SDOH Spiritism Alcohol Frequency Hospita l History SDOH Spiritism Alcohol Std Drinks Hospit al History SDNV Spiritism Alcohol Binge Hospital Gender identity [facility] Sexual orientation [facility] History of Social 2023-07-24 2023-07-[address] function 00:00:00 00:00:00 Hospital Cigarettes smoked 2023-03-30 2023-03-[address] current (pack per 00:00:00 00:00:00 Hospita l day) - Reported Cigarette 2023-03-30 2023-03-30 Spiritism pack-years 00:00:00 00:00:00 Hospital Tobacco use and 2023-03-30 2023-03-30 Smokeless Spiritism exposure 00:00:00 00:00:00 tobacco non-user Hospital Tobacco Comment 2023-03-30 2023-03-30 social / 1 Spiritism 00:00:00 00:00:00 pack/week Hospital Alcohol Comment 2018-10-04 2018-10-04 quit in [address] 00:00:00 00:00:00 Hospital Alcohol intake 2017-08-28 2017-08-28 Current [facility] 00:00:00 00:00:00 non-drinker of Medical Ce nter alcohol (finding) History of tobacco 2008-10-31 Cigarette Smoker Spiritism use 00:00:00 Hospital Sex Ass[birth year] At [birth year] LISY Flannery 00:00:00 [facility]:00:00 [facility] Smoking Status Start Date Stop Date Source Ex-smoker 2023-03-30 00:00:00 2023-03-30 00:00:00 [facility] Medications Ordered Filled Start Stop Current Ordering Indication Dosage Frequency Signature Comments Components Source Medication Medication Date Date Medication? Clinician (SIG) Name Name bisacodyL 2022- No 5mg Q24H Take 1 Metho di (DULCOLAX) 07-24 tablet (5 st 5 mg EC 13:55: 00:00 mg total) Hosp khang tablet 07 :00 by mouth l daily as needed for constipati on. gabapentin 0 Yes 100mg Q.[id number] Take 1 Methodi (NEURONTIN) 07-[id number] 100 mg 00:00: 3D (100 mg Hospita capsule 00 total) by l mouth 3 (three) times a day as needed (mild pain). methocarbam 0 Yes 500mg Q.25D Take 1 Me thodi oL 07-[address] (ROBAXIN) 00:00: (500 mg Hospi ta 500 MG 00 total) by l tablet mouth 4 (four) times a day as needed for muscle spasms. oxyCODone-a Yes [id number] 1{tbl} Q4H Take 1 M ethodi cetaminophe -[address] n 00:00: mouth Hospita (Percocet) 00 every 4 l 5-325 mg (four) per tablet hours as needed for moderate pain .acute pain. Max Daily Amount: 6 tablets ciprofloxac 2022- No 500mg QD Take 1 Me thodi in (Cipro) 07-[address] 500 MG 00:00: 00:00 (500 mg Hospita tablet 00 :00 total) by l mouth daily for 6 days. losartan 2022-0 2022- No 50mg QD Take 1 Method i (COZAAR) 50 07-07 tablet (50 s t MG tablet 12:25: 00:00 mg total) Ho spita 28 :00 by mouth l daily. traMADoL 2022- [place] [id number] 50mg Q6H Take 1 Metho di (ULTRAM) 50 07-07- tablet (50 s t mg tablet 12:25: 00:00 mg total) Ho spita 21 :00 by mouth l every 6 (six) hours as needed for moderate pain .acute pain. ciprofloxac 2022- No [id number] 500mg QD Take 1 Methodi in (Cipro) 04-[address] 500 MG 00:00: 04:59 (500 mg Hospita tablet 00 :00 total) by l mouth daily for 6 days. ciprofloxac 2022- No [id number] 500mg QD Take 1 Methodi in (Cipro) 04-[address] 500 MG 00:00: 04:59 (500 mg Hospita tablet 00 :00 total) by l mouth daily for 6 days. traMADoL Yes [id number] 50mg Q6H Take 1 Method i (ULTRAM) 50 5-31 tablet (50 st mg tablet 10:31: mg total) Hos thomas 24 by mouth l every 6 (six) hours as needed for moderate pain .acute pain. losartan Yes 50mg QD Take 1 Methodi (COZAAR) 50 5-31 tablet (50 st MG tablet 10:31: mg total) Hos thomas 24 by mouth l daily. levoFLOXaci 2022- No [id number] 500mg QD Take 1 Methodi n -09 04-[address] (Levaquin) 00:00: 04:59 (500 mg Hos thomas 500 MG 00 :00 total) by l tablet mouth daily for 6 days. levoFLOXaci 0 2022- No [id number] 500mg QD Take 1 Methodi n 5-11 05-[address] (Levaquin) 00:00: 04:59 (500 mg Hos thomas 500 MG 00 :00 total) by l tablet mouth daily for 6 days. losartan 0 2022- No 25mg QD Take 1 Method i (COZAAR) 25 4-27 04-27 tablet (25 s t MG tablet 09:06: 00:00 mg total) Ho spita 06 :00 by mouth l daily. losartan 2022- No 25mg QD Take 1 Method i (COZAAR) 25 4-27 04-27 tablet (25 s t MG tablet 09:06: 00:00 mg total) Ho spita 06 :00 by mouth l daily. cefpodoxime 2021-10- No 200mg Q.5D Take 1 Me thodi (VANTIN) -26 11- tablet st 200 MG 00:00: 05:59 (200 mg Hospita tablet 00 :00 total) by l mouth 2 (two) times a day for 7 days. cefpodoxime 2021-10- No 200mg Q.5D Take 1 Me thodi (VANTIN) 12-27- tablet st 200 MG 00:00: 05:59 (200 mg Hospita tablet 00 :00 total) by l mouth 2 (two) times a day for 7 days. acetaminoph 2021-10- No 500mg Q6H Take 500 Methodi en 2-24 12-[address] (TYLENOL) 15:32: 00:00 mouth Hospit a 500 MG 06 :00 every 6 l tablet (six) hours as needed for mild pain. acetaminoph 2021-10- No 500mg Q6H Take 500 Methodi en 2-24 12-[address] (TYLENOL) 15:32: 00:00 mouth Hospit a 500 MG 06 :00 every 6 l tablet (six) hours as needed for mild pain. losartan 2021- No 100mg QD Take 100 Met hodi (COZAAR) - 09-[address] 100 MG 19:08: 00:00 mouth Hospita tablet 45 :00 every l morning. cefdinir 2021- No 300mg Q.5D Take 1 Metho di (OMNICEF) - 10-[address] 300 MG 00:00: 04:59 (300 mg Hospita capsule 00 :00 total) by l mouth 2 (two) times a day for 10 days. metroNIDAZO 2021- No 500mg Q.[id number] Take 1 Methodi LE (FlagyL) - 10-[id number] 500 MG 00:00: 04:59 3D (500 mg Hospita tablet 00 :00 total) by l mouth 3 (three) times a day for 10 days. losartan Yes 100mg QD Take 100 Meth liliana (COZAAR) 7-[address] 100 MG 14:56: mouth Hospita tablet 13 every l morning. acetaminoph 0 Yes 500mg Q6H Take 500 M ethodi en 7-[address] (TYLENOL) 14:56: mouth Hospita 500 MG 13 every 6 l tablet (six) hours as needed for mild pain. ciprofloxac 0 2021- No 500mg Q.5D Take 1 Me thodi in (CIPRO) 05-06- tablet st 500 MG 00:00: 04:59 (500 [...] 2021- No Take by Method i sulfate 05-[address] (IRON ORAL) 08:47: 00:00 Hospi ta 58 :00 l traMADoL 2021-2021- [place] [id number] 50mg Q6H Take 50 mg M ethodi (ULTRAM) 50 05-[address] mg tablet 08:47: 00:00 every 6 Hosp khang 51 :00 (six) l hours as needed for moderate pain .acute pain. cefdinir 0 2021- No 300mg Q.5D Take 1 Metho di (OMNICEF) 12-01 02-[address] 300 MG 00:00: 05:59 (300 mg Hospita capsule 00 :00 total) by l mouth 2 (two) times a day for 7 days. losartan Yes 100mg QD Take 100 Meth liliana (COZAAR) 3-[address] 100 MG 18:31: mouth Hospita tablet 46 every l morning. ferrous 2020-0 Yes Take by Methodi sulfate 3-[address] (IRON ORAL) 18:31: Hospit a 46 l traMADoL 2021-0 Yes [id number] 50mg Q6H Take 50 mg Me thodi [...] needed for mild pain. traMADoL 2020- No [id number] 50mg Q6H Take 1 Metho di (ULTRAM) 50 3-05 03-13 tablet (50 s t mg tablet 00:00: 05:59 mg total) Ho spita 00 :00 by mouth l every 6 (six) hours as needed for severe pain for up to 7 days .acute pain. cholecalcif 2020- No QD Take by Me thodi mona, 12-[address] vitamin D3, 10:23: 00:00 daily. Hos thomas (VITAMIN D3 01 :00 l ORAL) enoxaparin 2016-10 Yes 120mg Inject 0.[address] [facility] [address] (LOVENOX) 0-31 mLs (120 [facility] mg/0.8 00:00: mg total) Me dical mL Syrg 00 [facility] every 12 (twelve) hours. enoxaparin 2016-10 Yes 120mg Inject 0.[address] (LOVENOX) 0-31 mLs (120 [facility] mg/0.8 00:00: mg total) Me dical mL Syrg 00 [facility] us[facility] every 12 (twelve) hours. enoxaparin 2016-10 Yes 120mg Inject 0.[address] (LOVENOX) 0-31 mLs (120 [facility] mg/0.8 00:00: mg total) Me dical mL [facility] every 12 (twelve) hours. enoxaparin 2016-10 Yes 120mg Inject 0.[address] (LOVENOX) 0-31 mLs (120 [facility] mg/0.8 00:00: mg total) Me dical mL Syrg 00 [facility] us[facility] every 12 (twelve) hours. Immunizations Ordered Filled Immunization Date Status Comments [facility] e Immunization Name Name LOVE COVID-19 2021-02-06 Completed Methodis t AD26 VACCINATION 00:00:00 Hospital LOVE COVID-19 2021-02-06 Completed Methodis t AD26 VACCINATION 00:00:00 Hospital FLUCELVAX QUAD PF 2018-10-[address] 00:00:00 Hospital FLUCELVAX QUAD PF 2018-10-[address] 00:00:00 Hospital FLUCELVAX QUAD PF 2018-10-[address] 00:00:00 Hospital FLUCELVAX QUAD PF Unknown Completed [facility] Hospital LOVE COVID-19 Unknown Completed Methodis t AD26 VACCINATION Hospital Vital Signs Vital Name Observation Time Observation Value Comments Source Systolic blood 2023-07-24 16:33:55 117 mm[Hg] Method ist Hospital pressure Diastolic blood 2023-07-24 16:33:55 67 mm[Hg] [facility] pressure Heart rate 2023-07-24 16:33:55 81 /min [facility] Body temperature 2023-07-24 16:33:55 36.28 Evangelina [facility] Respiratory rate 2023-07-24 16:33:55 18 /min [facility] Oxygen saturation in 2023-07-24 16:33:55 99 /min [facility] Arterial blood by Pulse oximetry Body height 2023-07-15 11:00:00 175.3 cm [facility] Body weight 2023-07-15 11:00:00 120.974 kg [facility] BMI 2023-07-15 11:00:00 39.38 kg/m2 [facility] Systolic blood 2023-04-07 13:11:00 148 mm[Hg] Method ist Hospital pressure Diastolic blood 2023-04-07 13:11:00 86 mm[Hg] [facility] pressure Heart rate 2023-04-07 13:11:00 76 /min [facility] Body height 2023-04-07 13:11:00 175.3 cm [facility] Body weight 2023-04-07 13:11:00 127.007 kg [facility] BMI 2023-04-07 13:11:00 41.35 kg/m2 [facility] Body temperature 2023-02-26 13:15:49 36.44 Evangelina [facility] Oxygen saturation in 2023-02-26 13:15:49 98 /min [facility] Arterial blood by Pulse oximetry Respiratory rate 2023-02-26 09:36:52 18 /min [facility] Systolic blood 2022-05-06 19:00:00 139 mm[Hg] Method ist Hospital pressure Diastolic blood 2022-05-06 19:00:00 85 mm[Hg] [facility] Hospital pressure Respiratory rate 2022-05-06 19:00:00 18 /min [facility] Oxygen saturation in 2022-05-06 19:00:00 98 /min [facility] Arterial blood by Pulse oximetry Heart rate 2022-05-06 18:45:00 63 /min [facility] Body temperature 2022-05-06 18:45:00 36.78 Evangelina [facility] Body height 2022-05-06 14:21:00 175.3 cm [facility] Body weight 2022-05-06 14:21:00 135.762 kg [facility] BMI 2022-05-06 14:21:00 44.20 kg/m2 [facility] Systolic blood 2021-01-15 22:22:00 144 mm[Hg] Method ist Hospital pressure Diastolic blood 2021-01-15 22:22:00 70 mm[Hg] [facility] pressure Heart rate 2021-01-15 22:22:00 70 /min [facility] Body temperature 2021-01-15 22:22:00 36.17 Evangelina [facility] Respiratory rate 2021-01-15 22:22:00 18 /min [facility] Oxygen saturation in 2021-01-15 22:22:00 99 /min [facility] Arterial blood by Pulse oximetry Body height 2021-01-15 16:06:26 175.3 cm [facility] Body weight 2021-01-15 16:06:26 122.471 kg [facility] BMI 2021-01-15 16:06:26 39.87 kg/m2 [facility] Procedures Procedure Date / Time Performing Clinician Source Performed BASIC METABOLIC PANEL 2023-07-24 09:59:00 Cheyenne Vazquez [facility] MAGNESIUM LEVEL 2023-07-24 09:59:00 Vazquez, Cheyenne [facility] PHOSPHORUS LEVEL 2023-07-24 09:59:00 [facility] ESTIMATED GFR 2023-07-24 09:59:00 [facility] BASIC METABOLIC PANEL 2023-07-23 10:22:00 [facility] MAGNESIUM LEVEL 2023-07-23 10:22:00 [facility] PHOSPHORUS LEVEL 2023-07-23 10:22:00 [facility] ESTIMATED GFR 2023-07-23 10:22:00 [facility] CONSULT TO OSTOMY CARE 2023-07-22 15:13:29 Savannah Graves [facility] NURSE CBC WITH PLATELET AND 2023-07-22 09:32:00 [facility] DIFFERENTIAL Imelda Villafuerte BASIC METABOLIC PANEL 2023-07-22 09:32:00 [facility] MAGNESIUM LEVEL 2023-07-22 09:32:00 [facility] PHOSPHORUS LEVEL 2023-07-22 09:32:00 [facility] ESTIMATED GFR 2023-07-22 09:32:00 [facility] MANUAL DIFFERENTIAL 2023-07-22 09:32:00 [facility] Imelda Villafuerte POC GLUCOSE 2023-07-22 01:07:00 Savannah Graves Ho spital POC GLUCOSE 2023-07-21 13:34:00 Savannah Graves Ho spital BASIC METABOLIC PANEL 2023-07-21 10:17:00 Danay Rahman [facility] CBC WITH PLATELET AND 2023-07-21 10:17:00 [facility] DIFFERENTIAL Imelda Villafuerte MAGNESIUM LEVEL 2023-07-21 10:17:00 Savannah Graves spital PHOSPHORUS LEVEL 2023-07-21 10:17:00 Savannah Graves H ospital FERRITIN LEVEL 2023-07-21 10:17:00 Savannah Graves Ho spital FOLATE LEVEL 2023-07-21 10:17:00 Savannah Graves Ho spital VITAMIN B12 LEVEL 2023-07-21 10:17:00 Savannah Graves [facility] ESTIMATED GFR 2023-07-21 10:17:00 [facility] MANUAL DIFFERENTIAL 2023-07-21 10:17:00 [facility] Imelda Villafuerte POC GLUCOSE 2023-07-21 08:36:00 Savannah Graves Ho spital POC GLUCOSE 2023-07-21 05:03:00 Savannah Graves Ho spital POC GLUCOSE 2023-07-21 01:01:00 Savannah Graves Ho spital POC GLUCOSE 2023-07-20 21:30:00 Savannah Graves spital POC GLUCOSE 2023-07-20 16:54:00 Savannah Graves spital POC GLUCOSE 2023-07-20 13:04:00 Savannah Graves spital BASIC METABOLIC PANEL 2023-07-20 11:36:00 [facility] CBC WITH PLATELET AND 2023-07-20 11:36:00 [facility] DIFFERENTIAL Imedla Villafuerte MAGNESIUM LEVEL 2023-07-20 11:36:00 Glenys Salmeron Ho spital PHOSPHORUS LEVEL 2023-07-20 11:36:00 Glenys Salmeron H ospital IONIZED CALCIUM 2023-07-20 11:36:00 Glenys Salmeron Ho spital ESTIMATED GFR 2023-07-20 11:36:00 [facility] POC GLUCOSE 2023-07-20 10:06:00 Savannah Graves Ho spital POC GLUCOSE 2023-07-20 04:48:00 Savannah Graves Ho spital POC GLUCOSE 2023-07-20 01:29:00 Savannah Graves spital POC GLUCOSE 2023-07-19 22:46:00 Savannah Graves Ho spital POC GLUCOSE 2023-07-19 16:35:00 Savannah Graves Ho spital POC GLUCOSE 2023-07-19 12:21:00 Savannah Graves spital POC GLUCOSE 2023-07-19 09:42:00 Savannah Graves spital BASIC METABOLIC PANEL 2023-07-19 09:38:00 [facility] CBC WITH PLATELET AND 2023-07-19 09:38:00 [facility] DIFFERENTIAL Imelda Villafuerte MAGNESIUM LEVEL 2023-07-19 09:38:00 Savannah Graves spital PHOSPHORUS LEVEL 2023-07-19 09:38:00 Savannah Graves ospital ESTIMATED GFR 2023-07-19 09:38:00 [facility] POC GLUCOSE 2023-07-19 06:46:00 Savannah Graves spital POC GLUCOSE 2023-07-19 02:47:00 Savannah Graves spital XR ABDOMEN 1 VW PORTABLE 2023-07-19 00:01:37 Savannah Graves [facility] POC GLUCOSE 2023-07-18 21:26:00 Savannah Graves Ho spital POC GLUCOSE 2023-07-18 16:22:00 Savannah Graves spital CBC WITH PLATELET AND 2023-07-18 14:47:00 [facility] DIFFERENTIAL Imelda Villafuerte XR ABDOMEN 1 VW PORTABLE 2023-07-18 10:36:56 Jose Antonio Clay [facility] VENOUS BLOOD GAS 2023-07-18 10:31[facility] MET[facility]OLIC PANEL 2023-07-18 09:39:00 [facility] LACTIC ACID LEVEL 2023-07-18 09:39:00 [facility] ESTIMATED GFR 2023-07-18 09:39:00 [facility] US RENAL 2023-07-17 22:03:14 [facility] LACTIC ACID LEVEL 2023-07-17 20:46:00 [facility] BASIC METABOLIC PANEL 2023-07-17 12:40:00 [facility] ESTIMATED GFR 2023-07-17 12:40:00 Savannah Graves spital BASIC METABOLIC PANEL 2023-07-17 10:23:00 Lacey, [facility] ESTIMATED GFR 2023-07-17 10:23:00 Lacey, [facility] XR CHEST 1 VW PORTABLE 2023-07-16 22:37:14 [facility] LACTIC ACID LEVEL 2023-07-16 22:30:00 [facility] BETA HYDROXYBUTYRATE 2023-07-16 22:30:00 [facility] VENOUS BLOOD GAS 2023-07-16 22:29:00 [facility] SODIUM LEVEL, URINE, 2023-07-16 22:01:00 [facility] RANDOM POTASSIUM, URINE, RANDOM 2023-07-16 22:01:00 [facility] CHLORIDE LEVEL, URINE, 2023-07-16 22:01:00 [facility] RANDOM UREA NITROGEN, URINE, 2023-07-16 22:01:00 [facility] RANDOM CREATININE LEVEL, URINE, 2023-07-16 22:01:00 [facility] RANDOM OSMOLALITY, URINE 2023-07-16 22:01:00 [facility] URINALYSIS, AUTOMATED 2023-07-16 22:01:00 [facility] WITH MICROSCOPY CBC WITH PLATELET AND 2023-07-16 09:44:00 Rahul, [facility] DIFFERENTIAL BASIC METABOLIC PANEL 2023-07-16 09:44:00 Rahul, [facility] MAGNESIUM LEVEL 2023-07-16 09:44:00 Rahul, [facility] spital PHOSPHORUS LEVEL 2023-07-16 09:44:00 Rahul, [facility] ospital LIPID PANEL 2023-07-16 09:44:00 Rahul, [facility] spital THYROID STIMULATING 2023-07-16 09:44:00 [facility], [facility] HORMONE VITAMIN B12 LEVEL 2023-07-16 09:44:00 Rahul, [facility] ESTIMATED GFR 2023-07-16 09:44:00 [facility] 2023-07-16 09:44:00 [facility] SURGICAL PATHOLOGY 2023-07-15 15:23:00 [facility] REQUEST [facility] HC NERVE BLOCK TAP BLOCK 2023-07-15 13:39:02 Maria Eugenia Galindo [facility] BILAT INJECTION HC NERVE BLOCK QUADRATUS 2023-07-15 13:37:43 Maria Eugenia Galindo [facility] LUMBORUM OR AN ELECTIVE 2023-07-15 13:04:00 Maria Eugenia Galindo [facility] spital ENDOTRACHEAL AIRWAY LAPAROTOMY, EXPLORATORY 2023-07-15 12:35:00 [facility] REPAIR, HERNIA 2023-07-15 12:35:00 Rahul, [facility] spital ABO AND RH CONFIRMATION 2023-07-15 11:50:00 [facility] BY PROTOCOL Council XR ABDOMEN AP AND LATERAL 2023-07-15 06:40:00 Rahul, [facility] CYSTO W/DIL OR URETHRAL 2023-07-08 16:07:27 [facility] STRUCTURE OR STENOSIS US PELVIC NON OB LIMITED 2023-07-08 15:02:28 [facility] POC SPECIFIC GRAVITY, 2023-07-08 14:33:35 [facility] URINE, QUALITATIVE, DIPSTICK URINE CULTURE 2023-07-07 19:02:00 [facility] TYPE AND SCREEN 2023-07-07 17:39:00 Elvi Spann [facility] PARTIAL THROMBOPLASTIN 2023-07-07 17:39:00 [facility] ([facility] PROTHROMBIN TIME WITH INR 2023-07-07 17:39:00 [facility] CBC WITH PLATELET AND 2023-07-07 17:39:00 Zana [facility] DIFFERENTIAL COMPREHENSIVE METABOLIC 2023-07-07 17:39:00 [facility] PANEL HEMOGLOBIN A1C 2023-07-07 17:39:00 [facility] ESTIMATED GFR 2023-07-07 17:39:00 [facility] URINALYSIS SCREEN AND 2023-07-07 17:31:00 [facility] MICROSCOPY, WITH REFLEX Augie TO CULTURE ECG PRE/POST OP 2023-07-07 17:21:26 [facility] CYSTOSCOPY 2023-04-07 14:39:58 Dhiraj [facility] US PELVIC NON OB LIMITED 2023-04-07 13:39:59 Dhiraj [facility] POC SPECIFIC GRAVITY, 2023-04-07 13:11:49 [facility] URINE, QUALITATIVE, DIPSTICK PET CT WHOLE BODY 2023-03-25 13:07:00 [facility] EXTERNAL STUDY Augie URINE CULTURE 2023-03-11 01:46:00 Dhiraj [facility] URINALYSIS SCREEN AND 2023-03-11 00:57:00 Dhiraj [facility] MICROSCOPY, WITH REFLEX TO CULTURE US RETROPERITONEAL 2023-03-10 20:02:38 [facility] POC SPECIFIC GRAVITY, 2023-03-10 19:18:14 [facility] URINE, QUALITATIVE, DIPSTICK CBC HEMOGRAM 2023-02-26 10:38:00 Jody Bunch spital COMPREHENSIVE METABOLIC 2023-02-26 10:38:00 SagvonnierRhodaa [facility] PANEL ESTIMATED GFR 2023-02-26 10:38:[address] ABDOMEN PELVIS W 2023-02-25 20:53:01 Estakhri, Pejmon [facility] CONTRAST Srinivasan LACTIC ACID LEVEL 2023-02-25 10:56:00 Julio C [facility] C-REACTIVE PROTEIN 2023-02-25 10:56:00 [facility] SEDIMENT[facility] RATE 2023-02-25 10:56:00 [facility] PROCALCITONIN 2023-02-25 10:56:00 Julio C [facility] spital CBC HEMOGRAM 2023-02-25 10:56:00 [facility] 2023-02-25 10:56:00 [facility] PANEL ESTIMATED GFR 2023-02-25 10:56:00 Julio C [facility] spital US GALLBLADDER 2023-02-24 14:24:37 Julio C [facility] ENTERIC VIRAL PANEL 2023-02-24 09:34:00 [facility] LACTIC ACID LEVEL, SEPSIS 2023-02-24 09:27:00 [facility] - NOW AND REPEAT 2X EVERY Imarendene [address] ABDOMEN PELVIS W 2023-02-24 02:21:39 [facility] CONTRAST LACTIC ACID LEVEL, SEPSIS 2023-02-24 01:37:00 [facility] - NOW AND REPEAT 2X EVERY Imarendenewe 3 HOURS PROTHROMBIN TIME WITH INR 2023-02-24 01:37:00 [facility] PARTIAL THROMBOPLASTIN 2023-02-24 01:37:00 [facility] TIME (PTT) MAGNESIUM LEVEL 2023-02-24 01:37:00 [facility] PHOSPHORUS LEVEL 2023-02-24 01:37:00 [facility] URINE CULTURE 2023-02-24 01:26:00 RehreZac newh Artur [facility] URINALYSIS SCREEN AND 2023-02-24 01:05:00 Rehrer, [facility] MICROSCOPY, WITH REFLEX TO CULTURE CBC WITH PLATELET AND 2023-02-23 23:05:00 Rehrer, [facility] DIFFERENTIAL COMPREHENSIVE METABOLIC 2023-02-23 23:05:00 Rehrer, [facility] PANEL LIPASE LEVEL 2023-02-23 23:05:00 Rehrer, [facility] LACTIC ACID LEVEL, SEPSIS 2023-02-23 23:05:00 Breezy [facility] - NOW AND REPEAT 2X EVERY Imarendenewe 3 HOURS ESTIMATED GFR 2023-02-23 23:05:00 Rehrer, [facility] POC GLUCOSE 2022-10-26 18:13:00 Ruth Murillo spital POC GLUCOSE 2022-10-26 13:57:00 Ruth Murillo spital PHOSPHORUS LEVEL 2022-10-26 11:29:00 Maxine Feldman ospital MAGNESIUM LEVEL 2022-10-26 11:29:00 Francia [facility] Jasvir Hearn spital CBC WITH PLATELET AND 2022-10-26 11:29:00 Francia, [facility] DIFFERENTIAL BASIC METABOLIC PANEL 2022-10-26 11:29:00 [facility]ica [facility] LACTIC ACID LEVEL 2022-10-26 11:29:00 Francia, [facility] ESTIMATED GFR 2022-10-26 11:29:00 Ruth Murillo spital MANUAL DIFFERENTIAL 2022-10-26 11:29:00 Ruth Murillo [facility] PROCALCITONIN 2022-10-26 11:29:00 Ruth Murillo spital VANCOMYCIN LEVEL, TROUGH 2022-10-26 04:02:00 Servando Wick [facility] POC GLUCOSE 2022-10-26 03:26:00 Ruth Murillo spital POC GLUCOSE 2022-10-25 23:06:00 Ruth Murillo spital POC GLUCOSE 2022-10-25 18:09:00 Ruth Murillo spital POC GLUCOSE 2022-10-25 16:40:00 Ruth Murillo Ho spital PHOSPHORUS LEVEL 2022-10-25 10:28:00 Maxine Feldman H ospital MAGNESIUM LEVEL 2022-10-25 10:28:00 Maxine Feldman Ho spital CBC WITH PLATELET AND 2022-10-25 10:28:00 [facility] DIFFERENTIAL BASIC METABOLIC PANEL 2022-10-25 10:28:00 [facility] LACTIC ACID LEVEL 2022-10-25 10:28:00 [facility] HEMOGLOBIN A1C 2022-10-25 10:28:00 Maxine Feldman spital PROCALCITONIN 2022-10-25 10:28:00 [facility] ESTIMATED GFR 2022-10-25 10:28:00 Ruth Murillo Ho spital POC GLUCOSE 2022-10-25 02:56:00 Ruth Murillo Ho spital POC GLUCOSE 2022-10-24 23:47:[address] CHEST WO CONTRAST 2022-10-24 23:34:20 [facility] VANCOMYCIN LEVEL, RANDOM 2022-10-24 18:08:00 Kimmy Matias [facility] POC GLUCOSE 2022-10-24 17:52:00 Ruth Murillo spital MRI PELVIS W WO CONTRAST 2022-10-24 17:23:00 [facility] POC GLUCOSE 2022-10-24 14:26:00 Ruth Murillo spital [employer] CULTURE 2022-10-24 11:53:00 Kimmy Matias spital [employer] STAIN 2022-10-24 11:53:00 Ruth Murillo spital PHOSPHORUS LEVEL 2022-10-24 11:51:00 Maxine Feldman H ospital MAGNESIUM LEVEL 2022-10-24 11:51:00 [facility] CBC WITH PLATELET AND 2022-10-24 11:51:00 [facility] DIFFERENTIAL BASIC METABOLIC PANEL 2022-10-24 11:51:00 [facility] LACTIC ACID LEVEL 2022-10-24 11:51:00 Francia, [facility] ESTIMATED GFR 2022-10-24 11:51:00 Ruth Murillo spital MANUAL DIFFERENTIAL 2022-10-24 11:51:00 [facility] 2022-10-24 05:21:00 [facility] 2022-10-24 03:42:00 [facility] spital CBC WITH PLATELET AND 2022-10-24 03:35:00 Florencio [facility] DIFFERENTIAL PROTHROMBIN TIME WITH INR 2022-10-24 03:35:00 Florencio [facility] PARTIAL THROMBOPLASTIN 2022-10-24 03:35:00 Florencio [facility] TIME (PTT) FIBRINOGEN 2022-10-24 03:35:00 Florencio [facility] spital D-DIMER 2022-10-24 03:35:00 Florencio [facility] spital PROCALCITONIN 2022-10-24 03:35:00 [facility]ncio [facility] LACTIC ACID LEVEL 2022-10-24 03:35:00 Florencio [facility] POC GLUCOSE 2022-10-24 03:03:00 [facility] spital URINALYSIS SCREEN AND 2022-10-24 01:38:00 Francia, [facility] MICR[facility], WITH REFLEX TO CULTURE XR CHEST 1 VW PORTABLE 2022-10-24 01:37:11 [facility] CONSULT TO OSTOMY CARE 2022-10-24 01:07:38 [facility] NURSE BLOOD CULTURE, AEROBIC & 2022-10-24 00:32:00 Francia [facility] ANAEROBIC CBC WITH PLATELET AND 2022-10-24 00:32:00 Francia [facility] DIFFERENTIAL COMPREHENSIVE METABOLIC 2022-10-24 00:32:00 Francia [facility] PANEL MAGNESIUM LEVEL 2022-10-24 00:32:00 Francia [facility] spital PHOSPHORUS LEVEL 2022-10-24 00:32:00 Francia, [facility] ospital CREATINE KINASE, TOTAL 2022-10-24 00:32:00 Francia [facility] ([facility] LACTIC ACID LEVEL 2022-10-24 00:32:00 [facility] ESTIMATED GFR 2022-10-24 00:32:00 Alissa [facility] spital CT ABD/PELVIC EXTERNAL 2022-10-23 17:42:32 Alissa [facility] STUDY CBC WITH PLATELET AND 2022-07-30 09:24:00 Rik [facility] DIFFERENTIAL MAGNESIUM LEVEL 2022-07-30 09:24:00 Rik [facility] spital PHOSPHORUS LEVEL 2022-07-30 09:24:[address] [facility] ospital PROTHROMBIN TIME WITH INR 2022-07-30 09:24:00 Deborah Jolly [facility] PARTIAL THROMBOPLASTIN 2022-07-30 09:24:00 Rik [facility] TIME (PTT) COMPREHENSIVE METABOLIC 2022-07-30 09:24:00 Rik [facility] PANEL ESTIMATED GFR 2022-07-30 09:24:00 Lilliana Kimball spital US NEEDLE ASPIRATION 2022-07-29 15:15:43 Deborah Jolly [facility] AEROBIC CULTURE 2022-07-29 15:00:00 [facility] spital ANAEROBIC CULTURE 2022-07-29 15:00:00 Kem [facility] FUNGUS CULTURE 2022-07-29 15:00:00 [facility] spital FUNGUS SMEAR 2022-07-29 15:00:00 [facility] ZZCOVID-19 ANTI-SPIKE IGG 2022-07-29 09:48:00 Thomas Rubi [facility] ANTIBODY TITER CBC WITH PLATELET AND 2022-07-29 09:48:00 Rik [facility] DIFFERENTIAL MAGNESIUM LEVEL 2022-07-29 09:48:00 Rik [facility] spital PHOSPHORUS LEVEL 2022-07-29 09:48:[address] [facility] ospital PARTIAL THROMBOPLASTIN 2022-07-29 09:48:00 Rik [facility] TIME (PTT) COMPREHENSIVE METABOLIC 2022-07-29 09:48:00 Rik [facility] PANEL ZZCOVID-19 SEROLOGY 2022-07-29 09:48:00 Thomas Rubi [facility] PATIENT SURVEILLANCE ESTIMATED GFR 2022-07-29 09:48:00 [facility] WITH PLATELET AND 2022-07-28 10:26:00 Rik [facility] DIFFERENTIAL MAGNESIUM LEVEL 2022-07-28 10:26:00 [facility] 2022-07-28 10:26:[address] [facility] ospital PROTHROMBIN TIME WITH INR 2022-07-28 10:26:00 Rik [facility] PARTIAL THROMBOPLASTIN 2022-07-28 10:26:00 Rik [facility] TIME (PTT) COMPREHENSIVE METABOLIC 2022-07-28 10:26:00 Rik [facility] PANEL ESTIMATED GFR 2022-07-28 10:26:00 [facility] 12-LEAD 2022-07-27 16:08:21 Rik [facility] URINE C[facility]URE 2022-07-27 15:39:00 [facility]-19 QUALITATIVE 2022-07-27 15:29:00 Rik [facility] RT-PCR METHICILLIN-RESISTANT 2022-07-27 15:26:00 Rik [facility] STAPHYLOCOCCUS AUREUS (MRSA), ADAL BLOOD CULTURE, AEROBIC & 2022-07-27 15:08:00 Rik [facility] ANAEROBIC CBC WITH PLATELET AND 2022-07-27 15:07:00 Rik [facility] DIFFERENTIAL PROTHROMBIN TIME WITH INR 2022-07-27 15:07:00 Rik [facility] PARTIAL THROMBOPLASTIN 2022-07-27 15:07:[address] [facility] TIME (PTT) COMPREHENSIVE METABOLIC 2022-07-27 15:07:00 [facility] PANEL LACTIC ACID LEVEL 2022-07-27 15:07:[address] [facility] PROCALCITONIN 2022-07-27 15:07:00 Rik [facility] spital ESTIMATED GFR 2022-07-27 15:07:00 Kem [facility] spital C-REACTIVE PROTEIN 2022-07-27 15:07:00 [facility] 2022-07-27 15:07:00 Kem [facility] MAGNESIUM LEVEL 2022-07-27 15:07:00 Kem [facility] spital PHOSPHORUS LEVEL 2022-07-27 15:07:00 Kem [facility] ospital URIC ACID LEVEL 2022-07-27 15:07:00 Kem [facility] spital URINALYSIS SCREEN AND 2022-07-27 15:01:00 [facility] WITH REFLEX TO CULTURE CT ABD/PELVIC EXTERNAL 2022-07-27 02:35:00 Corey Coe [facility] STUDY [place] SURGICAL PATHOLOGY 2022-05-06 19:47:00 Dhiraj [facility] REQUEST OR AN ELECTIVE 2022-05-06 17:10:00 Winter Quezada [facility] spital ENDOTRACHEAL AIRWAY Claudia CYSTOSCOPY, WITH TURBT 2022-05-06 17:04:00 [facility] URINE CULTURE 2022-05-04 15:17:00 [facility] URINALYSIS SCREEN AND 2022-05-04 14:24:00 [facility] MICROSCOPY, WITH REFLEX TO CULTURE BASIC METABOLIC PANEL 2022-05-04 14:18:00 [facility] CBC HEMOGRAM 2022-05-04 14:18:00 [facility] HIV 1/2 ANTIGEN/ANTIBODY, 2022-05-04 14:18:00 [facility] FOURTH GENERATION, WITH REFLEXES PARTIAL THROMBOPLASTIN 2022-05-04 14:18:00 Ho, [facility] TIME (PTT) PROTHROMBIN TIME WITH INR 2022-05-04 14:18:00 Ho, [facility] HEPATIC FUNCTION PANEL 2022-05-04 14:18:00 Ho, [facility] FREE PSA 2022-05-04 14:18:00 Ho, [facility] HEMOGLOBIN A1C 2022-05-04 14:18:00 Gin Merchant Bernabe [facility] ESTIMATED GFR 2022-05-04 14:18:00 Ho, [facility] COVID-19 QUALITATIVE 2022-05-04 14:12:00 , [facility] RT-PCR ECG PRE/POST OP 2022-05-04 14:01:22 Dhiraj, [facility] MRI PELVIS W WO CONTRAST 2022-04-06 00:38:00 Ho, [facility] MRI ABDOMEN W WO CONTRAST 2022-04-06 00:10:00 , [facility] CT ABD/PELVIC EXTERNAL 2022-02-23 13:42:00 Valentin [facility] STUDY CT CHEST WO CONTRAST 2021-12-02 02:22:26 Tu, [facility] ABDOMEN WO CONTRAST PELVIS WO CONTRAST URINE CULTURE 2021-12-02 01:57:00 Tu, [facility] URINALYSIS SCREEN AND 2021-12-02 01:32:00 Tu, [facility] MICROSCOPY, WITH REFLEX TO CULTURE HC COMPLETE BLD COUNT 2021-12-02 00:45:00 Tu, [facility] W/AUTO DIFF COMPREHENSIVE METABOLIC 2021-12-02 00:45:00 Tu, [facility] PANEL LIPASE LEVEL 2021-12-02 00:45:00 Tu, [facility] LACTIC ACID LEVEL, SEPSIS 2021-12-02 00:45:00 Tu, [facility] - NOW AND REPEAT 2X EVERY 3 HOURS ESTIMATED GFR 2021-12-02 00:45:00 Tu, [facility] PHOSPHORUS LEVEL 2021-12-02 00:45:00 Tu, [facility] MAGNESIUM LEVEL 2021-12-02 00:45:00 Tu, [facility] B NATRIURETIC PEPTIDE 2021-12-02 00:45:00 Tu, [facility] PROTHROMBIN TIME WITH INR 2021-12-02 00:45:00 Tu, [facility] PARTIAL THROMBOPLASTIN 2021-12-02 00:45:00 Tu, [facility] TIME (PTT) ECG 12-LEAD 2021-12-02 00:44:24 Tu, [facility] ECG ED PRELIMINARY 2021-12-02 00:41:04 [facility], [facility] INTERPRETATION ANESTHESIA INTUBATION 2021-01-15 20:12:00 Lukasz Sal [facility] EXCISION, TUMOR, RECTUM, 2021-01-15 20:01:00 [facility] TRANSANAL APPROACH COVID-19 QUALITATIVE 2021-01-13 21:56:00 [facility] RT-PCR BASIC METABOLIC PANEL 2021-01-13 21:56:00 [facility] COMPLETE BLD COUNT 2021-01-13 21:56:00 [facility] W/AUTO DIFF ESTIMATED GFR 2021-01-13 21:56:00 [facility] POC GLUCOSE 2021-01-01 22:19:00 MendozaHenrik [facility] POC GLUCOSE 2021-01-01 18:07:00 [facility] POC GLUCOSE 2021-01-01 14:10:00 [facility] HC COMPLETE BLD COUNT 2021-01-01 10:25:00 Ascencion Ritchie [facility] W/AUTO DIFF POC GLUCOSE 2021-01-01 10:22:00 MendozaHenrik [facility] POC GLUCOSE 2021-01-01 05:57:00 MendozaHenrik [facility] POC GLUCOSE 2021-01-01 01:47:00 MendozaHenrik [facility] POC GLUCOSE 2020-12-31 23:17:00 Mendoza [facility] HC COMPLETE BLD COUNT 2020-12-31 20:30:00 Edgcomb, [facility] W/AUTO DIFF BASIC METABOLIC PANEL 2020-12-31 20:30:00 Edgcomb, [facility] MAGNESIUM LEVEL 2020-12-31 20:30:00 Edgcomb, [facility] spital PHOSPHORUS LEVEL 2020-12-31 20:30:00 Edgcomb, [facility] ESTIMATED GFR 2020-12-31 20:30:00 Edgcomb, [facility] Ho spital POC GLUCOSE 2020-12-31 18:08:00 Mendoza, Henrik [facility] XR ABDOMEN 1 VW PORTABLE 2020-12-31 16:55:30 Edgcomb, [facility] POC GLUCOSE 2020-12-31 13:46:00 Mendoza Henrik Conroy [facility] POC GLUCOSE 2020-12-31 10:46:00 Mendoza, [facility] POC GLUCOSE 2020-12-31 05:29:00 Mendoza, [facility] POC GLUCOSE 2020-12-31 01:29:00 Mendoza Henrik Rafiq [facility] POC GLUCOSE 2020-12-30 22:09:00 Mendoza, [facility] POC GLUCOSE 2020-12-30 18:43:00 Mendoza, [facility] POC GLUCOSE 2020-12-30 14:07:00 Mendoza, Henrik Rafiq [facility] POC GLUCOSE 2020-12-30 10:49:00 Mendoza, [facility] POC GLUCOSE 2020-12-30 04:53:00 Mendoza, [facility] XR ABDOMEN 1 VW PORTABLE 2020-12-30 04:20:00 Mendoza Henrik Rafiq [facility] POC GLUCOSE 2020-12-29 22:43:00 MendozaHenrik encarnacion [facility] POC GLUCOSE 2020-12-29 17:39:00 MendozaHenrik encarnacion [facility] POC GLUCOSE 2020-12-29 13:57:00 MendozaHenrik encarnacion [facility] BASIC METABOLIC PANEL 2020-12-29 10:00:00 [facility] Jetsen Casimiro ESTIMATED GFR 2020-12-29 10:00:00 Jasvir Santos H ospital Jetsen Casimiro HC COMPLETE BLD COUNT 2020-12-29 09:20:00 Mp Goyal [facility] W/AUTO DIFF Jetsen Casimiro POC GLUCOSE 2020-12-29 03:04:00 Pankaj Mendozaic Rafiq [facility] POC GLUCOSE 2020-12-28 21:45:00 Reji [facility] POC GLUCOSE 2020-12-28 18:07:00 Mendoza, [facility] POC GLUCOSE 2020-12-28 13:59:00 Henrik Mendoza [facility] HC COMPLETE BLD COUNT 2020-12-28 10:00:00 Mp Goyal [facility] W/AUTO DIFF Jetsen Casimiro BASIC METABOLIC PANEL 2020-12-28 10:00:00 [facility] Jetsen Casimiro ESTIMATED GFR 2020-12-28 10:00:00 Jasvir Santos ospital Jetsen Casimiro POC GLUCOSE 2020-12-28 02:47:00 MendozaHenrik encarnacion [facility] POC GLUCOSE 2020-12-27 22:04:00 [facility] POC GLUCOSE 2020-12-27 18:04:00 Mendoza, [facility] POC GLUCOSE 2020-12-27 13:51:00 Mendoza, [facility] HC COMPLETE BLD COUNT 2020-12-27 10:30:00 Mp Goyal [facility] W/AUTO DIFF Jetsen Casimiro BASIC METABOLIC PANEL 2020-12-27 10:30:00 [facility] Jetsen Casimiro MAGNESIUM LEVEL 2020-12-27 10:30:00 Jasvir Santos H ospital Jetsen Casimiro PHOSPHORUS LEVEL 2020-12-27 10:30:00 [facility] Jetsen Casimiro ESTIMATED GFR 2020-12-27 10:30:00 [facility] Jetsen Casimiro POC GLUCOSE 2020-12-27 01:58:00 [facility]STOMY CARE 2020-12-26 19:46:09 [facility] Xandersen Casimiro ANAEROBIC CULTURE 2020-12-26 16:06:00 [facility] AEROBIC CULTURE 2020-12-26 16:06:00 [facility] GRAM STAIN 2020-12-26 16:06:00 [facility] AFB STAIN 2020-12-26 16:06:00 [facility] SURGICAL PATHOLOGY 2020-12-26 16:04:00 Reji [facility] REQUEST AF[employer] CULTURE 2020-12-26 15:06:00 [facility] OR AN ELECTIVE 2020-12-26 14:38:46 Rosa M Strauss [facility] ENDOTRACHEAL AIRWAY ARTERIAL LINE 2020-12-26 14:16:28 Cresencio Washington [facility] RESECTION, COLON, 2020-12-26 13:28:00 [facility] LAPAROSCOPIC, ROBOT-ASSISTED CONSULT TO OSTOMY CARE 2020-12-26 12:29:48 [facility] Jetsen Casimiro HC COMPLETE BLD COUNT 2020-12-26 12:10:00 Maritza Lopez [facility] W/AUTO DIFF ECG PRE/POST OP 2020-12-22 16:59:12 Maritza Lopez [facility] COVID-19 QUALITATIVE 2020-12-22 16:49:00 Henrik Mendoza [facility] RT-PCR HC COMPLETE BLD COUNT 2020-12-22 16:41:[address] [facility] W/AUTO DIFF COMPREHENSIVE METABOLIC 2020-12-22 16:41:00 Reji [facility] PANEL PARTIAL THROMBOPLASTIN 2020-12-22 16:41:00 Henrik Mendoza [facility] TIME (PTT) PROTHROMBIN TIME WITH INR 2020-12-22 16:41:00 Henrik Mendoza [facility] TYPE AND SCREEN 2020-12-22 16:41:00 [facility] HEMO[facility] A1C 2020-12-22 16:41:00 [facility] ESTIMATED GFR 2020-12-22 16:41:00 Henrik Mendoza [facility] [id number] 2020-03-19 00:00:00 [facility] [id number] 2020-03-18 00:00:00 [facility] Plan of Care Planned Activity Planned Date Details Comments Source Future Scheduled 2023-10-01 Hepatitis C screening [facility] Test 19:16:08 (procedure) [code = [id number]] Future Scheduled 2023-10-01 SHINGLES VACCINES (1 [facility] Test 19:16:08 of 2) [code = SHINGLES VACCINES (1 of 2)] Future Scheduled 2023-10-01 COVID-19 VACCINE (2 - [facility] Test 19:16:08 season) [code = COVID-19 VACCINE (2 - season)] Future Scheduled 2023-10-01 INFLUENZA VACCINE Method [facility] Test 19:16:08 (#1) [code = INFLUENZA VACCINE (#1)] Future Scheduled 2023-05-02 Hepatitis C screening [facility] Test 07:55:25 (procedure) [code = [id number]] Future Scheduled 2023-05-02 SHINGLES VACCINES (1 Met [facility] Test 07:55:25 of 2) [code = SHINGLES VACCINES (1 of 2)] Future Scheduled 2023-05-02 COVID-19 VACCINE (2 - Me [facility] Test 07:55:25 [employer] series) [code = COVID-19 VACCINE (2 - [employer] series)] Future Scheduled 2023-05-02 INFLUENZA VACCINE [facility] Test 07:55:25 [code = INFLUENZA VACCINE] Future Scheduled 2022-07-16 HEPATITIS B VACCINES Met [facility] Test 09:38:05 (1 of 3 - 3-dose series) [code = HEPATITIS B VACCINES (1 of 3 - 3-dose series)] Future Scheduled 2022-07-16 Hepatitis C screening [facility] Test 09:38:05 (procedure) [code = [id number]] Future Scheduled 2022-07-16 COLONOSCOPY SCREENING [facility] Test 09:38:05 [code = COLONOSCOPY SCREENING] Future Scheduled 2022-07-16 SHINGLES VACCINES (1 Met [facility] Test 09:38:05 of 2) [code = SHINGLES VACCINES (1 of 2)] Future Scheduled 2022-07-16 COVID-19 VACCINE (2 - Me [facility] Test 09:38:05 [employer] series) [code = COVID-19 VACCINE (2 - [employer] series)] Future Scheduled 2022-07-16 INFLUENZA VACCINE [facility] Test 09:38:05 [code = INFLUENZA VACCINE] Future Scheduled 2021-12-01 COVID-19 VACCINE (1) Met [facility] Test 17:13:27 [code = COVID-19 VACCINE (1)] Future Scheduled 2021-12-01 Hepatitis C screening [facility] Test 17:13:27 (procedure) [code = [id number]] Future Scheduled 2021-12-01 COLONOSCOPY SCREENING [facility] Test 17:13:27 [code = COLONOSCOPY SCREENING] Future Scheduled 2021-12-01 SHINGLES VACCINES Method is Hospital Test 17:13:27 (#1) [code = SHINGLES VACCINES (#1)] Future Scheduled 2021-12-01 INFLUENZA VACCINE Method [facility] Hospital Test 17:13:27 [code = INFLUENZA VACCINE] Encounters Start End Encounter Admission Attending Care Care Encounter Source Date/Time Date/Time Type Type Clinicians Facility Department ID 2023-08-17 2023-08-17 Outpatient [facility] [id number] [place] 00:00:00 00:00:[address] 2023-08-01 2023-08-01 Outpatient [facility] [id number] [place] 00:00:00 00:00:[address] 2023-07-25 2023-07-25 Documentat Jose, 1.2.840.1 [id number] Methodi 00:00:00 00:00:00 ion Jun 90478.1.[address] [facility] 3.430.2.7 Ho spita .3.947445 l .8 2023-07-15 2023-07-24 Hospital Khurram Elliott 1.2.840. 1 [id number] Methodi 05:14:00 13:54:00 Encounter Savannah Graves 73466.1.[address] 3.430.2.7 Hospit a .3.640349 l .8 2023-07-15 2023-07-24 Inpatient SAVANNAH GRAVES [facility] [id number] [place] 00:00:00 00:00:[address] 2023-07-15 2023-07-15 Anesthesia Maria Eugenia Galindo 1.2.840.1 [id number] Methodi 07:35:00 18:21:00 Elvi Farooq 82728.1.[address] 3.430.2.7 Hospit a .3.564961 l .8 2023-07-15 2023-07-15 Surgery [facility] 1.2.840.1 [id number] Methodi 07:30:00 13:45:00 Khurram Hsieh 49144.1.1 847 [facility] 3.430.2.7 Hospit a .3.391028 l .8 2023-07-08 2023-07-08 Procedure Thomas Hearn 1.2.840.1 [id number] Methodi 09:00:00 10:37:26 visit Paola 32412.1.1 448 s t 3.430.2.7 Hospit a .3.157339 l .8 2023-07-08 2023-07-08 Outpatient THOMAS HEARN [facility] [id number] [place] 00:00:00 00:00:[address] 2023-07-07 2023-07-07 Pre-Admiss Khurram Elliott 1.2.84 0.1 [id number] Methodi 11:30:00 12:30:00 ion Elvi Spann 39716.1.[address] Testing 3.430.2.7 Hospit a .3.661793 l .8 2023-07-07 2023-07-07 Outpatient [facility] [id number] [place] 00:00:00 00:00:00 KHURRAM [address] 2023-04-07 2023-04-07 Procedure Thomas Hearn 1.2.840.1 [id number] Methodi 08:30:00 09:14:19 visit Paola 88884.1.1 046 s t 3.430.2.7 Hospit a .3.632768 l .8 2023-04-07 2023-04-07 Procedure Thomas Hearn 1.2.840.1 [id number] Methodi 08:30:00 09:14:19 visit Paola 30660.1.1 046 s t 3.430.2.7 Hospit a .3.009330 l .8 2023-03-30 2023-03-30 Outpatient TAMI TALLEY [facility] [id number] [place] 00:00:00 00:00:[address] 2023-03-25 2023-03-25 [facility], 1.2.840.1 [id number] 09299 [id number] Methodi 15:34:01 23:59:00 Encounter Khurram Hsieh 62541.1.[address] Aug[place] 3.430.2.7 Hospit a .3.836499 l .8 2023-03-25 2023-03-25 [facility] 1.2.840.1 [id number] Methodi 15:34:01 23:59:00 Encounter Khurram Hsieh 94382.1.[address] Aug[place] 3.430.2.7 Hospit a .3.693733 l .8 2023-03-17 2023-03-17 Travel 1.2.840.1 1.2.919.202 2793 [id number] Methodi 00:00:00 00:00:[address] 3.430.2.7 0.2.7.3.698 Ho spita .3.265790 084.8 l .8 2023-03-17 2023-03-17 Travel 1.2.840.1 1.2.763.215 5565 928761 Methodi 00:00:00 00:00:[address] 3.430.2.7 0.2.7.3.698 Ho spita .3.111933 084.8 l .8 2023-03-10 2023-03-10 Lab Thomas Hearn 1.2.840.1 [id number] 2099 [id number] Methodi 18:45:00 18:50:00 Paola 91709.1.1 135 s t 3.430.2.7 Hospit a .3.439525 l .8 2023-03-10 2023-03-10 Lab Thomas Hearn 1.2.840.1 [id number] 2099 [id number] Methodi 18:45:00 18:50:00 Paola 28418.1.1 135 s t 3.430.2.7 Hospit a .3.890132 l .8 2023-03-10 2023-03-10 Procedure Thomas Hearn 1.2.840.1 [id number] Methodi 14:15:00 15:24:37 visit Paola 39621.1.1 633 s t 3.430.2.7 Hospit a .3.828089 l .8 2023-03-10 2023-03-10 Procedure Thomas Hearn 1.2.840.1 [id number] Methodi 14:15:00 15:24:37 visit Paola 86424.1.1 633 s t 3.430.2.7 Hospit a .3.912186 l .8 2023-03-10 2023-03-10 Travel 1.2.840.1 1.2.793.727 8657 933867 Methodi 00:00:00 00:00:[address] 3.430.2.7 0.2.7.3.698 Ho spita .3.936125 084.8 l .8 2023-03-10 2023-03-10 Travel 1.2.840.1 1.2.845.258 0635 148995 Methodi 00:00:00 00:00:[address] 3.430.2.7 0.2.7.3.698 Ho spita .3.605186 084.8 l .8 2023-02-23 2023-02-26 Emergency Tc Benigno 1.2.840.1 1 [id number] Methodi 17:59:00 13:46:00 Parth Julia 62014.1.[address] Ssaha [place] 3.430.2.7 [facility], Jody .3.744515 l .8 2023-02-23 2023-02-[address] [facility] Hos [id number] [address] [place] [address] 00:00:00 00:00:[address] JODY [address] 2023-02-23 2023-02-23 Travel 1.2.840.1 1.2.629.244 0173 [id number] Methodi 00:00:00 00:00:[address] 3.430.2.7 0.2.7.3.698 Ho spita .3.872970 084.8 l .8 2023-02-23 2023-02-23 Travel 1.2.840.1 1.2.769.215 2973 823844 Methodi 00:00:00 00:00:[address] 3.430.2.7 0.2.7.3.698 Ho spita .3.252885 084.8 l .8 2022-10-23 2022-10-26 [facility] 1.2.840.1 [id number] 01948 Methodi 15:24:00 15:24:00 Encounter Ruth 07990.1.[address] 3.430.2.7 Hospit a .3.907063 l .8 2022-10-23 2022-10-26 [facility], 1.2.840.1 [id number] 93058 55797 Methodi 15:24:00 15:24:00 Encounter Ruth [address]8860.1.[address] 3.430.2.7 Hospit a .3.191846 l .8 2022-10-26 2022-10-26 Travel 1.2.840.1 1.2.882.111 5409 622245 Methodi 00:00:00 00:00:[address] 3.430.2.7 0.2.7.3.698 Ho spita .3.461251 084.8 l .8 2022-10-26 2022-10-26 Travel 1.2.840.1 1.2.903.484 2022 636553 Methodi 00:00:00 00:00:[address] 3.430.2.7 0.2.7.3.698 Ho spita .3.604550 084.8 l .8 2022-10-24 2022-10-24 [facility], 1.2.840.1 [id number] 4614 Methodi 00:00:00 00:00:00 Only Ruth 25798.1.[address] 3.430.2.7 Hospit a .3.074373 l .8 2022-10-24 2022-10-24 [facility], 1.2.840.1 [id number] 5315 Methodi 00:00:00 00:00:00 Only Ruth 05907.1.[address] 3.430.2.7 Hospit a .3.446014 l .8 2022-10-23 2022-10-23 [facility], 1.2.840.1 [id number] 93967 Methodi 21:46:41 23:59:00 Encounter Ruth 15790.1.[address] 3.430.2.7 Hospit a .3.542759 l .8 2022-10-23 2022-10-23 [facility], 1.2.840.1 [id number] 31555 79567 Methodi 21:46:41 23:59:00 Encounter Ruth 81720.1.[address] 3.430.2.7 Hospit a .3.499731 l .8 2022-07-27 2022-07-30 [facility] Corey Coe 1.2.840.1 [id number] Methodi 08:34:00 19:08:00 Encounter Lilliana Kimball 37649.1.[address] 3.430.2.7 Hospit a .3.970531 l .8 2022-05-04 2022-05-09 Pre-Admiss Thomas Hearn 1.2.840.1 [id number] 2 [id number] Methodi 08:30:00 00:05:48 ion Paola 47086.1.1 861 s t Testing 3.430.2.7 Hospit a .3.204537 l .8 2022-05-06 2022-05-06 Hospital Thomas Hearn 1.2.840.1 [id number] 335 [id number] Methodi 09:09:00 14:56:00 Encounter Paola [address]0960.1.[address] 3.430.2.7 Hospit a .3.050807 l .8 2022-05-06 2022-05-06 Surgery Thomas Hearn 1.2.840.1 [id number] 2100 734122 Methodi 12:00:00 13:15:00 Brittny-Jayme 22343.1.1 763 s t 3.430.2.7 Hospit a .3.109327 l .8 2022-05-06 2022-05-06 Anesthesia JesseNabeel 1.2.840.1 [id number] 9 [id number] Methodi 12:04:00 12:44:00 Event Winter Quezada 64206.1.[address] 3.430.2.7 Hospit a .3.069177 l .8 2022-05-04 2022-05-04 Travel 1.2.840.1 1.2.068.903 7328 266700 Methodi 00:00:00 00:00:[address] 3.430.2.7 0.2.7.3.698 spita .3.829264 084.8 l .8 2022-04-16 2022-04-16 Lab Henrik Mendoza 1.2.840.1 [id number] 003 [id number] Methodi 06:15:00 06:20:[address] 3.430.2.7 Hospit a .3.652803 l .8 2022-04-05 2022-04-05 [facility] THOMAS HEARN 1.2.840.1 [id number] 051 [id number] [place] 00:00:00 00:00:00 Encounter 28164.1.1 [address] .3.791047 .8 2022-04-05 2022-04-05 [facility] THOMAS HEARN 1.2.840.1 [id number] [place] 00:00:00 00:00:00 Encounter 80074.1.1 [address] .3.965509 .8 2022-04-05 2022-04-05 Travel 1.2.840.1 1.2.940.195 4468 781434 Methodi 00:00:00 00:00:[address] 3.430.2.7 0.2.7.3.698 spita .3.995436 084.8 l .8 2022-03-30 2022-03-30 Orders Alagugurusa 1.2.840.1 [id number] 21 [id number] Methodi 00:00:00 00:00:00 Only my, 95517.1.[address] Altagracia 3.430.2.7 Hospi ta Golden .3.603685 l .8 2022-03-26 2022-03-26 [facility] Thomas Hearn 1.2.840.1 [id number] 21 [id number] Methodi 00:00:00 00:00:00 Orders Brittny-Delacruz 12019.1.1 481 s t 3.430.2.7 Hospit a .3.006702 l .8 2022-02-26 2022-02-26 [facility] Cristina, 1.2.840.1 [id number] 53160 63454 Methodi 11:08:47 23:59:00 Encounter Valentin 41747.1.[address] Enzo 3.430.2.7 Hospit a .3.273923 l .8 2021-12-01 2021-12-01 Emergency [facility] 064 42904 [id number] [place] 00:00:00 00:00:[address] 2021-12-01 2021-12-01 Travel 1.2.840.1 1.2.499.582 4161 288646 Methodi 00:00:00 00:00:[address] 3.430.2.7 0.2.7.3.698 Ho spita .3.940055 084.8 l .8 2021-04-09 2021-04-09 Outpatient [facility] MED 750 0 BL 07:41:00 23:59:00 [facility] 2021-01-15 2021-01-15 Hospital Henrik Mendoza 1.2.840.1 [id number] 21 [id number] Methodi 09:58:00 18:31:00 Encounter Rafiq 19097.1.1 122 s t 3.430.2.7 Hospit a .3.815230 l .8 2021-01-15 2021-01-15 Anesthesia other, Eliceo Severino 1.2.8 40.1 [id number] Methodi 15:01:00 16:03:00 Event Eduarda Hess 62153.1.[address] 3.430.2.7 Hospit a .3.770425 l .8 2021-01-15 2021-01-15 Surgery Henrik Mendoza 1.2.840.1 [id number] 738 [id number] Methodi 12:00:00 13:40:[address] 3.430.2.7 Hospit a .3.725391 l .8 2021-01-13 2021-01-13 Pre-Admiss Henrik Mendoza 1.2.840.1 [id number] Methodi 16:38:17 17:38:17 ion Rafiq 08842.1.[address] Testing 3.430.2.7 Hospit a .3.098851 l .8 2021-01-13 2021-01-13 Travel 1.2.840.1 1.2.901.735 1878 051039 Methodi 00:00:00 00:00:[address] 3.430.2.7 0.2.7.3.698 Ho spita .3.182670 084.8 l .8 2021-01-07 2021-01-07 Documentat Mikey 1.2.840.1 [id number] Methodi 00:00:00 00:00:00 ion rikki 73642.1.[address] Altagracia 3.430.2.7 Hospi ta Golden .3.216650 l .8 2020-12-26 2021-01-02 Hospital Henrik Mendoza 1.2.840.1 [id number] 21 [id number] Methodi 05:12:00 15:20:00 Encounter Rafiq 17737.1.1 273 s t 3.430.2.7 Hospit a .3.024794 l .8 2020-12-26 2020-12-26 Anesthesia Audie Damian 1.2.840 .1 [id number] Methodi 07:29:00 13:59:00 Event Maritza Lopez 16869.1.[address] 3.430.2.7 Hospit a .3.198810 l .8 2020-12-26 2020-12-26 Surgery Henrik Mendoza 1.2.840.1 [id number] 625 [id number] Methodi 07:30:00 12:40:[address] 3.430.2.7 Hospit a .3.521087 l .8 2020-12-25 2020-12-25 Travel 1.2.840.1 1.2.051.014 9089 465167 Methodi 00:00:00 00:00:[address] 3.430.2.7 0.2.7.3.698 Ho spita .3.920584 084.8 l .8 2020-12-22 2020-12-22 Pre-Admiss Mendoza, Henrik 1.2.840.1 [id number] Methodi 07:56:19 08:56:19 ion Rafiq 46055.1.[address] Testing 3.430.2.7 Hospit a .3.103139 l .8 2020-12-22 2020-12-22 Travel 1.2.840.1 1.2.373.186 1706 742341 Methodi 00:00:00 00:00:[address] 3.430.2.7 0.2.7.3.698 Ho spita .3.824148 084.8 l .8 2020-12-08 2020-12-08 Travel 1.2.840.1 1.2.126.860 5944 800348 Methodi 00:00:00 00:00:[address] 3.430.2.7 0.2.7.3.698 Ho spita .3.846071 084.8 l .8 2020-08-25 2020-08-25 Outpatient MENDOZA, HENRIK [facility] [id number] [id number] [place] 00:00:00 00:00:[address] 2020-03-18 2020-03-25 Inpatient Mendoza, Henrik [facility] DAYS [id number] [facility] 13:15:00 23:34:17 37 [facility] 2020-03-18 2020-03-18 Outpatient Mendoza, Henrik [facility] REF [id number] [facility] 19:10:00 19:10:00 66 [facility] 2020-03-14 2020-03-14 Outpatient UNKNOWN [facility] OUTD [id number] [facility] 13:56:00 13:56:00 01 [facility] 2020-02-01 2020-02-01 Outpatient CHELESA, [facility] [id number] [place] 00:00:00 00:00:00 KHURRAM Hutson Method i st Results Test Description Test Time Test Comments Results Result Comments Source POC glucose 2023-07-22 01:08:00 Test Item Value Reference Range Interpretation Comme nts POC glucose (test code = 98 mg/dL 65-99 Ope rator Name: Soy Walker ID: [id number]) [id number] able: [facility] Notified RN [facility] [id number] 13:48:05 Test Item Value Reference Range Interpretation Comments Case number (test code = [id number]) Surgical pathology See link below for report (test code = PDF Lab Report [id number]) Result status (test code This is Final Report = [id number]) [id number] [facility] [id number] 00:04:38EXAMINATION: XR ABDOMEN 1 VW PORTABLE HISTORY: Nausea vomiting COMPARISON: 4:40 AM. IMPRESSION: LLQ surgical drain overlies pelvis.Tip of an endogastric tube projects over mid stomach. Unchanged abnormal moderate gaseous distention of central small bowel loops up to approximately 5 cm. Findings may bepostoperative ileus or SBO. [id number]_PS07[facility] HospitalUS [id number] 23:26:44EXAMINATION: US RENAL CLINICAL HISTORY: Kidney failure acute COMPARISON: February 25, 2023 CT scan FINDI NGS: 1. Right kidney measures 10.5 cm in length. Left kidney measures 12.5 cm in length.2.No hydronephrosis noted in either kidney.3.Cortical thickness is symmetrical. Normal cortical echogenicity.4.There is a Lea catheter in urinary bladder. IMPRESSION: No hydronephrosis. [id number] Chest 1 Vw [id number] 22:55:31Exam: XR CHEST 1 VW PORTABLE Indication: 63 years Male hypoxia Comparison: 10/23/2022 IMPRESSION:Device(s): Right port terminates in the superior cavoatrial junction. Lungs/Pleura: Increasing left basilar airspace opacity, concerning for pneumonia, although atelectasis is also possible given the volume loss. No pneumothorax or pleural effusion.Heart/Mediastinum: Mild cardiomegaly. No mediastinal abnormality. Bones: No acute osseous abnormality. Other: Upper abdomen is unremarkable. [id number]_PS01[facility] Ap And [id number] 02:07:45EXAM: XR ABDOMEN AP AND LATERAL CLINICAL: Abdominal evaluation COMPARISON: None. IMPRESSION: 1.Multiple sponge markers noted in the abdomen/upper pelvis, recommend correlation.2.Forceps noted on lateral view and linear metallic bodies project over the right iliac wing on frontal view, recommend correla tion.3.Surgical clips in the pelvis.4.Nonspecific bowel gas pattern without radiographic evidence ofobstruction.5.No acute osseous abnormality. [id number] [facility] Mhise0168-11-04 13:39:02Maria Eugenia Galindo MD 07/15/2023 8:39 AMPeripheral Block Patient Location: ORReason for Block: at surgeon's request, post-op pain management, procedure for pain Performed by: anesthesiologistAnesthesiologist: Maria Eugenia Galindo MDAuthorized by: Maria Eugenia Galindo MD Preprocedure: patient identified, IV checked, site and side verified, risks and benefits discussed, procedure verified, surgical consent complete, patient position confirmed, monitors and equipment checked, pre-op evaluation complete, timeout performed prior to procedure and coagulation status reviewed Peripheral Nerve Block: Patient Position: Supine and pertinent anatomy defined Prep: ChloraPrep and patient draped Monitoring: Blood pressure monitoring, continuous pulse oximetry, heart rate and CO2 Block Type: Rectus sheathLaterality: BilateralInjection Technique: Single injectionProcedures: ultrasound guided Ultrasound documentation: Images saved on portable media and still images obtainedNeedle: Needle Type: Pajunk Needle Gauge: 21 G Needle Length: 10 cmAssessment: Injection Assessment: Visualized needle/local anesthetic surrounding nerve, visualized pertinent vascular structures and nerves, needle tip visualized at all times during injection of medication, intermittent aspiration during local anesthetic administration and no symptoms of intran eural/intravenous injection Paresthesia Pain: None Heart Rate Change: No Slow Fractionated Injection: Yes Block outcome: No apparent complications, patient comfortable and patient tolerated procedure wellMedications Administeredbupivacaine 0.25 % PF (mL) - injection 15 mL - 07/15/2023 8:08:00 AMbupivacaine liposome (EXPAREL) - Other 5 mL - 07/15/2023 8:08:00 AMPeripheral [id number] 13:37:43Maria Eugenia Galindo MD 07/15/2023 8:38 AMPeripheral Block Patient Location: ORReason for Block: at surgeon's request, post-op pain management, procedure for pain Performed by: anesthesiologistAnesthesiologist: Maria Eugenia Galindo MDAuthorized by: Maria Eugenia Galindo MD Preprocedure: patient identified, IV checked, site and side verified, risks and benefits discussed, procedure verified, surgical consent complete, patient position confirmed, monitors and equipment checked, pre-op evaluation complete, timeout performed p rior to procedure and coagulation status reviewed Peripheral Nerve Block: Patient Position: Pertinent anatomy defined and supine Prep: ChloraPrep and patient draped Monitoring: Blood pressure monitoring, continuous pulse oximetry, heart rate and CO2 Block Type: Quadratus lumborumLaterality: BilateralInjection Technique: Single injectionProcedures: ultrasound guided Ultrasound documentation: Images saved on portable media and still images obtainedNeedle: Needle Type: Pajunk Needle Gauge: 21 G Needle Length: 10 cmAssessment: Injection Assessment: Visualized needle/local anesthetic surrounding nerve, visualized pertinent vascular structures and nerves, needle tip visualized at all times during injection of medication, no symptoms of intraneural/intravenous injection and intermittent aspiration during local anesthetic administration Paresthesia Pain: None Heart Rate Change: No Slow Fractionated Injection: Yes Block outcome: No apparent complications, patient comfortable and patient tolerated procedure wellMedications Administeredbupivacaine 0.25 % PF (mL) - injection 45 mL - 07/15/2023 8:05:00 AMbupivacaine liposome (EXPAREL) - Other 15 mL - 07/15/2023 8:05:00 [id number] 13:04:00Maria Eugenia Galindo MD 07/15/2023 8:30 AMAirway Date/Time: 07/15/2023 8:04 AM Location: OR Performed by: anes thesiologistAnesthesiologist: Maria Eugenia Galindo MDAuthorized by: Maria Eugenia Galindo MDUrgency: ElectivePreoxygenated with 100% O2: Yes C-spine Precautions Maintained Throughout: No Mask Ventilation: Easy maskFinal Airway Type: Endotracheal airwayFinal Endotracheal Airway: ETTCuffed: Yes Technique Used: Video laryngoscopyDevices/Methods Used in Placement: BougieInsertion Site: OralBlade Type: MillerLaryngoscope Blade/Videolaryngoscope Blade Size: 2ETT Size (mm): 8.0Cuff at minimum occlusion pressure: Yes Placement Verified by: direct visualization Laryngoscopic view: Grade I - full view of glottisRapid Sequence Induction (RSI): No Modified RSI: No Number of Attempts at Approach: 3 or more Patient with very anterior airway. Full view of glottis but difficulty in getting ETT anteriorly. Repositioned patient several times and used a bougie which when angled very anteriorly allowed success.Urine [id number] 23:43:00 Test Item Value Reference Range Interpretation Comments Urine culture Mixed pricila Specimen isolate (test <=10-3 col/cc InformationSp ecimen code = 96219-8) Source: Urin eSpecimen [facility] or Urethral Stricture or [id number] 16:07:27Thomas Hearn MD 07/08/2023 11:14 AMCysto w/ Dil or Urethral Stricture or Stenosis Date/Time: 07/08/2023 11:07 AM Performed by: Thomas Hearn MDAuthorized by: Thomas Hearn MD Consent: Verbal consent obtained. Written consent obtained.Preparation: Patient was prepped and draped in the usual sterile fashion.Patient tolerance: patient tolerated the procedure well with no immediate complicationsComments: Cysto, dilation (any method): Consent obtained after discussion of risks/benefits/alternatives. The patient was placed in a lithotomy position and was sterilely prepped and draped.The flexible cystoscope was passed into the urethral meatus. The urethra was noted to be normal. Stricture was dilated to 18F with sounds to allow passage of the cystoscope and treat the stricture.The prostate was noted to be non obstructed. The bladder was noted to be normal The patient was given oral antibiotics x 6 to prevent infection. Anesthesia - local lidocaine, sterile prep w/ betadine - estimated blood loss -- > none, complications --> none Post Procedure instruction sheet has been provided to the patient and reviewed together. All questions answered Physician : Thomas Hearn, [facility] specific gravity, urine, qualitative, [id number] 14:33:35 Test Item Value Reference Range Interpretation Comments Specific gravity urine, >/=1.030 1.005-1.030 POC (test code = 5811-5) Glucose urine, POC (test Negative Negative code = 8103421) Bilirubin urine, POC Negative Negative (test code = 5899392) Ketones urine, POC (test Negative Negative code = 2514-8) Blood urine, POC (test Trace Negative A trace -intact code = 5795302) pH urine, POC (test code 5.5 See_Comment [A utomated message] = 5803-2) The system [employer] generated this result transmitted ref erence range: 5.0, 5.5 , 6.0, 6.5, 7.0, 7.5, 8.0, 8.5. The refere nce range was not u sed to interpret this result as normal/abnor mal. Protein urine, POC (test Trace Negative A 30 mg/dl code = 82709-3) Urobilinogen urine, POC <2.0 <=2.0 (test code = 24611-7) Nitrite urine, POC (test Negative Negative code = 5802-4) Leukocyte esterase Negative Negative urine, POC (test code = 4900865) Lab Interpretation (test Abnormal code = 89474-6) [facility] Pre/Post [id number] 02:15:07 Test Item Value Reference Range Interpretation Comments Ventricular rate (test 69 code = 253) Atrial rate (test code 69 = 255) OR interval (test code 188 = 266) QRSD interval (test 76 code = 260) QT interval (test code 378 = 264) QTC interval (test code 405 = 265) P axis 1 (test code = 34 267) QRS axis 1 (test code = 47 268) T wave axis (test code 36 = 270) EKG impression (test Normal sinus code = 273) rhythm-Normal ECG-In automated comparison with ECG of 27-JUL-2022 11:08,-No significant change was found- [id number] 14:39:58HoThomas MD 04/07/2023 9:59 AMCystoscopy Date/Time: 04/07/2023 9:39 AM Performed by: Thomas Hearn MDAuthorized by: Thomas Hearn MD Consent: Verbal consent obtained. Written consent obtained.Preparation: Patient was prepped and draped in the usual sterile fashion.Patient tolerance: patient tolerated the procedure well with no immediate complicationsComments: Cystoscopy Procedure Note: Consent obtained after discussion of risks/benefits/alternatives. The patient was sterilely prepped and draped. The flexible scope was placed in the bladder. The bladder was noted to be normal. The urethra was noted to be normal. The prostate was noted to be normal. The patient was given oral antibiotics x 6 to prevent infection. Anesthesia : local lidocaine, sterile prep with bedatine - estimated blood loss --> none, complications --> none. Post procedure instruction sheet has been provided to the patient and reviewed together. All questions answered. Physician : Thomas Hearn [facility] specific gravity, urine, qualitative, [id number] 13:11:49 Test Item Value Reference Range Interpretation Comments Specific gravity urine, 1.020 1.005-1.030 POC (test code = 1706634) Glucose urine, POC (test Trace Negative A code = 3650851) Bilirubin urine, POC Negative Negative (test code = 7221519) Ketones urine, POC (test Negative Negative code = 0099649) Blood urine, POC (test Negative Negative code = 7878122) pH urine, POC (test code 6.0 See_Comment [A utomated message] = 5331213) The system K[employer] generated this result transmitted ref erence range: 5.0, 5.5 , 6.0, 6.5, 7.0, 7.5, 8.0, 8.5. The refere nce range was not u sed to interpret this result as normal/abnor mal. Protein urine, POC (test Trace Negative A code = 9309076) Urobilinogen urine, POC <2.0 <=2.0 (test code = 4493095) Nitrite urine, POC (test Negative Negative code = 5435900) Leukocyte esterase Negative Negative urine, POC (test code = 4226564) Lab Interpretation (test Abnormal code = 88833-9) [facility] Kxvaj5524-91-26 20:44:06This exam was not acquired at a [facility] facility and has not been interpreted by a [facility] Provider. The exam was imported into our imaging system.[facility] Center[facility] tdhpnxz3701-25-29 10:42:00 Test Item Value Reference Range Interpretation Comments Urine culture Mixed pricila Specimen isolate (test <=10-3 col/cc InformationSp ecimen code = 66441-1) Source: Urin eSpecimen Site[facility], with reflex to culture 2023-03-11 03:02:00 Test Item Value Reference Range Interpretation Comments Specimen site (test Clean catch code = 1547508) Color, UA (test code = Ava 5778-6) Appearance, UA (test Clear code = 5767-9) Specific gravity, UA 1.025 1.001-1.035 (test code = 5811-5) pH, UA (test code = 5.0 5.0-8.5 5803-2) Protein, UA (test code 2+ Negative A = 02433-8) Glucose, UA (test code 1+ Negative A = 56058-7) Ketones, UA (test code Negative Negative = 2514-8) Bilirubin, UA (test Negative Negative code = 5770-3) Blood, UA (test code = Negative Negative 5794-3) Nitrite, UA (test code Negative Negative = 5802-4) Urobilinogen, UA (test 4.0 <=2.0 A code = 98926-4) Leukocyte esterase, UA Negative Negative (test code [...] (test code = 1 See_Comment [Autom ated 47453-9) message] The sy stem which generated this result transmitted reference range : 0 - 5 /HPF. The reference range was not used to interpret this result as normal/abnormal . Bacteria, UA (test code Few None seen = 67365-7) Yeast, UA (test code = None seen 55632-3) Yeast with None seen pseudohyphae, UA (test code = 57728-6) Hyaline casts, UA (test 17 See_Comment [Au tomated code = 5796-8) message] The system which generated this result transmitted reference range : /LPF. The refer ence range was not u sed to interpret th is result as normal/abnormal . Lab Interpretation Abnormal (test code = 45882-8) [facility] Pelvis W Rdmanohm9814-80-02 21:07:16CT ABDOMEN PELVIS W CONTRAST CLINICAL INDICATION: Bowel obstruction suspected TECHNIQUE: Multidetector CT imaging of the abdomen and pelvis was performed following the intravenous administration of iodinated contrast with multiplanar reconstructions. CT imaging was performed with iterative reconstruction technique and/or automated exposure control to reduce radiation dose. COMPARISON: 02/23/2023 FINDINGS: LOWER THORAX: Tip of a central venous catheter terminates in the upper right atrium. Mild left basilar atelectasis. LIVER: Hepatic steatosis. No focal suspicious lesion. BILIARY: Gallbladder is nond ilated. Unchanged mild gallbladder wall thickening with increased pericholecystic mild fat stranding. SPLEEN: Splenomegaly again noted. PANCREAS: Normal. GI: Enteric contrast is seen in multiple small bowel loops which are nondilated. Decreased wall thickening of the bowel loops in the moderate-large s ize right ventral abdominal wall hernia. No obstruction. Changes related to left hemicolectomy with left colostomy and large parastomal hernia containing multiple noninflamed nondilated small bowel loops. Anastomosis sutures again seen at a distal ileal loop. Appendix is normal. ADRENALS: Normal. GENIT OURINARY: Kidneys: Kidneys and ureters are unremarkable. Urinary Bladder: Increased urinary bladder distention with decreased wall thickening.Reproductive Organs: Prostate and seminal vesicles are unremarkable. PERITONEUM/RETROPERITONEUM: No significant change in the size of the peripherally enhancingpresacral fluid collection currently measuring 5.5 x 6.5 cm (AP X TR). No free fluid. No free air. VASCULAR: No aortic aneurysm, dissection, or pseudoaneurysm. Mild bilateral common iliac atherosclerosis. LYMPH NODES: No enlarged lymph nodes in the abdomen or pelvis. BONES: No acute osseous abnormality. Spinal degenerative changes. SOFT TISSUES: Unchanged skin thickening in the ventral abdominal wall. No fluid collections. Mild bilateral flank soft tissue anasarca. Abdominal hernias as described above. Tiny fat- containing left inguinal hernia. Nonspecific paraspinal subcutaneous edema, similar. IMPRESSION: 1.No bowel obstruction.2.Improved enteritis of small bowel loops in the right ventral abdominal wall hernia.3.Stable size of presacral fluid collection.4.Persistent gallbladder wall thickening with mildly increased nonspecific pericholecystic fat stranding however without gallbladder distention . Recent gallbladder ultrasound with no stones. [id number] Ddorfchkwla7092-12-83 14:30:04Exam: US GALLBLADDER History: Cholelithiasis, pain RLQ hernia Comparison: None available Technique: Grayscale and color Doppler transabdominal images were obtained of the right upper quadrant focus on the gallbladder. Findings: Multiple subcentimeter polyps or gallbladder. Ringdown artifact is noted in the region of gallbladder body and fundus. No gallstones. The gallbladder wall is mildly thickened and measures 5 mm.The common bile duct is normal in size and measures 4.1 mm.The portal vein is patent. Impression: 1. Multiple gallbladder polyps. Follow-up gallbladder ultrasound recommended in 3-6 months.2. Mild gallbladder wall thickening with ringdown artifact suggesting adenomyomatosis.3. No gallstones. [id number]_PS03[facility] glucose 2022-10-26 18:14:00 Test Item Value Reference Range Interpretation Comments POC glucose (test code = 157 mg/dL 65-99 H Ope rator Name: [id number]) Chidi Vidal vice ID: [id number] able: [facility] Notified senior microsoft net developer Interpretation (test Abnormal code = 77346-2) [facility] Wo Gccfmdgp4993-54-84 23:39:53EXAMINATION:CT CHEST WO CONTRAST CLINICAL HISTORY:possible BCG sepsis monitoring for any miliary or p neumonic opacities TECHNIQUE: Multiple axial images of the chest were obtained without intravenous contrast. The lack of intravenous contrast reduces the sensitivity of detecting solid organ disease and evaluating vasculature. Sagittal and coronal computerized reformatted images were also obtained. CT imaging was performed with iterative reconstruction techniques and/or automated exposure control to reduce radiation dose. COMPARISON:December 01, 2021 FINDINGS: No acute airspace disease. No new/suspicious pulmonary nodule. A 4 mm noncalcified nodule in the right costophrenic sulcus (series 3 image 98) is stable and likely postinflammatory. There is a calcified granuloma also in the anterior basal right lower lobe. Central airways are patent. No bronchiectasis. No lymphadenopathy. No pleural or pericardial effusion. The heart is normal in size. Mild coronary vascular calcifications. Aorta is nonaneurysmal. Port catheter tip at the cavoatrial junction. Liver is mildly fatty. Partly visualized spleen appears mildly enlarged, stable. IMPRESSION: 1.No acute abnormality. 2.A 4 mm basal right lower lobe nodule is stable and likely postinflammatory. [facility]-[id number] HospitalMRI Pelvis W Wo Contrast 2022-10-24 19:28:44EXAMINATION: MRI PELVIS W WO CONTRAST CLINICAL HISTORY: Soft tissue infection suspected pelvis xray done, Abscess anal or rectal, hx of rectal abscess that was partially drained 2 mo ago persistent 6 cm pre sacral fluid collection seen on non-con CT scan. evalute further. pt septic with high fever. COMPARISON: MRI April 05, 2022 TECHNIQUE: MR of the pelvis with and without intravenous gadolinium. FINDINGS: Patient is status post APR with end colostomy in the left lower quadrant. Redemonstration of irregular mass/collection in the lower presacral region slightly left of midline, measuring 5.8 x 4.9 cm, stable in size. Irregular thickened saucedo noted along the periphery though nodular enhancement and diffusion restriction was much more pronounced on prior exam. There is now mostly thin rim enhancement with thicker irregular enhancement noted at the anterior margin (series image 72). There is also nodular thickening noted caudally posterior to the prostate apex, right of midline at the level the puborectalis, measuring approximately 2.2 cm (series 11 image 96), grossly stable. Diffuse thickening ofthe bladder is similar to prior. The described presacral mass directly abuts the posterior wall of the bladder. Prostate is small. A 7 mm enhancing nodule more cranially (series 11 image 62) corresponding to previously noted lymph node, stable. No new fluid collection. No pelvic free fluid. Large parastomal hernia in the left lower quadrant containing small bowel. Another large hernia in the right lower quadrant containing small bowel is also stable, presumably site of prior ileostomy. No suspiciousosseous lesion. IMPRESSION: 1.Presacral mass is stable in size, with irregular thickening around themargin supportive of recurrent malignancy, even if infected, rather than simple abscess. There is decreased internal enhancement compared to March 2022 exam, suggesting more extensive necrosis. Nodular enhancement at anterior margin and caudally near the prostate apex on the right side are likely residual viable malignancy. 2.No new mass or collection. 3.Stable bladder thickening. 4.Large bilateral lower quadrant hernias containing small bowel. [id number] [facility]CT Abd/Pelvic External Lcssv1200-97-34 17:42:32This exam was not acquired at a [facility] facility and has not been interpreted by a [facility] Provider. The exam was imported into our imaging system.[facility] Centerngus wnodavs9722-28-05 00:15:00 Test Item Value Reference Range Interpretation Comments Fungus culture No growth Specimen isolate (test after 4 weeks InformationSp ecimen code = 580-1) of Source: Absces sSpecimen incubation. Site: MIKE-RECT AL [facility] CenterAnaerobic dnwslfm9024-37-59 11:44:00 Test Item Value Reference Range Interpretation Comments Anaerobic No anaerobic Specimen culture isolate organisms InformationS pecimen (test code = isolated. Source: Abscess Specimen 79651-5) Site: MIKE-RECT AL [facility] HospitalFungus [id number] 18:03:00 Test Item Value Reference Range Interpretation Comments Fungus smear No fungi Specimen (test code = observed. InformationSpec imen Source: 1443) AbscessSpecimen Site: MIKE-RECTAL [facility] HospitalGram luzjk0922-90-02 20:15:00 Test Item Value Reference Range Interpretation Comments Gram stain Few Gram Specimen isolate (test positive cocci InformationS pecimen code = 1469) in pairs Source: Abscess Specimen Site: MIKE-RECT AL [facility] HospitalECG 12 [id number] 21:03:34 Test Item Value Reference Range Interpretation Comments Ventricular rate 69 (test code = 253) Atrial rate (test 69 code = 255) OR interval (test 194 code = 266) QRSD [...] of 04-MAY-2022 09:01,-No significant change was found- [facility] RNA [Presence] in Respiratory specimen by ADAL with probe [id number] 15:32:14 Test Item Value Reference Range Interpretation Comments SARS-CoV-2 (COVID-19) RNA Not detected [Presence] in Respiratory specimen by ADAL with probe detection (test code = 28486-5) Whether patient is employed in a Unknown healthcare setting (test code = 70764-9) Whether the patient has symptoms Unknown related to condition of interest (test code = 26001-9) Whether the patient was Unknown hospitalized for condition of interest (test code = 70592-6) Whether the patient was admitted Unknown to intensive care unit (ICU) for condition of interest (test code = 16060-4) Whether patient resides in a Unknown congregate care setting (test code = 90267-0) status (test code = Unknown 78552-2) Date and time of symptom onset Unknown (test code = 78971-2) [facility] isdhwpm1425-89-91 21:59:48 Test Item Value Reference Range Interpretation Comments Case number (test code = [id number]) Surgical pathology See link below for report (test code = PDF Lab Report 6257) Result status (test code This is Final Report = [id number]) for [id number] [facility] Center[facility] [id number] 18:57:00 Test Item Value Reference Range Interpretation Comments Urine culture Mixed pricila Specimen isolate (test <=10-3 col/cc InformationSp ecimen code = 96279-5) Source: Urin eSpecimen Site: [facility] cat [facility]Post [id number] 16:34:09 Test Item Value Reference Range Interpretation Comments Ventricular rate (test code = 253) Atrial rate (test code = 255) OR interval (test code = 266) QRSD interval [...] of 01-DEC-2021 18:44,-No significant change was found- [facility] JxdlwvqnEHQX-OsZ-0 (COVID-19) RNA [Presence] in Respiratory specimen by ADAL with probe vwcigvoxe7775-92-19 12:52:09 Test Item Value Reference Range Interpretation Comments SARS-CoV-2 (COVID-19) RNA Not detected [Presence] in Respiratory specimen by ADAL with probe detection (test code = 98124-4) Whether patient is employed in a Unknown healthcare setting (test code = 77845-3) Whether the patient has symptoms Unknown related to condition of interest (test code = 72541-5) Whether the patient was Unknown hospitalized for condition of interest (test code = 97728-2) Whether the patient was admitted Unknown to intensive care unit (ICU) for condition of interest (test code = 83679-1) Whether patient resides in a Unknown congregate care setting (test code = 68000-3) status (test code = Unknown 26389-4) Date and time of symptom onset Unknown (test code = 71864-1) [facility] 12 tdnd8984-08-77 03:34:45 Test Item Value Reference Range Interpretation Comments Ventricular rate (test code = 253) Atrial rate (test code = 255) OR interval (test code = 266) QRSD interval [...] of 22-DEC-2020 10:59,-No significant change was found- [facility] [id number] 17:13:13 Test Item Value Reference Range Interpretation Comments AFB culture No growth Specimen isolate (test after 6 weeks InformationSp ecimen code = 543-9) of Source: Absces sSpecimen incubation. Site: Abdomen: pelvic abscess [facility] ([facility]OVID-19) RNA [Presence] in Respiratory specimen by ADAL with probe xuvsbkbyc2592-23-63 22:33:30 Test Item Value Reference Range Interpretation Comments SARS-CoV-2 (COVID-19) RNA Not detected Not-Detected [Presence] in Respiratory specimen by ADAL with probe detection (test code = 21073-6) [facility] qgzqmea2876-26-24 22:44:57 Test Item Value Reference Range Interpretation Comments Case number (test code = [id number]) Surgical pathology See link below for report (test code = PDF Lab Report 2255) Result status (test code This is Final Report = [id number]) for [id number] [facility] CenterAnaerobic nngngpl1787-35-54 12:59:53 Test Item Value Reference Range Interpretation Comments Anaerobic No anaerobic Specimen culture isolate organisms InformationS pecimen (test code = isolated. Source: Abscess Specimen 552) Site: Abdomen: pelvic abscess [facility] CenterAFB udall1725-33-10 20:19:40 Test Item Value Reference Range Interpretation Comments AFB stain No acid fast Specimen (test code = bacilli (AFB) InformationSpe [facility] 676-7) seen. Source: Abscess Specimen Site: Abdomen: pelvic abscess [facility] HospitalAerobic pvnpepb9256-21-79 20:19:40 Test Item Value Reference Range Interpretation Comments Aerobic culture No growth Specimen isolate (test after 2 days. InformationSp ecimen code = 498) Source: Abscess Specimen Site: Abdomen: pelvic abscess [facility] HospitalGram psfbl0577-73-50 20:19:40Gram stain isolateOccasional WBC'sNo organisms seen Comment: Specimen InformationSpecimen Source: Abs cessSpecimen Site: Abdomen: pelvic abscess [facility]/Post [id number] 13:30:38 Test Item Value Reference Range Interpretation Comments Ventricular rate (test code = 253) Atrial rate (test code = 255) OR interval (test code = 266) QRSD interval [...] of 01-FEB-2020 09:53,-No significant change was found- [facility]SpkfjxwoYUEJ-ZnN-4 (COVID-19) RNA [Presence] in Respiratory specimen by ADAL with probe kpfebzdct4573-62-85 15:56:28 Test Item Value Reference Range Interpretation Comments SARS-CoV-2 (COVID-19) RNA Not detected Not-Detected [Presence] in Respiratory specimen by ADAL with probe detection (test code = 74574-7) [facility] ([facility]) RNA [Presence] in Respiratory specimen by ADAL with probe qoowaohtb1021-33-80 20:11:47 Test Item Value Reference Range Interpretation Comments SARS-CoV-2 (COVID-19) RNA [Presence] Detected Not-Detected in Respiratory specimen by ADAL with probe detection (test code = 68097-4) [facility] W/AUTO [id number] 09:43:00 Test Item Value Reference Range Interpretation [...] 0.02 x10 3/uL 0.0-0.20 N BASIC METABOLIC [id number] 06:34:00 Test Item Value Reference Range Interpretation [...] data elements a re missing the Laboratory zluma ot compute an estimation of t he glomerular filtration rate . CREATININE (test 0.6 mg/dL 0.8-1.5 L code = CREAT) CALCIUM (test code 7.7 mg/dL 8.8-10.2 L = CA) [id number] 06:34:00 Test Item Value Reference Range Interpretation Comments MAGNESIUM (test code = MAG) 2.1 mg/dL 1.4-2.6 N CBC W/AUTO [id number] 06:21:00 Test Item Value Reference Range Interpretation [...] 0.01 x10 3/uL 0.0-0.20 N B-TYPE NATRIURETIC [id number] 12:23:00 Test Item Value Reference Range Interpretation Comments B-TYPE NATRIURETIC PEPTIDE (test 504 PG/ML 0-100 H code = BNP) - XR CHEST 1 [id number] 07:34:00Patient Name: PRIYANKA HENDERSON Unit No: [id number] EXAMS: CPT CODE: [id number] XR CHEST 1 V 36309 CLINICAL HISTORY: chf. LOCATION: A1 FINDINGS: Comparison [...] by: AMBROCIO RODAS M.D. CC: Henrik Mendoza MD; Mack Inman MD Technologist: Latia Hager Time: DAP (Gy m2): Air Kerma (mGy): Trscr Dt/Tm: 03/22/2020 (0734) by:Fito Printed Date/Time: 03/22/2020 (0797) Name: PR[facility]A HENDERSON [facility] Phys: Mack Arriaga [address] : 1960 Age:59 Sex: [place] [address] Loc: P.0206 1 Exam Date: 03/22/2020 Status: ADM INPH: FAX: PAGE 1 Signed Report COMPREHENSIVE METABOLIC [id number] 06:56:00 Test Item Value Reference Range Interpretation [...] 45-120 N PHOSPHATASE (test code = ALKP) [id number] 06:56:00 Test Item Value Reference Range Interpretation Comments MAGNESIUM (test code = MAG) 2.1 mg/dL 1.4-2.6 N CBC W/AUTO [id number] 06:44:00 Test Item Value Reference Range Interpretation [...] = BA#) 0.01 x10 3/uL 0.0-0.20 N [id number] 17:46:00 Test Item Value Reference Range Interpretation Comments POTASSIUM (test code = K) 3.9 MMOL/L 3.5-5.1 N [id number] 17:46:00 Test Item Value Reference Range Interpretation Comments MAGNESIUM (test code = MAG) 2.0 mg/dL 1.4-2.6 N [id number] 17:19:00 Test Item Value Reference Range Interpretation Comments HEMOGLOBIN (test code = HGB) 8.2 g/dL 14.5-20 L [id number] 14:05:00 Test Item Value Reference Range Interpretation Comments HEMOGLOBIN (test code = HGB) 8.2 g/dL 14.5-20 L [id number] 10:56:00 Test Item Value Reference Range Interpretation Comments GLUBED (test code = GLUBED) 100 MG/DL 70-105 N SURGICAL [id number] 09:58:00 RUN DATE: 03/21/20 [facility] - LAB PAGE 1 RUN TIME: 958 Specimen Inquiry RUN USER: INTERFACE ------ ------PATIENT: PRIYANKA HENDERSON LOC: [place] [facility] U #: [id number] AGE/SX: 59/M ROOM: [facility] RE03/18/20[facility] DR: Henrik Mendoza MD : 58 BED: 1 DIS: STATUS: ADM IN TLOC: SPEC #: [id number] RECD:03/19/20-1015 STATUS: MAIRA VARNER #: [id number] NADIR: 03/18/20- [address]: Henrik Mendoza MD ENTERED: 03/19/20-1015 SP [...] skin (1.7 x 1.5 x 1 cm). Graduation Coach sections are submitted as described below inthe section code. SECTION CODE: A1: Presumed stoma site A2-A3: Additional community engagement representative sections RAB/th CONTINUED ON NEXT PAGE RUN DATE: 03/21/20 [facility] - LAB PAGE 2 RUN TIME: 958 Specimen Inquiry RUN USER: INTERFACE SPEC #: [id number] PATIENT: PRIYANKA HENDERSON ANTONI #[id number] (Continued)- MICROSCOPIC DESCRIPTION Microscopic performed. Signed SIGNATURE ON FILE Margret Gaviria MD 03/21/20 0958 END OF REPORT BASIC METABOLIC [id number] 07:03:00 Test Item Value Reference Range Interpretation [...] code 8.0 mg/dL 8.8-10.2 L = CA) [id number] 07:03:00 Test Item Value Reference Range Interpretation Comments MAGNESIUM (test code = MAG) 1.8 mg/dL 1.4-2.6 N CBC W/AUTO [id number] 06:37:00 Test Item Value Reference Range Interpretation [...] = BA#) 0.01 x10 3/uL 0.0-0.20 N [id number] 02:00:00 Test Item Value Reference Range Interpretation Comments HEMOGLOBIN (test code = HGB) 7.9 g/dL 14.5-20 L LACTIC [id number] 18:53:00 Test Item Value Reference Range Interpretation Comments LACTIC ACID (test code = LACT) 10.2 mg/dL 4.5-18.0 N BASIC METABOLIC [id number] 18:53:00 Test Item Value Reference Range Interpretation [...] 7.1 mg/dL 8.8-10.2 L = CA) HGB [id number] 18:28:00 Test Item Value Reference Range Interpretation Comments HEMOGLOBIN (test code = HGB) 8.1 g/dL 14.5-20 L HEMATOCRIT (test code = HCT) 25.1 % 42.0-52.0 L [id number] 13:30:00 Test Item Value Reference Range Interpretation Comments HEMOGLOBIN (test code = HGB) 8.4 g/dL 14.5-20 L BASIC METABOLIC [id number] 06:40:00 Test Item Value Reference Range Interpretation [...] code = 7.1 mg/dL 8.8-10.2 L CA) [id number] 06:40:00 Test Item Value Reference Range Interpretation Comments MAGNESIUM (test code = MAG) 1.6 mg/dL 1.4-2.6 N LACTIC [id number] 06:40:00 Test Item Value Reference Range Interpretation Comments LACTIC ACID (test code = LACT) 12.1 mg/dL 4.5-18.0 N CBC W/AUTO [id number] 06:32:00 Test Item Value Reference Range Interpretation [...] 0.01 x10 3/uL 0.0-0.20 N COMPREHENSIVE METABOLIC [id number] 01:24:00 Test Item Value Reference Range Interpretation [...] 45-120 L (test code = ALKP) LACTIC [id number] 01:13:00 Test Item Value Reference Range Interpretation Comments LACTIC ACID (test 30.6 mg/dL 4.5-18.0 HH Critical V alue reported code = LACT) toFirst Name:MIKI HAYES Last Name:SHAMAR RESULTS READ BACK AND VERIFIEDby STACEY MORALES, on 03/20/20, @ 011 3. PROTHROMBIN [id number] 01:11:00 Test Item Value Reference Range Interpretation [...] 2.5-3.5recurren t systemic emboli sm. THROMBOPLASTIN TIME [id number] 01:11:00 Test Item Value Reference Range Interpretation Comments THROMBOPLASTIN TIME 21.1 SECONDS 26.0-35.9 L INTERPRE TATIVE PARTIAL (test code = DATA:Th erapeutic PTT) range: Unfractionated heparin:47 - 71 seconds Argatroban:1.5 to 3 times the basel ine PTT [id number] 01:11:00 Test Item Value Reference Range Interpretation Comments FIBRINOGEN (test code = FIB) 298 mg/dL 200-400 N [id number] 01:11:00 Test Item Value Reference Range Interpretation Comments D-DIMER (test 2251 ng/mL 0-500 HH Critical Value reported code = DDIMER) toFirst Name: PREM Last Name:SHAMAR RESULTS READ BACK AND CB MaloneyLABJANKI, on 0 03/20/20, @ 0111.THE DDIMER METHOD [...] STS AND APPROPRIATECLIN ICAL EVALUATIONS. CBC W/AUTO [id number] 01:00:00 Test Item Value Reference Range Interpretation [...] 3/uL 0.0-0.20 N - XR CHEST 1 [id number] 00:24:00Patient Name: PRIYANKA HENDERSON Unit No: [id number] EXAMS: CPT CODE: [id number] XR CHEST 1 [id number] EXAMINATION: - XR CHEST 1 V LOCATION: H61 INDICATION/CLINICAL HISTORY: s/p exp lap COMPARISON: Chest x-ray 03/19/2020 TECHNIQUE: Frontal view of the chest. FINDINGS: Lines/device:Interval placement of right IJ central venous catheter with tip located at the cavoatrial junction. Cardiomediastinalsilhouette: Normal. Pulmonary vasculature: Not congested. Lungs/pleura: Low [...] Printed Date/Time: 03/20/2020 (0027) Name: PRIYANKA HENDERSON [facility] Phys: Alley William [employer] [address] : 1960 Age: 59 Sex: [place] [address] Loc: P.0206 1 Exam Date: 03/19/2020 Status: ADM IN PH: FAX: PAGE 1 Signed ReportHGB [id number] 18:48:00 Test Item Value Reference Range Interpretation Comments HEMOGLOBIN (test code = HGB) 8.3 g/dL 14.5-20 L HEMATOCRIT (test code = HCT) 26.2 % 42.0-52.0 L LACTIC [id number] 17:54:00 Test Item Value Reference Range Interpretation Comments LACTIC ACID (test 42.2 mg/dL 4.5-18.0 HH Critical V alue reported code = LACT) toFirst Name:DI ASAHISH Last Name:BANDAR BANGURA READ BACK AND VERIFIEDby STACEY JUDD, on 03/19/20, @ 175 2. [id number] 16:26:00 Test Item Value Reference Range Interpretation Comments TROPONIN-I (test < 0.30 ng/mL 0.00-0.30 N INTERPRETAT LOCO code = TROPI) DATA:Negative or inconclusive re uslts do not exclude myocardialinfar ction. Serial tests at appropriate int ervals may benecessary. LACTIC [id number] 16:04:00 Test Item Value Reference Range Interpretation Comments LACTIC ACID (test 35.9 mg/dL 4.5-18.0 HH Critical V alue reported code = LACT) toFirst Name: Ranjana ast Name:DR LOVE RESULTS READ BACK AND Tim MaloneyLAB., on , @ 1604. - XR CHEST 1 [id number] 14:51:00Patient Name: PRIYANKA HENDERSON Unit No: [id number] EXAMS: CPT CODE: [id number] XR CHEST 1 [id number] CLINICAL HISTORY: Shock. LOCATION: A1 FINDINGS: No [...] (Gy m2):Air Kerma (mGy): Trscr Dt/Tm: 03/19/2020 (6480) by:[email or web address] Printed Date/Time: 03/19/2020 (8426) Name: BEATRIZBRENDENPRIYANKASILVIA CORRALES [facility] Phys: [email or web address].[email or web address] - Ezio Aragon MD [address] : 1960 Age: 59 Sex: [place] [address] Loc: P.0206 1 Exam Date: 03/19/2020 Status: ADM IN PH: FAX: PAGE 1 Signed Report- XR ABDOMEN [id number] 14:49:00Patient Name: PRIYANKA HENDERSON Unit No: [id number] EXAMS: CPT CODE: [id number] XR ABDOMEN [id number] Exam:Abdomen KUB radiograph one view Location: W1 Clinical Indication:67-year-old with shock Comparison:None Findings:AP views of the abdomen and pelvis were obtained. There is mild gaseous distention of both small and large bowel. There is stool within the ascending colon. No obvious free air. No acute osseous abnormality. Impression: Nonobstructed bowel gas pattern. at 1449 Reported and signed by: William Eli MD CC: Ezio Aragon MD; Henrik Mendoza MD Technologist: Henrique Montanez Fluoro Time: DAP (Gy m2): Air Kerma (mGy): Trscr Dt /Tm: 03/19/2020 (0487) by:[email or web address] Printed Date/Time: 03/19/2020 (4631) Name: PRIYANKA HENDERSON [facility] Phys: ROEL. Ezio Aragon MD [address] : 1960 Age: 59 Sex: [place] [address] Loc: P.0206 1 Exam Date: 03/19/2020 Status: ADM IN PH: FAX: PAGE 1 Signed ReportBASIC METABOLIC [id number] 14:25:00 Test Item Value Reference Range Interpretation [...] code 9.6 mg/dL 8.8-10.2 N = CA) [id number] 14:25:00 Test Item Value Reference Range Interpretation Comments PHOSPHOROUS (test code = PHOS) 3.2 mg/dL 2.7-4.5 N [id number] 14:25:00 Test Item Value Reference Range Interpretation Comments MAGNESIUM (test code = MAG) 1.8 mg/dL 1.4-2.6 N LACTIC [id number] 12:59:00 Test Item Value Reference Range Interpretation Comments LACTIC ACID (test 34.6 mg/dL 4.5-18.0 HH Critical V alue reported code = LACT) toFirst Name:JOSE A ROBERSON Last Name:ALONDRA REYES READ BACK AND VERIFIEDby STACEY RAYA, on 03/19/20, @ 125 9. PROTHROMBIN [id number] 12:13:00 Test Item Value Reference Range Interpretation [...] 2.5-3.5recurren t systemic emboli sm. THROMBOPLASTIN TIME [id number] 12:13:00 Test Item Value Reference Range Interpretation Comments THROMBOPLASTIN TIME 27.7 SECONDS 26.0-35.9 N INTERPRE TATIVE PARTIAL (test code = DATA: erapeutic PTT) range: Unfractionated heparin:47 - 71 seconds Argatroban:1.5 to 3 times the basel ine PTT CBC W/AUTO [id number] 12:06:00 Test Item Value Reference Range Interpretation [...] 0.01 x10 3/uL 0.0-0.20 N ARTERIAL BLOOD [id number] 11:43:00 Test Item Value Reference Range Interpretation [...] <0.8 % 0-1.5 N METHGB) BASIC METABOLIC [id number] 07:02:00 Test Item Value Reference Range Interpretation [...] code 8.9 mg/dL 8.8-10.2 N = CA) [id number] 07:02:00 Test Item Value Reference Range Interpretation Comments MAGNESIUM (test code = MAG) 2.1 mg/dL 1.4-2.6 N CBC W/AUTO [id number] 06:45:00 Test Item Value Reference Range Interpretation [...] x10 3/uL 0.0-0.20 N Novel Coronavirus 2019 [id number] 07:29:00 Test Item Value Reference Range Interpretation Comments Novel Coronavirus 2019 Inhouse (test Negative Negative code = COVNONPUI) Testing Criteria: Preprocedure ScreeningNovel Coronavirus 2019 [id number] 07:29:00 Test Item Value Reference Range Interpretation Comments Novel Coronavirus 2019 Inhouse (test Negative Negative code = COVNONPUI) Testing Criteria: Preprocedure ScreeningBASIC METABOLIC [id number] 14:31:00 Test Item Value Reference Range Interpretation [...] mg/dL 8.8-10.2 N = CA) CBC W/AUTO [id number] 14:05:00 Test Item Value Reference Range Interpretation [...] BA#) 0.03 x10 3/uL 0.0-0.20 N BLOOD [id number] 00:00:00 Test Item Value Reference Range Interpretation Comments CULTURE (Soccer Manager) (test No growth in 5 days code = 1095) CARDIOLIPIN ANTIBODIES, IGG AND [id number] 16:01:00 Test Item Value Reference Range Interpretation Comments ANTICARDIOLIPIN IGG ANTIBODY (Soccer Manager) < GPL (test code = 712) ANTICARDIOLIPIN IGM ANTIBODY (Soccer Manager) 0.6 MPL (test code = 713) Anticardiolipin IgG Result Interpretation:NEG: <20 GPL; U/mlPOS: >/=20 GPL; U/mlAnticardiolipin IgM Result Interpretation:NEG: <20 MPL; U/mlPOS: >/=20 MPL; U/mlPROTHROMBIN GENE [id number] 16:58:00 Test Item Value Reference Range Interpretation Comments PROTHROMBIN/FACTOR II Negative for the D92345G ([employer] Manager) (test code = (Prothrombin/Factor II) 4082) mutation. [id number] Palmer Mortensen M.D. (Soccer Manager) (test code = (electonic signature) 2600) This test is a genotyping assay which evaluates the DNA sequence at position 97092 of the prothrombin (Factor II) gene. A [...] and its performance characteristics determined by the [facility] Pathology Department, Section of Molecular [...] FACTOR V LEIDEN Negative for the R506Q ([facility]) (test code = (Factor V Leiden) 718) mutation [id number] Palmer Mortensen M.D. (Soccer Manager) (test code = (electonic signature) 9140) This test is a genotyping assay which [...] was developed and [facility], Section of Molecular Pathology. It has not been cleared or approved by the U.S. Food and Drug Administration (FDA), since FDA approval is not requ ired for clinical use of the test. Validation was done as required by the Clinical Laboratory Improvement Amendments of 1988.ANTITHROMBIN [id number] 11:09:00 Test Item Value Reference Range Interpretation Comments ANTITHROMBIN III ACTIVITY (JEANAKER) 76.0 % 80.0-120.0 L (test code = 711) PROTEIN C [id number] 11:09:00 Test Item Value Reference Range Interpretation Comments PROTEIN C ACTIVITY ([employer]) (test 106.0 % 70.0-130.0 code = 582) MR, MRA CHEST, [id number] 13:27:00FINAL REPORT MRA/MRV of the chest and great veins, 30 August 2017 INDICATION: This is a 57 years old male, with a diagnosis of left internal jugular DVT presents for assessment.This study is performed in attempt to avoid invasive procedure. TECHNIQUE: Due to patient's body habitus, three Maria Fernanda scanner has to be used. Richard BigRep 3 Maria Fernanda MRI scanner. Gradient echo [...] Crowell MDReport Verified Date/Time: 08/30/2017 13:27:08Reading Location: [place] [address] Cardiology MRI Electronically signed by: BABAK CROWELL M.D. on 01:27 [id number] 07:31:00 Test Item Value Reference Range Interpretation Comments PARTIAL THROMBOPLASTIN TIME 60.9 seconds 22.5-36.0 H (BEAKER) (test code = 760) LIPID [id number] 07:17:00 Test Item Value Reference Range Interpretation Comments TRIGLYCERIDES (BEAKER) (test code = 124 mg/dL 540) CHOLESTEROL (BEAKER) (test code = 152 mg/dL 631) HDL CHOLESTEROL (BEAKER) (test code 34 mg/dL = 976) LDL CHOLESTEROL CALCULATED ([facility]) 93 mg/dL (test code = 633) Triglyceride Reference Range: Low Risk <150 Borderline 150-199 High Risk 200- 499 Very High Risk >=500Cholesterol Reference Range: Low Risk <200 Borderline 200-239 High Risk >240HDL Cholesterol Reference Range: Low Risk >=60 High Risk <40LDL Cholesterol Reference Range: Optimal <100 Near Optimal 100-129 Borderline 130-159 High 160-189 Very High >=190BASIC METABOLIC [id number] 07:17:00 Test Item Value Reference Range Interpretation [...] DATA TO CALCULA TE ESTIMATED GFR. PROTHROMBIN TIME/[id number] 06:53:00 Test Item Value Reference Range Interpretation Comments PROTIME (BEAKER) (test code = 15.5 seconds 11.7-14.7 H 759) INR (BEAKER) (test code = 370) 1.2 <=5.9 RECOMMENDED COUMADIN/WARFARIN INR THERAPY RANGESSTANDARD DOSE: 2.0 - 3.0 Includes: PROPHYLAXIS for venous thrombosis, systemic embolization; TREATMENT for venous thrombosis and/or pulmonary embolus.HIGH RISK: Target INR is 2.5-3.5 for patients with mechanical heart valves.INFLUENZA A H1N1 [id number] 21:35:00 Test Item Value Reference Range Interpretation Comments INFLUENZA A RNA Not Detected Not Detected, (BEAKER) (test code = Inconclusive 1545) NOVEL H1N1 RNA (BEAKER) Not Detected Not Detected, (test code = 1546) Inconclusive These assays were performed by real-time RT-PCR (school treasurer-PCR) utilizing fluorogenic hydrolysis probe technology for the detection of human Influenza A viruses and the differential detection of novel H1N1 Influenza virus in respiratory specimens. The test is composed of (1) an RNA extraction from patient specimen, and (2) school treasurer-PCR amplification and detection with human Influenza A and novel Y9E3-lexkrelu primers and probes. A well-conserved region of [...] and its performance characteristics determined by the [facility] Pathology Department, Section of Molecular Pathology. It has not been cleared or approved by the U.S. Food and Drug Administration (FDA). Since FDAapproval is not required for clinical use of the test, validation was done as required by The Clinical Laboratory Amendments of 1988.MR, MRA, BRAIN, [id number] 20:40:00 Please perform MRV of headFINAL REPORT CLINICAL HISTORY: Evaluate for thrombus in subclavian vein TECHNIQUE: 2-D and 3-D psnn-fc-oscbgg and postcontrast MR angiogram of the arch, great vessels, and neck wasprovided with maximal intensity projection 3-D reconstructions of the arterial vasculature. MR venogram imaging of the head and neck was also performed. COMPARISON: None FINDINGS: There is no evidence for a cabazon of [place] proximal branch vessel occlusion. There [...] MRA imaging is unremarkable. Signed: Kandice Daniels Verified Date/Time: 08/29/2017 20:40:50 Reading Location: [facility] Reading Room MR, MRA, NECK, [id number] 20:40:00Please perform MRV of neck and upper chest to include subclavian veinFINAL REPORT CLINICAL HISTORY: Evaluate for thrombus in subclavian vein TECHNIQUE: 2-D and 3-D nsig-no-lbiayu and postcontrast MR angiogram of the arch, great vessels, and neck wasprovided with maximal intensity projection 3-D reconstructions of the arterial vasculature. MR venogram imaging of the head and neck was also performed. COMPARISON: None FINDINGS: There is no evidence for a cabazon of [place] proximal branch vessel occlusion. There [...] MRA imaging is unremarkable. Signed: Kandice Daniels Verified Date/Time: 08/29/2017 20:40:50 Reading Location: [facility] Radiology Reading Room BASIC METABOLIC [id number] 04:27:00 Test Item Value Reference Range Interpretation [...] m DATA TO CALCULA TE ESTIMATED GFR. [id number] 04:21:00 Test Item Value Reference Range Interpretation Comments PARTIAL THROMBOPLASTIN TIME 78.0 seconds 22.5-36.0 H (BEAKER) (test code = 760) LIPID [id number] 04:19:00 Test Item Value Reference Range Interpretation [...] Borderline 130-159 High 160-189 Very High >=190PROTHROMBIN TIME/[id number] 04:15:00 Test Item Value Reference Range Interpretation Comments PROTIME (BEAKER) (test code = 15.0 seconds 11.7-14.7 H 759) INR (BEAKER) (test code = 370) 1.2 <=5.9 RECOMMENDED COUMADIN/WARFARIN INR THERAPY RANGESSTANDARD DOSE: 2.0 - 3.0 Includes: PROPHYLAXIS for venous thrombosis, systemic embolization; TREATMENT for venous thrombosis and/or pulmonary embolus.HIGH RISK: Target INR is 2.5-3.5 for patients with mechanical heart valves.RAD, CHEST, 2 [id number] 00:54:00 Reason for exam:->fever, coughFINAL REPORT EXAMINATION: [...] performed for further characterization. Signed: Fabio Ac MDReport Verified Date/Time: 08/29/2017 00:54:23 Reading Location: [address] Reading Room [id number] 21:10:00 Test Item Value Reference Range Interpretation Comments PARTIAL THROMBOPLASTIN TIME 79.6 seconds 22.5-36.0 H (BEAKER) (test code = 760) RAPID INFLUENZA A&B [id number] 13:38:00 Test Item Value Reference Range Interpretation Comments RAPID INFLUENZA A AG (BEAKER) Negative Negative, Inconclusive (test code = 1622) RAPID INFLUENZA B AG (BEAKER) Negative Negative, Inconclusive (test code = 1623) [id number] 13:14:00 Test Item Value Reference Range Interpretation Comments PARTIAL THROMBOPLASTIN TIME 47.5 seconds 22.5-36.0 H (BEAKER) (test code = 760) MR, BRAIN, WITHOUT [id number] 08:06:00FINAL REPORT MRI brain Comparison: No priors [...] further evaluation with MRV. Signed: Eduardo Rivera MDReport Verified Date/Time: 08/28/2017 08:06:08 Reading Location: [address] Neuro Reading Room CALCIUM, [id number] 06:58:00 Test Item Value Reference Range Interpretation Comments CALCIUM IONIZED (BEAKER) (test 1.16 mmol/L 1.12-1.27 code = 698) PH, BLOOD (BEAKER) (test code = 7.35 1810) [id number] 06:26:00 Test Item Value Reference Range Interpretation Comments MAGNESIUM (BEAKER) (test code = 2.2 mg/dL 1.6-2.6 627) LIPID [id number] 06:26:00 Test Item Value Reference Range Interpretation [...] 130-159 High 160-189 Very High >=190HEPATIC FUNCTION [id number] 06:26:00 Test Item Value Reference Range Interpretation [...] = 32 U/L 6-55 347) BASIC METABOLIC [id number] 06:26:00 Test Item Value Reference Range Interpretation [...] m DATA TO CALCULA TE ESTIMATED GFR. [id number] 06:11:00 Test Item Value Reference Range Interpretation Comments PARTIAL THROMBOPLASTIN TIME 45.8 seconds 22.5-36.0 H (BEAKER) (test code = 760) PROTHROMBIN TIME/[id number] 06:01:00 Test Item Value Reference Range Interpretation Comments PROTIME (BEAKER) (test code = 13.3 seconds 11.7-14.7 759) INR (BEAKER) (test code = 370) 1.0 <=5.9 RECOMMENDED COUMADIN/WARFARIN INR THERAPY RANGESSTANDARD DOSE: 2.0 - 3.0 Includes: PROPHYLAXIS for venous thrombosis, systemic embolization; TREATMENT for venous thrombosis and/or pulmonary embolus.HIGH RISK: Target INR is 2.5-3.5 for patients with mechanical heart valves.CBC W/PLT COUNT & AUTO [id number] 05:48:00 Test Item Value Reference Range Interpretation [...] 0-1 PERCENT (BEAKER) (test code = 2801) [id number] 20:58:00 Test Item Value Reference Range Interpretation [...] 413) Notes Date/Time Note Provider Source 2020-03-22 10:39:00 [id number]:39:00 [facility] ([facility])Critical Care Progress NoteREPORT#:[id number] REPORT STATUS: SignedDATE:03/22/20 TIME: 1039 PATIENT: PRIYANKA HENDERSON UNIT #: [id number]#: [id number] ROOM: [facility] BED: 1DOB: [birth year] AGE: 59 SEX: M ATTEND: Henrik Mendoza [facility] AUTHOR: Mack Inman MD * ALL edits or amendments must be made on the electronic/computer document * SubjectiveChief complaint:COUGH HAS RESOLVEDdoing better on nebs Review of SystemsConstitutional:Reports: fatigue. Skin:Denies: abrasion, bruising, contusion, diaphoresis, ecchymosis, itching, laceration, rash, swelling, other. Allergy/Immun:Denies: allergic reaction, anaphylaxis, hives, itching, rhinorrhea, sneezing, other. Eyes:Denies: redness, discharge, visual loss/blurred, itching , diplopia, eye pain, photophobia, swelling, other . ENT:Denies: ear drainage, ear ringing, earache, hearing loss, mouth pain, nasal congestion, nose bleeding, sinus problem, sore throat, throat pain, throat swelling, tongue pain, tongue swelling, toothache, voice change, other. Respiratory:Denies: CH (dyspnea on exertion), hemoptysis, non productive cough, parox nocturna l dyspnea, pleurisy, pleuritic pain, pneumonia, productive cough (sputum), SOB, wheezing, other. Cardiovascular:Denies: chest pain, CH (dyspnea on exertion), edema, orthopnea, palpitations, parox nocturnal dyspnea, other. Objective GeneralVS/I OLast Documented: Result Date Time Pulse Ox 96 03/22 930 B/P 132/60 03/22 930 B/P Mean 86 03/22 930 Pulse 79 03/22 930 Resp 16 03/22 09 Temp 36.9 03/22 0838 FiO2 21 03/21 1723 O2 Delivery Room air 03/21 1723 O2 Flow Rat e 2.332928 03/21 1322 24 hour I O ending at 0700: 03/21 1900 03/22 0700 Intake Total 2640.00 1175.00 Output Total 985 490 Balance 1655.00 685.00 Intake, IV 1500.00 875.00 Intake, Oral 1140 300 Output, 10 Drainage Output, Urine 985 480 Patient 133.356 kg Weight Weight Bed scale Measurement Method Patient Weight Weight (lb): 294Weight (oz): 8.6Weight (kg): 133.356 Medications:Active Meds + DC'd Last 24 HrsFamotidine 20 MG Q12HR PO Cefepime HCl 1 GM Q8H IV (CKD) Sodium Chloride 50 MLMagnesium Sulfate 50 ML ONCE ONE IV (DC) Potassium Chlorid e 100 ML ONCE ONE IV (DC) Metronidazole/Sodium Chloride 100 ML Q8HR IV Albuterol Sulfate 2.5 MG RTQID NEB Budesonide 0.5 MG RTBID NEB Acetaminophen 1,000 MG Q6H PO (CKD) Cefepime HCl 1 GM Q6HR IV (DC) Sodium Chloride 50 MLCelecoxib 200 MG Q12HR PO (DA) Acetaminophen 650 MG Q6H PRN PRN PO Famotidine 20 MG Q12HR IV (DC) Sodium Chloride 10 MLNorepinephrine Bitartrate 250 ML ASDIR IV Piperacillin Sod/Tazobactam Sod 3.375 G M Q8H IV (DC) Sodium Chloride 100 MLDiphenhydramin e HCl 12.5 MG PACU ONCE PRN PRN IV Sodium Chloride 1,000 ML .[id number] IV Losartan Potassium 50 MG DAILY PO Hydromorphone HCl 0.25 MG Q3H PRN PRN IV Enoxaparin Sodium 40 MG DAILY SUBQ (DA) Gabapentin 300 MG TID PO (CKD) Ondansetron Base 4 MG Q6H PRN PO Tramadol HCl 50 MG Q4H PRN PRN PO Physical ExamGeneral appearance: alert, awakeHead/eyes: atraumatic, clear corneaENT: moist mucosal membranes, normal dentitionNeck: full range of motion, non-tenderCardiovascular: normal capillary refill, normal heart soundsRespiratory: aerating well, clear to auscultationAbdomen: soft, non-tenderExtremities : moves allMusculoskeletal normal inspection, painless range of motionSkin: dry, intactLymphatics: axilla normal, inguinal normal ResultsFindings/data:Laboratory Tests 03/21 03/01 2 03/22 1054 1651 0457 Chemistry Sodium (136 - 143 MMOL/L) 137 Potassium (3.5 - 5.1 MMOL/L) 3.9 3.8 Chloride (98 - 107 MMOL/L) 104 Carbon Dioxide (2 4 - 31 mmol/L) 24 BUN (7.0 - [...] (6.3 - 8.3 g/dL) 5.9 L Albumin (3. 5 - 5.0 G/DL) 3.2 L Laboratory Tests 03/21 03/21 03/22 1344 1650 0453 Hematology WBC (4.8 - 10.8 x10 3/uL) [...] (Auto) (20.5 - 51.1 %) 14.2 L Ralls % (Auto) (1.7 - 9.3 %) 7.7 Eos % (Auto) (0.0 - 7.0 %) 2.2 Baso % (Auto) (0 - 2.5 %) 0.2 Neut # (Auto) (1.80 - 7.70 x10 3/uL) 4.51 Lymph # (Auto) (1.00 - 4.80 x10 3/uL) 0.85 L Ralls # (Auto) (0.00 - 0.80 x10 3/uL) 0.46 Eos # (Auto) (0.00 - 0.45 x10 3/uL) 0.13 Baso # (Auto) (0.0 - 0.20 x10 3/uL) 0.01 Laboratory Tests 03/21/20 1344:[Embedded Image Not Available] 03/21/20 1650:[Embedded Image Not Available] 03/21/20 1651:[Embedded Image Not Available] 03/22/20 0458:[Embedded Image Not Available]Microbiology:03/21 1538 SPUTUM: Sputum Culture - RES03/21 1538 SPUTUM: Gram Stain - RES03/19 1525 BLOOD: Blood Culture - RES03/19 1505 BLOOD: Blood Culture - RES03/19 1259 NASAL: MRSA Surveillance Culture - COMP Radiology dataRecent Impressions:RADIOLOGY - XR CHEST 1 V 03/22 0345 Report Impression - Status: SIGNED Entered: 03/22/2020 0737 IMPRESSION: 1. Status post right central line removal. 2. Improved subsegmental atelectasis at the left lower lung. Stablecentral vascular congestion, diffuse interstitial prominence, and mildatelectasis/infiltrate at the right lower lung.Impression By: Fito - AMBROCIO RODAS M.D. Diagnosis, Assessment PlanFree text A P:1. POD#2 s/p RAL ileostomy closure, end colostomystablefunctioning colostomy2. POD #1 Exploratory laparotomy with evacuation of hemoperitoneumtolerating clear liquidmonitor hbcontinue abx3. Productive cough?pneumoniaimprovedlikley underlying copd related reactive airwaynebs to continue4. Morbid Obesity5. Acute Kidney Injuryimprovedmonitor7. Anemia from acute blood lossstablewill moniotor8 . Thrombocytopeniaimproving9. Hypocalcemiabetter dvt prophylaxis downgrade to surg/tele PLAN:monitor hbget mid lined/c central line at 1042 RPT #:[id number] OF REPORTPRProgress [id number]:39:00P.[id number] ranjana able for patient mobnNMVWPLQRSTUVPW6205-88-17F54:42:20 2020-03-21 15:40:00 [id number]:40:083545-4 027 [facility] [address] [place], [place] [address]GNKRIGA NAME: PRIYANKA HENDERSON ADMIT DATE: 03/18/20ACCOUNT NO: [id number] ROOM NO: P.0575 AGE: 59 REPORT TYPE: eELECTROCARDIOGRAM SEX: M ADMITTING PHYSICIAN: Henrik Mendoza MD ATTENDING PHYSICIAN: Henrik Mendoza MD Order:[id number] Reason : POSSIBLE NEW AFIB RHYTHM Test Date/Time Stamp: i Mar 21 2020 15:40:22Blood Pressure : / mmHGVent. Rate : 082 BPM Atrial Rate : 312 BPM P-R Int : 000 ms QRS Dur : 074 ms QT Int : 344 m s P-R-T Axes : -79 045 012 degrees QTc Int : 401 m s Atrial flutter with variable AV blockNonspecific T wave abnormalityAbnormal ECGWhen compared with ECG of 14-MAR-2020 13:23,Atrial flutter has replaced Sinus rhythmNonspecific T wave abnormality now evident in Lateral leadsConfirme d by RIZWANA GALLEGOS, JANE Haley ([id number]) on 03/25/2020 3:15:43 PM Referred By: Henrik Mendoza Confirmed by:JANE WAGONER MD at 7198 PATIENT NAME: PRIYANKA HENDERSON .[id number] AVAvailable for patient [id number]:16:06 2020-03-21 12:51:00 [id number]:51:00 [facility]Critical Care Progress NoteREPORT#:[id number] REPORT STATUS: SignedDATE:03/21/20 TIME: 1251 PATIENT: PRIYANKA HENDERSON UNIT #: [id number]#: [id number] ROOM: [facility] BED: 1DOB: [birth year] AGE: 59 SEX: M ATTEND: Henrik Mendoza [facility] AUTHOR: Mack Inman MD * ALL edits or amendments must be made on the electronic/computer document * SubjectiveChief complaint:having a productive coughdoing well otherwise Review of SystemsConstitutional:Reports: fatigue. Skin:Denies: abrasion, bruising, contusion, diaphoresis, ecchymosis, itching, laceration, rash, swelling, other. Allergy/Immun:Denies: allergic reaction, anaphylaxis, hives, itching, rhinorrhea, sneezing, other. Eyes:Denies: redness, discharge, visual loss/blurred, itching , diplopia, eye pain, photophobia, swelling, other . ENT:Denies: ear drainage, ear ringing, earache, hearing loss, mouth pain, nasal congestion, nose bleeding, sinus problem, sore throat, throat pain, throat swelling, tongue pain, tongue swelling, toothache, voice change, other. Respiratory:Reports: productive cough (sputum). Cardiovascular:Denies: chest pain, CH (dyspnea on exertion), edema, orthopnea, palpitations, parox nocturnal dyspnea, other. GI:Denies: abdominal pain, anorexia, constipation, diarrhea , dysphagia, GERD, hematemesis, hematochezia, hiatal hernia, melena, nausea, rectal pain, vomiting,other. Objective GeneralVS/I OLast Documented: Result Date Time Pulse Ox 100 03/21 1100 B/P 131/61 03/21 1100 B/P Mean 88 03/21 110 0 Pulse 79 03/21 1100 Resp 16 03/21 1100 O2 Delivery Nasal cannula 03/21 0747 O2 Flow Rate 2.928258 03/21 0747 Temp 36.3 03/21 0741 FiO2 2 8 03/19 1758 24 hour I O ending at 0700: 03/20 190 0 03/21 0700 Intake Total 2021.60 1825.00 Output Total 187 1475 Balance 147.60 350.00 Intake, I V 2021.60 1750.00 Intake, Oral 75 Output, Urine 1875 1475 Patient 134.9 kg Weight Weight Bed scale Measurement Method Patient Weight Weight (lb): 294Weight (oz): 8.6Weight (kg): 133.600 Medications:Active Meds + DC'd Last 24 HrsFamotidine 20 MG Q12HR PO Acetaminophen 1,000 MG Q6H PO (CKD) Cefepime HCl 1 GM Q6HR IV (CKD) Sodium Chloride 50 MLCelecoxib 200 MG Q12HR PO (DA) Acetaminophen 650 MG Q6H PRN PRN PO Famotidine 20 MG Q12HR IV (DC) Sodium Chloride 1 0 MLNorepinephrine Bitartrate 250 ML ASDIR IV Piperacillin Sod/Tazobactam Sod 3.375 GM Q8H IV (DC) Sodium Chloride 100 MLDiphenhydramine HCl 12.5 MG PACU ONCE PRN PRN IV Promethazine HCl 6.25 MG PACU ASDIR PRN PRN IV (DC) Sodium Chloride 50 MLSodium Chloride 1,000 ML .[id number] IV Losartan Potassium 50 MG DAILY PO Hydromorphone HCl 0.25 MG Q3H PRN PRN IV Enoxaparin Sodium 40 MG DAILY SUBQ (DA) Gabapentin 300 MG TID PO (CKD) Ondansetron Base 4 MG Q6H PRN PO Tramadol HCl 50 MG Q4H PRN PRN PO Nutrition assessment:The data set between the solid lines has been imported from the dietitian's assessment. Any exceptions have been noted under Provider comments. _ BMI Calculated: 43.5 Nutrition related diagnosis: Nutrition diagnosis details: Nutrition problem: Nutrition etiology: Nutrition signs and symptoms: Nutrition prescription: Dietitian name: Assessment completed: _ Provider comments on imported dietitian assessment: Physical ExamGeneral appearance: alert, awakeHead/eyes: atraumatic, clear corneaENT: moist mucosal membranes, normal dentitionNeck: full range of motion, non-tenderCardiovascular: normal capillary refill, normal heart soundsRespiratory: aerating well, clear to auscultationAbdomen: soft, non-tenderExtremities: moves allMusculoskeletal normal inspection, painless range of motionSkin: dry, intactLymphatics: axilla normal, inguinal normal ResultsFindings/data:Laboratory Tests 03/20 03/20 03/21 1824 1824 0591 Chemistry Sodiu m (136 - 143 MMOL/L) 137 139 Potassium (3.5 - 5.1 MMOL/L) 3.8 3.8 Chloride (98 - 107 MMOL/L) 107 108 H Carbon Dioxide (24 - 31 mmol/L) 22 L 24 BUN (7.0 - 21.0 MG/DL) 11.9 9.2 Creatinine (0.8 - 1.5 mg/dL) 0.9 0.8 Glomerular Filtr Rate (>60) >=60 max estimate >=60 max estimate Glucose (70 - 104 [...] - 31 pg) 30.5 MCHC (33 - 36. 5 G/DL) 32.4 L RDW (12.9 - 16.9 %) 15.0 Plt Count (150 - 440) 140 L MPV (8.9 - 12.4 fL) 10.2 Neut % (Auto) (42.2 - 75.2 %) 75.8 H Lymph % (Auto) (20.5 - 51.1 %) 13.0 L Ralls % (Auto) (1.7 - 9.3 %) 9.9 H Eos % (Auto) (0.0 - 7.0 %) 0.8 Baso % (Auto) (0 - 2.5 %) 0.2 Neut # (Auto) (1.80 - 7.7 0 x10 3/uL) 4.98 Lymph # (Auto) (1.00 - 4.80 x10 3/uL) 0.85 L Ralls # (Auto) (0.00 - 0.80 x10 3/uL ) 0.65 Eos # (Auto) (0.00 - 0.45 x10 3/uL) 0.05 Baso # (Auto) (0.0 - 0.20 x10 3/uL) 0.01 Laboratory Tests 03/20/20 1302:[Embedded Image Not Available] 03/20/20 1824:[Embedded Image Not Available] 03/21/20 0140:[Embedded Image Not Available] 03/21/20 0535:[Embedded Image Not Available]Microbiology:03/19 1525 BLOOD: Blood Culture - RES03/19 1505 BLOOD: Blood Culture - RES03/19 1259 NASAL: MRSA Surveillance Culture - COMP03/18 1450 URINE: Urine Culture - COMP ESCHERICHIA COLI Diagnosis, Assessment PlanFree text A P:1. POD#2 s/p RAL ileostomy closure, end colostomystablefunctioning colostomy2. POD #1 Exploratory laparotomy with evacuation of hemoperitoneumtolerating clear liquidmonitor hbcontinue abx3. Productive cough?pneumoniasputu m culturesis q 2start nebscxr4. Morbid Obesity5. Acute Kidney Injuryimprovedmonitor7. Anemia from acute blood lossstablewill moniotor8. Thrombocytopeniaimproving9. Hypocalcemiabetter dvt prophylaxis PLAN:monitor hbget mid lined/c central line Code status: full codePlan discusse d with: patientAdditional comments:excludes all procedure timeCritical care time: Minutes: 50 at 1256 RPT #:[id number] OF REPORTPRProgress [id number]:51:00P.[id number] l able for patient [id number]:56:47 2020-03-21 12:51:00 [id number]:51:00 [facility]Critical Care Progress NoteREPORT#:[id number] REPORT STATUS: SignedDATE:03/21/20 TIME: 1251 PATIENT: PRIYANKA HENDERSON UNIT #: [id number]#: [id number] ROOM: [facility] BED: 1DOB: [birth year] AGE: 59 SEX: M ATTEND: Henrik Mendoza [facility] AUTHOR: Mack Inman MD * ALL edits or amendments must be made on the electronic/computer document * See AddendumSubjectiveChief complaint:having a productive coughdoing well otherwise Review of SystemsConstitutional:Reports: fatigue. Skin:Denies: abrasion, bruising, contusion, diaphoresis, ecchymosis, itching, laceration, rash, swelling, other. Allergy/Immun:Denies: allergic reaction, anaphylaxis, hives, itching, rhinorrhea, sneezing, other. Eyes:Denies: redness, discharge, visual loss/blurred, itching , diplopia, eye pain, photophobia, swelling, other . ENT:Denies: ear drainage, ear ringing, earache, hearing loss, mouth pain, nasal congestion, nose bleeding, sinus problem, sore throat, throat pain, throat swelling, tongue pain, tongue swelling, toothache, voice change, other. Respiratory:Reports: productive cough (sputum). Cardiovascular:Denies: chest pain, CH (dyspnea on exertion), edema, orthopnea, palpitations, parox nocturnal dyspnea, other. GI:Denies: abdominal pain, anorexia, constipation, diarrhea , dysphagia, GERD, hematemesis, hematochezia, hiatal hernia, melena, nausea, rectal pain, vomiting,other. Objective GeneralVS/I OLast Documented: Result Date Time Pulse Ox 100 03/21 1100 B/P 131/61 03/21 1100 B/P Mean 88 03/21 110 0 Pulse 79 03/21 1100 Resp 16 03/21 1100 O2 Delivery Nasal cannula 03/21 0747 O2 Flow Rate 2.790789 03/21 0747 Temp 36.3 03/21 0741 FiO2 2 8 03/19 1758 24 hour I O ending at 0700: 03/20 190 0 03/21 0700 Intake Total 2022.60 1825.00 Output Total 1875 1475 Balance 147.60 350.00 Intake, IV 2022.60 1750.00 Intake, Oral 75 Output, Urine 1875 1475 Patient 134.9 kg Weight Weight Bed scale Measurement Method Patient Weight Weight (lb): 294Weight (oz): 8.6Weight (kg): 133.600 Medications:Active Meds + DC'd Last 24 HrsFamotidine 20 MG Q12HR PO Acetaminophen 1,000 MG Q6H PO (CKD) Cefepime HCl 1 GM Q6HR IV (CKD) Sodium Chloride 50 MLCelecoxib 200 MG Q12HR PO (DA) Acetaminophen 650 MG Q6H PRN PRN PO Famotidine 20 MG Q12HR IV (DC) Sodium Chloride 1 0 MLNorepinephrine Bitartrate 250 ML ASDIR IV Piperacillin Sod/Tazobactam Sod 3.375 GM Q8H IV (DC) Sodium Chloride 100 MLDiphenhydramine HCl 12.5 MG PACU ONCE PRN PRN IV Promethazine HCl 6.25 MG PACU ASDIR PRN PRN IV (DC) Sodium Chloride 50 MLSodium Chloride 1,000 ML .[id number] IV Losartan Potassium 50 MG DAILY PO Hydromorphone HCl 0.25 MG Q3H PRN PRN IV Enoxaparin Sodium 40 MG DAILY SUBQ (DA) Gabapentin 300 MG TID PO (CKD) Ondansetron Base 4 MG Q6H PRN PO Tramadol HCl 50 MG Q4H PRN PRN PO Nutrition assessment:The data set between the solid lines has been imported from the dietitian's assessment. Any exceptions have been noted under Provider comments. _ BMI Calculated: 43.5 Nutrition related diagnosis: Nutrition diagnosis details: Nutrition problem: Nutrition etiology: Nutrition signs and symptoms: Nutrition prescription: Dietitian name: Assessment completed: _ Provider comments on imported dietitian assessment: Physical ExamGeneral appearance: alert, awakeHead/eyes: atraumatic, clear corneaENT: moist mucosal membranes, normal dentitionNeck: full range of motion, non-tenderCardiovascular: normal capillary refill, normal heart soundsRespiratory: aerating well, clear to auscultationAbdomen: soft, non-tenderExtremities: moves allMusculoskeletal normal inspection, painless range of motionSkin: dry, intactLymphatics: axilla normal, inguinal normal ResultsFindings/data:Laboratory Tests 03/20 03/20 03/21 1824 1824 0587 Chemistry Sodiu m (136 - 143 MMOL/L) 137 139 Potassium (3.5 - 5.1 MMOL/L) 3.8 3.8 Chloride (98 - 107 MMOL/L) 107 108 H Carbon Dioxide (24 - 31 mmol/L) 22 L 24 BU N (7.0 - 21.0 MG/DL) 11.9 9.2 Creatinine (0.8 - 1.5 mg/dL) 0.9 0.8 Glomerular Filtr Rate (>60) >=60 max estimate >=60 max estimate Glucose (70 - 104 mg/dL) 124 H 108 H Lactic Acid (4.5 - 18.0 mg/dL) 10.2 Calcium (8.8 - 10.2 mg/dL) 7.1 L 8. 0 L Magnesium (1.4 - 2.6 mg/dL) 1.8 [...] (Auto) (20.5 - 51.1 %) 13.0 L Ralls % (Auto) (1.7 - 9.3 %) 9.9 H Eos % (Auto) (0.0 - 7.0 %) 0.8 Baso % (Auto) (0 - 2.5 %) 0.2 Neut # (Auto) (1.80 - 7.7 0 x10 3/uL) 4.98 Lymph # (Auto) (1.00 - 4.80 x10 3/uL) 0.85 L Ralls # (Auto) (0.00 - 0.80 x10 3/uL) 0.65 Eos # (Auto) (0.00 - 0.45 x10 3/uL) 0.05 Baso # (Auto) (0.0 - 0.20 x10 3/uL) 0.01 Laboratory Tests 03/20/20 1302:[Embedded Image Not Available] 03/20/20 1824:[Embedded Image Not Available] 03/21/20 0140:[Embedded Image Not Available] 03/21/20 0535:[Embedded Image Not Available]Microbiology:03/19 1525 BLOOD: Blood Culture - RES03/19 1505 BLOOD: Blood Culture - RES03/19 1259 NASAL: MRSA Surveillance Culture - COMP03/18 1450 URINE: Urine Culture - COMP ESCHERICHIA COLI Diagnosis, Assessment PlanFree text A P:1. POD#2 s/p RAL ileostomy closure, end colostomystablefunctioning colostomy2. POD #1 Exploratory laparotomy with evacuation of hemoperitoneumtolerating clear liquidmonitor hbcontinue abx3. Productive cough?pneumoniasputu m culturesis q 2start nebscxr4. Morbid Obesity5. Acute Kidney Injuryimprovedmonitor7. Anemia from acute blood lossstablewill moniotor8. Thrombocytopeniaimproving9. Hypocalcemiabetter dvt prophylaxis PLAN:monitor hbget mid lined/c central line Code status: full codePlan discusse d with: patientAdditional comments:excludes all procedure timeCritical care time: Minutes: 50 at 1256 Addendum 1: 03/21/20 1716 by Mack Inman MD [facility] reate controlledcoorect electrolytesconsult cardiology at 1717 RPT #:[id number] OF REPORTPRProgress [id number]:51:00P.[id number] l able for patient [id number]:17:27 2020-03-20 14:39:00 [id number]:39:455038-[address] [address]PJQPOXY NAME: PRIYANKA HENDERSON ADMIT DATE: 03/18/20ACCOUNT NO: [id number] ROOM NO: P.0206 AGE: 59 REPORT TYPE: eECHOCARDIOGRAM REPORT SEX: M ADMITTING PHYSICIAN: Henrik Mendoza MD ATTENDING PHYSICIAN: Henrik Mendoza MD *[facility]*[address] [place] [address]Hfxto Transthoracic Echocardiogram Patient: Priyanka HendersonStudy Date: 03/20/2020 BP: 108 / 53 Location: [facility]: [id number] : 1960 Age: 59 Height: 69 i n / 175.3 cmAccession#: [id number] Gender: M Weight: 270.4 lb / 122.9 kgBMI/BSA: 40 kg/m 2 / 2.35 m 2 *Ordering Physician: * Ezio Aragon *Interpreting Physician: * Jane Wagoner M.D.*Agriculture Sales Account Manager: * Chey Downing - Indications: Congestive Heart Failure. - Study data: Transthoracic echocardiogram. Procedure:Transthoracic echocardiography was performed. Images were obtainedusing a [employer] E90 cardiac ultrasound machine. Image quality waspoor. The study was technically limited due to body habitus.Complete 2D, complete spectral Doppler, and color Doppler.Location: [facility] Patient room number: 206. Rhythm: Normal sinusrhythm. - Findings Left ventricle: The cavity size is normal. Systolic function isprobably normal by visual assessment. Regional wall motionabnormalities cannot be excluded. The study is not technically PATIENT NAME: PRIYANKA HENDERSON 7 sufficient to allow evaluation of LV diastolic function.Right ventricle: Not well visualized.Left atrium: The atrium is normal in size.Right atrium: Not well visualized.Aorta: Th e aorta is poorly visualized.Aortic valve: Not wel l visualized. There is no evidence ofstenosis. There is no significant regurgitation.Mitral valve: Not well visualized. There is no significantregurgitation.Tricuspid valve: Not well visualized.Pulmonic valve: Not well visualized.Pericardium: A prominent pericardial fat pad is present. - Measurements Left ventricle Value Ref Aortic valve Value Ref CHRISSY, LAX 4.7 cm 4.2 - 5.8 Peak v, S 1.44 m/sec ----- ESD, LAX 3. 4 cm 2.5 - 4.0 Mean v, S 1 m/sec ----- ESD/bsa, LA X 1.5 cm/m 2 1.3 - 2.1 VTI, S 22.2 cm ----- FS, LA X 28 % 25 - 43 LVOT/AV, VTI ratio 0.97 ----- LVOT/AV, Vpeak ratio 0.84 ----- LVOT Value Ref Diam, S 2.31 cm --------- Mitral valve Value Ref Area 4.2 cm 2 --------- Peak E 0.13 m/sec ----- Peak jerri, S 1.22 m/sec --------- Peak A 1.17 m/sec ----- Mean jerri, S 0.88 m/sec --------- Brooke n v, D 0.73 m/sec ----- VTI, S 21.5 cm --------- Peak E/A ratio 0.93 ----- SV 90 ml --------- SV/bsa 38 ml/m 2 --------- Tricuspid valve Value Ref TR peak v 1.68 m/sec <=2.8 Ventricular septu m Value Ref Peak RV-RA grad, S 11 mm Hg ----- IVS , ED 1.4 cm 0.6 - 1.0 Max [...] atrium Value Ref AP dim ES, LAX 5. 0 cm 3.0 - 4.0 LA/Ao root ratio 1.3 --------- - Conclusions Summary: Left ventricle: The cavity size is normal. Systolicfunction is probably normal by visual assessment. Regional wallmotion abnormalities cannot be excluded. The study is nottechnically sufficient to allow evaluation of LV diastolicfunction.Impressions: 1. Study severely limited by acoustic windows. Only reasonably reliable values are shown.2. Left ventricle size appears globally normal with normal, perhaps hyperdynamic function and at least normal stroke volume.3. Diastolic evaluation is virtually impossible. However, mitral E variation exceeds 25% without evidence of pericardial disease suggesting low or low-relative left sided fillin g pressures.4. There is no overt-severe valvulopathy or pericardial tamponade. Prepared and electronically signed by Jane Wagoner M.D.03/20/2020 14:38 at 1439 PATIENT NAME: PRIYANKA HENDERSON :39: 0 0P.[id number] for patient [id number]:39:41 2020-03-20 08:28:00 [id number]:28:00 [facility]Critical Care Progress NoteREPORT#:[id number] REPORT STATUS: SignedDATE:03/20/20 TIME: 827 PATIENT: PRIYANKA HENDERSON UNIT #: [id number]#: [id number] ROOM: [facility] BED: 1DOB: [birth year] AGE: 59 SEX: M ATTEND: Henrik Mendoza [facility] AUTHOR: Ezio Aragon MD * ALL edits or amendments must be made on the electronic/computer document * SubjectiveChief complaint:Septic ShockComments:Awake and AlertUndeewent exploration yesterday and removed 2.5 litres bloodNow doing better Objective GeneralVS/I OLas t Documented: Result Date Time Pulse Ox 99 03/20 0700 B/P 115/56 03/20 0700 B/P Mean 81 03/20 070 0 Pulse 118 03/20 0700 Resp 21 03/20 0700 Temp 36.6 03/20 0400 O2 Delivery Room air 03/20 0020 O2 Flow Rate 10.864919 03/19 2301 FiO2 28 03/19 1758 24 hour I O ending at 0700: 03/19 1900 05/2 1 0700 Intake Total 5750.00 2872.60 Output Total 630 520 Balance 5120.00 2352.60 Intake, IV 4850.00 2522.60 Intake, Oral 900 Intake, 350 Packed Cells Output, 10 5 Drainage Output, Other 30 Output, Urine 590 515 Patient 132.7 kg Weigh t Weight Bed scale Measurement Method Patient Weight Weight (lb): 292Weight (oz): 8.85Weight (kg): 132.700 Medications:Active Meds + DC'd Las t 24 HrsCelecoxib 200 MG Q12HR PO (WDA) Norepinephrine Bitartrate 250 ML ASDIR IV Albumi n Human 250 ML Q1H IV (DC) Albumin Human 100 ML .STK-MED ONE IV (DC) Piperacillin Sod/Tazobactam Sod 3.375 GM Q8H IV (CKD) Sodium Chloride 100 MLSugammadex Sodium 0 .STK-MED ONE .ROUTE (DC) Sodium Chloride 250 ML .STK-MED ONE IV (DC) Sodium Chloride 0 .STK-MED ONE IV (DC) Albumin Human 0 .STK-MED ONE IV (DC) Ertapenem 1 GM ONCE ONE IV (DC) Sodium Chloride 50 MLKetamine HCl 0 .STK-MED ONE .ROUTE (DC) Vasopressin 0 .STK-MED ONE .ROUTE (DC) Atropine Sulfate 0.5 MG PACU Q5MIN PRN PRN IV (DC) Diphenhydramine HCl 12.5 M G PACU ONCE PRN PRN IV Epinephrine 0.5 ML PACU ASDIR PRN PRN NEB (DC) Fentanyl Citrate 25 MCG PACU Q5MIN PRN PRN IV (DC) Flumazenil 0.2 MG PAC U ASDIR PRN PRN IV (DC) Hydralazine HCl 10 MG PACU Q10MIN PRN PRN IV (DC) Labetalol HCl 10 MG PACU Q5MIN PRN PRN IV (DC) Lactated Ringer's 1,000 ML PACU IV FLUID IV (DC) Morphine Sulfate 4 MG PACU Q5MIN PRN PRN IV (DC) Naloxone HCl 0.04 MG PACU Q2MIN PRN PRN IV (DC) Oxycodone HCl 5 MG PACU Q4 H PRN PRN PO (DC) Promethazine HCl 6.25 MG PACU ASDIR PRN PRN IV Sodium Chloride 50 MLFentanyl Citrate 0 .STK-MED ONE .ROUTE (DC) Acetaminophen 100 ML .STK-MED ONE IV (DC) Glycopyrrolate 0 .STK-MED ONE .ROUTE (DC) Lidocaine HCl 0 .STK-ME D ONE .ROUTE (DC) Ondansetron HCl 0 .STK-MED ONE .ROUTE (DC) Rocuronium [place] 0 .STK-MED ONE .ROUTE (DC) Sevoflurane 0 .STK-MED ONE .ROUTE (DC) Midazolam HCl 0 .STK-MED ONE .ROUTE (DC) Propofol 0 .STK-MED ONE .ROUTE (DC) Sodium Chloride 1,000 ML BOLUS ONCE ONE IV (DC) Sodium Chloride 1,000 ML .Q6H40M IV Piperacillin Sod/Tazobactam Sod 3.375 GM Q6HR IV (DC) Sodium Chloride 100 MLAcetaminophen 650 MG Q6H PO (CKD) Sodium Chloride 1,000 ML BOLUS ONCE ONE IV (DC) Lactated Ringer's 1,000 ML BOLUS ONCE ONE IV (DC ) Losartan Potassium 50 MG DAILY PO Hydromorphone HCl 0.25 MG Q3H PRN PRN IV Enoxaparin Sodium 40 MG DAILY SUBQ (DA) Gabapentin 300 MG TID PO (CKD ) Potassium Chloride/Dextrose/Sod Cl 1,000 ML .Q10 H IV (DC) Acetaminophen 100 ML Q6H IV (DC) Ondansetron Base 4 MG Q6H PRN PO Tramadol HCl 50 MG Q4H PRN PRN PO Ketorolac Tromethamine 30 MG Q6H IV (CKDr) Diphenhydramine HCl 12.5 MG PACU ONCE PRN PRN IV (DC) Physical ExamGeneral appearance: alert, awakeHead/eyes: atraumatic, clear corneaENT: moist mucosal membranes, normal dentitionNeck: full range of motion, non-tenderCardiovascular: normal capillary refill, normal heart soundsRespiratory: aerating well, clear to auscultationAbdomen: soft, non-tenderExtremities: moves allMusculoskeletal normal inspection, painless range of motionSkin: dry, intactLymphatics: axilla normal, inguinal normal ResultsFindings/data:Laboratory Tests 03/19 1141 Blood Gas Puncture Site RBA ABG pH (7.35 - 7.45) 7.34 L ABG pCO2 (35.0 - 45.0 mmHg ) 35.0 ABG pO2 (80.0 - 95.0 mmHg) 151.0 H ABG HCO3 (22.0 - 24.0 mmol/L) 19.1 L ABG O2 Saturation (95.0 - 100.0 %) 97.3 ABG Base Excess ((+/ - )2. 0 mmol/L) -5.8 L Gene Test N/A Methemoglobin (0 - 1.5 %) <0.8 Total Hemoglobin (13.0 - 17.0 g/dL) 11.8 L Respiration Rate (12 - 20 /MIN) 16 Patient On Oxygen O2 ADJ O2 Delivery Device NASA L CANNULA Liter Flow (L/MIN) 5 Vent Mode NC FiO2 (%) 40 Laboratory Tests 03/19 03/19 03/19 03/19 1140 1314 1525 1525 Chemistry Sodium (136 - 143 MMOL/L) 139 Potassium (3.5 - 5.1 MMOL/L) 3.7 Chloride (98 - 107 MMOL/L) 100 Carbon Dioxide (2 4 - 31 mmol/L) 29 BUN (7.0 - 21.0 MG/DL) 9.2 Creatinine (0.8 - 1.5 mg/dL) 0.8 Glomerular Filt r Rate (>60) >=60 max estimate Glucose (70 - 104 mg/dL) 106 H Lactic Acid (4.5 - 18.0 mg/dL) 34. 6 *H 35.9 *H Calcium (8.8 - 10.2 mg/dL) 9.6 Phosphorus (2.7 - 4.5 mg/dL) 3.2 Magnesium (1.4 - 2.6 mg/dL) 1.8 Troponin I (0.00 - 0.30 ng/mL) < 0.30 03/19 03/20 03/20 03/20 03/20 1725 0045 0045 0550 0550Chemistry Sodium (136 - 143 MMOL/L ) 138 138 Potassium (3.5 - 5.1 MMOL/L) [...] Total Alk Phosphatase (45 - 120 40 DAVID/L) Total Protein (6.3 - 8.3 g/dL) 4.8 L Albumin (3. 5 - 5.0 G/DL) 2.7 L Laboratory Tests 03/19 03/20 1140 0045 Coagulation INR (0.9 - 1.11 INR UNIT) 1.16 H 1.15 H PTT ([place]) (26.0 - 35.9 SECONDS) 27.7 21.1 L PT Patient/Control Mix (10.3 - 12.9 SECONDS) 13.2 H 13.0 H Fibrinogen (200 - 400 [...] Hct (42.0 - 52.0 %) 35.6 L 26. 2 L 25.4 L 27.7 L MCV (80.0 - 94.0 fL) 97.3 H 95. 8 H 93.6 MCH (27 - 31 pg) 30.6 31.3 H 30.4 MCHC (3 3 - 36.5 G/DL) 31.5 L 32.7 L 32.5 L RDW (12.9 - 16.9 %) 13.9 14.2 14.9 Plt Count (150 - 440) 353 143 L 145 L MPV (8.9 - 12.4 fL) 10.0 10.1 9.8 Neut % (Auto) (42.2 - 75.2 %) 85.3 H 84.8 H 83.7 H Lymph % (Auto) (20.5 - 51.1 %) 7.4 L 8.0 L 8.0 L Ralls % (Auto) (1.7 - 9.3 %) 6.8 7.0 7.8 Eos % (Auto) (0.0 - 7.0 %) 0.0 0.0 0.0 Baso % (Auto) ( 0 - 2.5 %) 0.1 0.0 0.1 Neut # (Auto) (1.80 - 7.70 x10 3/uL) 12.04 H 7.69 8.17 H Lymph # (Auto) (1.00 - 4.80 x10 3/uL) 1.04 0.73 L 0.78 L Ralls # (Auto) (0.00 - 0.80 x10 3/uL) 0.96 H 0.64 0.76 Eos # (Auto) (0.00 - 0.45 x10 3/uL) 0.00 0.00 0.00 Baso # (Auto) (0.0 - 0.20 x10 3/uL) 0.01 0.00 0.01 Laboratory Tests 03/19/20 1140:[Embedded Image Not Available] 03/19/20 1314:[Embedded Image Not Available] 03/19/20 1830:[Embedded Image Not Available] 03/20/20 0045:[Embedded Image Not Available] 03/20/20 0550:[Embedded Image Not Available]Microbiology:03/19 1525 BLOOD: Blood Culture - RES03/19 1505 BLOOD: Blood Culture - RES03/19 1259 NASAL: MRSA Surveillance Culture - RECD03/18 1450 URINE: Urine Culture - RES GRAM NEGATIVE MAMTA Radiology dataRecent Impressions:RADIOLOGY - XR ABDOMEN 1V 03/19 1415 Report Impression - Status: SIGNED Entered: 03/19/2020 1452 Impression: Nonobstructed bowel gas pattern.Impression By: [email or web address] William Carver MDRADIOLOGY - XR CHEST 1 V 03/19 1415 Report Impression - Status: SIGNED Entered: 03/19/2020 1454 IMPRESSION: 1. There is mild atelectasis/infiltrate at the left lower lung. 2 . There is mild cardiomegaly.Impression By: [email or web address] Ash RODAS M.D.RADIOLOGY - XR CHEST 1 V 03/19 2350 Report Impression - Status: SIGNED Entered: 03/20/2020 0027 IMPRESSION: 1. Well-positioned right IJ central venous catheter.2. Low lung volume with perihila r and left basilar atelectasis.Impression By: [email or web address] Ash Pinto M.D. Diagnosis, Assessment PlanFree text A P:1. POD#2 s/p RAL ileostomy closure, end colostomy2. POD #1 Exploratory laparotomy with evacuation of hemoperitoneum3. Hemorrhagic4. Sinus tachycardia5. Morbid Obesity6. Acute Kidney Injury7. Anemia from acute blood loss8. Thrombocytopenia9. Hypocalcemia PLAN: 1. NeuroAwake and Alert 2. PulmonaryCXR clear but minimal atelectasis 3. CardiacSinus tachycardia from underlying sepsis and blodd lossCheck 2D echo 4. GI s/p abdominal washout yesterdayReceived 4 Unit PRBC last nightExploratory laparotomy with evacuation of hemoperitoneumCheck H H Y9Vmyjqpqrr with SurgeryStart clear liquis for nowEmpiric Abx 5. IDEmpiric Abx Blood Cultures pending 6. Renalmil d increase in Serum Cr related to shockMonitor urine output 7. AccessR IJ trialysis catheter PLAN:Continue to resucitateCheck H H X9Pjqsc normal cc time 35 mins at 1205 RPT #:[id number] OF REPORTPRProgress Kxuh1134-60-03H19:28:00P.[id number] l able for patient azbuILEZCQSPNHXQYI1623-04-77T53:05:57 2020-03-19 22:55:00 [id number]:55:[id number] [place] [address] PATIENT NAME: PRIYANKA HENDERSON ADMIT DATE: 03/18/20ACCOUNT NO: [id number] ROOM NO: P.0206 AGE: 59 REPORT TYPE: OPERATIVE REPORT SEX: M ADMITTING PHYSICIAN:Henrik Mendoza MD ATTENDING PHYSICIAN:Henrik Mendoza MD OPERATION DATE: 03/18/2020 PREOPERATIVE DIAGNOSES:1. 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 Morbid obesity. POSTOPERATIVE DIAGNOSES:1. 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 Morbid obesity. PROCEDURES:1. Laparoscopic creation of end colostomy.2. Laparoscopic ileostomy takedown with resection and primary intracorporealanastomosis.3. Reduction and closure of large hernia on the right.4. Left ureterolysis. SURGEON: Colorectal surgeon, Henrik Mendoza MD CONTRACT ASSOCIATE: Surgical first aid trainer, Dr. Valentin Evans. ANESTHESIA: General endotracheal anesthesia. SPECIMEN: Ileostomy. COMPLICATIONS: None. CONDITION: Stable. INDICATIONS AND FINDINGS: The patient has a complex history. He presented witha very low rectal cancer, received neoadjuvant chemoradiation therapy andunderwent a robotic rectal resection with coloanal anastomosis. The patientcompleted adjuvant chemotherapy, developed coloanal stenosis requiring multipledilations. The patient ultimately was not a candidate for reversal. It wasrecommended he undergo a proctectomy and permanent end colostomy. In theinterim, he had morbid obesity and the ileostomy which was there for severalmonths, developed into a very large parastomal hernia, which started to becomeincarcerated causing him significant symptoms. The patient ultimately did notwant a proctectomy, however, was willing to undergo a reversal of the ileostomywith reduction and closure of the large parastomal hernia as well a s formationof a new end colostomy with ultimate proctectomy if he became comfortable versus PATIENT NAME: PRIYANKA HENDERSON additional attempts of dilation to see if we can restore bowel continuity. The patient is morbidly obese. He had adhesions making the procedure unusuallydifficult and tedious. There was at least an additional hour and a half tocomplete this procedure, which adde d significant time and intensity to theprocedure. Dr. Valentin Evans was surgical first aid trainer. He was required toaccomplish the procedure in a saf e and minimally invasive fashion. The patient tolerated the procedure well without complications. The procedurewas also unusually difficult because there was a radiated pelvis. I n addition,because it was a coloanal procedure, only the marginal artery was keeping theentire neorectum intact. Therefore, in order to perform a colostomy, I was verycareful to not avulse the marginal artery. It was difficult to make enough of acolostomy to reach up to the large thick abdominal wall. The area on the leftside, which required mobilization in order to allow a tension-free anastomosiswas adhesed into the lef t pelvic side wall. Careful ureterolysis was required as there was significant retroperitonea l fibrosis from the radiation effect. We had to identify and preserve the left ureter in this fashion. This also added time and intensity to the procedure. He tolerated the procedure well andwithout complications. PROCEDURE IN DETAIL: Elaine mayorga was taken to the operating room and after induction ofanesthesia, placed in modified lithotomy position. He was prepped and draped in a sterile fashion. Laparoscopic access was gained with a 5-mm Optiview entry onthe left side, additional 8-mm robotic ports were placed. First , the robot wasdocked and given attention to the left lower quadrant and pelvis. Firstmobilizatio n was required in order to get much tension-free colostomy aspossible in a lateral to medial fashion. The mobilization was performed;however, it was fibrosed from the radiation and the urete r was broughtimmediately. This required careful ureterolysis to identify release of the leftureter from the retroperitoneal tissue. Next , a window was made close to themesentery to preserve the marginal artery, which was keeping the neorectumalive. Once the window was made, heather e bowel near the pelvic brim was stapledacross. In order to allow the colostomy to be formed, I had to take down someof the mesentery, again taking care to preserve the marginal artery, but alsotaking care not to devascularize the area chosen for the colostomy. Wemobilized the area till where we did not feel we could mobilize anymore withoutcompromising the vascular supplies. At this juncture, intravascular injectionof ICG was performed. Both the distal remaining neorectum and the area chosenfor colostomy were viable without any concerns. Attention was now drawn to the ileostomy. Therefore, we redocked the robotchanging the direction of the dome to allow surgery on the right side. Theefferent and afferent limbs were mobilized. A large incarcerated parastomalhernia was reduced. Next, we divided the ileostomy by cutting the bowel andusing vessel seal device taking down the mesentery. Next, we introduced therobotic stapler. We performed a double staple d intracorporeal anastomosis.Once this was achieved, the mesenteric defect was closed intracorporeally with xnvnsyy-dx-ymhof Vicryl suture. At this point, we turned our attention t o the colostomy. We undocked the robot. We made a colostomy site on the left side where the port was and brought up,but did not mature the colostomy and left it in place with clamps. We thenturned our attention to the ileostomy itself . We were able to excise the PATIENT NAME: PRIYANKA HENDERSON 7 ileostomy and sent it for permanent section. We had to have attention to thevery large hernia defect, which was deep to this area. This made the procedurealso very difficult. We used severa l PDS rganco-we-ecnql sutures to close thedefect. There was tension, but we did not want to use mesh in the background ofthe bowel surgery. Once we closed the hernia, we irrigated the area. We put asubcutaneous drain and we also did a pursestring suture. Attention now was drawn to the colostomy was matured using interrupted 3-0Vicryl sutures in a Rosanne fashion. The patient tolerated the procedure welland at this point, he was extubated and taken to recovery room in goodcondition. Dictated By: Henrik Mendoza MD WT: OP:P.CLAUDIA/JOVANI/NTSDD: 03/19/2020 22:55:44DT: 03/20/2020 00:16:37Conf#: [id number]/DID#: [id number] Authenticated and Edited by Henrik Mendoza MD On 03/20/20 10:16:47 AM at 1019 PATIENT NAME: PRIYANKA HENDERSON [id number]:16:00P.[id number] i lable for patient nzlsEVVRSWBQKNCYWO4685-68-23A63:20:05 2020-03-19 22:48:00 [id number]:48:290062-[address] [place] [address] PATIENT NAME: PRIYANKA HENDERSON ADMIT DATE: 03/18/20ACCOUNT NO: [id number] ROOM NO: P.0206 AGE: 59 REPORT TYPE: OPERATIVE REPORT SEX: M ADMITTING PHYSICIAN:Henrik Mendoza MD ATTENDING PHYSICIAN:Henrik Mendoza MD OPERATION DATE: 03/19/2020 PREOPERATIVE DIAGNOSIS: Acute abdomen . POSTOPERATIVE DIAGNOSIS: Hemoperitoneum. PROCEDURE:1. Examination under anesthesia with dilation of anorectal stenosis.2. Flexible sigmoidoscopy.3. Exploratory laparotomy with evacuation of pneumoperitoneum. SURGEON: Colorectal surgeon, Henrik Mendoza MD. CONTRACT ASSOCIATE: Surgical first aid trainer, Dr. Reggie Elliott. ANESTHESIA: General endotracheal anesthesia. COMPLICATIONS: None. CONDITION: Stable. INDICATIONS AND FINDINGS: The patient underwent colorectal surgery on03/18/2020 which was uneventful in nature, although complex difficult . Thepatient did well initially overnight and on morning rounds. Several hoursthereafter, the patient was transferred to the ICU with tachycardia andhypertension. He was resuscitated and throughout the day, his hemoglobinsteadily dropped. Upon evaluation, it was concerning that the patient had anacute abdomen versus acute blood loss anemia, in either regard requiredexploration. There was also a concern that the patient might have an ischemicrectum du e to the tedious blood supply of the neorectum and the fact that he hasa colostomy, which may have compromised the marginal vessel feeding the distalrectum. The plan was to perform examinatio n under anesthesia and evaluate the rectumwith flexible sigmoidoscopy to make sure it was not ischemic and thereafterexplored the abdomen. After induction of anesthesia, it was noted that he had a severe anorectalstenosis from long-term effect of radiation. This required dilation underanesthesia. Once this was accomplished, a flexible sigmoidoscopy was performed. The rectum was viable. No evidence of ischemia. We therefor e explored him. Upon exploration, it was noted jennifer t he had PATIENT NAME: PRIYANKA HENDERSON significant hemoperitoneum approximately 2 liters of mainly clotted blood wasevacuated. There were a couple of small areas of oozing, for which hemostasiswa s achieved. However, no obvious actively bleeding vessel. The patientimmediately responded well with normalization of blood pressure and heart rateduring the procedure after evacuation of hematoma and blood transfusions. Also,he started having good urine output. Following the surgery, he was able to beextubated and taken to the ICU. Dr. Reggie Elliott was present as a surgicalfirst assist and required to accomplish the procedure safely. PROCEDURE IN DETAIL: The patient was taken to the operating room in an emergentfashion. He was prepped and draped in a sterile fashion. Firstly, we performed dilation under anesthesia to dilate the stricture,anorectal stenosis. Then, a flexible sigmoidoscopy was performed. Normalviable mucosa was seen. Next, we turned our attention to the abdomen afterrescrubbing down into the area sterile. Laparoscopic entry was made with theoptical entry. Two additional ports were placed, one was a 5 mm and the otherwas a 12 mm, we noticed a large amount of pneumoperitoneum. W e were able toevacuate all the clots from all the quadrants with careful evaluation, we didnot see any major bleeding. Some small oozing noted near the level of thecolostomy, which we achieved hemostasis with a sealing device. We againirrigated and then evaluated all quadrants. There was 2 to 3 liters ofhemoperitoneum evacuated. The patient responded well from a cardiopulmonarystandpoint. Following this procedure, we removed the 12 mm port and closed thatsite with a transabdominal suture closure. Pneumoperitoneum was released. Theother ports were removed. Port sites were closed with 4-0 Monocryl andDermabond. He tolerated the procedur e well and was extubated and taken to theICU. Dictated By: Henrik Mendoza MD WT: OP:P.CLAUDIA/JOVANI/NTSDD: 03/19/2020 22:48:01DT: 03/20/2020 00:17:40Conf#: [id number]/DID#: [id number] Authenticated by Henrik Mendoza MD On 03/20/2020 10:16:02 AM at 1016 PATIENT NAME: PRIYANKA HENDERSON [id number]:17:00P.[id number] i lable for patient [id number]:16:34 2020-03-19 22:43:00 [id number]:43:00 [facility] ([facility])Clinical NoteREPORT#:[id number] REPORT STATUS: SignedDATE:03/19/20 TIME: 2242 PATIENT: PRIYANKA HENDERSON UNIT #: [id number]#: [id number] ROOM: [facility] BED: 1DOB: [birth year] AGE: 59 SEX: M ATTEND: Henrik Mendoza [facility] AUTHOR: Alley Person MUSIC INDUSTRY INTERN * ALL edits or amendments must be made on the electronic/computer document * Clinical NoteNote:Critical Care MUSIC INDUSTRY INTERN: Case discussed with Dr. Mendoza. Pt. currently in OR; he underwent exploratory laparatomy. Per Dr. Mendoza, pt. had hemoperitoneum without obvious source of bleeding which could be from Lovenox. Will hold Lovenox and other NSAIDs for nowper Dr. Mendoza. Check post-op labs including CMP and q4h checks of CBC, PT/PTT, fibrinogen, and D-dimer. Pt. is extubated and has a new central line and arteria l line, currently not on vasopressors. The at the waiting area. She was updated by Dr. Mendoza. I have discussed the plan of care with as well. at 2254 RPT #:[id number] OF REPORTCLClinical [id number]:43:00P.[id number] ranjana able for patient udybDLXJTMXEVDUFTK7486-77-20I50:55:12 2020-03-19 22:43:00 [id number]:43:00 [facility] ([facility])Clinical NoteREPORT#:[id number] REPORT STATUS: SignedDATE:03/19/20 TIME: 2242 PATIENT: PRIYANKA HENDERSON UNIT #: [id number]#: [id number] ROOM: [facility] BED: 1DOB: [birth year] AGE: 59 SEX: M ATTEND: Henrik Mendoza [facility] AUTHOR: Alley Person NP * ALL edits or amendments must be made on the electronic/computer document * Se e AddendumClinical NoteNote:Critical Care MUSIC INDUSTRY INTERN: Case discussed with Dr. Mendoza. Pt. currently in OR; he underwent exploratory laparatomy. Per Dr. Mendoza, pt. had hemoperitoneum without obvious source of bleeding which could be from Lovenox. Will hold Lovenox and other NSAIDs for nowper Dr Lillian Mendoza. Check post-op labs including CMP and q4h checks of CBC, PT/PTT, fibrinogen, and D-dimer. Pt. is extubated and has a new central line and arterial line, currently not on vasopressors. Th e at the waiting area. She was updated by Dr. Mendoza. I have discussed the plan of care with wibelia e as well. at 2254 Addendum 1: 03/19/20 2309 by Alley Person MUSIC INDUSTRY INTERN Discussed the case with Anesthesiologist. Pt. had 2 L of blood in his abdomen and received 2 PRBCs. He was on vasopressin for a short time, currently off. Faraz l obtain post-op lacate and CXR as well. at 2310 RPT #:[id number] OF REPORTCLClinical [id number]:43:00P.[id number] l able for patient sgwoTABFEJOTJNBADX1167-65-79D97:10:53 2020-03-19 13:28:00 [id number]:28:00 [facility] ([facility])Histor y Physical - AdultREPORT#:[id number] REPORT STATUS: SignedDATE:03/19/20 TIME: 1328 PATIENT: PRIYANKA HENDERSON UNIT #: [id number]#: [id number] ROOM: [facility] BED: 1DOB: [birth year] AGE: 59 SEX: M ATTEND: Henrik Mendoza [facility] AUTHOR: Ezio Aragon MD * ALL edits or amendments must be made on the electronic/computer document * History of Present Illness HPIChief complaint:HypotensionHPI:59 yo male wit h history of colon cancer and underwent "colon resection" and creating of ielostomy, exact operative details not known. He received neoadjuvant chemo before surgery and received XR T as well. He was brought in electively by Dr. Evans for Robotic Assisted Laproscopic ileostom y closure and creation of end colostomy yesterday but this morning, he developed hypotension and rapid response was called. He was given fluid challenge and brought to ICU, currently he is awake but feelssligghtly dizzy. He denies any history of CHF or Stroke. HistoryAdditional medical history:Colon CAHypertensionAdditional surgical history:Colon SurgeryFamily history:Denies: Anemia, Asthma, CAD < 40 yrs old , Cancer. Alcohol use: Denies EtOH useDrug use: Denies recreational drugsSmoking status for patients 13 years old or older: Never Smoker Medication/Allergy-Vaccine HxHome Medications:Cholecalciferol (Vitamin D3) (Vitami n D3) 3,000 UNITS PO DAILYLosartan (Cozaar) 50 MG PO DAILY Allergies:Coded Allergies:No Known Allergies (03/14/20) Review of SystemsConstitutional:Reports: fatigue. Denies: chills. Skin:Denies: abrasion. Allergy/Immun:Denies: allergic reaction. Eyes:Denies: redness. ENT:Denies: ear drainage. Respiratory:Denies: CH (dyspnea on exertion). Cardiovascular:Denies: chest pain. GI:Denies: abdominal pain. :Denies: dysuria. Heme:Denies: bleeding. Endocrine:Denies: cold intolerance. Neuro:Denies: bladder dysfunction. Psych:Denies: agitation. Physical ExamVS/I OVital Signs: Date Time Temp Pulse Resp B/P B/P Pulse O2 O2 Flow FiO2 Mean Ox Delivery Rate 03/19 1324 94 20 91/5 0 65 100 03/19 1320 91 15 87/51 64 100 03/19 1310 92 15 81/52 62 100 03/19 1300 91 15 78/48 58 100 05 1250 92 15 78/48 58 100 05 1240 91 15 86/52 64 100 05 1230 92 16 84/51 63 100 03/19 1220 95 18 87/53 65 100 03/19 1210 92 18 86/50 6 2 100 03/19 1208 94 16 78/50 59 100 03/19 1207 36. 5 107 20 90 03/19 1205 36.0 03/19 1204 Nasal 5.229662 cannula 03/19 1203 102 16 88/59 68 90 Nasal 5.161476 cannula 03/19 0716 36.3 88 18 110/73 85.0 94 Room air 03/19 0250 93 18 117/77 90.4 97 03/18 2331 95 117/77 90.4 96 03/18 2315 Nasal 2.764244 cannula 03/18 2231 94 125/80 94.8 96 03/18 2131 91 122/80 94.2 96 03/18 2031 93 131/80 97.2 97 03/18 2001 84 115/74 87.7 97 05/ 9 1950 89 87 03/18 1949 89 89 03/18 1945 87 89 03/18 1944 88 89 03/18 1943 87 89 03/18 1941 87 89 03/18 1940 86 89 03/18 1939 86 89 03/18 1939 87 89 03/18 1938 84 116/76 89.0 89 03/18 1931 36.8 81 116/76 89.0 92 03/18 1850 83 12 135/58 9 9 03/18 1845 84 17 135/59 98 03/18 1840 80 18 145/61 100 03/18 1835 79 19 100 03/18 1830 77 19 116/58 100 03/18 1825 75 8 145/66 100 03/18 1823 Simple 10.268682 mask 03/18 1820 79 17 132/68 10 0 03/18 1815 82 16 126/67 100 03/18 1810 36.4 78 21 139/77 100 Simple 10.995200 mask 24 hour I O ending at 0700: 03/18 1900 03/19 0700 Intake Total 100.00 1020.00 Output Total 600 Balance 100.00 420.00 Intake, IV 100.00 900.00 Intake, Oral 120 Output, 0 Drainage Output, Urine 600 Patient 123 kg Weight Weight Stated/Reported Measurement Method Patient Weight Weight (lb): 271Weight (oz): 2.7Weight (kg): 123.000 General appearance: alert, awakeHead/Eyes: atraumatic, clear corneaENT: moist mucosal membranes, normal dentitionNeck: full range of motion, non-tenderCardiovascular: normal capillary refill, regular rate rhythm, normal heart sounds , BP/pulses equal bilat.Respiratory: clear to auscultation, no distressExtremities: moves all, no edema-all extremitiesNeuro/DRIVE SHAFT AND STEERING POST REPAIRER: alert, oriented X 3Skin: dry, intactLymphatic: axilla normal, inguinal normal ResultsFindings/Data:Laboratory Tests: 03/19 03/19 0615 1140 Chemistry Sodium (136 - 143 MMOL/L) 141 Potassium (3.5 - 5.1 MMOL/L) 4.5 Chloride (98 - 107 MMOL/L) 104 Carbon Dioxide (2 4 - 31 mmol/L) 25 BUN (7.0 - 21.0 MG/DL) 14.4 Creatinine (0.8 - 1.5 mg/dL) 1.0 Glomerular Filt r Rate (>60) >=60 max estimate Glucose (70 - 104 mg/dL) 143 H Lactic Acid (4.5 - 18.0 mg/dL) 34.6 *H Calcium (8.8 - 10.2 mg/dL) 8.9 Magnesium (1.4 - 2.6 mg/dL) 2.1 Coagulation INR (0.9 - 1.11 INR UNIT) 1.16 H PTT ([place]) (26.0 - 35.9 SECONDS) 27.7 PT Patient/Control Mix (10.3 - 12.9 SECONDS ) 13.2 H Hematology WBC (4.8 - 10.8 x10 3/uL) 9.6 14.1 H RBC (4.70 - 6.10 x10 6/uL) 4.30 L 3.66 L Hgb (14.5 - 20 g/dL) 13.1 L 11.2 L Hct (42.0 - 52.0 %) 40.4 L 35.6 L MCV (80.0 - 94.0 fL) 94.0 97.3 H MCH (27 - 31 pg) 30.5 30.6 MCHC (33 - 36. 5 G/DL) 32.4 L 31.5 L RDW (12.9 - 16.9 %) 13.6 13. 9 Plt Count (150 - 440) 250 353 MPV (8.9 - 12.4 fL ) 9.8 10.0 Neut % (Auto) (42.2 - 75.2 %) 80.3 H 85.3 H Lymph % (Auto) (20.5 - 51.1 %) 11.2 L 7.4 L Ralls % (Auto) (1.7 - 9.3 %) 8.3 6.8 Eos % (Auto) (0.0 - 7.0 %) 0.0 0.0 Baso % (Auto) (0 - 2.5 %) 0.1 0.1 Neut # (Auto) (1.80 - 7.70 x10 3/uL) 7.73 H 12.04 H Lymph # (Auto) (1.00 - 4.80 x10 3/uL) 1.08 1.04 Ralls # (Auto) (0.00 - 0.80 x10 3/uL) 0.80 0.96 H Eos # (Auto) (0.00 - 0.45 x10 3/uL) 0.00 0.00 Baso # (Auto) (0.0 - 0.20 x1 0 3/uL) 0.01 0.01 05/20 1141 Blood Gas Puncture Site RBA ABG pH (7.35 - 7.45) 7.34 L ABG pCO2 (35.0 - 45.0 mmHg) 35.0 ABG pO2 (80.0 - 95.0 mmHg) 151.0 H ABG HCO3 (22.0 - 24.0 mmol/L) 19.1 L ABG O2 Saturation (95.0 - 100.0 %) 97.3 ABG Base Excess ((+/ - )2.0 mmol/L) -5.8 L Gene Laurie t N/A Methemoglobin (0 - 1.5 %) <0.8 Total Hemoglobin (13.0 - 17.0 g/dL) 11.8 L Respiration Rate (12 - 20 /MIN) 16 Patient On Oxygen O2 ADJ O2 Delivery Device NASAL CANNULA Liter Flow (L/MIN) 5 Vent Mode NC FiO2 (%) 40 Diagnosis, Assessment Plan Free Text DxA P NotesFree Text DxA P Notes:1. POD#1 s/p RAL ileostomy closure, end colostomy2. Septic Shock vs Distributive Shock3. Hypertension PLAN: Patient became hypotensive around 0715 AMReceived IV Dialudid 0.25 mg around 0639 AMReceived Gabapentin at 080 0 AM Abdominal exam is benign for now IV fluid x 3-4 litres to keep MAP > 65IV Zosyn for gram negative and anaoerboc coverage Blood Cultures x 2 and lactic acid. Await General Surgery opinionIf any abdominal complications are suspected, can check CT ABDOMEN/PELVIS but for now, conitnue with IV Abx and fluid resuscitation. at 1338 RPT #:[id number] OF REPORTHPHistory and physical idgpsmqtitq2392-69-62A46:28:00P.[id number] 2 AVAvailable for patient xhzrZUEEWBVUXWAYFJ6255-11-57I37:38:57 2020-03-19 13:28:00 [id number]:28:00 [facility] ([facility])Histor y Physical - AdultREPORT#:[id number] REPORT STATUS: SignedDATE:03/19/20 TIME: 1328 PATIENT: PRIYANKA HENDERSON UNIT #: [id number]#: [id number] ROOM: [facility] BED: 1DOB: [birth year] AGE: 59 SEX: M ATTEND: Henrik Mendoza [facility] AUTHOR: Ezio Aragon MD * ALL edits or amendments must be made on the electronic/computer document * See AddendumHistory of Present Illness HPIChief complaint:HypotensionHPI:59 yo male wit h history of colon cancer and underwent "colon resection" and creating of ielostomy, exact operative details not known. He received neoadjuvant chemo before surgery and received XR T as well. He was brought in electively by Dr. Evans for Robotic Assisted Laproscopic ileostom y closure and creation of end colostomy yesterday but this morning, he developed hypotension and rapid response was called. He was given fluid challenge and brought to ICU, currently he is awake but feelssligghtly dizzy. He denies any history of CHF or Stroke. HistoryAdditional medical history:Colon CAHypertensionAdditional surgical history:Colon SurgeryFamily history:Denies: Anemia, Asthma, CAD < 40 yrs old, Cancer. Alcohol use: Denies EtOH useDrug use: Denies recreational drugsSmoking status for patients 13 years old or older: Never Smoker Medication/Allergy-Vaccine HxHome Medications:Cholecalciferol (Vitamin D3) (Vitami n D3) 3,000 UNITS PO DAILYLosartan (Cozaar) 50 MG PO DAILY Allergies:Coded Allergies:No Known Allergies (03/14/20) Review of SystemsConstitutional:Reports: fatigue. Denies: chills. Skin:Denies: abrasion. Allergy/Immun:Denies: allergic reaction. Eyes:Denies: redness. ENT:Denies: ear drainage. Respiratory:Denies: CH (dyspnea on exertion). Cardiovascular:Denies: chest pain. GI:Denies: abdominal pain. :Denies: dysuria. Heme:Denies: bleeding. Endocrine:Denies: cold intolerance. Neuro:Denies: bladder dysfunction. Psych:Denies: agitation. Physical ExamVS/I OVital Signs: Date Time Temp Pulse Resp B/P B/P Pulse O2 O2 Flow FiO2 Mean Ox Delivery Rate 03/19 1324 94 20 91/5 0 65 100 03/19 1320 91 15 87/51 64 100 / 1310 92 15 81/52 62 100 / 1300 91 15 78/48 58 100 05/ 1250 92 15 78/48 58 100 05/20 1240 91 15 86/52 64 100 05/20 1230 92 16 84/51 63 100 /20 1220 95 18 87/53 65 100 / 1210 92 18 86/50 6 2 100 / 1208 94 16 78/50 59 100 / 1207 36. 5 107 20 90 / 1205 36.0 03/19 1204 Nasal 5.587297 cannula 03/19 1203 102 16 88/59 68 90 Nasal 5.926585 cannula 03/19 0716 36.3 88 18 110/73 85.0 94 Room air 03/19 0250 93 18 117/77 90.4 97 03/18 2331 95 117/77 90.4 96 03/18 2315 Nasal 2.933892 cannula 03/18 2231 94 125/80 94.8 96 03/18 2131 91 122/80 94.2 96 03/18 2031 93 131/80 97.2 97 03/18 2001 84 115/74 87.7 97 05/ 9 1950 89 87 03/18 1949 89 89 03/18 1945 87 89 03/18 1944 88 89 03/18 1943 87 89 03/18 1941 87 89 03/18 1940 86 89 03/18 1939 86 89 03/18 1939 87 89 03/18 1938 84 116/76 89.0 89 03/18 1931 36.8 81 116/76 89.0 92 03/18 1850 83 12 135/58 9 9 03/18 1845 84 17 135/59 98 03/18 1840 80 18 145/61 100 03/18 1835 79 19 100 03/18 1830 77 19 116/58 100 03/18 1825 75 8 145/66 100 03/18 1823 Simple 10.866707 mask 03/18 1820 79 17 132/68 10 0 03/18 1815 82 16 126/67 100 03/18 1810 36.4 78 21 139/77 100 Simple 10.817395 mask 24 hour I O ending at 0700: 03/18 1900 03/19 0700 Intake Total 100.00 1020.00 Output Total 600 Balance 100.00 420.00 Intake, IV 100.00 900.00 Intake, Oral 120 Output, 0 Drainage Output, Urine 600 Patient 123 kg Weight Weight Stated/Reported Measurement Method Patient Weight Weight (lb): 271Weight (oz): 2.7Weight (kg): 123.000 General appearance: alert, awakeHead/Eyes: atraumatic, clear corneaENT: moist mucosal membranes, normal dentitionNeck: full range of motion, non-tenderCardiovascular: normal capillary refill, regular rate rhythm, normal heart sounds , BP/pulses equal bilat.Respiratory: clear to auscultation, no distressExtremities: moves all, no edema-all extremitiesNeuro/DRIVE SHAFT AND STEERING POST REPAIRER: alert, oriented X 3Skin: dry, intactLymphatic: axilla normal, inguinal normal ResultsFindings/Data:Laboratory Tests: 03/19 03/19 0615 1140 Chemistry Sodium (136 - 143 MMOL/L) 141 Potassium (3.5 - 5.1 MMOL/L) 4.5 Chloride (98 - 107 MMOL/L) 104 Carbon Dioxide (2 4 - 31 mmol/L) 25 BUN (7.0 - 21.0 MG/DL) 14.4 Creatinine (0.8 - 1.5 mg/dL) 1.0 Glomerular Filt r Rate (>60) >=60 max estimate Glucose (70 - 104 mg/dL) 143 H Lactic Acid (4.5 - 18.0 mg/dL) 34.6 *H Calcium (8.8 - 10.2 mg/dL) 8.9 Magnesium (1.4 - 2.6 mg/dL) 2.1 Coagulation INR (0.9 - 1.11 INR UNIT) 1.16 H PTT ([place]) (26.0 - 35.9 SECONDS) 27.7 PT Patient/Control Mix (10.3 - 12.9 SECONDS ) 13.2 H Hematology WBC (4.8 - 10.8 x10 3/uL) 9.6 14.1 H RBC (4.70 - 6.10 x10 6/uL) 4.30 L 3.66 L Hgb (14.5 - 20 g/dL) 13.1 L 11.2 L Hct (42.0 - 52.0 %) 40.4 L 35.6 L MCV (80.0 - 94.0 fL) 94.0 97.3 H MCH (27 - 31 pg) 30.5 30.6 MCHC (33 - 36. 5 G/DL) 32.4 L 31.5 L RDW (12.9 - 16.9 %) 13.6 13.9 Plt Count (150 - 440) 250 353 MPV (8.9 - 12.4 fL) 9.8 10.0 Neut % (Auto) (42.2 - 75.2 %) 80.3 H 85.3 H Lymph % (Auto) (20.5 - 51.1 %) 11. 2 L 7.4 L Ralls % (Auto) (1.7 - 9.3 %) 8.3 6.8 Eos % (Auto) (0.0 - 7.0 %) 0.0 0.0 Baso % (Auto) (0 - 2.5 %) 0.1 0.1 Neut # (Auto) (1.80 - 7.70 x10 3/uL) 7.73 H 12.04 H Lymph # (Auto) (1.00 - 4.80 x10 3/uL) 1.08 1.04 Ralls # (Auto) (0.00 - 0.80 x10 3/uL) 0.80 0.96 H Eos # (Auto) (0.00 - 0.45 x10 3/uL) 0.00 0.00 Baso # (Auto) (0.0 - 0.20 x1 0 3/uL) 0.01 0.01 03/19 1141 Blood Gas Puncture Site RBA ABG pH (7.35 - 7.45) 7.34 L ABG pCO2 (35.0 - 45.0 mmHg) 35.0 ABG pO2 (80.0 - 95.0 mmHg) 151.0 H ABG HCO3 (22.0 - 24.0 mmol/L) 19.1 L ABG O2 Saturation (95.0 - 100.0 %) 97.3 ABG Base Excess ((+/ - )2.0 mmol/L) -5.8 L Gene Laurie t N/A Methemoglobin (0 - 1.5 %) <0.8 Total Hemoglobin (13.0 - 17.0 g/dL) 11.8 L Respiration Rate (12 - 20 /MIN) 16 Patient On Oxygen O2 ADJ O2 Delivery Device NASAL CANNULA Liter Flow (L/MIN) 5 Vent Mode NC FiO2 (%) 40 Diagnosis, Assessment Plan Free Text DxA P NotesFree Text DxA P Notes:1. POD#1 s/p RAL ileostomy closure, end colostomy2. Septic Shock vs Distributive Shock3. Hypertension PLAN: Patient became hypotensive around 0715 AMReceived IV Dialudid 0.25 mg around 0639 AMReceived Gabapentin at 080 0 AM Abdominal exam is benign for now IV fluid x 3-4 litres to keep MAP > 65IV Zosyn for gram negative and anaoerboc coverage Blood Cultures x 2 and lactic acid. Await General Surgery opinionIf any abdominal complications are suspected, can check CT ABDOMEN/PELVIS but for now, conitnue with IV Abx and fluid resuscitation. at 1338 Addendum 1: 03/19/20 1340 by Ezio Aragon MD Check EchoCheck Troponin I at 1341 RPT #:[id number] OF REPORTHPHistory and physical [id number] AVAvailable for patient [id number]:41:16 2020-03-14 13:23:00 [id number] [address] [place], [place] [address]PATIENT NAME: PRIYANKA HENDERSON ADMIT DATE: ACCOUNT NO : [id number] ROOM NO: AGE: 59 REPORT TYPE: eELECTROCARDIOGRAM SEX: M ADMITTING PHYSICIAN: Henrik Mendoza MD ATTENDING PHYSICIAN: Henrik Mendoza MD Order:[id number] Reason : SDS Test Date/Time Stamp:TueMar 14 2020 13:23:17Blood Pressure : / mmHGVent. Rate : 070 BPM Atrial Rate : 070 BPM P-R Int : 182 ms QRS Dur : 076 ms QT Int : 372 ms P-R-T Axes : 060 054 044 degrees QTc Int : 401 ms Poor data quality, interpretation may be adversely affectedNormal sinus rhythmNormal ECGNo previous ECGs availableConfirmed by LUIZ LARKIN MD ([id number] ) on 03/17/2020 2:54:58 PM Referred By: Henrik Mendoza Confirmed by:LUIZ LARKIN MD at 1489 PATIENT NAME: PRIYANKA HENDERSON .[id number] AVAvailable for patient [id number]
[2023-10-01 20:28] LABS: Specific Gravity 1.007 (1.005-1.030); Urine Bacteria None Seen /HPF (<20); Urine Bilirubin NEGATIVE (Negative); Urine Blood 3+ (OVER) (Negative); Urine Clarity Clear (Clear); Urine Color Colorless (Yellow); Urine Crystals Unidentified Few /HPF (None Seen); Urine Glucose NEGATIVE (Negative); Urine Protein TRACE (Negative); Urine Urobilinogen Normal (Normal)
--- NOTE | 2023-10-01 20:40 | EDPHYS ---
Physician Documentation [facility] Name: Patrice Baeza Age: 63 yrs Sex: Male : 1960 Arrival Date: 10/01/2023 Time: 19:13 Bed 10 Private MD: ED Physician Isauro Krueger HPI: 10/01 19:43 This 63 yrs old Male presents to ER via Ambulatory with complaints of Pain ms3 With Urination, Hematuria. 19:43 63-year-old male with past medical history of colorectal cancer, hypertension, bladder ms3 cancer presents to the emergency department for hematuria, dysuria, urinary frequency that began 2 hours prior to arrival. Patient denies pain. Patient states experience pain with urination. Patient denies fevers, chills, nausea, vomiting. Historical: - Allergies: 19:28 NKA; hb - PMHx: 19:28 colorectal cancer; Hypertensive disorder; Bladder Cancer; hb - PSHx: 19:28 4 rectal surgeries; Colostomy; Hernia Repair; hb - Immunization history:: Adult Immunizations unknown. - Social history:: Smoking status: Patient/guardian denies using tobacco, but has a distant history of tobacco abuse. ROS: 19:43 Constitutional: Negative for fever, and chills. Neck: Negative for injury, pain, and ms3 swelling, Cardiovascular: Negative for chest pain, and palpitations. Respiratory: Negative for shortness of breath, cough, wheezing, and pleuritic chest pain, Abdomen/GI: Negative for abdominal pain, nausea, vomiting, diarrhea, and constipation, MS/Extremity: Negative for injury and deformity, Skin: Negative for injury, rash, and discoloration, 19:43 : Positive for urinary frequency, hematuria, burning with urination, difficulty urinating, Exam: 19:43 Constitutional: This is a well developed, well nourished patient who is awake, alert, ms3 and in no acute distress. Head/Face: Normocephalic, atraumatic. Neck: Trachea midline, no cervical lymphadenopathy. Supple, full range of motion without nuchal rigidity, or vertebral point tenderness. No Meningismus. Chest/axilla: Normal chest wall appearance and motion. Nontender with no deformity. Cardiovascular: Regular rate and rhythm with a normal S1 and S2. No gallops, murmurs, or rubs. Normal PMI, no JVD. No pulse deficits. Respiratory: Lungs have equal breath sounds bilaterally, clear to auscultation and percussion. No rales, rhonchi or wheezes noted. No increased work of breathing, no retractions or nasal flaring. Abdomen/GI: Soft, non-tender, with normal bowel sounds. No distension or tympany. No guarding or rebound. No evidence of tenderness throughout. Skin: Warm, dry with normal turgor. Normal color with no rashes, no lesions, and no evidence of cellulitis. MS/ Extremity: Pulses equal, no cyanosis. Neurovascular intact. Full, normal range of motion. Vital Signs: 19:25 Pulse 88; Resp 18 S; Temp 97.3; Pulse Ox 100% on R/A; Weight 116.12 kg (R); Height 5 hb ft. 9 in. (R); Pain 9/10; 19:29 BP 147 / 78; hb 20:57 BP 121 / 72; Pulse 84; Resp 19; Pulse Ox 95% on R/A; me1 19:25 Body Mass Index 37.80 (116.12 kg, 175.26 cm) hb 19:25 Pain Scale: Adult hb MDM: 19:43 Patient medically screened. ms3 19:43 Differential diagnosis: UTI, Bladder CA. ms3 20:40 Data reviewed: vital signs, nurses notes, lab test result(s), and as a result, I will ms3 discharge patient. I considered the following discharge prescriptions or medication management in the emergency department Medications were administered in the Emergency Department. See MAR. Historians other than the Patient: Family Member: Daughters. Care significantly affected by the following chronic conditions: Hypertension, Cancer. Counseling: I had a detailed discussion with the patient and/or guardian regarding the historical points, exam findings, and any diagnostic results supporting the discharge/admit diagnosis, lab results, the need for outpatient follow up, to return to the emergency department if symptoms worsen or persist or if there are any questions or concerns that arise at home. Special discussion: I discussed with the patient/guardian in detail that at this point there is no indication for admission to the hospital. It is understood, however, that if the symptoms persist or worsen the patient needs to return immediately for re-evaluation. ED course: Discussed urinalysis results with patient and his daughters. Will start patient on Macrobid 100 mg twice daily as patient with urinary frequency, hematuria, urgency, dysuria. Patient to follow-up with his urologist in 2 to 3 days. Patient understands and agrees with plan. All questions were answered. Return precautions discussed include worsening symptoms, or any other concerns. 10/01 19:21 Order name: Urinalysis w/ reflexes; Complete Time: 20:29 ms3 Administered Medications: 20:45 Drug: Macrobid PO 100 mg PO once; administer with food Route: PO; me1 20:59 Follow up: Response: No adverse reaction me1 20:45 Drug: Phenazopyridine PO 200 mg PO once Route: PO; me1 20:58 Follow up: Response: No adverse reaction me1 Disposition Summary: 10/01/23 20:39 Discharge Ordered Notes: Location: Home ms3 Condition: Stable ms3 Diagnosis - Gross hematuria ms3 Followup: ms3 - With: Private Physician - When: 2 - 3 days - Reason: Recheck today's complaints Discharge Instructions: - Discharge Summary Sheet ms3 - Hematuria, Adult ms3 Forms: - Medication Reconciliation Form ms3 - Thank You Letter ms3 - Antibiotic Education ms3 - Prescription Opioid Use ms3 - Patient Portal Instructions ms3 - Leadership Thank You Letter ms3 Prescriptions: - Macrobid 100 mg Oral Capsule - take 1 capsule ORAL route every 12 hours for 10 days; 20 capsule; Refills: 0, ms3 Product Selection Permitted Signatures: Dispatcher [employer] Simran Ying RN RN Isauro Power DO DO ms3 Charlotte Peña RN RN me1 Corrections: (The following items were deleted from the chart) 19:28 Home Meds: diclofenac sodium 25 mg Oral TbEC 1 tab 3 times per day; hb hb
--- NOTE | 2023-10-01 20:40 | ER ---
Nurse's Notes [facility] Name: Patrice Baeza Age: 63 yrs Sex: Male : 1960 Arrival Date: 10/01/2023 Time: 19:13 Bed 10 Private MD: Diagnosis: Gross hematuria Presentation: 10/01 19:25 Chief complaint: Patient states: Burning with urination and blood in urine onset today. hb Pt states, "my urine is very foamy." Pt denies any fever. Pt states that he has passed blood clots. Coronavirus screen: Vaccine status: Patient reports receiving the 2nd dose of the covid vaccine. Client denies travel out of the [place] in the last 14 days. Ebola Screen: Patient denies travel to an Ebola-affected area in the 21 days before illness onset. No symptoms or risks identified at this time. Initial Sepsis Screen: Does the patient meet any 2 criteria? No. Patient's initial sepsis screen is negative. Does the patient have a suspected source of infection? No. Patient's initial sepsis screen is negative. Risk Assessment: Do you want to hurt yourself or someone else? Patient reports no desire to harm self or others. Onset of symptoms was October 01, 2023. 19:25 Method Of Arrival: Ambulatory hb 19:25 Acuity: MERY 3 hb Historical: - Allergies: 19:28 NKA; hb - PMHx: 19:28 colorectal cancer; Hypertensive disorder; Bladder Cancer; hb - PSHx: 19:28 4 rectal surgeries; Colostomy; Hernia Repair; hb - Immunization history:: Adult Immunizations unknown. - Social history:: Smoking status: Patient/guardian denies using tobacco, but has a distant history of tobacco abuse. Screenin:55 [facility] ED Fall Risk Assessment (Adult) History of falling in the last 3 months, me1 including since admission No falls in past 3 months (0 pts) Confusion or Disorientation No (0 pts) Intoxicated or Sedated No (0 pts) Impaired Gait No (0 pts) Mobility Assist Device Used No (0 pt) Altered Elimination No (0 pt) Score/Fall Risk Level 0 - 2 = Low Risk Maintained a safe environment, Provided non-skid footwear, Hourly rounding (assess needs \\T\\ fall precautionary measures) done. Abuse screen: Denies threats or abuse. Nutritional screening: No deficits noted. Tuberculosis screening: No symptoms or risk factors identified. Assessment: 19:55 General: Appears uncomfortable, well groomed, well developed, well nourished, Behavior me1 is calm, cooperative, appropriate for age, Reports Burning with urination and blood in urine onset today. Pt states, "my urine is very foamy." Pt denies any fever. Pt states that he has passed blood clots. Pain: Denies pain. Neuro: Level of Consciousness is awake, alert, obeys commands, Oriented to person, place, time, situation, Appropriate for age. Cardiovascular: Capillary refill < 3 seconds Patient's skin is warm and dry. Respiratory: Airway is patent Respiratory effort is even, unlabored, Respiratory pattern is regular, symmetrical. : Reports burning with urination, some blood clots noted in urine captain room service. Vital Signs: 19:25 Pulse 88; Resp 18 S; Temp 97.3; Pulse Ox 100% on R/A; Weight 116.12 kg (R); Height 5 hb ft. 9 in. (R); Pain 9/10; 19:29 BP 147 / 78; hb 20:57 BP 121 / 72; Pulse 84; Resp 19; Pulse Ox 95% on R/A; me1 19:25 Body Mass Index 37.80 (116.12 kg, 175.26 cm) hb 19:25 Pain Scale: Adult hb ED Course: 19:16 Patient arrived in ED. [email or web address] 19:19 Isauro Krueger DO is Attending Physician. ms3 19:28 Triage completed. hb 19:29 Arm band placed on Patient placed in an exam room, on a stretcher. hb 19:35 Charlotte Peña, RN is Primary Nurse. me1 19:35 Urinalysis w/ reflexes Sent. me1 19:55 Patient has correct armband on for positive identification. Bed in low position. Call me1 light in reach. Side rails up X 1. Provided Education on: POC. Verbalized understanding. . 19:55 No provider procedures requiring assistance completed. Patient did not have IV access me1 during this emergency room visit. Administered Medications: 20:45 Drug: Macrobid PO 100 mg PO once; administer with food Route: PO; me1 20:59 Follow up: Response: No adverse reaction me1 20:45 Drug: Phenazopyridine PO 200 mg PO once Route: PO; me1 20:58 Follow up: Response: No adverse reaction me1 Medication: 19:55 VIS not applicable for this client. me1 Outcome: 20:39 Discharge ordered by . ms3 20:58 Discharged to home ambulatory, with family, me1 20:58 Condition: stable 20:58 Discharge instructions given to patient, family, Instructed on discharge instructions, follow up and referral plans. medication usage, Demonstrated understanding of instructions, follow-up care, medications, Prescriptions given X 1, 20:58 Patient left the ED. me1 Signatures: Simran Cai, RN RN Isauro Krueger DO DO ms3 Lalita Christine [email or web address] Charlotte Peña, RN RN me1 Corrections: (The following items were deleted from the chart) 19:29 19:28 Home Meds: diclofenac sodium 25 mg Oral TbEC 1 tab 3 times per day; hb hb 19:55 19:25 Chief complaint: Patient states: Burning with urination and blood in urine onset me1 today. Pt states, "my urine is very foamy." Pt denies any fever. Pt states that he has passed blood clots. hb
[2023-10-01] MEDS ORDERED: NITROFURAN MACRO 100 MG CAP PO ONE (21:01)
[2023-10-01] MEDS ORDERED: PHENAZOPYRIDINE 100MG TAB PO ONE (21:01)
[2023-10-01 21:08] VITALS: TEMP 97.3
[2023-10-01 21:12] VITALS: BP 121/72; O2SAT 95
== END 2023-10-01 20:58 | disposition home or self-care (01) ==
LOC: ER 19:13
DX: R31.0 Gross hematuria (principal); R30.0 Dysuria; Z85.038 Personal history of other malignant neoplasm of large intestine; Z85.048 Personal history of other malignant neoplasm of rectum, rectosigmoid junction, and anus; Z85.51 Personal history of malignant neoplasm of bladder
CPT/HCPCS: 81001; 99283